=== PATIENT | male | born 1975 | race Two or more races ===

== ENCOUNTER 2016-12-26 15:43 | Emergency (ER) | payer MEDICARE ==
[~2016-12-26] VITALS: Ht 172.7 cm; Wt 82.6 kg
[2016-12-26 19:01] VITALS: BP 142/91
[2016-12-26] MEDS ORDERED: SODIUM CHLORIDE 0.9% 1,000 ML IV ONE (19:45)
[2016-12-26] MEDS ORDERED: InsuLIN REG 1unit/0.01ml Soln (100units/ml) ONE (19:49)
[2016-12-26] MEDS ORDERED: InsuLIN REG 1unit/0.01ml Soln (100units/ml) IV ONE (20:15)
[2016-12-26 20:31] LABS: Basophils # (auto) 0 uL; Basophils % (auto) 0.5 % (0.0-2.0); Eosinophils # (auto) 0.1 uL; Eosinophils % (auto) 1.3 % (0.0-7.0); Hematocrit 34.5 % (41.0-53.0); Hemoglobin 11.7 g/dL (13.5-17.5); Lymphocytes # (auto) 2.9 uL; Lymphocytes % (auto) 41.4 % (10.0-50.0); Mean Corpuscular Hemoglobin 31.1 pg (28.0-32.0); Mean Corpuscular Volume 91.4 fL (80.0-100.0); Mean Platelet Volume 9.9 fL (7.4-10.4); Monocytes # (auto) 0.2 uL; Monocytes % (auto) 2.2 % (0.0-12.0); Neutrophils # (auto) 3.8 uL; Neutrophils % (auto) 54.6 % (37.0-80.0); Platelet Count (auto) 214 10^3/uL (140-450); Red Cell Distribution Width 13.8 % (11.6-16.0)
[2016-12-26 20:43] LABS: Albumin 2.9 g/dL (3.4-5.0); BUN/Creatinine Ratio 19.4; Bilirubin, Total 0.2 mg/dL (0.2-1.0); Calcium 7.8 mg/dL (8.5-10.1); Potassium 3.8 mmol/L (3.5-5.1); Total Protein 6.1 g/dL (6.4-8.2)
[2016-12-26] MEDS ORDERED: BACITRACIN-POLYMYXIN B TOPICAL OINT UD TOP ONE ×3 (21:03→22:00)
[2016-12-26 23:29] LABS: Hepatitis B Surface Antibody Negative
== END 2016-12-26 22:12 | disposition home or self-care (01) ==
LOC: ER 15:43
DX: S70.351A Superficial foreign body, right thigh, initial encounter (principal); E11.9 Type 2 diabetes mellitus without complications; F17.210 Nicotine dependence, cigarettes, uncomplicated; F12.10 Cannabis abuse, uncomplicated; W34.010A Accidental discharge of airgun, initial encounter; Y93.89 Activity, other specified; Y99.8 Other external cause status; Y92.89 Other specified places as the place of occurrence of the external cause
CPT/HCPCS: 36415; 73552; 80053; 82962; 85025; 86703; 86706; 86803; 87340; 96361; 96374; 99285; J1815

== ENCOUNTER 2019-11-26 09:20 | Emergency (ER) | payer SELFPAY ==
[~2019-11-26] VITALS: Ht 172.7 cm; Wt 77.1 kg
[~2019-11-26 09:20] MED LIST: BACL10TA PO; GABA-339 PO; INSUINJ49 SC; METH10T PO; PERCOT PO
[2019-11-26 10:50] VITALS: BP 158/82
== END 2019-11-26 10:52 | disposition home or self-care (01) ==
LOC: ER 09:20
DX: S43.101A Unspecified dislocation of right acromioclavicular joint, initial encounter (principal); E11.9 Type 2 diabetes mellitus without complications; I10 Essential (primary) hypertension; K21.9 Gastro-esophageal reflux disease without esophagitis; M19.90 Unspecified osteoarthritis, unspecified site; F17.210 Nicotine dependence, cigarettes, uncomplicated; F12.10 Cannabis abuse, uncomplicated; W19.XXXA Unspecified fall, initial encounter; Y93.89 Activity, other specified; Y99.8 Other external cause status; Y92.89 Other specified places as the place of occurrence of the external cause
CPT/HCPCS: 73030

== ENCOUNTER 2020-01-07 22:48 | Inpatient (IN) | payer MEDICAID, MEDICARE ==
[~2020-01-07] VITALS: Ht 172.7 cm; Wt 84.0 kg
[2020-01-07] MEDS ORDERED: cloNIDine HCL 0.1 MG TAB PO ONE (23:30)
[2020-01-07 23:52] LABS: Basophils # (auto) 0.1 10 ^3/uL (0-0.2); Basophils % (auto) 0.9 % (0.0-2.0); Eosinophils # (auto) 0.3 10 ^3/uL (0-0.8); Hematocrit 26.6 % (41.0-53.0); Hemoglobin 8.8 g/dL (13.5-17.5); Lymphocytes # (auto) 2.1 10 ^3/uL (0.4-5.4); Lymphocytes % (auto) 21.2 % (10.0-50.0); Mean Corpuscular Hemoglobin 30.3 pg (28.0-32.0); Mean Corpuscular Hgb Conc. 33.2 g/dL (32.0-36.0); Mean Corpuscular Volume 91.5 fL (80.0-100.0); Monocytes # (auto) 0.7 10 ^3/uL (0-1.3); Monocytes % (auto) 7.1 % (0.0-12.0); Neutrophils # (auto) 6.6 10 ^3/uL (1.6-8.6); Neutrophils % (auto) 67.8 % (37.0-80.0); Platelet Count (auto) 274 10^3/uL (140-450); Red Blood Cells 2.91 10^6/uL (4.5-5.90); Red Cell Distribution Width 15.3 % (11.8-14.3); White Blood Cell 9.7 10^3/uL (4.4-10.8)
[2020-01-08] VITALS (7 sets, daily range): BP systolic 142–165; BP diastolic 78–108
[2020-01-08 00:08] LABS: INR 0.93 (0.9-1.15); Partial Thromboplastin Time 29.3 sec (23.64-32.05)
[2020-01-08 00:11] LABS: BUN/Creatinine Ratio 16.8; Calcium 6.8 mg/dL (8.5-10.1); Magnesium 1.9 mg/dL (1.6-2.6); Potassium 4.3 mmol/L (3.5-5.1)
[2020-01-08 00:16] LABS: Bilirubin, Total 0.2 mg/dL (0.2-1.0); Total Protein 6.2 g/dL (6.4-8.2)
[2020-01-08] MEDS ORDERED: FUROSEMIDE 20 MG/2 ML VIAL IV ONE (01:00)
[2020-01-08] MEDS ORDERED: ACETAMINOPHEN 325 MG TAB PO PRN (01:30)
[2020-01-08] MEDS ORDERED: DEXTROSE (50%) 50ML SYRG IV PRN ×2 (01:30→20:00)
[2020-01-08] MEDS ORDERED: ONDANSETRON HCL 4 MG/2 ML VIAL IV PRN (01:30)
[2020-01-08] MEDS ORDERED: DOCUSATE SOD 100 MG CAP PO PRN (01:30)
[2020-01-08] MEDS ORDERED: hydrALAZINE HCL 25 MG TAB PO PRN (01:30)
[2020-01-08] MEDS ORDERED: MORPHINE SULFATE 4 MG/ML SYR/VIAL IV PRN (01:30)
[2020-01-08] MEDS ORDERED: HYDR-531 PO (04:03)
[2020-01-08] MEDS ORDERED: INSLANTI SC (04:03)
[2020-01-08] MEDS: InsuLIN REG 1unit/0.01ml Soln (100units/ml) SC SCH ×5 (04:20→21:36)
[2020-01-08] MEDS: ACCU-CHEK COMFORT CURVE STRIP VI SCH ×5 (04:20→21:36)
[2020-01-08 05:26] LABS: Urine Bacteria NONE SEEN /hpf (None Seen); Urine Blood Negative /uL (Negative); Urine Hyaline Cast FEW /lpf (0 - 2); Urine Mucus FEW (None Seen); Urine Specific Gravity 1.005 (1.001-1.035); Urine WBC <1 /hpf (0 - 3)
[2020-01-08 05:43] LABS: Alcohol, Urine < 3.0 mg/dL (0-5); Amphetamine Screen, Urine NEGATIVE (NEGATIVE); Barbiturate Scree,Urine NEGATIVE (NEGATIVE); Benzodiazephine Screen, Urine NEGATIVE (NEGATIVE); Cannabinoid Screen, Urine POSITIVE (NEGATIVE); Cocaine Screen, Urine NEGATIVE (NEGATIVE); Opiate Scree,Urine NEGATIVE (NEGATIVE); Phencyclidine Screen, Urine NEGATIVE (NEGATIVE)
[2020-01-08] MEDS: GABAPENTIN 300 MG CAP PO SCH ×2 (05:50→15:14)
[2020-01-08] MEDS: OXYCODONE W/ ACETAMINOPHEN 5/325MG TABLET PO SCH ×3 (05:51→21:36)
[2020-01-08 06:01] LABS: Basophils # (auto) 0.1 10 ^3/uL (0-0.2); Basophils % (auto) 1.4 % (0.0-2.0); Eosinophils # (auto) 0.3 10 ^3/uL (0-0.8); Eosinophils % (auto) 3.1 % (0.0-7.0); Hematocrit 27.4 % (41.0-53.0); Hemoglobin 9.3 g/dL (13.5-17.5); Lymphocytes # (auto) 2.2 10 ^3/uL (0.4-5.4); Lymphocytes % (auto) 24.5 % (10.0-50.0); Mean Corpuscular Volume 91.2 fL (80.0-100.0); Monocytes # (auto) 0.5 10 ^3/uL (0-1.3); Monocytes % (auto) 5.9 % (0.0-12.0); Neutrophils # (auto) 5.8 10 ^3/uL (1.6-8.6); Neutrophils % (auto) 65.1 % (37.0-80.0); Platelet Count (auto) 287 10^3/uL (140-450); Red Cell Distribution Width 15.5 % (11.8-14.3); White Blood Cell 8.9 10^3/uL (4.4-10.8)
[2020-01-08 06:20] LABS: Potassium 3.8 mmol/L (3.5-5.1)
[2020-01-08 06:32] LABS: BUN/Creatinine Ratio 17.7; Calcium 6.8 mg/dL (8.5-10.1)
--- NOTE | 2020-01-08 08:00 | NUR ---
ASSUMED CARE OF PATIENT FULLY INDEPENDENT OF ADL'S. FSBS 99 70/30 GIVEN S SCHEDULED. TAKES IN 100% BREAKFAST. ECHO COMPLETED. SCHEDULED B/P MEDS GIVEN EARLY FOR B/P OUT OF RANGE.
[2020-01-08] MEDS: INSULIN 70/30 1unit/0.01ml Susp (100units/ml) SC SCH ×2 (08:14→12:00)
[2020-01-08] MEDS ORDERED: cloNIDine HCL 0.1 MG TAB PO SCH (10:00)
[2020-01-08] MEDS ORDERED: FUROSEMIDE 40 MG/4 ML VIAL IV SCH (10:00)
[2020-01-08] MEDS ORDERED: LOSARTAN POTASSIUM 50 MG TAB PO SCH (10:00)
[2020-01-08 11:06] LABS: Protein, Urine 134.4 mg/dL (0.0-11.9)
[2020-01-08 11:13] LABS: Creatinine, Urine 10.1 mg/dL (30.0-125.0)
[2020-01-08] MEDS ORDERED: FUROSEMIDE INJECTION 10 ML ONE (12:21)
[2020-01-08] MEDS ORDERED: FUROSEMIDE 100 MG/10ML VIAL IV ONE (12:30)
--- NOTE | 2020-01-08 13:57 | NUR ---
Received Social Work referral to see pt as he has a chronic illness. The illness makes it difficult for pt to move around, stand and walk. Pt states his , son and daughter assist when possible. Pt states that he was on SSI and then he was denied and at that point he has no income. Pt was told he could go back to work. Pt states there is no way he can work in the condition he is in. Pt states he will apply again. Pt does have Medei-C Addendum: 01/08/20 at 1406 by MIRYAM RO [facility]. Pt was provided with information on Advance Directives and Durable power of senior attorney Form. Pt verbalized understanding and accepted the information. Will contact Ppap Coordinator for any further concerns or issues. Addendum: 01/08/20 at 1411 by MIRYAM RO SS Amended: Links added.
[2020-01-08] MEDS ORDERED: BACL10TA PO (15:04)
[2020-01-08] MEDS ORDERED: INSU100I49 SC (15:04)
[2020-01-08] MEDS ORDERED: MORPHINE SULF INJ 2 MG/ML SYRINGE 1ML IV PRN ×2 (15:15→20:00)
[2020-01-08] MEDS: ATORVASTATIN 20 MG TAB PO SCH (18:00)
--- NOTE | 2020-01-08 19:20 | NUR ---
Opening Shift Note Assumed care of patient, awake and alert. No S/S of distress/SOB. Instructed on POC and to call for assist PRN. Bed in lowest locked position, call light within reach, side rails up x2. Will continue to monitor for changes Q1hr and PRN.
[2020-01-08] MEDS: hydrALAZINE HCL 25 MG TAB PO SCH (21:35)
[2020-01-08] MEDS: METOPROLOL TARTRATE 25 MG TAB PO SCH (21:35)
[2020-01-08] MEDS: INSULIN LANTUS (GLARGINE) 1 /0.01ml (100units/ml) SC SCH (21:42)
[2020-01-08] MEDS: hydrALAZINE HCL 20 MG/ML VL IV PRN (23:00)
--- NOTE | 2020-01-09 | NUR ---
Hospitalist paged director call center sales hospitalist called regarding patient requesting a sleeping pill. Waiting for call back. Continue care.
[2020-01-09] MEDS ORDERED: TEMAZEPAM 15 MG CAP PO PRN (00:30)
[2020-01-09] MEDS: hydrALAZINE HCL 20 MG/ML VL IV PRN ×2 (04:59→16:30)
[2020-01-09 05:00] VITALS: BP 168/79
[2020-01-09] MEDS ORDERED: FUROSEMIDE 100 MG/10ML VIAL IV SCH ×2 (06:00→10:00)
[2020-01-09 06:16] LABS: Hematocrit 28.4 % (41.0-53.0); Hemoglobin 9.3 g/dL (13.5-17.5)
[2020-01-09 06:40] LABS: BUN/Creatinine Ratio 17.4; Calcium 7.2 mg/dL (8.5-10.1); Magnesium 2.2 mg/dL (1.6-2.6); Potassium 3.8 mmol/L (3.5-5.1)
[2020-01-09] MEDS: ACCU-CHEK COMFORT CURVE STRIP VI SCH ×4 (06:49→21:40)
[2020-01-09] MEDS: OXYCODONE W/ ACETAMINOPHEN 5/325MG TABLET PO SCH ×2 (06:49→14:00)
[2020-01-09] MEDS: InsuLIN REG 1unit/0.01ml Soln (100units/ml) SC SCH ×4 (06:50→21:41)
--- NOTE | 2020-01-09 08:04 | NUR ---
MADE NPO PER US REQUEST FOR STUDY.
[2020-01-09 08:39] LABS: % Iron Saturation 12.7 % (20-55)
[2020-01-09 09:10] VITALS: BP 149/78
[2020-01-09] MEDS ORDERED: PANTOPRAZOLE 40 MG TAB PO SCH (10:00)
[2020-01-09] MEDS ORDERED: ENOXAPARIN SOD 30 MG/0.3 ML SYRINGE SC SCH (10:00)
[2020-01-09] MEDS: METOPROLOL TARTRATE 25 MG TAB PO SCH (11:00)
[2020-01-09] MEDS: hydrALAZINE HCL 25 MG TAB PO SCH ×2 (11:00→21:39)
--- NOTE | 2020-01-09 11:00 | NUR ---
PT PRESENTS TO [facility] STATION TIMES 2 REQUESTING TO EAT. EMOTIONALLY IMMATURE RESPONSES TO NPO STATUS. DISPLAYS POOR IMPULSE CONTROL. RESPONDED BY SITTING IN A CHAIR AT BEDSIDE AND ASKED FOR HIM TO EXPRESS HIS CONCERNS. TEACHING RE EF%, HEART FUNCTION, PURPOSE OF NEW MEDICATIONS, IMPORTANCE OF CONTROLLING BLOOD SUGARS AND B/P. HOSPITALIST ROUNDS ALSO TEACHES IMPORTANCE OF F/U CARE AND EXPLAINS POOR KIDNEY FUNCTION. PT REPORTS HE IS FEELING MUCH BETTER AND WISHES TO DC HOME TOMORROW.
--- NOTE | 2020-01-09 13:20 | NUR ---
US STUDY COMPLETED. EATS LUNCH. INSULIN COVERAGE DELAYED HE WAS OFF THE FLOOR WITH RADIOLOGY.
[2020-01-09] MEDS: CALCIUM ACETATE 667 MG CAP PO SCH ×2 (13:28→18:10)
[2020-01-09 16:28] VITALS: BP 177/88
[2020-01-09] MEDS ORDERED: HYDR-4833 PO (16:38)
[2020-01-09] MEDS ORDERED: METH10T PO ×2 (16:52→17:20)
--- NOTE | 2020-01-09 17:03 | NUR ---
B/P 177/88 COVERED WITH PRN APRESSOLINE IV. PRESENTS TO [facility] [place] STATION OFTEN FOR VARIETY OF REASONS. QUESTIONS IF HE HAS BEEN GETTING METHONE. WHEN HE REALIZES HE HAS NOT BEEN RECIEVING IT HE IS UPSET AND REQUESTS TO BE DC HOME NOW WITH PRESCRIPTIONS. DR. WHITE CONTACTED. SHE WILL NOT WRITE PRESCRIPTIONS TONIGHT. STATES IF HOME MEDS CONFIRMED WITH DISPENSING PHARMACY SHE WILL ALLOW THEM TO BE CONTINUED DURING IN PATIENT. PT GIVES PHARMACY INFO. JOSUE AT [phone] CONTACTED. SPOKE WITH MIRYAM. SHE CONFIRMS PRESCRIPTION FILLED FOR BOTH METHADONE AND NORCO LISTED ON HOME MED LIST. PT AGREES TO STAY.
[2020-01-09] MEDS ORDERED: HYDR-531 PO (17:20)
[2020-01-09] MEDS: HYDROcodone-ACET 10/325MG TAB PO SCH (18:00)
[2020-01-09] MEDS: METHADONE HCL 10 MG TAB PO SCH (18:00)
[2020-01-09] MEDS: ATORVASTATIN 20 MG TAB PO SCH (18:09)
[2020-01-09] MEDS: INSULIN LANTUS (GLARGINE) 1 /0.01ml (100units/ml) SC SCH (21:40)
[2020-01-09] MEDS ORDERED: METOPROLOL TARTRATE 25 MG TAB PO SCH (22:00)
[2020-01-09 22:24] VITALS: BP 164/89
[2020-01-10] MEDS: HYDROcodone-ACET 10/325MG TAB PO SCH ×3 (00:08→11:19)
[2020-01-10 04:50] VITALS: BP 151/88
[2020-01-10 06:29] LABS: Potassium 3.8 mmol/L (3.5-5.1)
[2020-01-10 06:34] LABS: BUN/Creatinine Ratio 15.3; Calcium 7.4 mg/dL (8.5-10.1)
[2020-01-10] MEDS: ACCU-CHEK COMFORT CURVE STRIP VI SCH ×2 (06:44→11:18)
[2020-01-10] MEDS: METHADONE HCL 10 MG TAB PO SCH ×2 (06:44→14:00)
[2020-01-10] MEDS: InsuLIN REG 1unit/0.01ml Soln (100units/ml) SC SCH ×2 (06:44→11:42)
[2020-01-10] MEDS: CALCIUM ACETATE 667 MG CAP PO SCH ×2 (08:00→11:18)
[2020-01-10 09:00] VITALS: BP 134/73
[2020-01-10] MEDS: hydrALAZINE HCL 25 MG TAB PO SCH (09:29)
[2020-01-10] MEDS ORDERED: METOPROLOL TARTRATE 50 MG TAB PO SCH (10:00)
--- NOTE | 2020-01-10 10:15 | NUR ---
MD GRANDA AT BED SIDE DISCUSSING POC WITH PATIENT.PATIENT VERBALIZES UNDERSTANDING.
[2020-01-10] MEDS ORDERED: FURO1TAB31 PO (11:02)
[2020-01-10] MEDS ORDERED: CALC667C5 PO (11:02)
[2020-01-10] MEDS ORDERED: METO-5 PO (11:02)
[2020-01-10] MEDS ORDERED: ATO40T PO (11:02)
[2020-01-10] MEDS ORDERED: HYDR50TA15 PO (11:02)
[2020-01-10] MEDS ORDERED: CHOL500021 PO (11:03)
[2020-01-10 11:45] VITALS: BP 125/60
[2020-01-10] MEDS: hydrALAZINE HCL 20 MG/ML VL IV PRN (12:29)
--- NOTE | 2020-01-10 14:35 | NUR ---
Discharge instructions given as ordered. Encourage to follow up with PMD as instructed. All questions and concerns addressed. Patient verbalized understanding. Medication reconciliation form completed and copy given to patient. IV removed with catheter intact, pressure dressing applied. Telemetry unit returned to ICU. Patient taken to vehicle via wheelchair with all personal belongings, accompanied by staff. No distress noted at time of departure.
== END 2020-01-10 14:35 | disposition home or self-care (01) | DRG 194 ==
LOC: ER 22:48 → TELE 22:49 → TELE-CENTR 01-08 02:45
PROVIDERS: ADMIT Hospitalist; ATTEND Internal Medicine
DX: I13.0 Hypertensive heart and chronic kidney disease with heart failure and stage 1 through stage 4 chronic kidney disease, or unspecified chronic kidney disease (principal); N17.0 Acute kidney failure with tubular necrosis; E11.22 Type 2 diabetes mellitus with diabetic chronic kidney disease; I08.1 Rheumatic disorders of both mitral and tricuspid valves; E83.39 Other disorders of phosphorus metabolism; E11.65 Type 2 diabetes mellitus with hyperglycemia; C92.11 Chronic myeloid leukemia, BCR/ABL-positive, in remission; K21.9 Gastro-esophageal reflux disease without esophagitis; I16.0 Hypertensive urgency; N18.9 Chronic kidney disease, unspecified; E78.5 Hyperlipidemia, unspecified; D63.1 Anemia in chronic kidney disease; G89.4 Chronic pain syndrome; Z96.643 Presence of artificial hip joint, bilateral; N26.1 Atrophy of kidney (terminal); I50.33 Acute on chronic diastolic (congestive) heart failure; F12.90 Cannabis use, unspecified, uncomplicated; I25.10 Atherosclerotic heart disease of native coronary artery without angina pectoris; Z79.4 Long term (current) use of insulin; Z91.14 Patient's other noncompliance with medication regimen; Z91.19 Patient's noncompliance with other medical treatment and regimen; Z82.3 Family history of stroke; Z82.49 Family history of ischemic heart disease and other diseases of the circulatory system; Z83.3 Family history of diabetes mellitus; Z79.899 Other long term (current) drug therapy
CPT/HCPCS: 36415; 71045; 76775; 78582; 80048; 80053; 80061; 80307; 81001; 82306; 82533; 82570; 82962; 83036; 83540; 83550; 83735; 83880; 83970; 84100; 84156; 84300; 84443; 84484; 85014; 85018; 85025; 85379; 85610; 85730; 87081; 93005; 93306; 93970; 93975; 96374; G0378; J1815

== ENCOUNTER 2020-01-12 05:21 | Inpatient (IN) | payer MEDICAID ==
[~2020-01-12] VITALS: Ht 172.7 cm; Wt 76.9 kg
[~2020-01-12 05:21] MED LIST changes: +ATO40T PO; +CALC667C5 PO; +CHOL500021 PO; +FURO1TAB31 PO; +HYDR-531 PO; +HYDR50TA15 PO; +INSLANTI SC; +INSU100I49 SC; -INSUINJ49 SC; +METO-5 PO; -PERCOT PO
[2020-01-12] MEDS ORDERED: FUROSEMIDE 40 MG/4 ML VIAL IV ONE (06:45)
[2020-01-12 07:04] LABS: Basophils # (auto) 0.1 10 ^3/uL (0-0.2); Basophils % (auto) 0.8 % (0.0-2.0); Eosinophils # (auto) 0.1 10 ^3/uL (0-0.8); Eosinophils % (auto) 0.9 % (0.0-7.0); Hemoglobin 8.5 g/dL (13.5-17.5); Lymphocytes # (auto) 1.5 10 ^3/uL (0.4-5.4); Lymphocytes % (auto) 13.2 % (10.0-50.0); Mean Corpuscular Hemoglobin 29.9 pg (28.0-32.0); Mean Corpuscular Hgb Conc. 32.9 g/dL (32.0-36.0); Mean Corpuscular Volume 90.8 fL (80.0-100.0); Monocytes # (auto) 0.7 10 ^3/uL (0-1.3); Monocytes % (auto) 5.8 % (0.0-12.0); Neutrophils # (auto) 9.2 10 ^3/uL (1.6-8.6); Neutrophils % (auto) 79.3 % (37.0-80.0); Platelet Count (auto) 324 10^3/uL (140-450); Red Blood Cells 2.86 10^6/uL (4.5-5.90); Red Cell Distribution Width 15.2 % (11.8-14.3); White Blood Cell 11.6 10^3/uL (4.4-10.8)
[2020-01-12 07:26] LABS: BUN/Creatinine Ratio 15.1; Calcium 6.9 mg/dL (8.5-10.1); Magnesium 2.2 mg/dL (1.6-2.6); Potassium 5.1 mmol/L (3.5-5.1)
[2020-01-12 07:33] LABS: Bilirubin, Total 0.2 mg/dL (0.2-1.0); Total Protein 6.3 g/dL (6.4-8.2)
[2020-01-12 07:49] LABS: INR 0.99 (0.9-1.15); Partial Thromboplastin Time 31.8 sec (23.64-32.05)
[2020-01-12 08:32] LABS: Urine Bacteria NONE SEEN /hpf (None Seen); Urine Blood 1+ /uL (Negative); Urine Specific Gravity 1.006 (1.001-1.035); Urine WBC 1 /hpf (0 - 3)
[2020-01-12 08:51] LABS: Alcohol, Urine < 3.0 mg/dL (0-5); Amphetamine Screen, Urine NEGATIVE (NEGATIVE); Barbiturate Scree,Urine NEGATIVE (NEGATIVE); Benzodiazephine Screen, Urine NEGATIVE (NEGATIVE); Cannabinoid Screen, Urine POSITIVE (NEGATIVE); Cocaine Screen, Urine NEGATIVE (NEGATIVE); Phencyclidine Screen, Urine NEGATIVE (NEGATIVE)
[2020-01-12 08:58] LABS: Opiate Scree,Urine NEGATIVE (NEGATIVE)
[2020-01-12] MEDS ORDERED: FERROUS SULFATE 325 MG TAB PO ONE (09:00)
[2020-01-12] MEDS ORDERED: AZITHROMYCIN 500MG/ 250ML 250 ML IV ONE (09:00)
[2020-01-12] MEDS ORDERED: cefTRIAXone 1GM/50ML D5W 50 ML IV ONE (09:00)
[2020-01-12] MEDS ORDERED: ACETAMINOPHEN 500 MG TAB PO PRN (09:45)
[2020-01-12] MEDS ORDERED: LACTULOSE 20Gm/30ML SOLN PO PRN (09:45)
[2020-01-12] MEDS ORDERED: ALBUTEROL SULF 2.5 MG/0.5ML(0.5%) NEB SOLN NEB PRN (09:45)
[2020-01-12] MEDS ORDERED: MORPHINE SULF INJ 2 MG/ML SYRINGE 1ML IV PRN ×2 (09:45)
[2020-01-12] MEDS ORDERED: NITROGLYCERIN 0.4 MG SL TAB SL PRN (09:45)
[2020-01-12] MEDS ORDERED: DEXTROSE (50%) 50ML SYRG IV PRN (09:45)
[2020-01-12] MEDS ORDERED: levoFLOXacin 500MG 100 ML IV ONE (09:45)
[2020-01-12 10:00] VITALS: BP 176/90
[2020-01-12] MEDS: ENOXAPARIN SOD 30 MG/0.3 ML SYRINGE SC SCH (10:00)
[2020-01-12] MEDS ORDERED: FUROSEMIDE 100 MG/10ML VIAL IV SCH (10:00)
[2020-01-12] MEDS: NITROGLYCERIN 0.2MG/HR TOPICAL PATCH TD SCH (10:00)
[2020-01-12] MEDS ORDERED: LEVOTHYROXINE SODIUM 25 MCG TAB PO ONE (10:00)
--- NOTE | 2020-01-12 10:00 | NUR ---
Respiratory note: PT IS ALERT, AND ORIENTED. NO RESPIRATORY DISTRESS NOTED. SPO2 99% ON 2 L NC, HR 71, RR 20, BS CLEAR/DIMINISHED BILATERALLY. PRN MEDNEB TX NOT INDICATED AT THIS TIME. PT WAS INFORMED TO PUSH CALL BUTTON IF INCREASED WOB, SOB, OR WHEEZING OCCURS. LAB TECHS AT BEDSIDE.
--- NOTE | 2020-01-12 10:20 | NUR ---
Telemetry admit from OSEI MCKEON JR admitted to Telemetry unit after SBAR received. Patient oriented to ADITYA JOHNSON,primary RN, unit, room, bed, and unit policies regarding patient care and visiting hours. Patient now on continuous telemetry monitoring, tele box #36 and telemetry reading on arrival to unit is sinus rhythm 86bpm. Patient placed on bedside oxygen at 2L and saturating at 99%, weighed by bedscale and encouraged to call if they need something. All questions and concerns addressed, patient verbalized understanding.
[2020-01-12] MEDS: GABAPENTIN 400 MG CAP PO SCH (11:28)
[2020-01-12] MEDS: FAMOTIDINE 20 MG TAB PO SCH (11:28)
[2020-01-12] MEDS: hydrALAZINE HCL 25 MG TAB PO SCH ×2 (11:29→22:20)
[2020-01-12] MEDS: METOPROLOL TARTRATE 50 MG TAB PO SCH ×2 (11:30→22:20)
[2020-01-12] MEDS: InsuLIN REG 1unit/0.01ml Soln (100units/ml) SC SCH ×3 (11:30→22:22)
[2020-01-12] MEDS: ASPirin 81 mg TAB PO SCH (11:31)
[2020-01-12] MEDS: ACCU-CHEK COMFORT CURVE STRIP VI SCH ×3 (11:32→22:21)
[2020-01-12] MEDS: BACLOFEN 10 MG TAB PO SCH ×2 (11:39→17:44)
[2020-01-12] MEDS: CALCIUM ACETATE 667 MG CAP PO SCH ×2 (11:39→17:43)
[2020-01-12] MEDS: HYDROcodone-ACET 10/325MG TAB PO SCH ×2 (11:40→17:44)
[2020-01-12] MEDS: ENALAPRIL MALEATE 2.5 MG TAB PO SCH (11:43)
[2020-01-12 12:15] VITALS: BP 154/78
[2020-01-12 13:00] VITALS: BP 160/89
[2020-01-12] MEDS: CLINDAMYCIN 600MG IV 50 ML IV SCH ×2 (14:26→22:19)
[2020-01-12] MEDS: SODIUM CHLOR 0.9% PF (SALINE LOCK) 10ML VIAL/SYR IV SCH ×2 (14:26→22:21)
[2020-01-12] MEDS: METHADONE HCL 10 MG TAB PO SCH ×2 (14:26→22:20)
--- NOTE | 2020-01-12 15:02 | NUR ---
PHARMACY HOLD ON ASPART INSULIN NEED TO CLARIFY WITH MD IF PATIENT NEEDS TO BE ON BOTH ASPART INSULIN TIDWM AND MILD SCALE ACHS. DR CRUZ PAGED FOR CLARIFICATION.
--- NOTE | 2020-01-12 16:15 | NUR ---
c/o sob, Patient assessed, oxygen saturation at 100% on 2L NC. RT paged for PRN breathing treatment Will continue to closely monitor
[2020-01-12 17:00] VITALS: BP 150/83
--- NOTE | 2020-01-12 17:00 | NUR ---
PER DR NANCY SULTANA TO BE ON BOTH ASPART TIDWM AND ACHS MILD SCALE. WILL NOTIFY PHARMACIST
[2020-01-12] MEDS: FUROSEMIDE 100 MG/10ML VIAL IV SCH (17:43)
--- NOTE | 2020-01-12 18:31 | NUR ---
PER PHARMACIST THEY DONT CARRY ASPART INSULIN. PATIENT NEEDS TO BRING OWN MEDICATION FOR DISPENSION. PATIENT AWARE. PATIENT VERBALIZES HE IS NOT SURE WHAT INSULIN HE TAKES AT HOME. WILL TRY FOR TO BRING IN AM.
--- NOTE | 2020-01-12 20:20 | NUR ---
Respiratory note: PT ASSESSED FOR PRN MED NEB TX. HR 77, RR 18, SPO2 96% ON 2L NC. NO SIGNS OF ANY RESPIRATORY DISTRESS NOTED. ADVISED PT TO CALL IF NEEDED.
[2020-01-12 22:10] VITALS: BP 162/83
[2020-01-12] MEDS: ATORVASTATIN 20 MG TAB PO SCH (22:19)
[2020-01-12] MEDS: INSULIN LANTUS (GLARGINE) 1 /0.01ml (100units/ml) SC SCH (22:21)
[2020-01-13] VITALS (7 sets, daily range): BP systolic 141–182; BP diastolic 79–96
--- NOTE | 2020-01-13 01:34 | NUR ---
RECEIVED POSITIVE BLOOD CULTURE RESULT FOR GRAM NEGATIVE RODS.
[2020-01-13] MEDS ORDERED: hydrALAZINE HCL 25 MG TAB PO PRN (04:45)
[2020-01-13] MEDS: hydrALAZINE HCL 25 MG TAB PO SCH ×3 (05:19→21:45)
[2020-01-13 06:00] LABS: Basophils # (auto) 0.1 10 ^3/uL (0-0.2); Basophils % (auto) 1.4 % (0.0-2.0); Eosinophils # (auto) 0.2 10 ^3/uL (0-0.8); Eosinophils % (auto) 2.3 % (0.0-7.0); Hematocrit 27.3 % (41.0-53.0); Hemoglobin 9.3 g/dL (13.5-17.5); Lymphocytes # (auto) 2.1 10 ^3/uL (0.4-5.4); Lymphocytes % (auto) 21.9 % (10.0-50.0); Mean Corpuscular Hemoglobin 30.4 pg (28.0-32.0); Mean Corpuscular Volume 89.3 fL (80.0-100.0); Monocytes # (auto) 0.7 10 ^3/uL (0-1.3); Monocytes % (auto) 7.6 % (0.0-12.0); Neutrophils # (auto) 6.5 10 ^3/uL (1.6-8.6); Neutrophils % (auto) 66.8 % (37.0-80.0); Platelet Count (auto) 347 10^3/uL (140-450); Red Blood Cells 3.05 10^6/uL (4.5-5.90); Red Cell Distribution Width 15.1 % (11.8-14.3); White Blood Cell 9.8 10^3/uL (4.4-10.8)
[2020-01-13] MEDS: BACLOFEN 10 MG TAB PO SCH ×4 (06:15→18:17)
[2020-01-13] MEDS: CLINDAMYCIN 600MG IV 50 ML IV SCH ×3 (06:15→21:45)
[2020-01-13] MEDS: FUROSEMIDE 100 MG/10ML VIAL IV SCH ×2 (06:15→18:15)
[2020-01-13] MEDS: SODIUM CHLOR 0.9% PF (SALINE LOCK) 10ML VIAL/SYR IV SCH ×3 (06:15→21:45)
[2020-01-13] MEDS: METHADONE HCL 10 MG TAB PO SCH ×3 (06:16→21:44)
[2020-01-13] MEDS: HYDROcodone-ACET 10/325MG TAB PO SCH ×4 (06:16→18:16)
[2020-01-13 06:19] LABS: Calcium 6.9 mg/dL (8.5-10.1)
[2020-01-13 06:24] LABS: Albumin 1.9 g/dL (3.4-5.0); BUN/Creatinine Ratio 15.8; Bilirubin, Total 0.2 mg/dL (0.2-1.0); Total Protein 6.5 g/dL (6.4-8.2)
[2020-01-13] MEDS: ACCU-CHEK COMFORT CURVE STRIP VI SCH ×4 (07:06→22:12)
[2020-01-13] MEDS: LEVOTHYROXINE SODIUM 25 MCG TAB PO SCH (07:06)
[2020-01-13] MEDS: InsuLIN REG 1unit/0.01ml Soln (100units/ml) SC SCH ×4 (07:08→22:11)
[2020-01-13] MEDS: CALCIUM ACETATE 667 MG CAP PO SCH ×3 (08:42→18:15)
[2020-01-13] MEDS: ASPirin 81 mg TAB PO SCH (08:43)
[2020-01-13] MEDS: ENALAPRIL MALEATE 2.5 MG TAB PO SCH (08:44)
[2020-01-13] MEDS: METOPROLOL TARTRATE 50 MG TAB PO SCH ×2 (08:44→21:44)
[2020-01-13] MEDS: GABAPENTIN 400 MG CAP PO SCH (08:45)
[2020-01-13] MEDS: FAMOTIDINE 20 MG TAB PO SCH (08:45)
[2020-01-13] MEDS: ENOXAPARIN SOD 30 MG/0.3 ML SYRINGE SC SCH (08:46)
[2020-01-13] MEDS: levoFLOXacin 250MG 50 ML IV SCH (09:08)
[2020-01-13] MEDS: NITROGLYCERIN 0.2MG/HR TOPICAL PATCH TD SCH (09:08)
[2020-01-13] MEDS ORDERED: cloNIDine HCL 0.1 MG TAB PO PRN (10:00)
[2020-01-13] MEDS ORDERED: SPIRONOLACTONE 25 MG TAB PO ONE (10:15)
[2020-01-13 10:29] LABS: Free T3 2.43 pg/mL (2.3-4.2); Free T4 (Free Thyroxine) 1.03 ng/dL (0.89-1.76)
[2020-01-13] MEDS ORDERED: GASTROGRAFIN 120 ML SOL ONE ×2 (10:39→10:47)
--- NOTE | 2020-01-13 10:45 | NUR ---
Patient taken down for procedure by clinical lab technologist
--- NOTE | 2020-01-13 11:52 | NUR ---
Patient back from procedure/xray series.
[2020-01-13] MEDS: Glucerna Carbsteady SHAKE Vanilla 8oz PO SCH ×2 (12:00→18:18)
[2020-01-13] MEDS: amLODIPine BESYLATE 5 MG TAB PO SCH (12:42)
--- NOTE | 2020-01-13 15:20 | NUR ---
PATIENT BLOOD PRESSURE REASSESSED AFTER MEDICATION 148/79.
[2020-01-13] MEDS: SPIRONOLACTONE 25 MG TAB PO SCH (18:16)
--- NOTE | 2020-01-13 19:55 | NUR ---
Respiratory note: ASSESSED PT FOR PRN TX PT WAS AWAKE AND ALERT, NO RESP DISTRESS NOTED. HR 88, RR 16, SPO2 96% ON 2L N/C. BS ARE CLEAR, NO INDICATION FOR TX AT THIS TIME. PATIENT KNOWS TO HAVE RT PAGED IF TX IS NEEDED.
[2020-01-13] MEDS: ATORVASTATIN 20 MG TAB PO SCH (21:44)
[2020-01-13] MEDS: INSULIN LANTUS (GLARGINE) 1 /0.01ml (100units/ml) SC SCH (22:11)
[2020-01-14] MEDS: BACLOFEN 10 MG TAB PO SCH ×5 (00:18→23:30)
[2020-01-14] MEDS: HYDROcodone-ACET 10/325MG TAB PO SCH ×5 (00:18→23:31)
--- NOTE | 2020-01-14 00:30 | NUR ---
PATIENT VOMITED 220ML OF PARTIALLY DIGESTED FOOD. WILL MEDICATE APPROPRIATELY.
[2020-01-14] MEDS: PROMETHAZINE HCL 25 MG/ML 1ML IV PRN (00:32)
[2020-01-14 05:00] VITALS: BP 127/69
[2020-01-14 05:05] LABS: Basophils # (auto) 0.2 10 ^3/uL (0-0.2); Basophils % (auto) 1.1 % (0.0-2.0); Eosinophils # (auto) 0.2 10 ^3/uL (0-0.8); Eosinophils % (auto) 1.3 % (0.0-7.0); Hematocrit 27.6 % (41.0-53.0); Hemoglobin 8.9 g/dL (13.5-17.5); Lymphocytes # (auto) 2.9 10 ^3/uL (0.4-5.4); Lymphocytes % (auto) 20.5 % (10.0-50.0); Mean Corpuscular Hemoglobin 28.9 pg (28.0-32.0); Mean Corpuscular Hgb Conc. 32.4 g/dL (32.0-36.0); Mean Corpuscular Volume 89.4 fL (80.0-100.0); Monocytes % (auto) 7.2 % (0.0-12.0); Neutrophils % (auto) 69.9 % (37.0-80.0); Nucleated Red Blood Cells % 0.1 %; Platelet Count (auto) 403 10^3/uL (140-450); Red Blood Cells 3.08 10^6/uL (4.5-5.90); Red Cell Distribution Width 14.9 % (11.8-14.3); White Blood Cell 14.3 10^3/uL (4.4-10.8)
[2020-01-14 05:22] LABS: Potassium 4.1 mmol/L (3.5-5.1)
[2020-01-14] MEDS: CLINDAMYCIN 600MG IV 50 ML IV SCH (05:49)
[2020-01-14] MEDS: FUROSEMIDE 100 MG/10ML VIAL IV SCH ×2 (05:49→17:29)
[2020-01-14] MEDS: SODIUM CHLOR 0.9% PF (SALINE LOCK) 10ML VIAL/SYR IV SCH ×3 (05:49→21:42)
[2020-01-14] MEDS: hydrALAZINE HCL 25 MG TAB PO SCH ×3 (05:50→21:46)
[2020-01-14] MEDS: SPIRONOLACTONE 25 MG TAB PO SCH (05:51)
[2020-01-14] MEDS: METHADONE HCL 10 MG TAB PO SCH ×3 (05:51→21:30)
--- NOTE | 2020-01-14 06:51 | NUR ---
Patient given apple juice due to slightly decreased sugar of 64. Will endorse to day shift for recheck.
[2020-01-14] MEDS: LEVOTHYROXINE SODIUM 25 MCG TAB PO SCH (06:52)
[2020-01-14] MEDS: InsuLIN REG 1unit/0.01ml Soln (100units/ml) SC SCH ×4 (07:00→21:43)
[2020-01-14] MEDS: ACCU-CHEK COMFORT CURVE STRIP VI SCH ×4 (07:00→21:31)
--- NOTE | 2020-01-14 08:05 | NUR ---
Respiratory note: PT IS AWAKE, AND ALERT. NO RESPIRATORY DISTRESS NOTED. SPO2 95% ON RA, HR 64, RR 16, BS CLEAR BILATERALLY. PRN MEDNEB TX NOT INDICATED AT THIS TIME. PT INFORMED TO PUSH CALL BUTTON IF INCREASED WOB, SOB, OR WHEEZING OCCURS.
[2020-01-14] MEDS: CALCIUM ACETATE 667 MG CAP PO SCH ×3 (08:12→17:27)
[2020-01-14] MEDS: levoFLOXacin 250MG 50 ML IV SCH (08:12)
[2020-01-14] MEDS: ASPirin 81 mg TAB PO SCH (08:12)
[2020-01-14] MEDS: FAMOTIDINE 20 MG TAB PO SCH (08:13)
[2020-01-14] MEDS: amLODIPine BESYLATE 5 MG TAB PO SCH (08:13)
[2020-01-14] MEDS: METOPROLOL TARTRATE 50 MG TAB PO SCH ×2 (08:14→21:42)
[2020-01-14] MEDS: Glucerna Carbsteady SHAKE Vanilla 8oz PO SCH ×3 (08:14→17:36)
[2020-01-14] MEDS: ENOXAPARIN SOD 30 MG/0.3 ML SYRINGE SC SCH (08:14)
[2020-01-14 09:00] VITALS: BP 145/79
[2020-01-14] MEDS ORDERED: GABAPENTIN 300 MG CAP PO SCH (10:00)
[2020-01-14] MEDS: NITROGLYCERIN 0.2MG/HR TOPICAL PATCH TD SCH (10:00)
[2020-01-14] MEDS ORDERED: FUROSEMIDE 100 MG/10ML VIAL IV SCH (11:00)
[2020-01-14 12:43] VITALS: BP 146/69
--- NOTE | 2020-01-14 12:49 | NUR ---
Received phone call from kristel with ultrasound per Kristel patient had ultrasound of kidneys on 01/08/20 and renal arteries on 01/09/20. Spoke with doctor aSul per saul cancel ultrasound.
[2020-01-14] MEDS ORDERED: cefTRIAXone 1GM/50ML D5W 50 ML IV ONE (16:15)
[2020-01-14] MEDS ORDERED: AZITHROMYCIN 250 MG TAB PO ONE (16:15)
[2020-01-14 17:00] VITALS: BP 145/92
[2020-01-14 18:19] LABS: Urine Bacteria NONE SEEN /hpf (None Seen); Urine Blood TRACE /uL (Negative); Urine Specific Gravity 1.007 (1.001-1.035); Urine WBC <1 /hpf (0 - 3)
[2020-01-14 18:32] LABS: Protein, Urine 219.7 mg/dL (0.0-11.9)
--- NOTE | 2020-01-14 20:00 | NUR ---
Opening Shift Note Assumed care of patient, awake and alert. No S/S of distress/SOB or pain. Instructed on POC and to call for assist PRN, will continue to monitor for changes Q1hr and PRN.
[2020-01-14] MEDS: ATORVASTATIN 20 MG TAB PO SCH (21:42)
[2020-01-14] MEDS: INSULIN LANTUS (GLARGINE) 1 /0.01ml (100units/ml) SC SCH (21:43)
[2020-01-14 22:02] VITALS: BP 160/79
[2020-01-14] MEDS: MORPHINE SULF INJ 2 MG/ML SYRINGE 1ML IV PRN (22:10)
--- NOTE | 2020-01-14 22:23 | NUR ---
Respiratory note: PT SEEN AND ASSESSED FOR PRN MED NEB TX AT 2223. TX NOT INDICATED AT THIS TIME. PT DISPLAYING NO SIGNS OF DISTRESS. HR 82 RR 18 SP02 98% ON ROOM AIR. PT AWARE TO CALL FOR RT IF ANY DISTRESS OCCURS.
[2020-01-15] VITALS (8 sets, daily range): BP systolic 121–162; BP diastolic 58–95
[2020-01-15] MEDS: FUROSEMIDE 100 MG/10ML VIAL IV SCH (05:11)
[2020-01-15] MEDS: BACLOFEN 10 MG TAB PO SCH ×2 (05:11→12:04)
[2020-01-15] MEDS: LEVOTHYROXINE SODIUM 25 MCG TAB PO SCH (05:11)
[2020-01-15] MEDS: hydrALAZINE HCL 25 MG TAB PO SCH ×3 (05:12→22:06)
[2020-01-15] MEDS: METHADONE HCL 10 MG TAB PO SCH ×3 (05:12→22:07)
[2020-01-15] MEDS: HYDROcodone-ACET 10/325MG TAB PO SCH ×3 (05:13→17:55)
[2020-01-15 05:57] LABS: Basophils # (auto) 0.2 10 ^3/uL (0-0.2); Basophils % (auto) 1.2 % (0.0-2.0); Eosinophils # (auto) 0.2 10 ^3/uL (0-0.8); Eosinophils % (auto) 1.6 % (0.0-7.0); Hemoglobin 9.4 g/dL (13.5-17.5); Lymphocytes # (auto) 2.9 10 ^3/uL (0.4-5.4); Monocytes # (auto) 1.2 10 ^3/uL (0-1.3)
[2020-01-15 06:00] LABS: Lymphocytes % (auto) 22.1 % (10.0-50.0); Mean Corpuscular Hemoglobin 30.1 pg (28.0-32.0); Mean Corpuscular Hgb Conc. 33.4 g/dL (32.0-36.0); Mean Corpuscular Volume 90.1 fL (80.0-100.0); Monocytes % (auto) 8.9 % (0.0-12.0); Neutrophils # (auto) 8.7 10 ^3/uL (1.6-8.6); Neutrophils % (auto) 66.2 % (37.0-80.0); Platelet Count (auto) 461 10^3/uL (140-450); Red Blood Cells 3.11 10^6/uL (4.5-5.90); Red Cell Distribution Width 15.4 % (11.8-14.3); White Blood Cell 13.2 10^3/uL (4.4-10.8)
[2020-01-15] MEDS: SODIUM CHLOR 0.9% PF (SALINE LOCK) 10ML VIAL/SYR IV SCH ×3 (06:06→22:09)
--- NOTE | 2020-01-15 06:10 | NUR ---
Respiratory note: ASSESSED PT FOR PRN TX , PT WAS AWAKE AND ALERT, NO RESP DISTRESS NOTED. HR 76, RR 16, SPO2 98% ON ROOM AIR. BS ARE CLEAR, NO INDICATION FOR TX AT THIS TIME. PT KNOWS TO HAVE RT PAGED OF TX IS NEEDED.
[2020-01-15] MEDS: InsuLIN REG 1unit/0.01ml Soln (100units/ml) SC SCH ×4 (06:15→22:08)
[2020-01-15] MEDS: ACCU-CHEK COMFORT CURVE STRIP VI SCH ×4 (06:16→22:09)
[2020-01-15 06:19] LABS: Potassium 4.4 mmol/L (3.5-5.1)
[2020-01-15 06:26] LABS: Calcium 6.9 mg/dL (8.5-10.1); Magnesium 2.3 mg/dL (1.6-2.6); Phosphorus 5.6 mg/dL (2.5-4.90); Uric Acid 9.2 mg/dL (3.5-7.2)
--- NOTE | 2020-01-15 07:14 | NUR ---
Report given to Hal Wang, patient is resting no respiratory distress.
--- NOTE | 2020-01-15 08:00 | NUR ---
OPENING SHIFT NOTE: PATIENT IN BATHROOM. AMBULATED TO BED WITH STEADY GAIT. A/OX4 UPDATED ON PLAN OF CARE. PATIENT VERBALIZED UNDERSTANDING. RESPIRATIONS EVEN AND UNLABORED. FALL PRECAUTIONS IN PLACE. CALL LIGHT WITHIN REACH, WILL CONTINUE TO MONITOR.
[2020-01-15] MEDS: CALCIUM ACETATE 667 MG CAP PO SCH ×3 (08:47→17:55)
[2020-01-15] MEDS: cefTRIAXone 1GM/50ML D5W 50 ML IV SCH (08:48)
[2020-01-15] MEDS: ASPirin 81 mg TAB PO SCH (08:49)
[2020-01-15] MEDS: ISOSORBIDE MONONITRATE ER 60 MG TAB PO SCH (08:50)
[2020-01-15] MEDS: FAMOTIDINE 20 MG TAB PO SCH (08:51)
[2020-01-15] MEDS: METOPROLOL TARTRATE 50 MG TAB PO SCH ×2 (08:51→22:05)
[2020-01-15] MEDS: ENOXAPARIN SOD 30 MG/0.3 ML SYRINGE SC SCH (08:52)
[2020-01-15] MEDS: AZITHROMYCIN 250 MG TAB PO SCH (08:52)
[2020-01-15] MEDS: Glucerna Carbsteady SHAKE Vanilla 8oz PO SCH ×3 (08:53→17:54)
--- NOTE | 2020-01-15 18:40 | NUR ---
Respiratory note: PT RECIEVED ON NC2L. PT IS AWAKE AND ALERT. PT SITTING UP ON BEDSIDE TALKING ON PHONE WITH FAMILY. NO RESP DISTRESS NOTED. SPO2 93%, HR 76, RR 20, BS CLR/DIM. PRN TX NOT INDICATED AT THIS TIME. PT AWARE TO CALL FOR PRN TX IF SOB/WHEEZING. WILL CONTINUE TO MONITOR PT T/O SHIFT.
--- NOTE | 2020-01-15 19:00 | NUR ---
CARE ENDORSED TO JOSE BULL
--- NOTE | 2020-01-15 19:15 | NUR ---
OPENING SHIFT NOTE: ASSUMED CARE OF PATIENT. PATIENT IS AWAKE, ALERT AND ORIENTED X4, NO S/S OF SOB OR DISTRESS, PATIENT COMPLAINS OF GENERALIZED BODY PAIN 06/04 STATING THAT HE HAS CHRONIC PAIN AND THE CURRENT PAIN MEDICATIONS OF NORCO, METHADONE, AND MORPHINE DO NOT WORK FOR HIM AND HE IS REQUESTING DILAUDID INSTEAD. EDUCATION PROVIDED ON CURRENT MEDICATIONS AND POC, PATIENT VERBALIZED UNDERSTANDING. BED IS LOW, LOCKED, TWO SIDE RAILS RAISED AND CALL DUONG IS WITHIN REACH. PATIENT CONNECTED TO CONTINUOUS TELEMETRY BOX #36 AND CURRENT READING IS 86 BPM. ENCOURAGED PATIENT TO CALL FOR ASSISTANCE, PATIENT VERBALIZED UNDERSTANDING, WILL CONTINUE TO MONITOR FOR CHANGES Q 1HR AND PRN.
--- NOTE | 2020-01-15 21:10 | NUR ---
NEW IV: RIGHT WRIST 20 GAUGE IV CLOGGED/INFILTRATED, UNABLE TO FLUSH, IV REMOVED WITH CATHETER TIP INTACT AND PRESSURE DRESSING APPLIED, PATIENT TOLERATED WELL. NEW RIGHT FOREARM 20 GAUGE IV INSERTED, PATIENT TOLERATED WELL.
[2020-01-15] MEDS: INSULIN LANTUS (GLARGINE) 1 /0.01ml (100units/ml) SC SCH (22:09)
[2020-01-15] MEDS: MORPHINE SULF INJ 2 MG/ML SYRINGE 1ML IV PRN (22:10)
[2020-01-15] MEDS: ATORVASTATIN 20 MG TAB PO SCH (22:11)
[2020-01-16] MEDS: HYDROcodone-ACET 10/325MG TAB PO SCH ×4 (00:57→18:14)
[2020-01-16 05:00] VITALS: BP 165/88
[2020-01-16] MEDS: hydrALAZINE HCL 25 MG TAB PO SCH ×3 (06:03→21:29)
[2020-01-16] MEDS: LEVOTHYROXINE SODIUM 25 MCG TAB PO SCH (06:04)
[2020-01-16] MEDS: METHADONE HCL 10 MG TAB PO SCH ×3 (06:04→21:30)
[2020-01-16] MEDS: SODIUM CHLOR 0.9% PF (SALINE LOCK) 10ML VIAL/SYR IV SCH ×3 (06:10→21:29)
--- NOTE | 2020-01-16 06:15 | NUR ---
Respiratory note: PT ASSESSED FOR PRN TX. HR 85, RR 18, POX 96% ON RA, BS ARE CLR. NO SOB OR DISTRESS NOTED. PT NOTIFY TO HAVE RN PAGE RT.
[2020-01-16] MEDS: InsuLIN REG 1unit/0.01ml Soln (100units/ml) SC SCH ×3 (06:17→21:44)
[2020-01-16] MEDS: ACCU-CHEK COMFORT CURVE STRIP VI SCH ×4 (06:17→21:30)
[2020-01-16 06:21] LABS: Hemoglobin 8.4 g/dL (13.5-17.5); Monocytes # (auto) 0.9 10 ^3/uL (0-1.3); Neutrophils # (auto) 6.8 10 ^3/uL (1.6-8.6)
[2020-01-16 06:24] LABS: Basophils # (auto) 0.2 10 ^3/uL (0-0.2); Basophils % (auto) 1.6 % (0.0-2.0); Eosinophils # (auto) 0.1 10 ^3/uL (0-0.8); Eosinophils % (auto) 1.4 % (0.0-7.0); Lymphocytes # (auto) 2.2 10 ^3/uL (0.4-5.4); Lymphocytes % (auto) 21.8 % (10.0-50.0); Mean Corpuscular Hemoglobin 30.1 pg (28.0-32.0); Mean Corpuscular Hgb Conc. 33.7 g/dL (32.0-36.0); Mean Corpuscular Volume 89.4 fL (80.0-100.0); Neutrophils % (auto) 66.2 % (37.0-80.0); Platelet Count (auto) 370 10^3/uL (140-450); Red Blood Cells 2.79 10^6/uL (4.5-5.90); Red Cell Distribution Width 15.3 % (11.8-14.3); White Blood Cell 10.3 10^3/uL (4.4-10.8)
[2020-01-16 06:34] LABS: Calcium 6.8 mg/dL (8.5-10.1); Potassium 4.1 mmol/L (3.5-5.1)
[2020-01-16 06:37] LABS: BUN/Creatinine Ratio 14.5
[2020-01-16] MEDS: PROMETHAZINE HCL 25 MG/ML 1ML IV PRN (06:48)
--- NOTE | 2020-01-16 08:00 | NUR ---
OPENING SHIFT NOTE: PATIENT AWAKE AMBULATING IN ROOM. UPDATED ON PLAN OF CARE, PATIENT VERBALIZED UNDERSTANDING. NO NEW COMPLAINTS AT THIS TIME. CALL LIGHT WITHIN REACH. WILL CONTINUE TO MONITOR.
[2020-01-16] MEDS: ENOXAPARIN SOD 30 MG/0.3 ML SYRINGE SC SCH (08:59)
[2020-01-16 09:00] VITALS: BP 103/56
[2020-01-16] MEDS: ASPirin 81 mg TAB PO SCH (09:00)
[2020-01-16] MEDS: AZITHROMYCIN 250 MG TAB PO SCH (09:00)
[2020-01-16] MEDS: CALCIUM ACETATE 667 MG CAP PO SCH ×3 (09:01→18:14)
[2020-01-16] MEDS: cefTRIAXone 1GM/50ML D5W 50 ML IV SCH (09:01)
[2020-01-16] MEDS: FAMOTIDINE 20 MG TAB PO SCH (09:01)
[2020-01-16] MEDS: ISOSORBIDE MONONITRATE ER 60 MG TAB PO SCH (09:06)
[2020-01-16] MEDS: METOPROLOL TARTRATE 50 MG TAB PO SCH ×2 (09:06→21:30)
[2020-01-16] MEDS: Glucerna Carbsteady SHAKE Vanilla 8oz PO SCH ×3 (09:07→18:14)
[2020-01-16] MEDS: hydrALAZINE HCL 20 MG/ML VL IV PRN ×2 (10:41→23:03)
[2020-01-16 12:52] VITALS: BP 168/88
[2020-01-16] MEDS ORDERED: ISOSORBIDE MONONITRATE ER 60 MG TAB PO ONE (13:15)
[2020-01-16 17:01] VITALS: BP 137/79
--- NOTE | 2020-01-16 19:10 | NUR ---
CARE ENDORSED TO SALLY BULL.
--- NOTE | 2020-01-16 19:30 | NUR ---
Opening Shift Note Assumed care of patient, awake and alert. No S/S of distress/SOB. Patient states he has chronic pain throughout body. POC discussed and questions answered. Bed is locked in lowest position with side rails up x2 fro safety. Call light is within reach and patient encouraged to call for assistance as needed. Will continue to monitor for changes Q1hr and PRN.
[2020-01-16] MEDS: ATORVASTATIN 20 MG TAB PO SCH (21:30)
[2020-01-16] MEDS: INSULIN LANTUS (GLARGINE) 1 /0.01ml (100units/ml) SC SCH (21:44)
[2020-01-16 22:00] VITALS: BP 158/92
--- NOTE | 2020-01-16 22:53 | NUR ---
PATIENT COMPLAINS OF 8/10 PAIN IN LEFT SHOULDER. OFFERED HEATING PACK AND PAIN MEDICATION. WILL GIVE AND CONTINUE TO MONITOR.
--- NOTE | 2020-01-16 22:54 | NUR ---
BLOOD PRESSURE REASSESSMENT UPON REASSESSMENT PATIENTS BLOOD PRESSURE IS 160/83. WILL GIVE PRN HYDRALIZINE 20MG IV. WILL CONTINUE TO MONITOR.
[2020-01-16] MEDS: MORPHINE SULF INJ 2 MG/ML SYRINGE 1ML IV PRN (23:02)
--- NOTE | 2020-01-16 23:56 | NUR ---
REASSESSMENT OF BLOOD PRESSURE PATIENTS BP IS NOW 145/79 HEART RATE 91. WILL CONTINUE TO MONITOR.
[2020-01-17] MEDS: HYDROcodone-ACET 10/325MG TAB PO SCH ×4 (00:44→18:02)
[2020-01-17 05:28] LABS: Hematocrit 23.9 % (41.0-53.0)
[2020-01-17 05:30] VITALS: BP 155/82
[2020-01-17] MEDS: SODIUM CHLOR 0.9% PF (SALINE LOCK) 10ML VIAL/SYR IV SCH ×3 (05:37→22:21)
[2020-01-17] MEDS: hydrALAZINE HCL 25 MG TAB PO SCH ×3 (05:37→22:21)
[2020-01-17] MEDS: METHADONE HCL 10 MG TAB PO SCH ×3 (05:38→22:23)
[2020-01-17 05:47] LABS: Calcium 7.3 mg/dL (8.5-10.1); Potassium 4.1 mmol/L (3.5-5.1)
--- NOTE | 2020-01-17 06:41 | NUR ---
pt. assessed for prn. mn. tx., no resp. distrss or sob noted. Pt. is resting, prn. tx. not indicated at this time. Bs. are clear and diminished at the bases. hr=87,rr=18,sp02=97% on ra. Pt. instructed to call if needed.
[2020-01-17] MEDS: LEVOTHYROXINE SODIUM 25 MCG TAB PO SCH (06:46)
[2020-01-17] MEDS: InsuLIN REG 1unit/0.01ml Soln (100units/ml) SC SCH ×4 (06:47→22:37)
[2020-01-17] MEDS: ACCU-CHEK COMFORT CURVE STRIP VI SCH ×4 (06:47→22:23)
--- NOTE | 2020-01-17 08:00 | NUR ---
Opening Shift Note Assumed care of patient, awake, alert and oriented. No S/S of distress/SOB or pain. Instructed on POC and to call for assist PRN. Bed locked, in lowest position, call light within reach. Will continue to monitor for changes Q1hr and PRN.
--- NOTE | 2020-01-17 08:15 | NUR ---
Upon assessment, blood pressure found to be 176/87 HR 95. Gave patient Imdur and Lopressor. Will reassess.
[2020-01-17] MEDS: METOPROLOL TARTRATE 50 MG TAB PO SCH ×2 (08:26→22:22)
[2020-01-17] MEDS: ENOXAPARIN SOD 30 MG/0.3 ML SYRINGE SC SCH (08:26)
[2020-01-17] MEDS: FAMOTIDINE 20 MG TAB PO SCH (08:27)
[2020-01-17] MEDS: cefTRIAXone 1GM/50ML D5W 50 ML IV SCH (08:28)
[2020-01-17] MEDS: ASPirin 81 mg TAB PO SCH (08:28)
[2020-01-17] MEDS: CALCIUM ACETATE 667 MG CAP PO SCH (08:28)
[2020-01-17] MEDS: ISOSORBIDE MONONITRATE ER 60 MG TAB PO SCH (08:28)
[2020-01-17] MEDS: Glucerna Carbsteady SHAKE Vanilla 8oz PO SCH ×3 (08:37→18:03)
[2020-01-17 09:00] VITALS: BP 176/87
[2020-01-17] MEDS: PROMETHAZINE HCL 25 MG/ML 1ML IV PRN (09:17)
[2020-01-17] MEDS: AZITHROMYCIN 250 MG TAB PO SCH (09:58)
[2020-01-17] MEDS ORDERED: AZITHROMYCIN 500 MG TAB PO SCH (10:00)
[2020-01-17 10:31] VITALS: BP 176/87
[2020-01-17] MEDS ORDERED: ERGOCALCIFEROL 50,000 UNIT(1.25MG) CAP PO SCH (11:00)
[2020-01-17 13:16] VITALS: BP 103/66
[2020-01-17] MEDS: SEVELAMER 800 MG TAB PO SCH ×2 (13:18→18:02)
[2020-01-17 17:00] VITALS: BP 185/92
--- NOTE | 2020-01-17 18:58 | NUR ---
Respiratory note: ASSESSED PT FOR PRN TX PT WAS AWAKE AND ALERT, NO RESP DISTRESS NOTED. HR 95, RR 16, SPO2 95% ON ROOM AIR. BS ARE CLEAR, NO INDICATION FOR TX AT THIS TIME. PT KNOWS TO HAVE RT PAGED IF TX IS NEEDED.
--- NOTE | 2020-01-17 19:36 | NUR ---
closing shift note: Patient is comfortably resting in bed on 2 L NC, no c/o pain. No s/s of distress/sob noted. Bed at lowest locked position and call light within reach. Care endorsed to [facility] JORGITO Allen.
[2020-01-17 22:00] VITALS: BP 147/78
[2020-01-17] MEDS: ATORVASTATIN 20 MG TAB PO SCH (22:22)
[2020-01-17] MEDS: INSULIN LANTUS (GLARGINE) 1 /0.01ml (100units/ml) SC SCH (22:38)
--- NOTE | 2020-01-17 23:46 | NUR ---
BLOOD PRESSURE REASSESSMENT UPON BP REASSESSMENT PATIENT HAS BP OF 171/90 HEART RATE IS 82. WILL GIVE PRN HYDRALAZINE 20MG IV AND CONTINUE TO MONITOR.
[2020-01-18] VITALS (7 sets, daily range): BP systolic 130–169; BP diastolic 57–90
[2020-01-18] MEDS: HYDROcodone-ACET 10/325MG TAB PO SCH ×5 (00:01→23:48)
[2020-01-18] MEDS: hydrALAZINE HCL 20 MG/ML VL IV PRN (00:02)
[2020-01-18] MEDS: TEMAZEPAM 15 MG CAP PO PRN (01:32)
[2020-01-18] MEDS: SODIUM CHLOR 0.9% PF (SALINE LOCK) 10ML VIAL/SYR IV SCH ×3 (06:01→21:34)
[2020-01-18] MEDS: hydrALAZINE HCL 25 MG TAB PO SCH ×4 (06:02→21:35)
[2020-01-18] MEDS: METHADONE HCL 10 MG TAB PO SCH ×3 (06:02→21:36)
[2020-01-18] MEDS: InsuLIN REG 1unit/0.01ml Soln (100units/ml) SC SCH ×4 (06:34→21:45)
[2020-01-18] MEDS: ACCU-CHEK COMFORT CURVE STRIP VI SCH ×4 (06:34→21:36)
[2020-01-18] MEDS: LEVOTHYROXINE SODIUM 25 MCG TAB PO SCH (06:52)
[2020-01-18 06:54] LABS: BUN/Creatinine Ratio 13.5; Calcium 7.6 mg/dL (8.5-10.1)
[2020-01-18] MEDS: Glucerna Carbsteady SHAKE Vanilla 8oz PO SCH ×3 (08:43→17:41)
[2020-01-18] MEDS: SEVELAMER 800 MG TAB PO SCH ×3 (08:51→17:56)
[2020-01-18] MEDS: cefTRIAXone 1GM/50ML D5W 50 ML IV SCH (08:52)
[2020-01-18] MEDS: FAMOTIDINE 20 MG TAB PO SCH (09:55)
[2020-01-18] MEDS: BUMETANIDE 1 MG TAB PO SCH (09:56)
[2020-01-18] MEDS: AZITHROMYCIN 250 MG TAB PO SCH (09:56)
[2020-01-18] MEDS: ASPirin 81 mg TAB PO SCH (09:56)
[2020-01-18] MEDS: ENOXAPARIN SOD 30 MG/0.3 ML SYRINGE SC SCH (09:56)
[2020-01-18] MEDS: METOPROLOL TARTRATE 50 MG TAB PO SCH ×2 (09:57→21:35)
[2020-01-18] MEDS: ISOSORBIDE MONONITRATE ER 60 MG TAB PO SCH (09:57)
--- NOTE | 2020-01-18 14:54 | NUR ---
Respiratory note: PATIENT ASSESSED FOR PRN MED-NEB TX; TX NOT INDICATED AT THIS TIME PATIENT IS IN NO ACUTE RESPIRATORY DISTRESS AND DENIES NEED. PATIENT INSTRUCTED TO CALL FOR RT IF HE FEELS THE NEED FOR TX AT A LATER TIME. SPO2 98% R/A
--- NOTE | 2020-01-18 19:23 | NUR ---
Respiratory note: ASSESSED PT FOR PRN TX PT WAS AWAKE AND ALERT, NO RESP DISTRESS NOTED. HR 89, RR 18, SPO2 99% ON 2L N/C. BS ARE DIMINISHED, NO INDICATION FOR TX AT THIS TIME. PT KNOWS TO HAVE RT PAGED IF TX IS NEEDED.
[2020-01-18] MEDS: ATORVASTATIN 20 MG TAB PO SCH (21:35)
[2020-01-18] MEDS: INSULIN LANTUS (GLARGINE) 1 /0.01ml (100units/ml) SC SCH (21:46)
[2020-01-19] MEDS: hydrALAZINE HCL 20 MG/ML VL IV PRN ×3 (05:08→23:51)
[2020-01-19 05:29] VITALS: BP 186/94
[2020-01-19 06:03] LABS: Basophils # (auto) 0.3 10 ^3/uL (0-0.2); Basophils % (auto) 2.9 % (0.0-2.0); Eosinophils # (auto) 0.3 10 ^3/uL (0-0.8); Eosinophils % (auto) 2.9 % (0.0-7.0); Hematocrit 25.8 % (41.0-53.0); Hemoglobin 8.6 g/dL (13.5-17.5); Lymphocytes # (auto) 2.2 10 ^3/uL (0.4-5.4); Lymphocytes % (auto) 22.3 % (10.0-50.0); Mean Corpuscular Hemoglobin 29.8 pg (28.0-32.0); Mean Corpuscular Hgb Conc. 33.2 g/dL (32.0-36.0); Mean Corpuscular Volume 89.8 fL (80.0-100.0); Monocytes # (auto) 0.7 10 ^3/uL (0-1.3); Monocytes % (auto) 7.6 % (0.0-12.0); Neutrophils # (auto) 6.3 10 ^3/uL (1.6-8.6); Neutrophils % (auto) 64.3 % (37.0-80.0); Platelet Count (auto) 455 10^3/uL (140-450); Red Blood Cells 2.87 10^6/uL (4.5-5.90); Red Cell Distribution Width 14.9 % (11.8-14.3); White Blood Cell 9.8 10^3/uL (4.4-10.8)
[2020-01-19 06:25] LABS: Calcium 7.6 mg/dL (8.5-10.1); Potassium 3.6 mmol/L (3.5-5.1)
[2020-01-19 06:28] LABS: BUN/Creatinine Ratio 12.5
[2020-01-19] MEDS: SODIUM CHLOR 0.9% PF (SALINE LOCK) 10ML VIAL/SYR IV SCH ×3 (06:43→21:20)
[2020-01-19] MEDS: METHADONE HCL 10 MG TAB PO SCH ×3 (06:44→21:21)
[2020-01-19] MEDS: hydrALAZINE HCL 25 MG TAB PO SCH ×4 (06:44→21:20)
[2020-01-19] MEDS: HYDROcodone-ACET 10/325MG TAB PO SCH ×4 (06:45→23:40)
[2020-01-19] MEDS: LEVOTHYROXINE SODIUM 25 MCG TAB PO SCH (06:45)
[2020-01-19] MEDS: InsuLIN REG 1unit/0.01ml Soln (100units/ml) SC SCH ×4 (06:49→21:31)
[2020-01-19] MEDS: ACCU-CHEK COMFORT CURVE STRIP VI SCH ×4 (06:49→21:21)
--- NOTE | 2020-01-19 07:10 | NUR ---
Respiratory note: HR 96, RR 14, SPO2 96% ON RA, BS CLEAR. PRN MED NEB TX NOT INDICATED AT THIS TIME. NO SIGNS OR SYMPTOMS OF RESPIRATORY DISTRESS NOTED AT THIS TIME.PT INFORMED TO HIT CALL BUTTON IF FEELING SOB OR WHEEZING
[2020-01-19 07:30] VITALS: BP 169/76
--- NOTE | 2020-01-19 07:30 | NUR ---
Opening Note Assumed patient care from CHAIM RN.
[2020-01-19 08:00] VITALS: BP 169/76
--- NOTE | 2020-01-19 08:00 | NUR ---
Patient Rounds Patient currently laying on left side, eyes closed. Respirations are even and unlabored. Will continue to monitor.
[2020-01-19] MEDS: Glucerna Carbsteady SHAKE Vanilla 8oz PO SCH ×3 (09:13→18:03)
[2020-01-19] MEDS: SEVELAMER 800 MG TAB PO SCH ×3 (09:13→17:10)
[2020-01-19] MEDS: cefTRIAXone 1GM/50ML D5W 50 ML IV SCH (09:13)
[2020-01-19] MEDS: ASPirin 81 mg TAB PO SCH (09:35)
[2020-01-19] MEDS: BUMETANIDE 1 MG TAB PO SCH (09:35)
[2020-01-19] MEDS: METOPROLOL TARTRATE 50 MG TAB PO SCH ×2 (09:36→21:21)
[2020-01-19] MEDS: ISOSORBIDE MONONITRATE ER 60 MG TAB PO SCH (09:36)
[2020-01-19] MEDS: FAMOTIDINE 20 MG TAB PO SCH (09:37)
[2020-01-19] MEDS: AZITHROMYCIN 250 MG TAB PO SCH (09:37)
[2020-01-19] MEDS: ENOXAPARIN SOD 30 MG/0.3 ML SYRINGE SC SCH (09:37)
[2020-01-19 12:00] VITALS: BP 145/83
--- NOTE | 2020-01-19 12:29 | NUR ---
MD called Called Dr. March regarding patient stating he feel short of breath. Patient respirations currently 18, even and unlabored. No signs of distress at this time. Will continue to monitor. Per Dr. March, call respiratory therapy for breathing treatment.
--- NOTE | 2020-01-19 12:32 | NUR ---
Called RT Called RT, will call back.
--- NOTE | 2020-01-19 12:35 | NUR ---
Patient Reassessed Patient shows no signs of distress at this time. Respirations even and unlabored. RR 18, SpO2 100%, HR 74. Patient denies chest pain at this time. States he feels some shortness of breath and stated, "I feel flustered, whatever that means." MD aware. Will continue to monitor.
--- NOTE | 2020-01-19 12:48 | NUR ---
Spoke with RT Per respiratory therapist, breathing treatment was cancelled due to patient refusing breathing treatments. Will page Dr. March.
--- NOTE | 2020-01-19 12:54 | NUR ---
MD Called Spoke with Dr. March regarding patient breathing treatments. New orders for Ventolin 2.5 mg q3hrs PRN for shortness of breath. Will carry out new orders.
[2020-01-19] MEDS ORDERED: ALBUTEROL SULF 2.5 MG/0.5ML(0.5%) NEB SOLN ONE (12:55)
--- NOTE | 2020-01-19 12:55 | NUR ---
Called Pharmacy Pharmacy called, requesting medication verification.
--- NOTE | 2020-01-19 12:58 | NUR ---
RT at bedside RT at bedside.
--- NOTE | 2020-01-19 13:09 | NUR ---
Patient Reassessed Patient sitting up in bed, no distress at this time. Respirations even and unlabored. States shortness of breath has improved. Safety precautions in place, will continue to monitor.
[2020-01-19] MEDS: ALBUTEROL SULF 2.5 MG/0.5ML(0.5%) NEB SOLN NEB PRN ×2 (13:11→18:43)
--- NOTE | 2020-01-19 15:55 | NUR ---
at bedside Dr. March at bedside discussing plan of care with patient.
--- NOTE | 2020-01-19 16:20 | NUR ---
Blood Pressure Patient BP 162/81. Hydralazine administered, see EMAR. Will continue to monitor.
[2020-01-19 17:00] VITALS: BP 162/87
--- NOTE | 2020-01-19 18:10 | NUR ---
PT ASSESSED FOR PRN MED NEB TX. SPO2 99% ON 2L NC, HR 96. PT DENIES ANY RESPIRATORY DISTRESS. NO TX INDICATED. PT IS AWARE TO HAVE RT PAGED IF TX NEEDED.
--- NOTE | 2020-01-19 18:42 | NUR ---
SOB Patient complains of shortness of breath. Respiratory Therapy paged. Patient currently sitting in chair for dinner. Will continue to monitor.
--- NOTE | 2020-01-19 18:48 | NUR ---
Respiratory Therapy Patient currently receiving breathing treatment. States he is feeling anxious.
--- NOTE | 2020-01-19 18:49 | NUR ---
Paged Hospitalist Paged hospitalist regarding patient's anxiety.
--- NOTE | 2020-01-19 18:53 | NUR ---
Hospitalist Dr. Arita notified of patient anxiety. New orders received for Ativan 0.5mg IV q8hrs, PRN.
[2020-01-19] MEDS ORDERED: LORazepam 2MG/ML-1ML VIAL IV PRN (19:00)
--- NOTE | 2020-01-19 19:00 | NUR ---
Closing Note Report given to NOC RN. Endorsed anxiety medication administration to shift lab technician, as it is still unverified by pharmacy.
--- NOTE | 2020-01-19 19:05 | NUR ---
Opening Shift Note Assumed care of patient, awake and alert. No S/S of distress noted. Instructed on POC and to call for assist PRN. Call light in reach, bed in lowest position, wheels locked. will continue to monitor for changes Q1hr and PRN.
[2020-01-19] MEDS: ATORVASTATIN 20 MG TAB PO SCH (21:20)
[2020-01-19] MEDS: INSULIN LANTUS (GLARGINE) 1 /0.01ml (100units/ml) SC SCH (21:32)
[2020-01-19 22:00] VITALS: BP 172/84
--- NOTE | 2020-01-19 23:51 | NUR ---
BP Patients BP 163/85. IV Hydralazine given as ordered PRN. Pt no s/s of distress noted. Will continue to monitor.
[2020-01-20] MEDS: TEMAZEPAM 15 MG CAP PO PRN (01:53)
[2020-01-20 05:06] VITALS: BP 160/79
[2020-01-20] MEDS: SODIUM CHLOR 0.9% PF (SALINE LOCK) 10ML VIAL/SYR IV SCH ×2 (06:07→14:18)
[2020-01-20] MEDS: METHADONE HCL 10 MG TAB PO SCH ×2 (06:07→14:00)
[2020-01-20] MEDS: hydrALAZINE HCL 25 MG TAB PO SCH ×2 (06:07→11:44)
[2020-01-20] MEDS: HYDROcodone-ACET 10/325MG TAB PO SCH ×2 (06:08→11:44)
[2020-01-20] MEDS: LEVOTHYROXINE SODIUM 25 MCG TAB PO SCH (06:08)
[2020-01-20] MEDS: InsuLIN REG 1unit/0.01ml Soln (100units/ml) SC SCH ×2 (06:08→11:30)
[2020-01-20] MEDS: ACCU-CHEK COMFORT CURVE STRIP VI SCH ×2 (06:09→11:30)
[2020-01-20 06:44] LABS: Basophils # (auto) 0.2 10 ^3/uL (0-0.2); Eosinophils # (auto) 0.2 10 ^3/uL (0-0.8); Lymphocytes # (auto) 1.9 10 ^3/uL (0.4-5.4); Monocytes # (auto) 0.6 10 ^3/uL (0-1.3); Monocytes % (auto) 8.1 % (0.0-12.0); White Blood Cell 7.9 10^3/uL (4.4-10.8)
[2020-01-20 06:47] LABS: Basophils % (auto) 1.9 % (0.0-2.0); Eosinophils % (auto) 2.4 % (0.0-7.0); Hematocrit 23.2 % (41.0-53.0); Hemoglobin 7.9 g/dL (13.5-17.5); Lymphocytes % (auto) 24.5 % (10.0-50.0); Mean Corpuscular Hemoglobin 30.5 pg (28.0-32.0); Mean Corpuscular Hgb Conc. 34.2 g/dL (32.0-36.0); Mean Corpuscular Volume 89.2 fL (80.0-100.0); Neutrophils % (auto) 63.1 % (37.0-80.0); Platelet Count (auto) 452 10^3/uL (140-450); Red Blood Cells 2.61 10^6/uL (4.5-5.90); Red Cell Distribution Width 14.9 % (11.8-14.3)
--- NOTE | 2020-01-20 06:59 | NUR ---
Closing Note Care endorsed to day shift Ariella BULL. Patient awake, no s/s of distress noted. Call light in reach, bed in lowest position, wheels locked.
[2020-01-20 07:06] LABS: Potassium 3.7 mmol/L (3.5-5.1)
[2020-01-20 07:12] LABS: BUN/Creatinine Ratio 10.5; Calcium 7.6 mg/dL (8.5-10.1)
[2020-01-20 08:00] VITALS: BP 147/74
--- NOTE | 2020-01-20 08:00 | NUR ---
Opening Shift Note Assumed care of patient, awake and alert. No S/S of distress/SOB or pain. Bed is low, locked with 2x side rails up. Call light is within reach. Instructed on POC and to call for assist PRN, will continue to monitor for changes Q1hr and PRN.
--- NOTE | 2020-01-20 08:02 | NUR ---
Respiratory note: PT IS AWAKE, AND ALERT. PT IS IN NO RESPIRATORY DISTRESS. SPO2 98% ON RA, HR 83, RR 18, BS CLEAR BILATERALLY. PRN MEDNEB TX NOT INDICATED. PT INFORMED TO PUSH CALL BUTTON IF INCREASED WOB, SOB, OR WHEEZING OCCURS.
[2020-01-20] MEDS: cefTRIAXone 1GM/50ML D5W 50 ML IV SCH (09:14)
[2020-01-20] MEDS: SEVELAMER 800 MG TAB PO SCH ×2 (09:14→11:44)
[2020-01-20] MEDS: BUMETANIDE 1 MG TAB PO SCH (09:15)
[2020-01-20] MEDS: ASPirin 81 mg TAB PO SCH (09:15)
[2020-01-20] MEDS: ISOSORBIDE MONONITRATE ER 60 MG TAB PO SCH (09:16)
[2020-01-20] MEDS: METOPROLOL TARTRATE 50 MG TAB PO SCH (09:16)
--- NOTE | 2020-01-20 09:16 | NUR ---
Charge nurse at bedside Patient requesting to speak with charge nurse regarding nursing care that has been provided to patient from the past several days. Informed charge nurse Sarah of patient's concerns. Charge nurse at bedside now speaking with patient. Addendum: 01/20/20 at 0943 by Ariella Jose RN RN WRONG PATIENT
[2020-01-20] MEDS: AZITHROMYCIN 250 MG TAB PO SCH (09:17)
[2020-01-20] MEDS: ENOXAPARIN SOD 30 MG/0.3 ML SYRINGE SC SCH (09:17)
[2020-01-20] MEDS: FAMOTIDINE 20 MG TAB PO SCH (09:17)
[2020-01-20] MEDS: Glucerna Carbsteady SHAKE Vanilla 8oz PO SCH ×2 (09:18→11:45)
--- NOTE | 2020-01-20 11:52 | NUR ---
MD March at bedside Updating patient on POC. Patient to be discharged today. Patient verbalized understanding.
[2020-01-20 12:00] VITALS: BP 143/87
[2020-01-20 12:58] VITALS: BP 143/87
--- NOTE | 2020-01-20 14:20 | NUR ---
Discharge instructions given as ordered. Encourage to follow up with PMD as instructed. All questions and concerns addressed. Patient verbalized understanding. Provided patient with discount voucher for [facility] urgent care. Emphasized the importance of following up with MD. Medication reconciliation form completed and copy given to patient. Home medications held in Pharmacy returned to patient. IV removed with catheter intact, pressure dressing applied. Telemetry unit returned to ICU. Patient taken to down to pharmacy for new RX. Patient ambulated with all personal belongings, accompanied by staff. No distress noted at time of departure.
== END 2020-01-20 14:17 | disposition home or self-care (01) | DRG 139 ==
LOC: ER 05:21 → TELE-CENTR 05:22
PROVIDERS: ADMIT Internal Medicine; ATTEND Internal Medicine
DX: J12.9 Viral pneumonia, unspecified (principal); N17.0 Acute kidney failure with tubular necrosis; I50.43 Acute on chronic combined systolic (congestive) and diastolic (congestive) heart failure; E44.0 Moderate protein-calorie malnutrition; I07.1 Rheumatic tricuspid insufficiency; E11.21 Type 2 diabetes mellitus with diabetic nephropathy; E83.39 Other disorders of phosphorus metabolism; E87.1 Hypo-osmolality and hyponatremia; N18.4 Chronic kidney disease, stage 4 (severe); D63.1 Anemia in chronic kidney disease; D63.8 Anemia in other chronic diseases classified elsewhere; L03.115 Cellulitis of right lower limb; L03.116 Cellulitis of left lower limb; K21.9 Gastro-esophageal reflux disease without esophagitis; G89.4 Chronic pain syndrome; E66.3 Overweight; R06.03 Acute respiratory distress; E78.5 Hyperlipidemia, unspecified; E03.9 Hypothyroidism, unspecified; I16.0 Hypertensive urgency; J45.909 Unspecified asthma, uncomplicated; Z96.643 Presence of artificial hip joint, bilateral; E11.22 Type 2 diabetes mellitus with diabetic chronic kidney disease; F12.90 Cannabis use, unspecified, uncomplicated; I13.0 Hypertensive heart and chronic kidney disease with heart failure and stage 1 through stage 4 chronic kidney disease, or unspecified chronic kidney disease; Z82.3 Family history of stroke; Z82.49 Family history of ischemic heart disease and other diseases of the circulatory system; Z68.25 Body mass index [BMI] 25.0-25.9, adult; Z83.3 Family history of diabetes mellitus; Z91.19 Patient's noncompliance with other medical treatment and regimen
CPT/HCPCS: 36415; 71045; 71250; 74250; 80048; 80053; 80307; 81001; 82306; 82550; 82570; 82962; 83036; 83605; 83735; 83880; 84100; 84156; 84300; 84439; 84443; 84481; 84484; 84550; 85014; 85018; 85025; 85379; 85610; 85730; 87040; 87077; 87081; 87186; 93005; 93970; 94640; 96365; 96368; 99291; G0378; J0696; J1815; J1956; J3490

== ENCOUNTER 2020-01-26 17:58 | Inpatient (IN) | payer MEDICAID, OTHER ==
[~2020-01-26] VITALS: Ht 165.1 cm; Wt 78.4 kg
[2020-01-26 18:29] LABS: Eosinophils # (auto) 0.2 10 ^3/uL (0-0.8); Hemoglobin 7.9 g/dL (13.5-17.5); Monocytes # (auto) 1.5 10 ^3/uL (0-1.3)
[2020-01-26 18:30] LABS: Basophils # (auto) 0.2 10 ^3/uL (0-0.2); Basophils % (auto) 1.3 % (0.0-2.0); Eosinophils % (auto) 1.1 % (0.0-7.0); Hematocrit 24.9 % (41.0-53.0); Lymphocytes # (auto) 2.6 10 ^3/uL (0.4-5.4); Lymphocytes % (auto) 17.5 % (10.0-50.0); Mean Corpuscular Hemoglobin 28.4 pg (28.0-32.0); Mean Corpuscular Hgb Conc. 31.6 g/dL (32.0-36.0); Mean Corpuscular Volume 89.9 fL (80.0-100.0); Monocytes % (auto) 10.2 % (0.0-12.0); Neutrophils # (auto) 10.3 10 ^3/uL (1.6-8.6); Neutrophils % (auto) 69.9 % (37.0-80.0); Platelet Count (auto) 559 10^3/uL (140-450); Red Blood Cells 2.77 10^6/uL (4.5-5.90); Red Cell Distribution Width 14.9 % (11.8-14.3); White Blood Cell 14.8 10^3/uL (4.4-10.8)
[2020-01-26 18:50] LABS: Albumin 1.9 g/dL (3.4-5.0); Calcium 6.8 mg/dL (8.5-10.1); Potassium 4.3 mmol/L (3.5-5.1)
[2020-01-26 18:56] LABS: BUN/Creatinine Ratio 15.2; Bilirubin, Total 0.2 mg/dL (0.2-1.0)
[2020-01-26] MEDS ORDERED: AZITHROMYCIN 500MG/ 250ML 250 ML IV ONE (20:15)
[2020-01-26] MEDS ORDERED: HYDROcodone-ACET 10/325MG TAB PO ONE (20:30)
[2020-01-26] MEDS ORDERED: SODIUM CHLORIDE 0.9% 1,000 ML IV SCH (20:41)
[2020-01-26] MEDS ORDERED: NITROGLYCERIN 0.4 MG SL TAB SL PRN (20:45)
[2020-01-26] MEDS ORDERED: ACETAMINOPHEN 500 MG TAB PO PRN (20:45)
[2020-01-26] MEDS ORDERED: ACETAMINOPHEN 325 MG TAB PO PRN (20:45)
[2020-01-26] MEDS ORDERED: DEXTROSE (50%) 50ML SYRG IV PRN (20:45)
[2020-01-26] MEDS ORDERED: IPRATROPIUM BROM 0.5 MG/2.5ML INH SOL NEB PRN (20:45)
[2020-01-26] MEDS ORDERED: MORPHINE SULF INJ 2 MG/ML SYRINGE 1ML IV PRN (20:45)
[2020-01-26] MEDS ORDERED: DOCUSATE SOD 100 MG CAP PO PRN (20:45)
[2020-01-26] MEDS ORDERED: LORazepam 0.5 MG TAB PO PRN (20:45)
[2020-01-26] MEDS ORDERED: ALBUTEROL SULF 2.5 MG/0.5ML(0.5%) NEB SOLN NEB PRN (20:45)
[2020-01-26] MEDS ORDERED: FUROSEMIDE 20 MG/2 ML VIAL ONE (21:11)
[2020-01-26] MEDS ORDERED: IPRATROPIUM BROM 0.5 MG/2.5ML INH SOL ONE (21:36)
[2020-01-26] MEDS ORDERED: ALBUTEROL SULF 2.5 MG/0.5ML(0.5%) NEB SOLN ONE (21:36)
[2020-01-26] MEDS ORDERED: LORazepam 2MG/ML-1ML VIAL ONE (21:44)
[2020-01-26] MEDS ORDERED: LORazepam 2MG/ML-1ML VIAL IV ONE (21:45)
[2020-01-26] MEDS ORDERED: ETOMIDATE (2MG/ML) 20ML VIAL IV ONE ×2 (21:59→22:00)
[2020-01-26] MEDS ORDERED: SUCCINYLCHOLINE CHLORIDE 20 MG/ML 10ML VIAL IV ONE ×2 (21:59→22:00)
[2020-01-26] MEDS ORDERED: DOXYCYCLINE 100 MG TAB/CAP PO SCH (22:00)
[2020-01-26] MEDS ORDERED: ALBUTEROL SULF HFA 90MCG INH 200DOSE IN SCH ×2 (22:00)
[2020-01-26] MEDS ORDERED: FUROSEMIDE 40 MG/4 ML VIAL IV SCH (22:00)
[2020-01-26] MEDS ORDERED: PROPOFOL 100 ML IV ONE (22:16)
[2020-01-26] MEDS ORDERED: MIDAZOLAM DRIP 50 mg/50mL 50 ML IV ONE (22:16)
[2020-01-26 22:28] LABS: Magnesium 1.9 mg/dL (1.6-2.6)
[2020-01-26] MEDS: PROPOFOL 100 ML IV SCH (22:30)
[2020-01-26] MEDS: MIDAZOLAM DRIP 50 mg/50mL 50 ML IV SCH (22:30)
[2020-01-26 22:40] VITALS: BP 176/96
[2020-01-26] MEDS ORDERED: ACETAMINOPHEN 650 mg PER 20 mL UD GT PRN (23:00)
[2020-01-26 23:37] VITALS: BP 176/96
[2020-01-27] VITALS (94 sets, daily range): BP systolic 91–172; BP diastolic 60–101
[2020-01-27] MEDS: InsuLIN REG 1unit/0.01ml Soln (100units/ml) SC SCH ×6 (00:22→23:02)
[2020-01-27 00:59] LABS: Urine Amorphous Crystal FEW /hpf (None Seen); Urine Bacteria FEW /hpf (None Seen); Urine Blood TRACE /uL (Negative); Urine Specific Gravity 1.009 (1.001-1.035); Urine WBC 1 /hpf (0 - 3)
[2020-01-27] MEDS: DOXYCYCLINE 100MG/250ML 250 ML IV SCH ×3 (01:00→20:50)
[2020-01-27] MEDS: ACCU-CHEK COMFORT CURVE STRIP VI SCH ×6 (04:00→22:00)
[2020-01-27 04:56] LABS: Albumin 1.4 g/dL (3.4-5.0); Calcium 6.4 mg/dL (8.5-10.1); Potassium 4.9 mmol/L (3.5-5.1)
[2020-01-27 05:00] LABS: BUN/Creatinine Ratio 15.7; Bilirubin, Total 0.2 mg/dL (0.2-1.0); Total Protein 5.4 g/dL (6.4-8.2)
[2020-01-27 08:24] LABS: Basophils # (auto) 0.1 10 ^3/uL (0-0.2); Eosinophils # (auto) 0.2 10 ^3/uL (0-0.8); Eosinophils % (auto) 1.3 % (0.0-7.0); Lymphocytes # (auto) 2.4 10 ^3/uL (0.4-5.4)
[2020-01-27 08:25] LABS: Basophils % (auto) 0.9 % (0.0-2.0); Hematocrit 17.4 % (41.0-53.0); Lymphocytes % (auto) 19.8 % (10.0-50.0); Mean Corpuscular Hemoglobin 28.7 pg (28.0-32.0); Mean Corpuscular Hgb Conc. 31.7 g/dL (32.0-36.0); Mean Corpuscular Volume 90.6 fL (80.0-100.0); Monocytes # (auto) 1.1 10 ^3/uL (0-1.3); Monocytes % (auto) 8.6 % (0.0-12.0); Neutrophils # (auto) 8.5 10 ^3/uL (1.6-8.6); Neutrophils % (auto) 69.4 % (37.0-80.0); Platelet Count (auto) 408 10^3/uL (140-450); Red Blood Cells 1.92 10^6/uL (4.5-5.90); White Blood Cell 12.3 10^3/uL (4.4-10.8)
[2020-01-27 08:31] LABS: Hemoglobin 5.5 g/dL (13.5-17.5)
[2020-01-27] MEDS ORDERED: FUROSEMIDE 40 MG/4 ML VIAL IV ONE (08:45)
[2020-01-27] MEDS ORDERED: FUROSEMIDE 100 MG/10ML VIAL IV ONE (09:15)
[2020-01-27] MEDS: ENOXAPARIN SOD 30 MG/0.3 ML SYRINGE SC SCH (09:50)
[2020-01-27] MEDS ORDERED: FUROSEMIDE 100 MG/10ML VIAL IV SCH (10:00)
[2020-01-27] MEDS ORDERED: ZINC SULFATE 220mg CAP or TAB PO SCH (10:00)
[2020-01-27] MEDS ORDERED: CHOLECALCIFEROL (VITD3) 1,000IU=25mCg TAB PO SCH (10:00)
[2020-01-27] MEDS ORDERED: ASCORBIC ACID 1,000 MG TAB PO SCH (10:00)
[2020-01-27] MEDS ORDERED: METOPROLOL TARTRATE 50 MG TAB PO ONE (13:15)
[2020-01-27] MEDS ORDERED: hydrALAZINE HCL 25 MG TAB PO ONE (13:15)
[2020-01-27] MEDS ORDERED: DEXTROSE (50%) 50ML SYRG IV PRN (17:00)
[2020-01-27] MEDS ORDERED: BACL10TA PO (17:03)
[2020-01-27] MEDS ORDERED: INSLISPI SC (17:09)
[2020-01-27] MEDS ORDERED: ALBUAER3 IN (17:11)
[2020-01-27] MEDS ORDERED: FUROSEMIDE 40 MG/4 ML VIAL IV SCH (18:00)
[2020-01-27] MEDS: SODIUM BICARB 50ML SYR 75 ML in SOD CHL 0.45% 1,000 ML IV SCH (20:51)
[2020-01-27] MEDS: PROPOFOL 100 ML IV SCH (21:06)
[2020-01-27] MEDS ORDERED: ASCORBIC ACID 500 MG TAB PO SCH (22:00)
[2020-01-27] MEDS: METOPROLOL TARTRATE 50 MG TAB PO SCH (22:05)
[2020-01-27] MEDS: ATORVASTATIN 20 MG TAB PO SCH (22:06)
[2020-01-27] MEDS: hydrALAZINE HCL 25 MG TAB PO SCH (22:06)
[2020-01-27] MEDS: CEFEPIME 1 GM in SODIUM CHL 0.9% 50 ML IV SCH (22:11)
[2020-01-27] MEDS: MIDAZOLAM DRIP 50 mg/50mL 50 ML IV SCH (22:11)
[2020-01-28] VITALS (101 sets, daily range): BP systolic 113–198; BP diastolic 68–111
[2020-01-28] MEDS: PROPOFOL 100 ML IV SCH ×6 (02:26→22:49)
[2020-01-28] MEDS: SODIUM BICARB 50ML SYR 75 ML in SOD CHL 0.45% 1,000 ML IV SCH (03:20)
[2020-01-28 05:16] LABS: Basophils # (auto) 0.1 10 ^3/uL (0-0.2); Eosinophils # (auto) 0.3 10 ^3/uL (0-0.8); Eosinophils % (auto) 2.3 % (0.0-7.0); Hematocrit 26.5 % (41.0-53.0); Hemoglobin 8.6 g/dL (13.5-17.5); Lymphocytes # (auto) 1.9 10 ^3/uL (0.4-5.4); Lymphocytes % (auto) 16.9 % (10.0-50.0); Mean Corpuscular Hemoglobin 28.6 pg (28.0-32.0); Mean Corpuscular Hgb Conc. 32.4 g/dL (32.0-36.0); Mean Corpuscular Volume 88.5 fL (80.0-100.0); Monocytes # (auto) 0.9 10 ^3/uL (0-1.3); Monocytes % (auto) 7.6 % (0.0-12.0); Neutrophils # (auto) 8.3 10 ^3/uL (1.6-8.6); Neutrophils % (auto) 72.2 % (37.0-80.0); Platelet Count (auto) 387 10^3/uL (140-450); Red Cell Distribution Width 15.4 % (11.8-14.3); White Blood Cell 11.4 10^3/uL (4.4-10.8)
[2020-01-28 05:35] LABS: Chloride 105 mmol/L (98-107); Potassium 3.7 mmol/L (3.5-5.1); Sodium 137 mmol/L (136-145)
[2020-01-28 05:41] LABS: % Iron Saturation 9.9 % (20-55)
[2020-01-28 05:44] LABS: Anion Gap 11 (5-15); BUN/Creatinine Ratio 15.8; Blood Urea Nitrogen 73 mg/dL (7-18); Calcium 7.4 mg/dL (8.5-10.1); Carbon Dioxide 21 mmol/L (21-32); GFR African American 18 mL/min; GFR Non-African American 15 mL/min; Glucose 150 mg/dL (74-106); Phosphorus 5.6 mg/dL (2.5-4.90)
[2020-01-28] MEDS: ACCU-CHEK COMFORT CURVE STRIP VI SCH ×4 (06:51→21:54)
[2020-01-28] MEDS: FUROSEMIDE 100 MG/10ML VIAL IV SCH ×2 (06:51→18:03)
[2020-01-28] MEDS: InsuLIN REG 1unit/0.01ml Soln (100units/ml) SC SCH ×4 (06:52→21:55)
[2020-01-28] MEDS: DOXYCYCLINE 100MG/250ML 250 ML IV SCH ×2 (08:30→21:02)
[2020-01-28] MEDS: MIDAZOLAM DRIP 50 mg/50mL 50 ML IV SCH ×2 (09:39→22:47)
[2020-01-28] MEDS: hydrALAZINE HCL 25 MG TAB PO SCH ×2 (09:43→21:43)
[2020-01-28] MEDS: CHOLECALCIFEROL (VITD3) 1,000IU=25mCg TAB PO SCH (09:44)
[2020-01-28] MEDS: METOPROLOL TARTRATE 50 MG TAB PO SCH ×2 (09:44→21:44)
[2020-01-28] MEDS: ENOXAPARIN SOD 30 MG/0.3 ML SYRINGE SC SCH (09:45)
[2020-01-28] MEDS: CEFEPIME 1 GM in SODIUM CHL 0.9% 50 ML IV SCH (21:42)
[2020-01-28] MEDS: ATORVASTATIN 20 MG TAB PO SCH (21:43)
[2020-01-29] VITALS (99 sets, daily range): BP systolic 121–205; BP diastolic 70–115
[2020-01-29] MEDS: PROPOFOL 100 ML IV SCH ×3 (02:46→21:34)
[2020-01-29 04:08] LABS: Basophils # (auto) 0.1 10 ^3/uL (0-0.2); Basophils % (auto) 1.1 % (0.0-2.0); Eosinophils # (auto) 0.3 10 ^3/uL (0-0.8); Eosinophils % (auto) 2.9 % (0.0-7.0); Hematocrit 27.5 % (41.0-53.0); Hemoglobin 8.9 g/dL (13.5-17.5); Lymphocytes # (auto) 1.8 10 ^3/uL (0.4-5.4); Lymphocytes % (auto) 20.1 % (10.0-50.0); Mean Corpuscular Hemoglobin 28.6 pg (28.0-32.0); Mean Corpuscular Hgb Conc. 32.5 g/dL (32.0-36.0); Monocytes # (auto) 0.7 10 ^3/uL (0-1.3); Monocytes % (auto) 8.2 % (0.0-12.0); Neutrophils # (auto) 6.1 10 ^3/uL (1.6-8.6); Neutrophils % (auto) 67.7 % (37.0-80.0); Platelet Count (auto) 421 10^3/uL (140-450); Red Blood Cells 3.13 10^6/uL (4.5-5.90); Red Cell Distribution Width 15.4 % (11.8-14.3); White Blood Cell 8.9 10^3/uL (4.4-10.8)
[2020-01-29 04:24] LABS: BUN/Creatinine Ratio 14.4; Calcium 7.5 mg/dL (8.5-10.1); INR 1.07 (0.9-1.15); Partial Thromboplastin Time 32.8 sec (23.64-32.05); Potassium 3.6 mmol/L (3.5-5.1)
[2020-01-29] MEDS: FUROSEMIDE 100 MG/10ML VIAL IV SCH ×2 (06:04→18:16)
[2020-01-29] MEDS: ACCU-CHEK COMFORT CURVE STRIP VI SCH ×4 (06:55→22:00)
[2020-01-29] MEDS: InsuLIN REG 1unit/0.01ml Soln (100units/ml) SC SCH ×4 (06:56→22:00)
[2020-01-29] MEDS ORDERED: SODIUM CHL 0.9% 1000 ML BAG XX ONE (07:00)
[2020-01-29 08:30] LABS: % Iron Saturation 8.2 % (20-55)
[2020-01-29] MEDS: ENOXAPARIN SOD 30 MG/0.3 ML SYRINGE SC SCH (09:23)
[2020-01-29] MEDS: DOXYCYCLINE 100MG/250ML 250 ML IV SCH ×2 (09:45→21:40)
[2020-01-29] MEDS: hydrALAZINE HCL 25 MG TAB PO SCH ×2 (09:45→21:41)
[2020-01-29] MEDS: METOPROLOL TARTRATE 50 MG TAB PO SCH ×3 (09:46→22:00)
[2020-01-29] MEDS: CHOLECALCIFEROL (VITD3) 1,000IU=25mCg TAB PO SCH (10:00)
[2020-01-29] MEDS ORDERED: LIDOCAINE 2%HCL (LOCAL ANESTH.) INJ 20ML MDV ONE ×2 (10:22→11:42)
[2020-01-29] MEDS ORDERED: SODIUM FERR GLUC 62.5MG/5ML 125 MG in SODIUM CHL 0.9% 100 ML IV SCH (10:30)
[2020-01-29] MEDS ORDERED: IRON SUCROSE COMPLEX 200 MG in SODIUM CHL 0.9% 100 ML IV ONE (10:30)
[2020-01-29] MEDS ORDERED: HEPARIN SODIUM (PORCINE) 5000 UNITS/ML 1ML VIAL ONE (11:20)
[2020-01-29] MEDS ORDERED: fentaNYL CITRATE 100 MCG/2 ML VL ONE (11:25)
[2020-01-29] MEDS ORDERED: IODIXANOL 320MG/ML 100ML BTL IV ONE (11:32)
[2020-01-29] MEDS ORDERED: EPOETIN ALFA 10,000 UNIT/1 ML VIAL SC ONE (21:00)
[2020-01-29] MEDS: MIDAZOLAM DRIP 50 mg/50mL 50 ML IV SCH (21:35)
[2020-01-29] MEDS: ATORVASTATIN 20 MG TAB PO SCH (21:40)
[2020-01-29] MEDS: CEFEPIME 1 GM in SODIUM CHL 0.9% 50 ML IV SCH (23:02)
[2020-01-30] VITALS (84 sets, daily range): BP systolic 95–201; BP diastolic 44–109
[2020-01-30] MEDS: hydrALAZINE HCL 20 MG/ML VL IV PRN ×3 (01:04→17:26)
[2020-01-30 04:12] LABS: Basophils # (auto) 0.1 10 ^3/uL (0-0.2); Eosinophils # (auto) 0 10 ^3/uL (0-0.8); Hematocrit 32.1 % (41.0-53.0); Hemoglobin 10.5 g/dL (13.5-17.5); Lymphocytes # (auto) 0.6 10 ^3/uL (0.4-5.4); Lymphocytes % (auto) 4.7 % (10.0-50.0); Mean Corpuscular Hgb Conc. 32.8 g/dL (32.0-36.0); Mean Corpuscular Volume 88.5 fL (80.0-100.0); Monocytes # (auto) 0.6 10 ^3/uL (0-1.3); Monocytes % (auto) 4.4 % (0.0-12.0); Neutrophils # (auto) 12.5 10 ^3/uL (1.6-8.6); Neutrophils % (auto) 89.9 % (37.0-80.0); Platelet Count (auto) 561 10^3/uL (140-450); Red Blood Cells 3.63 10^6/uL (4.5-5.90); Red Cell Distribution Width 14.8 % (11.8-14.3); White Blood Cell 13.9 10^3/uL (4.4-10.8)
[2020-01-30 04:32] LABS: Calcium 7.4 mg/dL (8.5-10.1); Potassium 3.9 mmol/L (3.5-5.1)
[2020-01-30 04:36] LABS: BUN/Creatinine Ratio 12.6; Bilirubin, Total 0.4 mg/dL (0.2-1.0)
[2020-01-30 04:50] LABS: Albumin 1.4 g/dL (3.4-5.0)
[2020-01-30] MEDS: METOPROLOL TARTRATE 50 MG TAB PO SCH ×3 (05:35→22:00)
[2020-01-30] MEDS: InsuLIN REG 1unit/0.01ml Soln (100units/ml) SC SCH ×4 (06:25→22:00)
[2020-01-30] MEDS: ACCU-CHEK COMFORT CURVE STRIP VI SCH ×4 (06:25→22:00)
[2020-01-30] MEDS: PROPOFOL 100 ML IV SCH ×2 (06:30→22:00)
[2020-01-30] MEDS ORDERED: FUROSEMIDE 100 MG/10ML VIAL IV ONE (08:15)
[2020-01-30] MEDS: hydrALAZINE HCL 25 MG TAB PO SCH ×3 (08:53→22:29)
[2020-01-30] MEDS: DOXYCYCLINE 100MG/250ML 250 ML IV SCH ×2 (09:00→20:21)
[2020-01-30 09:47] LABS: Hepatitis A Ab IgM Negative; Hepatitis B Core IgM Negative; Hepatitis B Surface Antigen Negative (Negative)
[2020-01-30 09:48] LABS: Hepatitis C Antibody Negative (Negative)
[2020-01-30] MEDS: CHOLECALCIFEROL (VITD3) 1,000IU=25mCg TAB PO SCH (10:18)
[2020-01-30] MEDS: ENOXAPARIN SOD 30 MG/0.3 ML SYRINGE SC SCH (10:18)
[2020-01-30] MEDS ORDERED: cloNIDine HCL 0.1 MG TAB PO ONE (12:15)
[2020-01-30] MEDS ORDERED: hydrALAZINE HCL 20 MG/ML VL ONE (13:37)
[2020-01-30] MEDS ORDERED: hydrALAZINE HCL 20 MG/ML VL IV ONE (13:45)
[2020-01-30] MEDS ORDERED: cloNIDine HCL 0.1 MG TAB PO PRN (15:45)
[2020-01-30] MEDS: SACUBITRIL-VALSARTAN 24mg/26mg TAB PO SCH ×2 (15:55→22:28)
[2020-01-30] MEDS: DexMEDEtomidine 400 MCG in D5W 5% 96 ML IV SCH (19:44)
[2020-01-30] MEDS ORDERED: SACUBITRIL-VALSARTAN 24mg/26mg TAB PO SCH (22:00)
[2020-01-30] MEDS: CEFEPIME 1 GM in SODIUM CHL 0.9% 50 ML IV SCH (22:00)
[2020-01-30] MEDS: MIDAZOLAM DRIP 50 mg/50mL 50 ML IV SCH (22:11)
[2020-01-30] MEDS: ATORVASTATIN 20 MG TAB PO SCH (22:28)
[2020-01-31] VITALS (100 sets, daily range): BP systolic 88–179; BP diastolic 50–104
[2020-01-31 04:06] LABS: Eosinophils # (auto) 0 10 ^3/uL (0-0.8); Hemoglobin 9.5 g/dL (13.5-17.5); Mean Corpuscular Hemoglobin 28.7 pg (28.0-32.0)
[2020-01-31 04:09] LABS: Basophils # (auto) 0.2 10 ^3/uL (0-0.2); Eosinophils % (auto) 0.2 % (0.0-7.0); Hematocrit 29.4 % (41.0-53.0); Lymphocytes # (auto) 1.7 10 ^3/uL (0.4-5.4); Lymphocytes % (auto) 11.3 % (10.0-50.0); Mean Corpuscular Hgb Conc. 32.1 g/dL (32.0-36.0); Mean Corpuscular Volume 89.3 fL (80.0-100.0); Monocytes % (auto) 6.4 % (0.0-12.0); Neutrophils # (auto) 12.1 10 ^3/uL (1.6-8.6); Neutrophils % (auto) 81.1 % (37.0-80.0); Nucleated Red Blood Cells % 0.1 %; Platelet Count (auto) 477 10^3/uL (140-450); Red Cell Distribution Width 15.7 % (11.8-14.3)
[2020-01-31 04:24] LABS: % Iron Saturation 19.9 % (20-55)
[2020-01-31 04:25] LABS: BUN/Creatinine Ratio 13.3; Calcium 7.3 mg/dL (8.5-10.1); Potassium 3.7 mmol/L (3.5-5.1)
[2020-01-31] MEDS: ACCU-CHEK COMFORT CURVE STRIP VI SCH ×4 (05:56→21:56)
[2020-01-31] MEDS: InsuLIN REG 1unit/0.01ml Soln (100units/ml) SC SCH ×4 (05:57→22:00)
[2020-01-31] MEDS: hydrALAZINE HCL 25 MG TAB PO SCH ×3 (06:21→21:56)
[2020-01-31] MEDS: DexMEDEtomidine 400 MCG in D5W 5% 96 ML IV SCH (06:22)
[2020-01-31] MEDS ORDERED: SODIUM CHL 0.9% 1000 ML BAG XX ONE (07:00)
[2020-01-31] MEDS: CHOLECALCIFEROL (VITD3) 1,000IU=25mCg TAB PO SCH (07:54)
[2020-01-31] MEDS: ENOXAPARIN SOD 30 MG/0.3 ML SYRINGE SC SCH (10:00)
[2020-01-31] MEDS: SACUBITRIL-VALSARTAN 24mg/26mg TAB PO SCH ×2 (10:00→21:54)
[2020-01-31] MEDS ORDERED: MEROPENEM 500MG IVPB 50 ML IV SCH (13:45)
[2020-01-31] MEDS ORDERED: SODIUM FERR GLUC 62.5MG/5ML 125 MG in SODIUM CHL 0.9% 100 ML IV ONE (13:45)
[2020-01-31] MEDS: LINEZOLID 600MG/300ML 300 ML IV SCH ×2 (14:09→21:54)
[2020-01-31] MEDS ORDERED: METHADONE HCL 10 MG TAB PO ONE (15:45)
[2020-01-31] MEDS ORDERED: HYDROcodone-ACET 5/325MG TAB PO PRN (15:45)
[2020-01-31] MEDS: IRON SUCROSE COMPLEX 200 MG in SODIUM CHL 0.9% 100 ML IV SCH (16:24)
[2020-01-31] MEDS: PROPOFOL 100 ML IV SCH ×2 (16:32→21:40)
[2020-01-31] MEDS: MEROPENEM 500MG IVPB 50 ML IV SCH (17:03)
[2020-01-31] MEDS: fentaNYL Drip 2500mCg/250mlNS 250 ML IV SCH (17:17)
[2020-01-31] MEDS: hydrALAZINE HCL 20 MG/ML VL IV PRN (18:29)
[2020-01-31] MEDS ORDERED: CATHFLO ACTIVASE (ALTEPLASE) 2 MG VIAL IV ONE (20:00)
[2020-01-31] MEDS ORDERED: EPOETIN ALFA 10,000 UNIT/1 ML VIAL SC ONE (21:00)
[2020-01-31] MEDS: ATORVASTATIN 20 MG TAB PO SCH (21:55)
[2020-01-31] MEDS: METHADONE HCL 10 MG TAB PO SCH (21:55)
[2020-02-01] VITALS (84 sets, daily range): BP systolic 82–179; BP diastolic 46–100
[2020-02-01] MEDS: hydrALAZINE HCL 20 MG/ML VL IV PRN ×2 (00:32→20:32)
[2020-02-01] MEDS: PROPOFOL 100 ML IV SCH ×2 (03:00→07:50)
[2020-02-01 04:17] LABS: Basophils # (auto) 0.1 10 ^3/uL (0-0.2); Basophils % (auto) 0.7 % (0.0-2.0); Eosinophils # (auto) 0.1 10 ^3/uL (0-0.8); Eosinophils % (auto) 0.3 % (0.0-7.0)
[2020-02-01 04:19] LABS: Hematocrit 33.4 % (41.0-53.0); Hemoglobin 10.6 g/dL (13.5-17.5); Lymphocytes % (auto) 11.6 % (10.0-50.0); Mean Corpuscular Hemoglobin 27.8 pg (28.0-32.0); Mean Corpuscular Hgb Conc. 31.9 g/dL (32.0-36.0); Mean Corpuscular Volume 87.2 fL (80.0-100.0); Monocytes # (auto) 1.3 10 ^3/uL (0-1.3); Monocytes % (auto) 7.4 % (0.0-12.0); Nucleated Red Blood Cells % 0.1 %; Platelet Count (auto) 599 10^3/uL (140-450); Red Blood Cells 3.83 10^6/uL (4.5-5.90); White Blood Cell 17.5 10^3/uL (4.4-10.8)
[2020-02-01 04:32] LABS: BUN/Creatinine Ratio 11.4; Calcium 7.4 mg/dL (8.5-10.1); Potassium 3.3 mmol/L (3.5-5.1)
[2020-02-01] MEDS: DexMEDEtomidine 400 MCG in D5W 5% 96 ML IV SCH (05:00)
[2020-02-01] MEDS: METHADONE HCL 10 MG TAB PO SCH ×3 (06:00→22:34)
[2020-02-01] MEDS: hydrALAZINE HCL 25 MG TAB PO SCH ×3 (06:00→22:33)
[2020-02-01] MEDS: MEROPENEM 500MG IVPB 50 ML IV SCH ×2 (06:00→17:47)
[2020-02-01] MEDS: InsuLIN REG 1unit/0.01ml Soln (100units/ml) SC SCH ×3 (06:44→18:35)
[2020-02-01] MEDS: ACCU-CHEK COMFORT CURVE STRIP VI SCH ×3 (06:45→18:34)
[2020-02-01] MEDS: MIDAZOLAM DRIP 50 mg/50mL 50 ML IV SCH ×2 (09:26→22:11)
[2020-02-01] MEDS: SACUBITRIL-VALSARTAN 24mg/26mg TAB PO SCH ×2 (09:28→22:35)
[2020-02-01] MEDS: METOPROLOL TARTRATE 50 MG TAB PO SCH ×2 (09:28→22:35)
[2020-02-01] MEDS ORDERED: POTASSIUM CHLORIDE 40 MEQ, LIDOCAINE 1% (LOCAL ANESTH.) 4 ML in SODIUM CHL 0.9% 100 ML IV ONE (09:45)
[2020-02-01] MEDS: LINEZOLID 600MG/300ML 300 ML IV SCH ×2 (10:00→22:33)
[2020-02-01] MEDS: CHOLECALCIFEROL (VITD3) 1,000IU=25mCg TAB PO SCH (10:00)
[2020-02-01] MEDS: NOREPINEPHRINE 8 MG/250ML KIT 250 ML IV SCH (10:15)
[2020-02-01] MEDS ORDERED: TPN PER PHARMACY 0 ML IV SCH (10:15)
[2020-02-01 12:01] LABS: Albumin 1.3 g/dL (3.4-5.0); Magnesium 2.4 mg/dL (1.6-2.6); Potassium 3.6 mmol/L (3.5-5.1)
[2020-02-01 12:05] LABS: BUN/Creatinine Ratio 10.7; Bilirubin, Total 0.3 mg/dL (0.2-1.0); Phosphorus 8.4 mg/dL (2.5-4.90); Total Protein 6.1 g/dL (6.4-8.2)
[2020-02-01] MEDS: ENOXAPARIN SOD 30 MG/0.3 ML SYRINGE SC SCH (13:30)
[2020-02-01] MEDS: IRON SUCROSE COMPLEX 200 MG in SODIUM CHL 0.9% 100 ML IV SCH (13:34)
[2020-02-01] MEDS ORDERED: LORazepam 2MG/ML-1ML VIAL ONE (16:35)
[2020-02-01] MEDS ORDERED: hydrALAZINE HCL 20 MG/ML VL IV PRN (17:00)
[2020-02-01] MEDS ORDERED: hydrALAZINE HCL 20 MG/ML VL IV ONE (17:00)
[2020-02-01] MEDS ORDERED: DEXTROSE (50%) 50ML SYRG IV SCH (18:00)
[2020-02-01] MEDS: fentaNYL Drip 2500mCg/250mlNS 250 ML IV SCH (18:26)
[2020-02-01] MEDS ORDERED: TPN PER PHARMACY IV NR ×7 (20:00)
[2020-02-01] MEDS: ONDANSETRON HCL 4 MG/2 ML VIAL IV PRN (20:31)
[2020-02-01] MEDS ORDERED: SODIUM CHLORIDE 0.9% 1,000 ML IV SCH (22:30)
[2020-02-01] MEDS: ATORVASTATIN 20 MG TAB PO SCH (22:35)
[2020-02-01] MEDS: MORPHINE SULFATE 4 MG/ML SYR/VIAL IV PRN (22:57)
[2020-02-01] MEDS: LORazepam 2MG/ML-1ML VIAL IV PRN (23:30)
[2020-02-02] VITALS (17 sets, daily range): BP systolic 125–185; BP diastolic 77–103
[2020-02-02] MEDS: MORPHINE SULFATE 4 MG/ML SYR/VIAL IV PRN ×2 (02:20→08:29)
[2020-02-02] MEDS: LORazepam 2MG/ML-1ML VIAL IV PRN (03:30)
[2020-02-02 04:27] LABS: Basophils # (auto) 0.1 10 ^3/uL (0-0.2); Eosinophils # (auto) 0 10 ^3/uL (0-0.8)
[2020-02-02 04:32] LABS: Basophils % (auto) 0.8 % (0.0-2.0); Eosinophils % (auto) 0.2 % (0.0-7.0); Hematocrit 31.1 % (41.0-53.0); Hemoglobin 10.2 g/dL (13.5-17.5); Lymphocytes # (auto) 2.2 10 ^3/uL (0.4-5.4); Lymphocytes % (auto) 12.9 % (10.0-50.0); Mean Corpuscular Hemoglobin 28.7 pg (28.0-32.0); Mean Corpuscular Hgb Conc. 32.6 g/dL (32.0-36.0); Mean Corpuscular Volume 87.9 fL (80.0-100.0); Monocytes # (auto) 1.1 10 ^3/uL (0-1.3); Monocytes % (auto) 6.5 % (0.0-12.0); Neutrophils # (auto) 13.7 10 ^3/uL (1.6-8.6); Neutrophils % (auto) 79.6 % (37.0-80.0); Nucleated Red Blood Cells % 0.2 %; Platelet Count (auto) 552 10^3/uL (140-450); Red Blood Cells 3.54 10^6/uL (4.5-5.90); Red Cell Distribution Width 15.2 % (11.8-14.3); White Blood Cell 17.1 10^3/uL (4.4-10.8)
[2020-02-02 04:45] LABS: Potassium 3.7 mmol/L (3.5-5.1)
[2020-02-02 04:54] LABS: Albumin 1.5 g/dL (3.4-5.0); Bilirubin, Total 0.3 mg/dL (0.2-1.0); Calcium 7.1 mg/dL (8.5-10.1); Magnesium 2.4 mg/dL (1.6-2.6); Phosphorus 8.3 mg/dL (2.5-4.90); Pre Albumin 17.6 mg/dL (20.0-40.0); Total Protein 6.7 g/dL (6.4-8.2)
[2020-02-02] MEDS: MEROPENEM 500MG IVPB 50 ML IV SCH ×2 (06:03→18:04)
[2020-02-02] MEDS: ACCU-CHEK COMFORT CURVE STRIP VI SCH ×4 (06:04→17:46)
[2020-02-02] MEDS: hydrALAZINE HCL 25 MG TAB PO SCH ×3 (06:04→21:34)
[2020-02-02] MEDS: METHADONE HCL 10 MG TAB PO SCH ×3 (06:04→21:35)
[2020-02-02] MEDS: InsuLIN REG 1unit/0.01ml Soln (100units/ml) SC SCH ×4 (06:22→18:05)
[2020-02-02] MEDS ORDERED: SODIUM CHL 0.9% 1000 ML BAG XX ONE (08:15)
[2020-02-02] MEDS ORDERED: HYDROmorphone HCL 2 MG/ML VL IV PRN (09:45)
[2020-02-02] MEDS: ENOXAPARIN SOD 30 MG/0.3 ML SYRINGE SC SCH (10:00)
[2020-02-02] MEDS: NOREPINEPHRINE 8 MG/250ML KIT 250 ML IV SCH (11:22)
[2020-02-02] MEDS: LINEZOLID 600MG/300ML 300 ML IV SCH ×2 (13:04→21:32)
[2020-02-02] MEDS: HYDROcodone-ACET 5/325MG TAB PO PRN (13:05)
[2020-02-02] MEDS: METOPROLOL TARTRATE 50 MG TAB PO SCH ×2 (13:05→21:33)
[2020-02-02] MEDS: CHOLECALCIFEROL (VITD3) 1,000IU=25mCg TAB PO SCH (13:05)
[2020-02-02] MEDS: IRON SUCROSE COMPLEX 200 MG in SODIUM CHL 0.9% 100 ML IV SCH (13:15)
[2020-02-02] MEDS: SACUBITRIL-VALSARTAN 24mg/26mg TAB PO SCH ×2 (13:15→21:32)
[2020-02-02] MEDS ORDERED: TPN PER PHARMACY IV NR ×9 (20:00)
[2020-02-02] MEDS: ATORVASTATIN 20 MG TAB PO SCH (21:32)
[2020-02-03] MEDS: ACCU-CHEK COMFORT CURVE STRIP VI SCH ×4 (00:20→19:22)
[2020-02-03] MEDS: InsuLIN REG 1unit/0.01ml Soln (100units/ml) SC SCH ×4 (00:25→19:21)
[2020-02-03] MEDS: METHADONE HCL 10 MG TAB PO SCH ×3 (05:43→21:49)
[2020-02-03 05:44] VITALS: BP 146/85
[2020-02-03] MEDS: hydrALAZINE HCL 25 MG TAB PO SCH ×3 (05:44→21:48)
[2020-02-03] MEDS: MEROPENEM 500MG IVPB 50 ML IV SCH ×2 (06:03→19:20)
[2020-02-03 06:19] LABS: Basophils # (auto) 0.2 10 ^3/uL (0-0.2); Eosinophils # (auto) 0.3 10 ^3/uL (0-0.8); Eosinophils % (auto) 2.3 % (0.0-7.0)
[2020-02-03 06:28] LABS: Basophils % (auto) 1.6 % (0.0-2.0); Hematocrit 35.7 % (41.0-53.0); Hemoglobin 11.5 g/dL (13.5-17.5); Lymphocytes # (auto) 2.1 10 ^3/uL (0.4-5.4); Lymphocytes % (auto) 13.6 % (10.0-50.0); Mean Corpuscular Hemoglobin 28.8 pg (28.0-32.0); Mean Corpuscular Hgb Conc. 32.2 g/dL (32.0-36.0); Mean Corpuscular Volume 89.3 fL (80.0-100.0); Monocytes % (auto) 6.7 % (0.0-12.0); Neutrophils # (auto) 11.5 10 ^3/uL (1.6-8.6); Neutrophils % (auto) 75.8 % (37.0-80.0); Nucleated Red Blood Cells % 0.2 %; Platelet Count (auto) 488 10^3/uL (140-450); Red Cell Distribution Width 14.8 % (11.8-14.3); White Blood Cell 15.1 10^3/uL (4.4-10.8)
[2020-02-03 06:53] LABS: Albumin 1.4 g/dL (3.4-5.0); Calcium 7.5 mg/dL (8.5-10.1); Magnesium 2.2 mg/dL (1.6-2.6); Potassium 3.7 mmol/L (3.5-5.1)
[2020-02-03 06:58] LABS: BUN/Creatinine Ratio 9.6; Bilirubin, Total 0.2 mg/dL (0.2-1.0); Phosphorus 5.1 mg/dL (2.5-4.90); Total Protein 6.6 g/dL (6.4-8.2)
[2020-02-03 09:00] VITALS: BP 132/91
[2020-02-03] MEDS: LINEZOLID 600MG/300ML 300 ML IV SCH ×2 (10:02→21:47)
[2020-02-03] MEDS: METOPROLOL TARTRATE 50 MG TAB PO SCH ×2 (10:03→21:49)
[2020-02-03] MEDS: CHOLECALCIFEROL (VITD3) 1,000IU=25mCg TAB PO SCH (10:03)
[2020-02-03] MEDS: SACUBITRIL-VALSARTAN 24mg/26mg TAB PO SCH ×2 (10:04→21:48)
[2020-02-03] MEDS: IRON SUCROSE COMPLEX 200 MG in SODIUM CHL 0.9% 100 ML IV SCH (12:16)
[2020-02-03] MEDS: SEVELAMER 800 MG TAB PO SCH ×2 (12:17→19:21)
[2020-02-03 13:00] VITALS: BP 159/87
[2020-02-03] MEDS: ONDANSETRON HCL 4 MG/2 ML VIAL IV PRN (16:32)
[2020-02-03 17:20] VITALS: BP 161/98
[2020-02-03] MEDS ORDERED: TPN PER PHARMACY IV NR ×9 (20:00)
[2020-02-03] MEDS: ATORVASTATIN 20 MG TAB PO SCH (21:48)
[2020-02-03] MEDS: LORazepam 2MG/ML-1ML VIAL IV PRN (21:59)
[2020-02-03 22:00] VITALS: BP 162/92
[2020-02-04] MEDS: InsuLIN REG 1unit/0.01ml Soln (100units/ml) SC SCH ×4 (00:39→18:02)
[2020-02-04] MEDS: ACCU-CHEK COMFORT CURVE STRIP VI SCH ×4 (00:39→18:02)
[2020-02-04] MEDS: hydrALAZINE HCL 20 MG/ML VL IV PRN ×2 (00:43→18:03)
[2020-02-04 05:00] VITALS: BP 150/91
[2020-02-04] MEDS: MEROPENEM 500MG IVPB 50 ML IV SCH ×2 (05:37→18:00)
[2020-02-04] MEDS: hydrALAZINE HCL 25 MG TAB PO SCH ×3 (05:37→21:45)
[2020-02-04] MEDS: METHADONE HCL 10 MG TAB PO SCH ×3 (05:38→21:46)
[2020-02-04] MEDS ORDERED: SODIUM CHL 0.9% 1000 ML BAG XX ONE (07:00)
[2020-02-04 08:32] LABS: Albumin 1.4 g/dL (3.4-5.0); Calcium 7.3 mg/dL (8.5-10.1); Potassium 3.9 mmol/L (3.5-5.1)
[2020-02-04 08:36] LABS: BUN/Creatinine Ratio 10.1; Bilirubin, Total 0.3 mg/dL (0.2-1.0); Phosphorus 5.6 mg/dL (2.5-4.90); Total Protein 6.3 g/dL (6.4-8.2)
[2020-02-04] MEDS: LINEZOLID 600MG/300ML 300 ML IV SCH ×2 (09:40→21:44)
[2020-02-04 09:42] VITALS: BP 128/71
[2020-02-04] MEDS: SEVELAMER 800 MG TAB PO SCH ×3 (09:42→18:01)
[2020-02-04] MEDS: METOPROLOL TARTRATE 50 MG TAB PO SCH ×2 (09:42→21:46)
[2020-02-04] MEDS: SACUBITRIL-VALSARTAN 24mg/26mg TAB PO SCH ×2 (09:42→21:45)
[2020-02-04] MEDS: CHOLECALCIFEROL (VITD3) 1,000IU=25mCg TAB PO SCH (09:43)
[2020-02-04 10:59] LABS: Basophils # (auto) 0.2 10 ^3/uL (0-0.2); Basophils % (auto) 1.2 % (0.0-2.0); Eosinophils # (auto) 0.3 10 ^3/uL (0-0.8); Eosinophils % (auto) 1.8 % (0.0-7.0); Hemoglobin 10.8 g/dL (13.5-17.5); Lymphocytes # (auto) 2.4 10 ^3/uL (0.4-5.4); Mean Corpuscular Hemoglobin 28.2 pg (28.0-32.0); Mean Corpuscular Hgb Conc. 31.7 g/dL (32.0-36.0); Mean Corpuscular Volume 89.1 fL (80.0-100.0); Monocytes # (auto) 1.3 10 ^3/uL (0-1.3); Monocytes % (auto) 7.9 % (0.0-12.0); Neutrophils # (auto) 12.7 10 ^3/uL (1.6-8.6); Neutrophils % (auto) 75.1 % (37.0-80.0); Nucleated Red Blood Cells % 0.1 %; Platelet Count (auto) 445 10^3/uL (140-450); Red Blood Cells 3.81 10^6/uL (4.5-5.90); Red Cell Distribution Width 15.3 % (11.8-14.3)
[2020-02-04] MEDS: IRON SUCROSE COMPLEX 200 MG in SODIUM CHL 0.9% 100 ML IV SCH (12:04)
[2020-02-04 13:35] VITALS: BP 144/84
[2020-02-04] MEDS ORDERED: FLUCONAZOLE 200MG/100ML 100 ML IV ONE (16:30)
[2020-02-04 16:34] VITALS: BP 159/90
[2020-02-04] MEDS: ONDANSETRON HCL 4 MG/2 ML VIAL IV PRN (18:04)
[2020-02-04 21:27] VITALS: BP 163/78
[2020-02-04] MEDS: ATORVASTATIN 20 MG TAB PO SCH (21:45)
[2020-02-04] MEDS: LORazepam 2MG/ML-1ML VIAL IV PRN (21:46)
[2020-02-04 22:12] VITALS: BP 145/80
[2020-02-05] MEDS: InsuLIN REG 1unit/0.01ml Soln (100units/ml) SC SCH ×4 (00:33→17:21)
[2020-02-05] MEDS: ACCU-CHEK COMFORT CURVE STRIP VI SCH ×4 (00:33→17:21)
[2020-02-05 05:00] VITALS: BP 130/78
[2020-02-05] MEDS: MEROPENEM 500MG IVPB 50 ML IV SCH (05:35)
[2020-02-05] MEDS: METHADONE HCL 10 MG TAB PO SCH ×3 (05:44→21:23)
[2020-02-05] MEDS: hydrALAZINE HCL 25 MG TAB PO SCH ×3 (05:44→21:22)
[2020-02-05 08:00] VITALS: BP 159/95
[2020-02-05] MEDS: LINEZOLID 600MG/300ML 300 ML IV SCH (09:45)
[2020-02-05] MEDS: SEVELAMER 800 MG TAB PO SCH ×3 (09:45→17:21)
[2020-02-05] MEDS: FLUCONAZOLE 200MG/100ML 100 ML IV SCH (09:48)
[2020-02-05] MEDS: HYDROcodone-ACET 5/325MG TAB PO PRN (09:48)
[2020-02-05] MEDS: SACUBITRIL-VALSARTAN 24mg/26mg TAB PO SCH ×2 (09:49→21:22)
[2020-02-05] MEDS: METOPROLOL TARTRATE 50 MG TAB PO SCH ×2 (09:49→21:22)
[2020-02-05] MEDS: CHOLECALCIFEROL (VITD3) 1,000IU=25mCg TAB PO SCH (09:49)
[2020-02-05 10:42] LABS: Basophils # (auto) 0.2 10 ^3/uL (0-0.2); Basophils % (auto) 1.4 % (0.0-2.0); Eosinophils # (auto) 0.3 10 ^3/uL (0-0.8); Hematocrit 29.7 % (41.0-53.0); Hemoglobin 9.7 g/dL (13.5-17.5); Lymphocytes # (auto) 1.9 10 ^3/uL (0.4-5.4); Lymphocytes % (auto) 14.5 % (10.0-50.0); Mean Corpuscular Hemoglobin 29.2 pg (28.0-32.0); Mean Corpuscular Hgb Conc. 32.6 g/dL (32.0-36.0); Mean Corpuscular Volume 89.6 fL (80.0-100.0); Monocytes # (auto) 1.1 10 ^3/uL (0-1.3); Monocytes % (auto) 8.8 % (0.0-12.0); Neutrophils # (auto) 9.4 10 ^3/uL (1.6-8.6); Neutrophils % (auto) 73.3 % (37.0-80.0); Platelet Count (auto) 377 10^3/uL (140-450); Red Blood Cells 3.31 10^6/uL (4.5-5.90); Red Cell Distribution Width 15.1 % (11.8-14.3); White Blood Cell 12.8 10^3/uL (4.4-10.8)
[2020-02-05 11:27] LABS: Calcium 7.1 mg/dL (8.5-10.1); Potassium 4.4 mmol/L (3.5-5.1)
[2020-02-05 11:30] LABS: BUN/Creatinine Ratio 8.7
[2020-02-05] MEDS: IRON SUCROSE COMPLEX 200 MG in SODIUM CHL 0.9% 100 ML IV SCH (11:52)
[2020-02-05 12:00] VITALS: BP 145/89
[2020-02-05 17:00] VITALS: BP 132/64
[2020-02-05] MEDS ORDERED: amLODIPine BESYLATE 5 MG TAB PO ONE (17:15)
[2020-02-05] MEDS ORDERED: FUROSEMIDE 100 MG/10ML VIAL IV ONE (17:15)
[2020-02-05] MEDS: GABAPENTIN 100 MG CAP PO SCH ×2 (17:20→21:23)
[2020-02-05] MEDS: cefTRIAXone 1GM/50ML D5W 50 ML IV SCH (21:21)
[2020-02-05] MEDS: ATORVASTATIN 20 MG TAB PO SCH (21:22)
[2020-02-05] MEDS: DOXYCYCLINE 100 MG TAB/CAP PO SCH (21:23)
[2020-02-05] MEDS: LORazepam 2MG/ML-1ML VIAL IV PRN (21:23)
[2020-02-05] MEDS: HEPARIN SODIUM (PORCINE) 5000 UNITS/ML 1ML VIAL SC SCH (21:25)
[2020-02-05 22:00] VITALS: BP 159/91
[2020-02-06] MEDS: InsuLIN REG 1unit/0.01ml Soln (100units/ml) SC SCH ×5 (00:30→23:44)
[2020-02-06] MEDS: ACCU-CHEK COMFORT CURVE STRIP VI SCH ×5 (00:31→23:44)
[2020-02-06 05:53] VITALS: BP 148/86
[2020-02-06] MEDS: hydrALAZINE HCL 25 MG TAB PO SCH ×3 (05:57→22:01)
[2020-02-06] MEDS: METHADONE HCL 10 MG TAB PO SCH ×3 (05:57→22:02)
[2020-02-06] MEDS ORDERED: SODIUM CHL 0.9% 1000 ML BAG XX ONE (07:00)
[2020-02-06 07:09] LABS: Basophils # (auto) 0.3 10 ^3/uL (0-0.2); Basophils % (auto) 2.5 % (0.0-2.0); Eosinophils # (auto) 0.4 10 ^3/uL (0-0.8); Eosinophils % (auto) 2.8 % (0.0-7.0); Hematocrit 31.3 % (41.0-53.0); Hemoglobin 10.2 g/dL (13.5-17.5); Lymphocytes # (auto) 2.2 10 ^3/uL (0.4-5.4); Lymphocytes % (auto) 16.9 % (10.0-50.0); Mean Corpuscular Hemoglobin 29.2 pg (28.0-32.0); Mean Corpuscular Hgb Conc. 32.8 g/dL (32.0-36.0); Monocytes # (auto) 1.1 10 ^3/uL (0-1.3); Monocytes % (auto) 8.4 % (0.0-12.0); Neutrophils # (auto) 9.1 10 ^3/uL (1.6-8.6); Neutrophils % (auto) 69.4 % (37.0-80.0); Nucleated Red Blood Cells % 0.1 %; Platelet Count (auto) 375 10^3/uL (140-450); Red Blood Cells 3.51 10^6/uL (4.5-5.90); White Blood Cell 13.1 10^3/uL (4.4-10.8)
[2020-02-06 07:31] LABS: Albumin 1.7 g/dL (3.4-5.0); Calcium 7.5 mg/dL (8.5-10.1)
[2020-02-06 07:34] LABS: BUN/Creatinine Ratio 8.4; Bilirubin, Total 0.3 mg/dL (0.2-1.0); Phosphorus 5.4 mg/dL (2.5-4.90); Total Protein 6.6 g/dL (6.4-8.2)
[2020-02-06 08:00] VITALS: BP 153/81
[2020-02-06] MEDS: DOXYCYCLINE 100 MG TAB/CAP PO SCH ×2 (09:46→22:02)
[2020-02-06] MEDS: SACUBITRIL-VALSARTAN 24mg/26mg TAB PO SCH ×2 (09:46→22:02)
[2020-02-06] MEDS: cefTRIAXone 1GM/50ML D5W 50 ML IV SCH ×2 (09:46→20:38)
[2020-02-06] MEDS: GABAPENTIN 100 MG CAP PO SCH ×2 (09:46→22:01)
[2020-02-06] MEDS: FLUCONAZOLE 200MG/100ML 100 ML IV SCH (09:46)
[2020-02-06] MEDS: amLODIPine BESYLATE 5 MG TAB PO SCH (09:47)
[2020-02-06] MEDS: SEVELAMER 800 MG TAB PO SCH ×3 (09:47→18:16)
[2020-02-06] MEDS: METOPROLOL TARTRATE 50 MG TAB PO SCH ×2 (09:47→22:01)
[2020-02-06] MEDS: CHOLECALCIFEROL (VITD3) 1,000IU=25mCg TAB PO SCH (09:47)
[2020-02-06] MEDS: HEPARIN SODIUM (PORCINE) 5000 UNITS/ML 1ML VIAL SC SCH ×2 (10:00→22:03)
[2020-02-06 12:00] VITALS: BP 160/87
[2020-02-06] MEDS: LORazepam 2MG/ML-1ML VIAL IV PRN ×2 (15:13→23:45)
[2020-02-06 17:00] VITALS: BP 143/70
[2020-02-06] MEDS ORDERED: EPOETIN ALFA 4,000 UNIT/ML VL SC ONE (21:00)
[2020-02-06] MEDS: ATORVASTATIN 20 MG TAB PO SCH (22:02)
[2020-02-07 05:13] VITALS: BP 149/87
[2020-02-07] MEDS: METHADONE HCL 10 MG TAB PO SCH (05:48)
[2020-02-07] MEDS: hydrALAZINE HCL 25 MG TAB PO SCH (05:49)
[2020-02-07] MEDS: ACCU-CHEK COMFORT CURVE STRIP VI SCH (05:59)
[2020-02-07] MEDS: InsuLIN REG 1unit/0.01ml Soln (100units/ml) SC SCH (06:47)
[2020-02-07 09:00] VITALS: BP 141/82
[2020-02-07] MEDS: HEPARIN SODIUM (PORCINE) 5000 UNITS/ML 1ML VIAL SC SCH (09:30)
[2020-02-07] MEDS: SACUBITRIL-VALSARTAN 24mg/26mg TAB PO SCH (09:30)
[2020-02-07] MEDS: SEVELAMER 800 MG TAB PO SCH (09:30)
[2020-02-07] MEDS: DOXYCYCLINE 100 MG TAB/CAP PO SCH (09:30)
[2020-02-07] MEDS: CHOLECALCIFEROL (VITD3) 1,000IU=25mCg TAB PO SCH (09:30)
[2020-02-07] MEDS: cefTRIAXone 1GM/50ML D5W 50 ML IV SCH (09:30)
[2020-02-07] MEDS: GABAPENTIN 100 MG CAP PO SCH (09:31)
[2020-02-07] MEDS: amLODIPine BESYLATE 5 MG TAB PO SCH (09:31)
[2020-02-07] MEDS: METOPROLOL TARTRATE 50 MG TAB PO SCH (09:31)
[2020-02-07] MEDS ORDERED: SACU1TAB PO (10:39)
[2020-02-07] MEDS ORDERED: ATOR20TA50 PO (10:39)
[2020-02-07] MEDS ORDERED: DOX100T PO (10:39)
[2020-02-07] MEDS ORDERED: AML5T PO (10:39)
[2020-02-07] MEDS ORDERED: FERR-7 PO (10:44)
[2020-02-08] MEDS ORDERED: SODIUM CHL 0.9% 1000 ML BAG XX ONE (07:00)
[2020-02-08] MEDS ORDERED: EPOETIN ALFA 4,000 UNIT/ML VL SC ONE (21:00)
== END 2020-02-07 12:15 | disposition home or self-care (01) | DRG 720 ==
LOC: ER 17:58 → EDUNIT# 17:58 → TELE 17:59 → ICU WEST 23:11 → TELE-CENTR 02-02 16:52
PROVIDERS: ADMIT Hospitalist; ATTEND Internal Medicine Nephrology
PROC: 0BH17EZ Insertion of Endotracheal Airway into Trachea, Via Natural or Artificial Opening (ICD-10-PCS; 2020-01-27)
PROC: 30233N1 Transfusion of Nonautologous Red Blood Cells into Peripheral Vein, Percutaneous Approach (ICD-10-PCS; 2020-01-27)
PROC: 5A1955Z Respiratory Ventilation, Greater than 96 Consecutive Hours (ICD-10-PCS; principal; 2020-01-29)
PROC: 0JH63XZ Insertion of Tunneled Vascular Access Device into Chest Subcutaneous Tissue and Fascia, Percutaneous Approach (ICD-10-PCS; 2020-01-29)
PROC: 02HV33Z Insertion of Infusion Device into Superior Vena Cava, Percutaneous Approach (ICD-10-PCS; 2020-01-29)
PROC: B2111ZZ Fluoroscopy of Multiple Coronary Arteries using Low Osmolar Contrast (ICD-10-PCS; 2020-01-29)
PROC: 4A023N8 Measurement of Cardiac Sampling and Pressure, Bilateral, Percutaneous Approach (ICD-10-PCS; 2020-01-29)
PROC: B2151ZZ Fluoroscopy of Left Heart using Low Osmolar Contrast (ICD-10-PCS; 2020-01-29)
PROC: B548ZZA Ultrasonography of Superior Vena Cava, Guidance (ICD-10-PCS; 2020-01-29)
PROC: B5181ZA Fluoroscopy of Superior Vena Cava using Low Osmolar Contrast, Guidance (ICD-10-PCS; 2020-01-29)
PROC: 5A1D70Z Performance of Urinary Filtration, Intermittent, Less than 6 Hours Per Day (ICD-10-PCS; 2020-01-29)
PROC: B2161ZZ Fluoroscopy of Right and Left Heart using Low Osmolar Contrast (ICD-10-PCS; 2020-01-29)
PROC: 5A1D70Z Performance of Urinary Filtration, Intermittent, Less than 6 Hours Per Day (ICD-10-PCS; 2020-01-31)
PROC: 5A1D70Z Performance of Urinary Filtration, Intermittent, Less than 6 Hours Per Day (ICD-10-PCS; 2020-02-02)
PROC: 5A1D70Z Performance of Urinary Filtration, Intermittent, Less than 6 Hours Per Day (ICD-10-PCS; 2020-02-04)
PROC: 5A1D70Z Performance of Urinary Filtration, Intermittent, Less than 6 Hours Per Day (ICD-10-PCS; 2020-02-06)
DX: A41.9 Sepsis, unspecified organism (principal); I21.A1 Myocardial infarction type 2; J96.01 Acute respiratory failure with hypoxia; N17.0 Acute kidney failure with tubular necrosis; J15.6 Pneumonia due to other Gram-negative bacteria; N18.4 Chronic kidney disease, stage 4 (severe); I08.1 Rheumatic disorders of both mitral and tricuspid valves; Z99.11 Dependence on respirator [ventilator] status; I13.2 Hypertensive heart and chronic kidney disease with heart failure and with stage 5 chronic kidney disease, or end stage renal disease; I50.33 Acute on chronic diastolic (congestive) heart failure; N18.6 End stage renal disease; D63.8 Anemia in other chronic diseases classified elsewhere; E78.5 Hyperlipidemia, unspecified; F12.90 Cannabis use, unspecified, uncomplicated; I16.0 Hypertensive urgency; F32.9 Major depressive disorder, single episode, unspecified; F41.9 Anxiety disorder, unspecified; I25.10 Atherosclerotic heart disease of native coronary artery without angina pectoris; E11.65 Type 2 diabetes mellitus with hyperglycemia; F15.90 Other stimulant use, unspecified, uncomplicated; E87.6 Hypokalemia; R65.20 Severe sepsis without septic shock; E11.22 Type 2 diabetes mellitus with diabetic chronic kidney disease; Z82.49 Family history of ischemic heart disease and other diseases of the circulatory system; Z79.899 Other long term (current) drug therapy; Z79.4 Long term (current) use of insulin; Z82.3 Family history of stroke; Z83.3 Family history of diabetes mellitus; Z83.438 Family history of other disorder of lipoprotein metabolism and other lipidemia; Z91.19 Patient's noncompliance with other medical treatment and regimen; Z03.818 Encounter for observation for suspected exposure to other biological agents ruled out
CPT/HCPCS: 36415; 36561; 36600; 71045; 76775; 76942; 77001; 80048; 80053; 80074; 81001; 82040; 82270; 82306; 82728; 82805; 82962; 83036; 83540; 83550; 83605; 83615; 83735; 83880; 83970; 84100; 84478; 84484; 85025; 85610; 85730; 86141; 86850; 86900; 86901; 86920; 87040; 87070; 87081; 87086; 87205; 87340; 87804; 87880; 90935; 92610; 93005; 93458; 94002; 94003; 94640; 97163; 99152; 99153; C1751; G0378; J0330; J0696; J0885; J1450; J1642; J1756; J1815; J2001; J2185; J2250; J2405; J2704; J3490; J7060; J7131; Q9967

== ENCOUNTER 2020-03-23 21:52 | Emergency (ER) | payer MEDICAID ==
[~2020-03-23] VITALS: Ht 172.7 cm; Wt 68.0 kg
[~2020-03-23 21:52] MED LIST changes: +ALBUAER3 IN; +AML5T PO; +ATOR20TA50 PO; +DOX100T PO; +FERR-7 PO; -HYDR-531 PO; +INSLISPI SC; -INSU100I49 SC; +SACU1TAB PO
[2020-03-23 23:15] LABS: Basophils # (auto) 0.1 10 ^3/uL (0-0.2); Eosinophils # (auto) 0 10 ^3/uL (0-0.8); Eosinophils % (auto) 0.3 % (0.0-7.0); Hematocrit 39.5 % (41.0-53.0); Hemoglobin 12.9 g/dL (13.5-17.5); Lymphocytes # (auto) 2.4 10 ^3/uL (0.4-5.4); Lymphocytes % (auto) 21.3 % (10.0-50.0); Mean Corpuscular Hemoglobin 30.7 pg (28.0-32.0); Mean Corpuscular Hgb Conc. 32.6 g/dL (32.0-36.0); Mean Corpuscular Volume 94.1 fL (80.0-100.0); Monocytes # (auto) 0.7 10 ^3/uL (0-1.3); Monocytes % (auto) 6.4 % (0.0-12.0); Neutrophils # (auto) 8.1 10 ^3/uL (1.6-8.6); Nucleated Red Blood Cells % 0.1 %; Platelet Count (auto) 328 10^3/uL (140-450); Red Blood Cells 4.19 10^6/uL (4.5-5.90); Red Cell Distribution Width 17.7 % (11.8-14.3); White Blood Cell 11.4 10^3/uL (4.4-10.8)
[2020-03-23 23:23] LABS: Alanine Aminotransferase 25 U/L (16-61); Anion Gap 7 (5-15); BUN/Creatinine Ratio 7.1; Blood Urea Nitrogen 25 mg/dL (7-18); Calcium 7.9 mg/dL (8.5-10.1); Carbon Dioxide 29 mmol/L (21-32); Chloride 102 mmol/L (98-107); GFR African American 24 mL/min; GFR Non-African American 20 mL/min; Glucose 142 mg/dL (74-106); Magnesium 1.9 mg/dL (1.6-2.6); Potassium 3.9 mmol/L (3.5-5.1); Sodium 138 mmol/L (136-145)
[2020-03-23 23:27] LABS: Alkaline Phosphatase 257 U/L (45-117); Aspartate Aminotransferase 23 U/L (15-37); Bilirubin, Total 0.4 mg/dL (0.2-1.0); Total Protein 8.2 g/dL (6.4-8.2)
[2020-03-24] MEDS ORDERED: cloNIDine HCL 0.1 MG TAB PO ONE ×2 (06:30→06:45)
[2020-03-24] MEDS ORDERED: LORazepam 0.5 MG TAB PO ONE (06:30)
[2020-03-24] MEDS ORDERED: HYDROcodone-ACET 10/325MG TAB PO ONE (06:30)
[2020-03-24 08:01] VITALS: BP 165/86
== END 2020-03-24 08:29 | disposition home or self-care (01) ==
LOC: ER 21:52
DX: F41.9 Anxiety disorder, unspecified (principal); E11.65 Type 2 diabetes mellitus with hyperglycemia; D72.829 Elevated white blood cell count, unspecified; E83.51 Hypocalcemia; E44.1 Mild protein-calorie malnutrition; I11.0 Hypertensive heart disease with heart failure; I50.9 Heart failure, unspecified; E78.5 Hyperlipidemia, unspecified; Z68.22 Body mass index [BMI] 22.0-22.9, adult; Z99.2 Dependence on renal dialysis; Z79.899 Other long term (current) drug therapy; Z79.4 Long term (current) use of insulin
CPT/HCPCS: 36415; 71045; 80053; 82140; 83735; 84484; 85025; 93005

== ENCOUNTER 2020-09-05 19:33 | Inpatient (IN) | payer MEDICARE, MEDICAID ==
[~2020-09-05] VITALS: Ht 172.7 cm; Wt 70.4 kg
[~2020-09-05 19:33] MED LIST changes: +AMLO5TAB15 PO; +CLOP75TA41 PO; +FERR325T20 PO; +FURO40TA4 PO; +GABA400C11 PO; +HYDR-531 PO; +INSU100I49 SC; +LOSA-39 PO; +MET50T PO; +METH10TA97 PO; +MIRT30TA PO; +PANT40TA2 PO
[2020-09-05 20:33] LABS: Basophils # (auto) 0.1 10 ^3/uL (0-0.2); Basophils % (auto) 0.8 % (0.0-2.0); Eosinophils # (auto) 0 10 ^3/uL (0-0.8); Eosinophils % (auto) 0.3 % (0.0-7.0); Hematocrit 28.3 % (41.0-53.0); Hemoglobin 9.2 g/dL (13.5-17.5); Lymphocytes # (auto) 1.4 10 ^3/uL (0.4-5.4); Lymphocytes % (auto) 11.3 % (10.0-50.0); Mean Corpuscular Hemoglobin 28.6 pg (28.0-32.0); Mean Corpuscular Hgb Conc. 32.5 g/dL (32.0-36.0); Monocytes # (auto) 0.9 10 ^3/uL (0-1.3); Monocytes % (auto) 7.3 % (0.0-12.0); Neutrophils # (auto) 9.6 10 ^3/uL (1.6-8.6); Neutrophils % (auto) 80.3 % (37.0-80.0); Platelet Count (auto) 371 10^3/uL (140-450); Red Blood Cells 3.22 10^6/uL (4.5-5.90); Red Cell Distribution Width 17.9 % (11.8-14.3)
[2020-09-05 20:46] LABS: INR 1.03 (0.9-1.15); Partial Thromboplastin Time 32.9 sec (23.0-31.2)
[2020-09-05 20:47] LABS: Potassium 4.4 mmol/L (3.5-5.1)
[2020-09-05 20:48] LABS: Albumin 2.7 g/dL (3.4-5.0); Calcium 7.6 mg/dL (8.5-10.1); Magnesium 1.9 mg/dL (1.6-2.6)
[2020-09-05 20:53] LABS: BUN/Creatinine Ratio 9.7; Bilirubin, Total 0.6 mg/dL (0.2-1.0)
[2020-09-05] MEDS ORDERED: NITROGLYCERIN 0.4 MG SL TAB SL PRN (23:30)
[2020-09-05] MEDS ORDERED: DOCUSATE SOD 100 MG CAP PO PRN (23:30)
[2020-09-05] MEDS ORDERED: MORPHINE SULF INJ 2 MG/ML SYRINGE 1ML IV PRN (23:30)
[2020-09-05] MEDS ORDERED: ONDANSETRON HCL 4 MG/2 ML VIAL IV PRN (23:30)
[2020-09-05] MEDS ORDERED: DEXTROSE (50%) 50ML SYRG IV PRN (23:45)
[2020-09-05] MEDS ORDERED: ALBUTEROL SULF HFA 90MCG INH 200DOSE IN PRN (23:45)
[2020-09-06] MEDS ORDERED: ALBUTEROL SULF HFA 90MCG INH 200DOSE IN PRN (00:15)
[2020-09-06 06:01] LABS: Basophils # (auto) 0.1 10 ^3/uL (0-0.2); Basophils % (auto) 1.3 % (0.0-2.0); Eosinophils # (auto) 0.1 10 ^3/uL (0-0.8); Eosinophils % (auto) 1.4 % (0.0-7.0); Hematocrit 27.7 % (41.0-53.0); Hemoglobin 9.1 g/dL (13.5-17.5); Lymphocytes # (auto) 1.9 10 ^3/uL (0.4-5.4); Lymphocytes % (auto) 20.7 % (10.0-50.0); Mean Corpuscular Hgb Conc. 32.8 g/dL (32.0-36.0); Mean Corpuscular Volume 88.6 fL (80.0-100.0); Monocytes # (auto) 0.8 10 ^3/uL (0-1.3); Monocytes % (auto) 9.2 % (0.0-12.0); Neutrophils # (auto) 6.1 10 ^3/uL (1.6-8.6); Neutrophils % (auto) 67.4 % (37.0-80.0); Platelet Count (auto) 340 10^3/uL (140-450); Red Blood Cells 3.12 10^6/uL (4.5-5.90); Red Cell Distribution Width 17.4 % (11.8-14.3); White Blood Cell 9.1 10^3/uL (4.4-10.8)
[2020-09-06 06:20] LABS: Potassium 4.5 mmol/L (3.5-5.1)
[2020-09-06 06:28] LABS: Albumin 2.6 g/dL (3.4-5.0); BUN/Creatinine Ratio 9.4; Bilirubin, Total 0.5 mg/dL (0.2-1.0); Calcium 7.9 mg/dL (8.5-10.1)
[2020-09-06] MEDS: SODIUM CHLOR 0.9% PF (SALINE LOCK) 10ML VIAL/SYR IV SCH ×3 (07:53→21:32)
[2020-09-06] MEDS: ACCU-CHEK COMFORT CURVE STRIP VI SCH ×4 (07:54→21:43)
[2020-09-06] MEDS: InsuLIN REG 1unit/0.01ml Soln (100units/ml) SC SCH ×4 (07:54→21:50)
[2020-09-06] MEDS: CALCIUM ACETATE 667 MG CAP PO SCH ×3 (08:40→17:46)
[2020-09-06] MEDS: cefTRIAXone 1GM/50ML D5W 50 ML IV SCH (08:43)
[2020-09-06] MEDS: FERROUS SULFATE 325 MG TAB PO SCH ×2 (09:47→21:32)
[2020-09-06] MEDS: FUROSEMIDE 40 MG/4 ML VIAL IV SCH (09:47)
[2020-09-06] MEDS: ZINC SULFATE 220mg CAP or TAB PO SCH (09:47)
[2020-09-06] MEDS: MULTIPLE VITAMIN TAB PO SCH (09:47)
[2020-09-06] MEDS: amLODIPine BESYLATE 5 MG TAB PO SCH (09:47)
[2020-09-06] MEDS: METOPROLOL TARTRATE 50 MG TAB PO SCH ×2 (09:47→10:00)
[2020-09-06] MEDS: CHOLECALCIFEROL (VITD3) 1,000UNIT=25mCg TAB PO SCH (09:48)
[2020-09-06] MEDS: ASCORBIC ACID 500 MG TAB PO SCH ×2 (09:48→21:33)
[2020-09-06] MEDS: CLOPIDOGREL BISULFATE 75 MG TAB PO SCH (09:48)
[2020-09-06] MEDS: FAMOTIDINE 20 MG TAB PO SCH ×2 (09:48→21:32)
[2020-09-06] MEDS ORDERED: SACUBITRIL-VALSARTAN 24mg/26mg TAB PO SCH (10:00)
--- NOTE | 2020-09-06 17:15 | NUR ---
RECEIVED REPORT FROM YUNIEL BULL IN ER . WILL AWAIT PATIENT.
--- NOTE | 2020-09-06 17:38 | NUR ---
RECEIVED PATIENT TO THE FLOOR AWAKE ALERT AND ORIENTED. BED LOCKED IN LOWEST POSITION WITH TWO SIDE RAILS UP AND CALL LIGHT IN REACH. PATIENT ON 2 L NC.
--- NOTE | 2020-09-06 18:25 | NUR ---
MRSA SWAB SENT
[2020-09-06] MEDS: HYDROcodone-ACET 10/325MG TAB PO PRN (21:02)
[2020-09-06] MEDS: MIRTAZAPINE 30 MG TAB PO SCH (21:33)
[2020-09-06 22:00] VITALS: BP 157/98
[2020-09-07 05:00] VITALS: BP 155/84
[2020-09-07] MEDS: ACCU-CHEK COMFORT CURVE STRIP VI SCH ×4 (05:58→22:00)
[2020-09-07] MEDS: InsuLIN REG 1unit/0.01ml Soln (100units/ml) SC SCH ×4 (06:04→23:33)
[2020-09-07] MEDS: SODIUM CHLOR 0.9% PF (SALINE LOCK) 10ML VIAL/SYR IV SCH ×3 (06:16→23:13)
[2020-09-07 06:50] LABS: Basophils # (auto) 0.1 10 ^3/uL (0-0.2); Basophils % (auto) 1.6 % (0.0-2.0); Eosinophils # (auto) 0.2 10 ^3/uL (0-0.8); Eosinophils % (auto) 2.7 % (0.0-7.0); Hematocrit 28.1 % (41.0-53.0); Hemoglobin 9.4 g/dL (13.5-17.5); Lymphocytes # (auto) 1.9 10 ^3/uL (0.4-5.4); Lymphocytes % (auto) 22.5 % (10.0-50.0); Mean Corpuscular Hgb Conc. 33.4 g/dL (32.0-36.0); Mean Corpuscular Volume 86.8 fL (80.0-100.0); Monocytes # (auto) 0.7 10 ^3/uL (0-1.3); Monocytes % (auto) 8.3 % (0.0-12.0); Neutrophils # (auto) 5.4 10 ^3/uL (1.6-8.6); Neutrophils % (auto) 64.9 % (37.0-80.0); Platelet Count (auto) 354 10^3/uL (140-450); Red Blood Cells 3.24 10^6/uL (4.5-5.90); Red Cell Distribution Width 17.4 % (11.8-14.3); White Blood Cell 8.3 10^3/uL (4.4-10.8)
--- NOTE | 2020-09-07 07:30 | NUR ---
OPENING SHIFT NOTE Assumed care of patient from nightclub manager RN. Patient is alert and oriented x4,no signs of distress noted, denies pain. He was updated on the plan of care and verbalized understanding. Per patient his will bring the battery charger tester for his Zoll life vest. He is on 2L/min via nasal cannula. Bed is locked, in the lowest position, side rails up x2 and call light is in reach. He was encouraged to call for assistance as needed.
[2020-09-07] MEDS: CALCIUM ACETATE 667 MG CAP PO SCH ×3 (08:04→17:27)
[2020-09-07] MEDS: cefTRIAXone 1GM/50ML D5W 50 ML IV SCH (08:43)
[2020-09-07] MEDS: HYDROcodone-ACET 10/325MG TAB PO PRN (08:44)
[2020-09-07 08:50] VITALS: BP 161/84
[2020-09-07] MEDS: FERROUS SULFATE 325 MG TAB PO SCH ×2 (09:37→23:22)
[2020-09-07] MEDS: MULTIPLE VITAMIN TAB PO SCH (09:38)
[2020-09-07] MEDS: ZINC SULFATE 220mg CAP or TAB PO SCH (09:38)
[2020-09-07] MEDS: CLOPIDOGREL BISULFATE 75 MG TAB PO SCH (09:39)
[2020-09-07] MEDS: FAMOTIDINE 20 MG TAB PO SCH ×2 (09:39→23:32)
[2020-09-07] MEDS: ASCORBIC ACID 500 MG TAB PO SCH ×2 (09:40→23:24)
[2020-09-07] MEDS: CHOLECALCIFEROL (VITD3) 1,000UNIT=25mCg TAB PO SCH (09:40)
--- NOTE | 2020-09-07 09:43 | NUR ---
DIALYSIS NURSE AT BEDSIDE
[2020-09-07] MEDS ORDERED: SODIUM CHL 0.9% 1000 ML BAG XX ONE (09:45)
[2020-09-07] MEDS: FUROSEMIDE 40 MG/4 ML VIAL IV SCH (10:00)
[2020-09-07] MEDS: METOPROLOL TARTRATE 50 MG TAB PO SCH ×2 (10:00→23:23)
[2020-09-07] MEDS: amLODIPine BESYLATE 5 MG TAB PO SCH (10:00)
[2020-09-07 13:00] VITALS: BP 153/94
--- NOTE | 2020-09-07 13:07 | NUR ---
DIALYSIS COMPLETE 3L removed, HR 117, BP 146/94.
--- NOTE | 2020-09-07 14:04 | NUR ---
DIANNA AT BEDSIDE Updated on the patient status. Plan of care was discussed with the patient and he verbalized understanding.
--- NOTE | 2020-09-07 14:09 | NUR ---
MESSAGE LEFT FOR [facility] CASE MANAGEMENT regarding home O2 for the patient, awaiting call back.
--- NOTE | 2020-09-07 16:37 | NUR ---
CALLED DIANNA to update him on homeO2, Per Swathi CHRISTINA has to order ABG. New order for ABG 09/08/20 at 0600 on room air, order read back and verified.
[2020-09-07 16:54] VITALS: BP 141/91
[2020-09-07] MEDS ORDERED: EPOETIN ALFA 10,000 UNIT/1 ML VIAL SC ONE (21:00)
[2020-09-07] MEDS: MIRTAZAPINE 30 MG TAB PO SCH (23:31)
[2020-09-07 23:59] VITALS: BP 158/88
--- NOTE | 2020-09-08 04:16 | NUR ---
1920: Bedside report given, and Pt updated on POC - all questions/conserns addressed to pt satisfaction. Whiteboard updated and pt c/o /10 generalized pain unable to describe as anything other than "just pain" that is exacerbated. by movement and constant - states chronic pain goal 12/02. R chest James catheter - Tegaderm dsg c/d/i dated 09/01 currently clamped. Pt has HD today during AM shift. Zoll vest in place with no shocks administered. Midline ABD scar noted - c/d/i open to air and healing. 2022: Pt transported via bed with RN and [employer]ENCH TRIMMER F[employer] escort on 2L NC via O2 tank to non-isolation room 217-A from 291-A d/t unit converting to COVID floor. 2123: IV site 22G RFA placed by this RN on 09/07 has good flush and return - SL at this time. Pt self transferred OOB steady gait to BR to empty colostomy. Pt states that the bag has not been replaced or stoma/skin care has not been performed during the three days since the pt had it placed. RN will attempt to collect supplies with the help of unit staff. 2136: VS: T 98.3 oral, HR 102, RR 18, SpO2 99% on 2L NC, BP 167/92 LUE, MAP 120, c/o 6/10 chronic constant generalized pain. 2239: TEL35 box arrived from ICU and placed on pt. 2310: Epogen 10,000 units SQ administered as ordered; EMR review of Hgb 9.4 posted on 09/07 at 0606 - parameters met to administer safely at this time (Lot [id number], Exp. 07/15). 10 mL NS flush performed as ordered and returned to SL. Administered PO meds as scheduled - see eMAR. POCT glucose 190; therefore, 3 units of regular insulin administered to LUE per pt preference. 0023: BP reassessed d/t earlier administration of metoprolol: BP 151/101, HR 88, MAP 122. Essie Luna, BSN, RN, SCRN, PCCN, VA-BC, WOO, TCRN, MICN - a shared [employer] employee from [facility] - Telemetry Unit Addendum: 09/08/20 at 0601 by Reg 10 RN 1999: TEL73, HR 105, POLLO 0.12, QRS 0.08, ST with PVC x 1 and no pauses. 2100: VS: T 98.1 oral, HR 98, RR 18, SpO2 97% 2L NC, BP 158/88 LUE, pain 6/10. Wt 70.4 kg 0600: VS: T 98.5 oral, HR 71, RR 18, SpO2 94% 2L NC, BP 139/79 LUE, Pain 8/10. Void x 3. TRENCH TRIMMER [employer] reported to RN that pt is talking to self and hallucinating. RN at bedside to assess. Pt A&Ox4, answering appropriately, stated he was on the phone with who was going to work.
[2020-09-08 05:43] VITALS: BP 139/79
[2020-09-08] MEDS: ACCU-CHEK COMFORT CURVE STRIP VI SCH ×2 (06:25→11:44)
[2020-09-08] MEDS: SODIUM CHLOR 0.9% PF (SALINE LOCK) 10ML VIAL/SYR IV SCH (06:26)
[2020-09-08] MEDS: InsuLIN REG 1unit/0.01ml Soln (100units/ml) SC SCH ×2 (06:34→11:52)
[2020-09-08] MEDS: cefTRIAXone 1GM/50ML D5W 50 ML IV SCH (08:14)
[2020-09-08] MEDS: CALCIUM ACETATE 667 MG CAP PO SCH ×2 (08:14→11:44)
--- NOTE | 2020-09-08 08:15 | NUR ---
Scheduled po and IV abx given per order. Patient sitting on side of bed with no complaint of pain at this time. Patient stable.
[2020-09-08 08:30] VITALS: BP 134/81
[2020-09-08 09:00] VITALS: BP 134/81
[2020-09-08] MEDS: MULTIPLE VITAMIN TAB PO SCH (09:29)
[2020-09-08] MEDS: ASCORBIC ACID 500 MG TAB PO SCH (09:29)
[2020-09-08] MEDS: FERROUS SULFATE 325 MG TAB PO SCH (09:30)
[2020-09-08] MEDS: METOPROLOL TARTRATE 50 MG TAB PO SCH (09:30)
[2020-09-08] MEDS: CLOPIDOGREL BISULFATE 75 MG TAB PO SCH (09:30)
[2020-09-08] MEDS: FAMOTIDINE 20 MG TAB PO SCH (09:30)
[2020-09-08] MEDS: amLODIPine BESYLATE 5 MG TAB PO SCH (09:30)
[2020-09-08] MEDS: ZINC SULFATE 220mg CAP or TAB PO SCH (09:31)
[2020-09-08] MEDS: FUROSEMIDE 40 MG/4 ML VIAL IV SCH (09:31)
[2020-09-08] MEDS: CHOLECALCIFEROL (VITD3) 1,000UNIT=25mCg TAB PO SCH (09:32)
--- NOTE | 2020-09-08 09:32 | NUR ---
Scheduled medications given per order. Patient stable at this time.
--- NOTE | 2020-09-08 10:55 | NUR ---
Patient resting comfortably in bed with Dr. Eason at bedside. Patient stable.
--- NOTE | 2020-09-08 11:34 | NUR ---
Assessment Patient is a 45-year-old male who is alert and oriented. Patient primary language is Lithuanian. Prior to admission patient lived home with family and functioned with assistance. Per patient his Lucretia is his caregiver and helps him with his ADL's. Patient has a walker, wheelchair and cane for home use. Patient is on service with [facility] dialysis on M,Th, S and does not remember the time of chair time. Per patient he will return home to his prior living arrangements post discharge and his will transport him home at anytime on discharge day. Advised patient there is a social service consult for home oxygen at 3l/min and to resume home health services with [facility]. Informed patient MD orders will be faxed to [facility]. Informed patient ABG order is pending to see if he meets criteria for home oxygen. Informed patient he has the right to participate in all discharge planning. Patient does not have an advance directive. Patient has been provided with information for an advanced directive. Patient verbalized understanding and agrees to discharge plan. Faxed clinical information to [facility]. Per Natanael with [facility] they will resume care for patient within 24-48hrs upon d.c day. Pending on ABG to complete MD order for home oxygen. Addendum: 09/08/20 at 1144 by GLORIA CARRION Amended: Links added.
--- NOTE | 2020-09-08 11:45 | NUR ---
Scheduled medication given per order. Checked blood sugar: 219 mg/dl - will cover per sliding scale. Patient ambulated to bathroom and back to bed. Patient stable. Addendum: 09/08/20 at 1153 by REYNA DONIS RN RN Covered per sliding scale (6 units).
[2020-09-08 13:00] VITALS: BP 146/82
[2020-09-08 14:56] VITALS: BP 146/82
--- NOTE | 2020-09-08 15:35 | NUR ---
Discharge instructions Both written and verbal discharge instructions given to patient as ordered. Encourage to follow up with PMD, Dr. Pittman (nephrology) and Dr. Kent (cardiology) as instructed; and to resume all home medications. All questions and concerns addressed. Patient verbalized understanding. Medication reconciliation form completed and copy given to patient. Peripheral IV removed intact with no active bleeding; pressure dressing applied to site. Telemetry unit returned to ICU. Patient stable.
--- NOTE | 2020-09-08 15:55 | NUR ---
Discharge Patient taken to vehicle via wheelchair with all personal belongings, accompanied by staff member. No distress noted at time of departure.
[2020-09-09] MEDS ORDERED: SODIUM CHL 0.9% 1000 ML BAG XX ONE (07:00)
[2020-09-09] MEDS ORDERED: EPOETIN ALFA 10,000 UNIT/1 ML VIAL SC ONE (21:00)
== END 2020-09-08 15:55 | disposition home health service (06) | DRG 291 ==
LOC: ER 19:36 → OVERFLOW 19:37 → TELE-WESTW 09-06 18:11 → TELE-CENTR 09-07 21:42
PROVIDERS: ADMIT Nurse Practitioner Family; ATTEND Family Medicine
PROC: 5A1D70Z Performance of Urinary Filtration, Intermittent, Less than 6 Hours Per Day (ICD-10-PCS; principal; 2020-09-07)
DX: I13.2 Hypertensive heart and chronic kidney disease with heart failure and with stage 5 chronic kidney disease, or end stage renal disease (principal); I50.43 Acute on chronic combined systolic (congestive) and diastolic (congestive) heart failure; N18.6 End stage renal disease; E87.1 Hypo-osmolality and hyponatremia; D63.1 Anemia in chronic kidney disease; D72.829 Elevated white blood cell count, unspecified; I25.10 Atherosclerotic heart disease of native coronary artery without angina pectoris; E11.51 Type 2 diabetes mellitus with diabetic peripheral angiopathy without gangrene; E78.5 Hyperlipidemia, unspecified; J44.9 Chronic obstructive pulmonary disease, unspecified; E11.22 Type 2 diabetes mellitus with diabetic chronic kidney disease; Z20.828 Contact with and (suspected) exposure to other viral communicable diseases; F32.9 Major depressive disorder, single episode, unspecified; F41.9 Anxiety disorder, unspecified; Z79.02 Long term (current) use of antithrombotics/antiplatelets; Z79.82 Long term (current) use of aspirin; Z82.3 Family history of stroke; Z82.49 Family history of ischemic heart disease and other diseases of the circulatory system; I25.2 Old myocardial infarction; Z83.3 Family history of diabetes mellitus; Z85.048 Personal history of other malignant neoplasm of rectum, rectosigmoid junction, and anus; Z93.3 Colostomy status; Z90.49 Acquired absence of other specified parts of digestive tract; Z95.5 Presence of coronary angioplasty implant and graft; Z98.62 Peripheral vascular angioplasty status; Z99.2 Dependence on renal dialysis; E11.65 Type 2 diabetes mellitus with hyperglycemia; R50.9 Fever, unspecified
CPT/HCPCS: 36415; 71045; 80053; 82962; 83605; 83735; 83880; 84484; 85025; 85610; 85730; 87040; 87081; 87426; 90935; 93005; 96365; 96372; 96375; G0378; J0696; J0885; J1642; J1815

== ENCOUNTER → 2020-10-14 | Outpatient (CLI) | payer MEDICARE, MEDICAID ==
[~2020-10-14] MED LIST changes: +AMLO-489 PO; -AMLO5TAB15 PO; -CLOP75TA41 PO; +CLOP75TA70 PO; -METO-5 PO; +METO1TAB77 PO; +MIRT-66 PO; -MIRT30TA PO
== END | disposition home or self-care (01) ==
LOC: Rad HDHVI 09:05
PROVIDERS: ATTEND Internal Medicine Cardiovascular Disease
DX: I08.0 Rheumatic disorders of both mitral and aortic valves (principal); R06.02 Shortness of breath; R07.89 Other chest pain
CPT/HCPCS: 93306

== ENCOUNTER 2021-02-03 22:10 | Inpatient (IN) | payer MEDICARE, MEDICAID ==
[~2021-02-03] VITALS: Ht 175.3 cm; Wt 83.5 kg
[~2021-02-03 22:10] MED LIST changes: +METH10TA2 PO; -METH10TA97 PO
[2021-02-03 23:00] LABS: Basophils # (auto) 0.1 10 ^3/uL (0-0.2); Eosinophils # (auto) 0.1 10 ^3/uL (0-0.8); Eosinophils % (auto) 1.1 % (0.0-7.0); Hematocrit 25.6 % (41.0-53.0); Hemoglobin 8.8 g/dL (13.5-17.5); Lymphocytes # (auto) 0.7 10 ^3/uL (0.4-5.4); Mean Corpuscular Hemoglobin 33.3 pg (28.0-32.0); Mean Corpuscular Hgb Conc. 34.2 g/dL (32.0-36.0); Mean Corpuscular Volume 97.5 fL (80.0-100.0); Monocytes # (auto) 0.8 10 ^3/uL (0-1.3); Monocytes % (auto) 8.1 % (0.0-12.0); Neutrophils # (auto) 8.2 10 ^3/uL (1.6-8.6); Neutrophils % (auto) 82.8 % (37.0-80.0); Platelet Count (auto) 247 10^3/uL (140-450); Red Blood Cells 2.63 10^6/uL (4.5-5.90); Red Cell Distribution Width 18.9 % (11.8-14.3); White Blood Cell 9.9 10^3/uL (4.4-10.8)
[2021-02-03 23:16] LABS: INR 1.05 (0.9-1.15); Partial Thromboplastin Time 32.5 sec (23.0-31.2)
[2021-02-03 23:22] LABS: BUN/Creatinine Ratio 8.6; Calcium 6.8 mg/dL (8.5-10.1); Magnesium 1.7 mg/dL (1.6-2.6); Potassium 3.8 mmol/L (3.5-5.1)
[2021-02-03 23:27] LABS: Bilirubin, Total 0.4 mg/dL (0.2-1.0); Total Protein 7.5 g/dL (6.4-8.2)
[2021-02-04] MEDS ORDERED: FUROSEMIDE 40 MG/4 ML VIAL IV ONE (01:45)
[2021-02-04] MEDS ORDERED: NITROGLYCERIN 0.4 MG SL TAB SL PRN (02:30)
[2021-02-04] MEDS ORDERED: ONDANSETRON HCL 4 MG/2 ML VIAL IV PRN (02:30)
[2021-02-04] MEDS ORDERED: DEXTROSE (50%) 50ML SYRG IV PRN (02:30)
[2021-02-04] MEDS ORDERED: MORPHINE SULF INJ 2 MG/ML SYRINGE 1ML IV PRN (02:30)
[2021-02-04] MEDS ORDERED: ACETAMINOPHEN 325 MG TAB PO PRN (02:30)
[2021-02-04] MEDS ORDERED: TEMAZEPAM 15 MG CAP PO PRN (02:30)
[2021-02-04 03:43] LABS: Urine Amorphous Crystal FEW /hpf (None Seen); Urine Bacteria FEW /hpf (None Seen); Urine Blood TRACE /uL (Negative); Urine Specific Gravity 1.011 (1.001-1.035); Urine WBC 2 /hpf (0 - 3)
[2021-02-04 03:56] LABS: Calcium 6.8 mg/dL (8.5-10.1); Potassium 3.8 mmol/L (3.5-5.1)
[2021-02-04 03:58] LABS: BUN/Creatinine Ratio 9.4
[2021-02-04 06:00] VITALS: BP 158/90
[2021-02-04] MEDS: GABAPENTIN 400 MG CAP PO SCH ×3 (06:36→21:09)
[2021-02-04] MEDS: FUROSEMIDE 40 MG/4 ML VIAL IV SCH ×2 (06:36→17:56)
[2021-02-04] MEDS: InsuLIN REG 1unit/0.01ml Soln (100units/ml) SC SCH ×4 (07:00→21:10)
[2021-02-04] MEDS: ACCU-CHEK COMFORT CURVE STRIP VI SCH ×4 (07:05→21:09)
[2021-02-04] MEDS: CALCIUM ACETATE 667 MG CAP PO SCH ×3 (08:00→17:55)
[2021-02-04 09:15] VITALS: BP 152/80
[2021-02-04] MEDS ORDERED: ASPirin 81 mg TAB PO SCH (10:00)
[2021-02-04] MEDS: hydrALAZINE HCL 25 MG TAB PO SCH ×2 (10:10→21:08)
[2021-02-04] MEDS: LOSARTAN POTASSIUM 50 MG TAB PO SCH (10:10)
[2021-02-04] MEDS: SACUBITRIL-VALSARTAN 24mg/26mg TAB PO SCH ×2 (10:11→21:08)
[2021-02-04] MEDS: METOPROLOL TARTRATE 50 MG TAB PO SCH ×2 (10:13→21:09)
[2021-02-04] MEDS: CLOPIDOGREL BISULFATE 75 MG TAB PO SCH (10:14)
[2021-02-04] MEDS: PANTOPRAZOLE 40 MG TAB PO SCH (10:14)
[2021-02-04] MEDS: amLODIPine BESYLATE 5 MG TAB PO SCH (10:14)
[2021-02-04 13:00] VITALS: BP 160/75
[2021-02-04 17:19] VITALS: BP 139/86
[2021-02-04] MEDS: IPRATROPIUM BROM 0.5 MG/2.5ML INH SOL NEB SCH (19:24)
[2021-02-04] MEDS: ALBUTEROL SULF 2.5 MG/0.5ML(0.5%) NEB SOLN NEB SCH (19:25)
[2021-02-04] MEDS: ATORVASTATIN 20 MG TAB PO SCH (21:08)
[2021-02-04] MEDS: HYDROcodone-ACET 5/325MG TAB PO PRN (21:10)
[2021-02-04 22:00] VITALS: BP 158/89
[2021-02-05] MEDS: IPRATROPIUM BROM 0.5 MG/2.5ML INH SOL NEB SCH ×4 (00:15→19:51)
[2021-02-05] MEDS: ALBUTEROL SULF 2.5 MG/0.5ML(0.5%) NEB SOLN NEB SCH ×4 (00:15→19:51)
[2021-02-05 03:37] VITALS: BP 158/84
[2021-02-05 05:00] VITALS: BP 127/76
[2021-02-05] MEDS: FUROSEMIDE 40 MG/4 ML VIAL IV SCH ×2 (05:00→17:24)
[2021-02-05 05:18] LABS: Basophils # (auto) 0 10 ^3/uL (0-0.2); Basophils % (auto) 0.5 % (0.0-2.0); Eosinophils # (auto) 0.1 10 ^3/uL (0-0.8); Eosinophils % (auto) 0.6 % (0.0-7.0); Hematocrit 24.7 % (41.0-53.0); Hemoglobin 8.5 g/dL (13.5-17.5); Lymphocytes # (auto) 0.7 10 ^3/uL (0.4-5.4); Lymphocytes % (auto) 7.4 % (10.0-50.0); Mean Corpuscular Hemoglobin 33.5 pg (28.0-32.0); Mean Corpuscular Hgb Conc. 34.4 g/dL (32.0-36.0); Mean Corpuscular Volume 97.3 fL (80.0-100.0); Monocytes # (auto) 0.8 10 ^3/uL (0-1.3); Monocytes % (auto) 8.1 % (0.0-12.0); Neutrophils # (auto) 8.4 10 ^3/uL (1.6-8.6); Neutrophils % (auto) 83.4 % (37.0-80.0); Platelet Count (auto) 229 10^3/uL (140-450); Red Blood Cells 2.54 10^6/uL (4.5-5.90); Red Cell Distribution Width 19.2 % (11.8-14.3); White Blood Cell 10.1 10^3/uL (4.4-10.8)
[2021-02-05] MEDS: ACCU-CHEK COMFORT CURVE STRIP VI SCH ×4 (06:09→22:20)
[2021-02-05] MEDS: InsuLIN REG 1unit/0.01ml Soln (100units/ml) SC SCH ×4 (06:33→22:11)
[2021-02-05] MEDS: CALCIUM ACETATE 667 MG CAP PO SCH ×3 (08:00→17:27)
[2021-02-05 08:34] VITALS: BP 171/84
[2021-02-05] MEDS: LOSARTAN POTASSIUM 50 MG TAB PO SCH (11:21)
[2021-02-05] MEDS: METOPROLOL TARTRATE 50 MG TAB PO SCH ×2 (11:21→22:19)
[2021-02-05] MEDS: ASPirin 81 mg TAB PO SCH (11:21)
[2021-02-05] MEDS: PANTOPRAZOLE 40 MG TAB PO SCH (11:22)
[2021-02-05] MEDS: CLOPIDOGREL BISULFATE 75 MG TAB PO SCH (11:22)
[2021-02-05] MEDS: amLODIPine BESYLATE 5 MG TAB PO SCH (11:22)
[2021-02-05] MEDS: hydrALAZINE HCL 25 MG TAB PO SCH ×2 (11:22→22:18)
[2021-02-05] MEDS: SACUBITRIL-VALSARTAN 24mg/26mg TAB PO SCH ×2 (11:23→22:19)
[2021-02-05] MEDS: HYDROcodone-ACET 5/325MG TAB PO PRN (12:10)
[2021-02-05 13:15] VITALS: BP 141/77
[2021-02-05 16:43] VITALS: BP 130/69
[2021-02-05 22:00] VITALS: BP 133/66
[2021-02-05] MEDS: ATORVASTATIN 20 MG TAB PO SCH (22:18)
[2021-02-06] MEDS: ALBUTEROL SULF 2.5 MG/0.5ML(0.5%) NEB SOLN NEB SCH ×3 (00:22→11:49)
[2021-02-06] MEDS: IPRATROPIUM BROM 0.5 MG/2.5ML INH SOL NEB SCH ×3 (00:23→11:49)
[2021-02-06 05:00] VITALS: BP 143/80
[2021-02-06] MEDS: ACCU-CHEK COMFORT CURVE STRIP VI SCH ×2 (06:07→12:40)
[2021-02-06] MEDS: FUROSEMIDE 40 MG/4 ML VIAL IV SCH (06:07)
[2021-02-06] MEDS: InsuLIN REG 1unit/0.01ml Soln (100units/ml) SC SCH ×2 (06:10→12:36)
[2021-02-06 08:11] LABS: Eosinophils # (auto) 0.3 10 ^3/uL (0-0.8); Hemoglobin 8.3 g/dL (13.5-17.5); Lymphocytes # (auto) 0.7 10 ^3/uL (0.4-5.4); Red Blood Cells 2.46 10^6/uL (4.5-5.90)
[2021-02-06 08:14] LABS: Basophils # (auto) 0 10 ^3/uL (0-0.2); Basophils % (auto) 0.4 % (0.0-2.0); Eosinophils % (auto) 3.4 % (0.0-7.0); Hematocrit 23.8 % (41.0-53.0); Lymphocytes % (auto) 8.9 % (10.0-50.0); Mean Corpuscular Hemoglobin 33.6 pg (28.0-32.0); Mean Corpuscular Hgb Conc. 34.8 g/dL (32.0-36.0); Mean Corpuscular Volume 96.7 fL (80.0-100.0); Monocytes # (auto) 0.7 10 ^3/uL (0-1.3); Neutrophils # (auto) 5.8 10 ^3/uL (1.6-8.6); Neutrophils % (auto) 78.3 % (37.0-80.0); Platelet Count (auto) 237 10^3/uL (140-450); Red Cell Distribution Width 19.7 % (11.8-14.3); White Blood Cell 7.5 10^3/uL (4.4-10.8)
[2021-02-06 08:30] LABS: BUN/Creatinine Ratio 8.8; Potassium 3.8 mmol/L (3.5-5.1)
[2021-02-06 09:02] VITALS: BP 140/72
[2021-02-06] MEDS: ASPirin 81 mg TAB PO SCH (09:24)
[2021-02-06] MEDS: amLODIPine BESYLATE 5 MG TAB PO SCH (09:25)
[2021-02-06] MEDS: LOSARTAN POTASSIUM 50 MG TAB PO SCH (09:25)
[2021-02-06] MEDS: CLOPIDOGREL BISULFATE 75 MG TAB PO SCH (09:26)
[2021-02-06] MEDS: CALCIUM ACETATE 667 MG CAP PO SCH ×2 (09:26→12:40)
[2021-02-06] MEDS: PANTOPRAZOLE 40 MG TAB PO SCH (09:26)
[2021-02-06] MEDS: METOPROLOL TARTRATE 50 MG TAB PO SCH (09:26)
[2021-02-06] MEDS: hydrALAZINE HCL 25 MG TAB PO SCH (09:26)
[2021-02-06] MEDS: SACUBITRIL-VALSARTAN 24mg/26mg TAB PO SCH (09:27)
[2021-02-06] MEDS: HYDROcodone-ACET 5/325MG TAB PO PRN (09:35)
[2021-02-06 12:33] VITALS: BP 134/66
[2021-02-06 13:48] VITALS: BP 132/82
== END 2021-02-06 15:00 | disposition home or self-care (01) | DRG 291 ==
LOC: ER 22:13 → TELE 02-04 02:21 → TELE-WESTW 02-04 05:55
PROVIDERS: ADMIT Nurse Practitioner; ATTEND Internal Medicine
DX: I13.2 Hypertensive heart and chronic kidney disease with heart failure and with stage 5 chronic kidney disease, or end stage renal disease (principal); I50.33 Acute on chronic diastolic (congestive) heart failure; N18.6 End stage renal disease; J96.01 Acute respiratory failure with hypoxia; J81.0 Acute pulmonary edema; C18.9 Malignant neoplasm of colon, unspecified; D63.8 Anemia in other chronic diseases classified elsewhere; I25.10 Atherosclerotic heart disease of native coronary artery without angina pectoris; Z20.822 Contact with and (suspected) exposure to COVID-19; D64.9 Anemia, unspecified; E11.22 Type 2 diabetes mellitus with diabetic chronic kidney disease; E11.51 Type 2 diabetes mellitus with diabetic peripheral angiopathy without gangrene; E78.5 Hyperlipidemia, unspecified; E11.21 Type 2 diabetes mellitus with diabetic nephropathy; I34.2 Nonrheumatic mitral (valve) stenosis; Z82.3 Family history of stroke; Z99.2 Dependence on renal dialysis; Z93.3 Colostomy status; Z82.49 Family history of ischemic heart disease and other diseases of the circulatory system; Z83.3 Family history of diabetes mellitus; Z85.6 Personal history of leukemia; Z90.49 Acquired absence of other specified parts of digestive tract; Z98.61 Coronary angioplasty status; Z98.62 Peripheral vascular angioplasty status
CPT/HCPCS: 36415; 36600; 71045; 80048; 80053; 81001; 82805; 82962; 83605; 83735; 83880; 84484; 85025; 85610; 85730; 87081; 87426; 90935; 93005; 93306; 94640; 96374; G0378; J1815

== ENCOUNTER 2021-03-23 00:09 | Inpatient (IN) | payer MEDICARE, MEDICAID ==
[~2021-03-23] VITALS: Ht 172.7 cm; Wt 85.0 kg
[~2021-03-23 00:09] MED LIST changes: -AMLO-489 PO; -FERR325T20 PO; -FURO40TA4 PO; -GABA400C11 PO; -MET50T PO; -METH10TA2 PO
[2021-03-23 06:33] LABS: Basophils # (auto) 0.1 10 ^3/uL (0-0.2); Basophils % (auto) 0.8 % (0.0-2.0); Eosinophils # (auto) 0.1 10 ^3/uL (0-0.8); Eosinophils % (auto) 0.8 % (0.0-7.0); Hematocrit 30.7 % (41.0-53.0); Hemoglobin 10.1 g/dL (13.5-17.5); Lymphocytes # (auto) 0.8 10 ^3/uL (0.4-5.4); Lymphocytes % (auto) 6.2 % (10.0-50.0); Mean Corpuscular Hgb Conc. 32.9 g/dL (32.0-36.0); Mean Corpuscular Volume 97.4 fL (80.0-100.0); Monocytes # (auto) 0.8 10 ^3/uL (0-1.3); Monocytes % (auto) 6.2 % (0.0-12.0); Neutrophils # (auto) 10.5 10 ^3/uL (1.6-8.6); Nucleated Red Blood Cells % 0.1 %; Red Blood Cells 3.16 10^6/uL (4.5-5.90); Red Cell Distribution Width 16.7 % (11.8-14.3); White Blood Cell 12.2 10^3/uL (4.4-10.8)
[2021-03-23 06:38] LABS: INR 1.05 (0.9-1.15); Partial Thromboplastin Time 31.8 sec (23.0-31.2)
[2021-03-23 06:39] LABS: Alanine Aminotransferase 27 U/L (16-61); Albumin 3.2 g/dL (3.4-5.0); Alkaline Phosphatase 242 U/L (45-117); Anion Gap 14 (5-15); Aspartate Aminotransferase 21 U/L (15-37); BUN/Creatinine Ratio 8.3; Bilirubin, Total 0.3 mg/dL (0.2-1.0); Calcium 6.6 mg/dL (8.5-10.1); Carbon Dioxide 19 mmol/L (21-32); Chloride 105 mmol/L (98-107); GFR African American 7 mL/min; GFR Non-African American 6 mL/min; Glucose 134 mg/dL (74-106); Potassium 5.2 mmol/L (3.5-5.1); Sodium 138 mmol/L (136-145); Total Protein 7.7 g/dL (6.4-8.2)
[2021-03-23 06:41] LABS: Blood Urea Nitrogen 86 mg/dL (7-18)
[2021-03-23] MEDS ORDERED: PIPERACILLIN-TAZOB 3.375GM 100 ML IV ONE (06:45)
[2021-03-23 07:33] LABS: Urine Amorphous Crystal MANY /hpf (None Seen); Urine Bacteria FEW /hpf (None Seen); Urine Blood 1+ /uL (Negative); Urine Hyaline Cast FEW /lpf (0 - 2); Urine Specific Gravity 1.015 (1.001-1.035); Urine WBC 24 /hpf (0 - 3)
[2021-03-23 07:52] LABS: Alcohol, Urine < 3.0 mg/dL (0-10); Amphetamine Screen, Urine NEGATIVE (NEGATIVE); Barbiturate Scree,Urine NEGATIVE (NEGATIVE); Benzodiazephine Screen, Urine NEGATIVE (NEGATIVE); Cannabinoid Screen, Urine NEGATIVE (NEGATIVE); Cocaine Screen, Urine NEGATIVE (NEGATIVE); Opiate Scree,Urine POSITIVE (NEGATIVE); Phencyclidine Screen, Urine NEGATIVE (NEGATIVE)
[2021-03-23] MEDS ORDERED: MORPHINE SULF INJ 2 MG/ML SYRINGE 1ML IV PRN (10:00)
[2021-03-23] MEDS ORDERED: ONDANSETRON HCL 4 MG/2 ML VIAL IV PRN (10:00)
[2021-03-23] MEDS ORDERED: DEXTROSE (50%) 50ML SYRG IV PRN (10:00)
[2021-03-23] MEDS ORDERED: SACUBITRIL-VALSARTAN 24mg/26mg TAB PO SCH (10:00)
[2021-03-23] MEDS ORDERED: VANCOMYCIN PER PHARMACY 0 MG IV SCH (10:00)
[2021-03-23] MEDS ORDERED: METOPROLOL TARTRATE 50 MG TAB PO SCH (10:00)
[2021-03-23] MEDS ORDERED: NITROGLYCERIN 0.4 MG SL TAB SL PRN (10:00)
[2021-03-23] MEDS ORDERED: amLODIPine BESYLATE 5 MG TAB PO SCH (10:00)
[2021-03-23] MEDS: PANTOPRAZOLE 40 MG TAB PO SCH (10:51)
[2021-03-23] MEDS: CLOPIDOGREL BISULFATE 75 MG TAB PO SCH (10:51)
[2021-03-23] MEDS: cefTRIAXone 1GM/50ML D5W 50 ML IV SCH (11:25)
[2021-03-23] MEDS: ACCU-CHEK COMFORT CURVE STRIP VI SCH ×3 (11:59→22:02)
[2021-03-23] MEDS ORDERED: VANCOMYCIN 1GM/250ML 250 ML IV ONE (12:00)
[2021-03-23] MEDS: InsuLIN REG 1unit/0.01ml Soln (100units/ml) SC SCH ×3 (12:00→22:03)
[2021-03-23] MEDS: CALCIUM ACETATE 667 MG CAP PO SCH ×2 (12:55→17:48)
[2021-03-23] MEDS ORDERED: FERR-7 PO (13:41)
[2021-03-23] MEDS ORDERED: ATOR20TA50 PO (13:41)
[2021-03-23] MEDS ORDERED: AML5T PO (13:41)
[2021-03-23] MEDS ORDERED: METO1TAB77 PO (13:44)
[2021-03-23] MEDS ORDERED: FURO1TAB31 PO ×2 (13:45→13:46)
[2021-03-23] MEDS ORDERED: INSUINJ37 SC (13:48)
[2021-03-23] MEDS ORDERED: INSU100I44 SC (13:48)
[2021-03-23] MEDS ORDERED: PAR20T PO (13:49)
[2021-03-23] MEDS ORDERED: HYDR50TA32 PO (13:50)
[2021-03-23] MEDS ORDERED: HYOS0.1289 PO (13:51)
[2021-03-23] MEDS: HYDROcodone-ACET 5/325MG TAB PO PRN (14:00)
[2021-03-23 15:30] VITALS: BP 146/76
[2021-03-23 16:40] VITALS: BP 146/76
[2021-03-23] MEDS ORDERED: PNEUMOCOCCAL VACC POLYS 25 MCG/0.5 ML VIAL IM ONE (17:30)
[2021-03-23] MEDS: amLODIPine BESYLATE 5 MG TAB PO SCH (17:50)
[2021-03-23 18:11] LABS: Uric Acid 8.9 mg/dL (3.5-7.2)
[2021-03-23] MEDS ORDERED: CALCIUM ACETATE 667 MG CAP PO ONE (18:45)
[2021-03-23] MEDS: METHADONE HCL 10 MG TAB PO SCH (19:39)
[2021-03-23 22:00] VITALS: BP 141/64
[2021-03-23] MEDS ORDERED: INSULIN LANTUS (GLARGINE) 1 /0.01ml (100units/ml) SC SCH (22:00)
[2021-03-23] MEDS: SACUBITRIL-VALSARTAN 24mg/26mg TAB PO SCH (22:02)
[2021-03-23] MEDS: ATORVASTATIN 20 MG TAB PO SCH (22:02)
[2021-03-23] MEDS: METOPROLOL TARTRATE 50 MG TAB PO SCH (22:12)
[2021-03-24] MEDS: HYDROcodone-ACET 5/325MG TAB PO PRN ×2 (04:03→19:31)
[2021-03-24 05:00] VITALS: BP 147/78
[2021-03-24 06:18] LABS: Hematocrit 31.2 % (41.0-53.0); Hemoglobin 10.6 g/dL (13.5-17.5)
[2021-03-24] MEDS: ACCU-CHEK COMFORT CURVE STRIP VI SCH ×4 (06:22→21:34)
[2021-03-24] MEDS: InsuLIN REG 1unit/0.01ml Soln (100units/ml) SC SCH ×4 (06:22→21:40)
[2021-03-24] MEDS ORDERED: SODIUM CHL 0.9% 1000 ML BAG XX ONE (07:00)
[2021-03-24] MEDS ORDERED: CALCIUM ACETATE 667 MG CAP PO SCH (08:00)
[2021-03-24] MEDS: cefTRIAXone 1GM/50ML D5W 50 ML IV SCH (08:55)
[2021-03-24 09:00] VITALS: BP 138/74
[2021-03-24] MEDS: CLOPIDOGREL BISULFATE 75 MG TAB PO SCH (09:40)
[2021-03-24] MEDS: METHADONE HCL 10 MG TAB PO SCH ×2 (09:40→21:34)
[2021-03-24] MEDS: PANTOPRAZOLE 40 MG TAB PO SCH (09:41)
[2021-03-24] MEDS: METOPROLOL TARTRATE 50 MG TAB PO SCH ×2 (10:00→21:33)
[2021-03-24] MEDS: amLODIPine BESYLATE 5 MG TAB PO SCH (10:00)
[2021-03-24] MEDS: SACUBITRIL-VALSARTAN 24mg/26mg TAB PO SCH (10:00)
[2021-03-24] MEDS: SEVELAMER 800 MG TAB PO SCH ×2 (12:09→17:23)
[2021-03-24 13:00] VITALS: BP 155/86
[2021-03-24 17:00] VITALS: BP 83/40
[2021-03-24 18:39] VITALS: BP 148/93
[2021-03-24] MEDS ORDERED: EPOETIN ALFA-EPBX 10,000 UNIT/1ML VIAL SC ONE (21:00)
[2021-03-24] MEDS: ATORVASTATIN 20 MG TAB PO SCH (21:33)
[2021-03-24 21:57] VITALS: BP 155/91
[2021-03-25 05:00] VITALS: BP 150/86
[2021-03-25 06:05] LABS: Basophils # (auto) 0.1 10 ^3/uL (0-0.2); Eosinophils # (auto) 0.2 10 ^3/uL (0-0.8); Eosinophils % (auto) 3.2 % (0.0-7.0); Hematocrit 35.2 % (41.0-53.0); Hemoglobin 12.1 g/dL (13.5-17.5); Lymphocytes % (auto) 13.5 % (10.0-50.0); Mean Corpuscular Hemoglobin 33.2 pg (28.0-32.0); Mean Corpuscular Hgb Conc. 34.4 g/dL (32.0-36.0); Mean Corpuscular Volume 96.4 fL (80.0-100.0); Monocytes # (auto) 0.7 10 ^3/uL (0-1.3); Monocytes % (auto) 8.9 % (0.0-12.0); Neutrophils # (auto) 5.6 10 ^3/uL (1.6-8.6); Neutrophils % (auto) 73.4 % (37.0-80.0); Red Blood Cells 3.65 10^6/uL (4.5-5.90); Red Cell Distribution Width 16.7 % (11.8-14.3); White Blood Cell 7.7 10^3/uL (4.4-10.8)
[2021-03-25] MEDS: ACCU-CHEK COMFORT CURVE STRIP VI SCH ×4 (06:16→21:13)
[2021-03-25] MEDS: InsuLIN REG 1unit/0.01ml Soln (100units/ml) SC SCH ×4 (06:16→21:17)
[2021-03-25 06:29] LABS: Albumin 3.2 g/dL (3.4-5.0); Calcium 6.9 mg/dL (8.5-10.1); Potassium 4.3 mmol/L (3.5-5.1)
[2021-03-25 06:35] LABS: BUN/Creatinine Ratio 7.4; Bilirubin, Total 0.4 mg/dL (0.2-1.0); Total Protein 7.8 g/dL (6.4-8.2)
[2021-03-25 08:30] VITALS: BP 152/86
[2021-03-25] MEDS: cefTRIAXone 1GM/50ML D5W 50 ML IV SCH (09:52)
[2021-03-25] MEDS: METOPROLOL TARTRATE 50 MG TAB PO SCH ×2 (09:54→21:48)
[2021-03-25] MEDS: METHADONE HCL 10 MG TAB PO SCH ×2 (09:55→21:19)
[2021-03-25] MEDS: amLODIPine BESYLATE 5 MG TAB PO SCH (09:55)
[2021-03-25] MEDS: PARoxetine 20 MG TAB PO SCH (09:56)
[2021-03-25] MEDS: CLOPIDOGREL BISULFATE 75 MG TAB PO SCH (09:56)
[2021-03-25] MEDS: PANTOPRAZOLE 40 MG TAB PO SCH (09:57)
[2021-03-25] MEDS: SEVELAMER 800 MG TAB PO SCH ×3 (09:58→18:00)
[2021-03-25 12:30] VITALS: BP 156/87
[2021-03-25] MEDS: hydrALAZINE HCL 20 MG/ML VL IV PRN (16:01)
[2021-03-25 16:40] VITALS: BP 131/82
[2021-03-25] MEDS: ATORVASTATIN 20 MG TAB PO SCH (21:19)
[2021-03-25 22:00] VITALS: BP 163/94
[2021-03-26] MEDS: InsuLIN REG 1unit/0.01ml Soln (100units/ml) SC SCH ×4 (05:47→23:00)
[2021-03-26] MEDS: ACCU-CHEK COMFORT CURVE STRIP VI SCH ×4 (05:47→22:23)
[2021-03-26 05:56] LABS: INR 1.03 (0.9-1.15); Partial Thromboplastin Time 31.7 sec (23.0-31.2)
[2021-03-26] MEDS: SEVELAMER 800 MG TAB PO SCH ×3 (08:00→17:50)
[2021-03-26 09:00] VITALS: BP 159/80
[2021-03-26] MEDS: cefTRIAXone 1GM/50ML D5W 50 ML IV SCH (09:00)
[2021-03-26] MEDS: METOPROLOL TARTRATE 50 MG TAB PO SCH ×2 (10:00→22:22)
[2021-03-26] MEDS: amLODIPine BESYLATE 5 MG TAB PO SCH (10:00)
[2021-03-26] MEDS: CLOPIDOGREL BISULFATE 75 MG TAB PO SCH (10:00)
[2021-03-26] MEDS: METHADONE HCL 10 MG TAB PO SCH ×2 (10:00→22:23)
[2021-03-26] MEDS: PANTOPRAZOLE 40 MG TAB PO SCH (10:00)
[2021-03-26] MEDS: PARoxetine 20 MG TAB PO SCH (10:00)
[2021-03-26] MEDS ORDERED: ceFAZolin 1GM VL ONE (10:43)
[2021-03-26] MEDS ORDERED: ROPIVACAINE 0.5% (5MG/ML) 20ML AMPULE IJ ONE ×2 (10:43→10:56)
[2021-03-26] MEDS ORDERED: ceFAZolin 1GM/50ML 100 ML IV ONE (10:53)
[2021-03-26] MEDS ORDERED: KETAMINE 50mg/ML 10ml Vial (500mg/10ml) IV ONE (11:08)
[2021-03-26] MEDS ORDERED: MIDAZOLAM HCL 2MG/2ML 2ml VIAL (1mg/ml) ONE (11:14)
[2021-03-26] MEDS ORDERED: fentaNYL CITRATE 100 MCG/2 ML VL ONE (11:14)
[2021-03-26] MEDS ORDERED: PROPOFOL 10 MG/ML 20 ML IV ONE ×2 (12:04)
[2021-03-26] MEDS ORDERED: LIDOCAINE 2% (LOCAL ANESTH.) PF 5ml SDV ONE (12:04)
[2021-03-26] MEDS ORDERED: ONDANSETRON HCL 4 MG/2 ML VIAL ONE (12:04)
[2021-03-26] MEDS ORDERED: MIDAZOLAM HCL 2MG/2ML 2ml VIAL (1mg/ml) IV PRN (12:30)
[2021-03-26] MEDS ORDERED: ONDANSETRON HCL 4 MG/2 ML VIAL IV PRN (12:30)
[2021-03-26] MEDS ORDERED: CHOLECALCIFEROL (VITD3) 2,000 UNIT CAP/TAB PO ONE (13:00)
[2021-03-26] MEDS: hydrALAZINE HCL 20 MG/ML VL IV PRN ×2 (13:08→13:09)
[2021-03-26] MEDS: MORPHINE SULF INJ 2 MG/ML SYRINGE 1ML IV PRN ×3 (14:00→23:12)
[2021-03-26 17:00] VITALS: BP 184/94
[2021-03-26] MEDS: HYDROcodone-ACET 5/325MG TAB PO PRN (20:45)
[2021-03-26 22:00] VITALS: BP 159/85
[2021-03-26] MEDS: ATORVASTATIN 20 MG TAB PO SCH (22:22)
[2021-03-27] MEDS: ACETAMINOPHEN 500 MG TAB PO PRN ×2 (00:47→09:07)
[2021-03-27] MEDS: MORPHINE SULF INJ 2 MG/ML SYRINGE 1ML IV PRN ×4 (04:45→17:29)
[2021-03-27 05:00] VITALS: BP 155/85
[2021-03-27] MEDS: ACCU-CHEK COMFORT CURVE STRIP VI SCH ×4 (05:54→21:04)
[2021-03-27] MEDS: HYDROcodone-ACET 5/325MG TAB PO PRN ×3 (05:55→20:24)
[2021-03-27] MEDS: InsuLIN REG 1unit/0.01ml Soln (100units/ml) SC SCH ×4 (06:39→21:16)
[2021-03-27 06:59] LABS: Basophils # (auto) 0.1 10 ^3/uL (0-0.2); Basophils % (auto) 1.1 % (0.0-2.0); Eosinophils # (auto) 0.2 10 ^3/uL (0-0.8); Eosinophils % (auto) 2.3 % (0.0-7.0); Hematocrit 35.6 % (41.0-53.0); Hemoglobin 12.1 g/dL (13.5-17.5); Lymphocytes # (auto) 0.9 10 ^3/uL (0.4-5.4); Lymphocytes % (auto) 10.3 % (10.0-50.0); Mean Corpuscular Hemoglobin 32.4 pg (28.0-32.0); Mean Corpuscular Hgb Conc. 33.9 g/dL (32.0-36.0); Mean Corpuscular Volume 95.5 fL (80.0-100.0); Monocytes # (auto) 0.8 10 ^3/uL (0-1.3); Monocytes % (auto) 9.8 % (0.0-12.0); Neutrophils # (auto) 6.6 10 ^3/uL (1.6-8.6); Neutrophils % (auto) 76.5 % (37.0-80.0); Red Blood Cells 3.72 10^6/uL (4.5-5.90); Red Cell Distribution Width 16.7 % (11.8-14.3); White Blood Cell 8.6 10^3/uL (4.4-10.8)
[2021-03-27 07:14] LABS: Calcium 7.3 mg/dL (8.5-10.1); Magnesium 2.1 mg/dL (1.6-2.6); Potassium 4.9 mmol/L (3.5-5.1)
[2021-03-27 07:17] LABS: BUN/Creatinine Ratio 6.8
[2021-03-27 08:00] VITALS: BP 174/98
[2021-03-27] MEDS: PANTOPRAZOLE 40 MG TAB PO SCH (08:16)
[2021-03-27] MEDS: CLOPIDOGREL BISULFATE 75 MG TAB PO SCH (08:16)
[2021-03-27] MEDS: SEVELAMER 800 MG TAB PO SCH ×3 (08:16→17:29)
[2021-03-27] MEDS: METHADONE HCL 10 MG TAB PO SCH ×2 (08:17→21:04)
[2021-03-27] MEDS: PARoxetine 20 MG TAB PO SCH (08:17)
[2021-03-27] MEDS: METOPROLOL TARTRATE 50 MG TAB PO SCH ×2 (08:18→23:01)
[2021-03-27] MEDS: cefTRIAXone 1GM/50ML D5W 50 ML IV SCH (08:18)
[2021-03-27] MEDS: amLODIPine BESYLATE 5 MG TAB PO SCH (08:21)
[2021-03-27] MEDS: CHOLECALCIFEROL (VITD3) 2,000 UNIT CAP/TAB PO SCH (09:18)
[2021-03-27] MEDS ORDERED: hydrALAZINE HCL 25 MG TAB PO ONE (11:45)
[2021-03-27 12:00] VITALS: BP 172/76
[2021-03-27 16:00] VITALS: BP 141/82
[2021-03-27] MEDS ORDERED: METHADONE HCL 10 MG TAB PO ONE (16:00)
[2021-03-27] MEDS: hydrALAZINE HCL 25 MG TAB PO SCH (21:03)
[2021-03-27] MEDS: ATORVASTATIN 20 MG TAB PO SCH (21:03)
[2021-03-27 22:00] VITALS: BP 123/81
[2021-03-28] MEDS: MORPHINE SULF INJ 2 MG/ML SYRINGE 1ML IV PRN ×3 (02:46→16:39)
[2021-03-28] MEDS: HYDROcodone-ACET 5/325MG TAB PO PRN ×3 (03:43→23:03)
[2021-03-28 05:00] VITALS: BP 150/83
[2021-03-28] MEDS: ACCU-CHEK COMFORT CURVE STRIP VI SCH ×4 (06:19→21:32)
[2021-03-28] MEDS: InsuLIN REG 1unit/0.01ml Soln (100units/ml) SC SCH ×4 (06:24→21:34)
[2021-03-28 08:00] VITALS: BP 168/88
[2021-03-28] MEDS: SEVELAMER 800 MG TAB PO SCH ×3 (09:14→18:03)
[2021-03-28] MEDS: cefTRIAXone 1GM/50ML D5W 50 ML IV SCH (09:14)
[2021-03-28] MEDS: METOPROLOL TARTRATE 50 MG TAB PO SCH ×2 (09:15→21:32)
[2021-03-28] MEDS: METHADONE HCL 10 MG TAB PO SCH ×2 (09:15→21:32)
[2021-03-28] MEDS: CHOLECALCIFEROL (VITD3) 2,000 UNIT CAP/TAB PO SCH (09:16)
[2021-03-28] MEDS: PARoxetine 20 MG TAB PO SCH (09:16)
[2021-03-28] MEDS: PANTOPRAZOLE 40 MG TAB PO SCH (09:16)
[2021-03-28] MEDS: CLOPIDOGREL BISULFATE 75 MG TAB PO SCH (09:16)
[2021-03-28] MEDS: hydrALAZINE HCL 25 MG TAB PO SCH ×2 (09:17→21:30)
[2021-03-28] MEDS: amLODIPine BESYLATE 5 MG TAB PO SCH (09:17)
[2021-03-28 12:00] VITALS: BP 132/64
[2021-03-28 16:00] VITALS: BP 142/84
[2021-03-28] MEDS: ATORVASTATIN 20 MG TAB PO SCH (21:30)
[2021-03-28 22:00] VITALS: BP 154/82
[2021-03-29] MEDS: MORPHINE SULF INJ 2 MG/ML SYRINGE 1ML IV PRN ×4 (01:19→19:46)
[2021-03-29 05:00] VITALS: BP 157/81
[2021-03-29] MEDS: InsuLIN REG 1unit/0.01ml Soln (100units/ml) SC SCH ×4 (06:15→22:00)
[2021-03-29] MEDS: ACCU-CHEK COMFORT CURVE STRIP VI SCH ×4 (06:15→22:26)
[2021-03-29 08:00] VITALS: BP 156/90
[2021-03-29] MEDS: SEVELAMER 800 MG TAB PO SCH ×3 (08:47→17:38)
[2021-03-29] MEDS: CLOPIDOGREL BISULFATE 75 MG TAB PO SCH (08:59)
[2021-03-29] MEDS: CHOLECALCIFEROL (VITD3) 2,000 UNIT CAP/TAB PO SCH (08:59)
[2021-03-29] MEDS: PANTOPRAZOLE 40 MG TAB PO SCH (08:59)
[2021-03-29] MEDS: METHADONE HCL 10 MG TAB PO SCH ×2 (09:00→21:58)
[2021-03-29] MEDS: hydrALAZINE HCL 25 MG TAB PO SCH ×2 (09:01→21:57)
[2021-03-29] MEDS: cefTRIAXone 1GM/50ML D5W 50 ML IV SCH (09:01)
[2021-03-29] MEDS: amLODIPine BESYLATE 5 MG TAB PO SCH (09:02)
[2021-03-29] MEDS: PARoxetine 20 MG TAB PO SCH (09:02)
[2021-03-29] MEDS: METOPROLOL TARTRATE 50 MG TAB PO SCH ×2 (09:02→21:57)
[2021-03-29 12:00] VITALS: BP 155/84
[2021-03-29 16:00] VITALS: BP 151/92
[2021-03-29] MEDS: ATORVASTATIN 20 MG TAB PO SCH (21:57)
[2021-03-29 22:00] VITALS: BP 165/83
[2021-03-29] MEDS: hydrALAZINE HCL 20 MG/ML VL IV PRN (23:53)
[2021-03-30] MEDS: MORPHINE SULF INJ 2 MG/ML SYRINGE 1ML IV PRN ×3 (01:09→11:57)
[2021-03-30 01:10] VITALS: BP 154/80
[2021-03-30 05:00] VITALS: BP 141/83
[2021-03-30] MEDS: ACCU-CHEK COMFORT CURVE STRIP VI SCH ×3 (06:05→17:00)
[2021-03-30] MEDS: InsuLIN REG 1unit/0.01ml Soln (100units/ml) SC SCH ×3 (06:07→17:00)
[2021-03-30 08:19] VITALS: BP 158/89
[2021-03-30] MEDS: CLOPIDOGREL BISULFATE 75 MG TAB PO SCH (08:45)
[2021-03-30] MEDS: amLODIPine BESYLATE 5 MG TAB PO SCH (08:46)
[2021-03-30] MEDS: PANTOPRAZOLE 40 MG TAB PO SCH (08:46)
[2021-03-30] MEDS: METOPROLOL TARTRATE 50 MG TAB PO SCH (08:47)
[2021-03-30] MEDS: hydrALAZINE HCL 25 MG TAB PO SCH (08:47)
[2021-03-30] MEDS: SEVELAMER 800 MG TAB PO SCH ×2 (08:48→12:39)
[2021-03-30] MEDS: PARoxetine 20 MG TAB PO SCH (08:48)
[2021-03-30] MEDS: CHOLECALCIFEROL (VITD3) 2,000 UNIT CAP/TAB PO SCH (08:48)
[2021-03-30] MEDS: METHADONE HCL 10 MG TAB PO SCH (08:48)
[2021-03-30] MEDS: cefTRIAXone 1GM/50ML D5W 50 ML IV SCH (08:49)
[2021-03-30 10:05] LABS: INR 1.06 (0.9-1.15); Partial Thromboplastin Time 30.5 sec (23.0-31.2)
[2021-03-30] MEDS ORDERED: cefTRIAXone 1GM/50ML D5W 50 ML IV ONE (10:30)
[2021-03-30 11:58] LABS: BUN/Creatinine Ratio 6.3; Calcium 7.5 mg/dL (8.5-10.1); Potassium 4.6 mmol/L (3.5-5.1)
[2021-03-30 12:27] VITALS: BP 157/79
[2021-03-30 15:40] VITALS: BP 158/89
[2021-03-31] MEDS ORDERED: CEFTRIAXONE SODIUM 2 GM in D5W 5% 50 ML IV SCH (10:00)
== END 2021-03-30 18:18 | disposition home health service (06) | DRG 40 ==
LOC: ER 00:09 → OVERFLOW 09:55 → WEST WING 14:24
PROVIDERS: ADMIT Nurse Practitioner Acute Care; ATTEND Internal Medicine
PROC: 3E0234Z Introduction of Serum, Toxoid and Vaccine into Muscle, Percutaneous Approach (ICD-10-PCS; 2021-03-23)
PROC: 5A1D70Z Performance of Urinary Filtration, Intermittent, Less than 6 Hours Per Day (ICD-10-PCS; 2021-03-24)
PROC: 0Y6R0Z3 Detachment at Right 2nd Toe, Low, Open Approach (ICD-10-PCS; 2021-03-26)
PROC: 0Y6S0Z3 Detachment at Left 2nd Toe, Low, Open Approach (ICD-10-PCS; 2021-03-26)
PROC: 5A1D70Z Performance of Urinary Filtration, Intermittent, Less than 6 Hours Per Day (ICD-10-PCS; 2021-03-26)
PROC: 0Y6P0Z3 Detachment at Right 1st Toe, Low, Open Approach (ICD-10-PCS; principal; 2021-03-26 11:18)
PROC: 5A1D70Z Performance of Urinary Filtration, Intermittent, Less than 6 Hours Per Day (ICD-10-PCS; 2021-03-27)
PROC: 05HA33Z Insertion of Infusion Device into Left Brachial Vein, Percutaneous Approach (ICD-10-PCS; 2021-03-30)
PROC: B54NZZA Ultrasonography of Left Upper Extremity Veins, Guidance (ICD-10-PCS; 2021-03-30)
DX: G93.41 Metabolic encephalopathy (principal); N18.6 End stage renal disease; F11.20 Opioid dependence, uncomplicated; I13.2 Hypertensive heart and chronic kidney disease with heart failure and with stage 5 chronic kidney disease, or end stage renal disease; M86.8X7 Other osteomyelitis, ankle and foot; I50.32 Chronic diastolic (congestive) heart failure; E11.69 Type 2 diabetes mellitus with other specified complication; E11.51 Type 2 diabetes mellitus with diabetic peripheral angiopathy without gangrene; D63.1 Anemia in chronic kidney disease; E87.5 Hyperkalemia; Z23 Encounter for immunization; I25.10 Atherosclerotic heart disease of native coronary artery without angina pectoris; Z99.2 Dependence on renal dialysis; I05.0 Rheumatic mitral stenosis; E78.5 Hyperlipidemia, unspecified; F41.9 Anxiety disorder, unspecified; E11.621 Type 2 diabetes mellitus with foot ulcer; E11.22 Type 2 diabetes mellitus with diabetic chronic kidney disease; E55.9 Vitamin D deficiency, unspecified; F32.9 Major depressive disorder, single episode, unspecified; G89.4 Chronic pain syndrome; L60.0 Ingrowing nail; L97.529 Non-pressure chronic ulcer of other part of left foot with unspecified severity; L97.519 Non-pressure chronic ulcer of other part of right foot with unspecified severity; B95.61 Methicillin susceptible Staphylococcus aureus infection as the cause of diseases classified elsewhere; Z20.822 Contact with and (suspected) exposure to COVID-19; Z79.02 Long term (current) use of antithrombotics/antiplatelets; Z79.4 Long term (current) use of insulin; Z79.899 Other long term (current) drug therapy; Z82.3 Family history of stroke; Z82.49 Family history of ischemic heart disease and other diseases of the circulatory system; Z83.3 Family history of diabetes mellitus; Z85.048 Personal history of other malignant neoplasm of rectum, rectosigmoid junction, and anus; Z86.73 Personal history of transient ischemic attack (TIA), and cerebral infarction without residual deficits; Z93.3 Colostomy status; Z95.5 Presence of coronary angioplasty implant and graft
CPT/HCPCS: 36415; 70450; 71045; 73700; 73718; 80048; 80053; 80061; 80202; 80307; 81001; 82306; 82962; 83036; 83605; 83615; 83735; 83970; 84100; 84443; 84484; 84550; 85014; 85018; 85025; 85049; 85610; 85730; 86850; 86900; 86901; 87040; 87070; 87075; 87077; 87081; 87186; 87205; 87340; 87426; 90935; 93005; 93925; 96365; 96367; 97110; 97116; 97163; 97530; G0378; J0690; J0696; J1642; J1815; J2001; J2250; J2405; J2543; J2704

== ENCOUNTER 2021-04-09 13:50 | Inpatient (IN) | payer MEDICARE, MEDICAID ==
[~2021-04-09] VITALS: Ht 177.8 cm; Wt 65.7 kg
[~2021-04-09 13:50] MED LIST changes: -ALBUAER3 IN; -ATO40T PO; -DOX100T PO; +HYDR50TA32 PO; +HYOS0.1289 PO; -INSLANTI SC; -INSLISPI SC; +INSU100I44 SC; -INSU100I49 SC; +INSUINJ37 SC; -MIRT-66 PO; +PAR20T PO; -SACU1TAB PO
[2021-04-09 14:56] LABS: Albumin 2.9 g/dL (3.4-5.0); Anion Gap 14 (5-15); Blood Alcohol < 3.0 mg/dL (0-5); Blood Urea Nitrogen 43 mg/dL (7-18); Calcium 7.4 mg/dL (8.5-10.1); Carbon Dioxide 21 mmol/L (21-32); Chloride 97 mmol/L (98-107); Glucose 155 mg/dL (74-106); Potassium 4.7 mmol/L (3.5-5.1); Sodium 132 mmol/L (136-145)
[2021-04-09] MEDS ORDERED: cefTRIAXone 1GM/50ML D5W 50 ML IV ONE (15:00)
[2021-04-09 15:01] LABS: Basophils # (auto) 0.1 10 ^3/uL (0-0.2); Basophils % (auto) 0.6 % (0.0-2.0); Eosinophils # (auto) 0 10 ^3/uL (0-0.8); Hematocrit 32.9 % (41.0-53.0); Hemoglobin 10.5 g/dL (13.5-17.5); Lymphocytes # (auto) 0.6 10 ^3/uL (0.4-5.4); Lymphocytes % (auto) 4.8 % (10.0-50.0); Mean Corpuscular Hemoglobin 30.8 pg (28.0-32.0); Mean Corpuscular Hgb Conc. 32.1 g/dL (32.0-36.0); Mean Corpuscular Volume 95.9 fL (80.0-100.0); Monocytes # (auto) 1.2 10 ^3/uL (0-1.3); Monocytes % (auto) 9.9 % (0.0-12.0); Neutrophils # (auto) 10.1 10 ^3/uL (1.6-8.6); Neutrophils % (auto) 84.7 % (37.0-80.0); Red Blood Cells 3.43 10^6/uL (4.5-5.90); Red Cell Distribution Width 16.3 % (11.8-14.3)
[2021-04-09 15:02] LABS: Alanine Aminotransferase 16 U/L (16-61); Alkaline Phosphatase 416 U/L (45-117); Aspartate Aminotransferase 20 U/L (15-37); BUN/Creatinine Ratio 5.6; Bilirubin, Total 0.4 mg/dL (0.2-1.0); GFR African American 10 mL/min; GFR Non-African American 8 mL/min; Total Protein 7.3 g/dL (6.4-8.2)
[2021-04-09 15:08] LABS: INR 1.14 (0.9-1.15); Partial Thromboplastin Time 35.3 sec (23.0-31.2)
[2021-04-09] MEDS ORDERED: NITROGLYCERIN 0.4 MG SL TAB SL PRN ×2 (15:30→16:45)
[2021-04-09] MEDS ORDERED: MORPHINE SULF INJ 2 MG/ML SYRINGE 1ML IV PRN ×3 (15:30→16:45)
[2021-04-09] MEDS ORDERED: HYOSCYAMINE SULF 0.125 MG ODT TAB PO PRN (16:45)
[2021-04-09] MEDS ORDERED: DEXTROSE (50%) 50ML SYRG IV PRN (16:45)
[2021-04-09] MEDS ORDERED: HYDROcodone-ACET 5/325MG TAB PO PRN (16:45)
[2021-04-09] MEDS ORDERED: ALUM & MAG HYDROX-SIMETH LIQ(MAALOX) 30 ML PO PRN (16:45)
[2021-04-09] MEDS ORDERED: NALOXONE HCL 1MG/ML 2ML SYRINGE IV ONE (16:45)
[2021-04-09] MEDS ORDERED: LORazepam 2MG/ML-1ML VIAL ONE (17:03)
[2021-04-09] MEDS ORDERED: LORazepam 2MG/ML-1ML VIAL IV ONE ×2 (17:15)
[2021-04-09 17:17] LABS: Phosphorus 7.4 mg/dL (2.5-4.90)
[2021-04-09] MEDS ORDERED: HEP1I INJ (17:25)
[2021-04-09] MEDS ORDERED: CEFT2INJ IVP (17:25)
[2021-04-09] MEDS ORDERED: AMLO-489 PO (17:49)
[2021-04-09] MEDS ORDERED: [UNRECOGNIZED DRUG - CODE] INJ (17:54)
[2021-04-09] MEDS: DOXYCYCLINE 100MG/250ML 250 ML IV SCH (19:03)
[2021-04-09] MEDS: ACCU-CHEK COMFORT CURVE STRIP VI SCH ×2 (19:04→22:00)
[2021-04-09] MEDS: InsuLIN REG 1unit/0.01ml Soln (100units/ml) SC SCH ×2 (19:04→22:22)
[2021-04-09] MEDS: FUROSEMIDE 20 MG/2 ML VIAL IV SCH (19:04)
[2021-04-09] MEDS: METHADONE HCL 10 MG TAB PO SCH ×2 (19:04→23:45)
[2021-04-09] MEDS: CALCIUM ACETATE 667 MG CAP PO SCH (19:05)
[2021-04-09] MEDS: HYDROcodone-ACET 10/325MG TAB PO SCH (19:05)
[2021-04-09] MEDS: FERROUS SULFATE 325mg EC TAB PO SCH (19:05)
[2021-04-09 22:00] VITALS: BP 125/77
[2021-04-09] MEDS ORDERED: FAMOTIDINE (10MG/ML) 2ML VL IV SCH (22:00)
[2021-04-09] MEDS: METOPROLOL TARTRATE 50 MG TAB PO SCH (22:32)
[2021-04-09] MEDS: ATORVASTATIN 20 MG TAB PO SCH (22:32)
[2021-04-09] MEDS: BACLOFEN 10 MG TAB PO SCH (22:33)
[2021-04-10] MEDS: InsuLIN REG 1unit/0.01ml Soln (100units/ml) SC SCH ×4 (04:27→22:00)
[2021-04-10 05:00] VITALS: BP 156/86
[2021-04-10] MEDS: ACCU-CHEK COMFORT CURVE STRIP VI SCH ×4 (05:02→23:02)
[2021-04-10] MEDS: FUROSEMIDE 20 MG/2 ML VIAL IV SCH ×2 (05:46→17:32)
[2021-04-10] MEDS: DOXYCYCLINE 100MG/250ML 250 ML IV SCH (05:47)
[2021-04-10] MEDS: BACLOFEN 10 MG TAB PO SCH ×4 (05:47→22:55)
[2021-04-10] MEDS: HYDROcodone-ACET 10/325MG TAB PO SCH ×2 (05:49)
[2021-04-10] MEDS: CALCIUM ACETATE 667 MG CAP PO SCH ×3 (08:00→18:35)
[2021-04-10 09:00] VITALS: BP 139/97
[2021-04-10] MEDS ORDERED: HYDROcodone-ACET 10/325MG TAB PO PRN (09:00)
[2021-04-10] MEDS: FERROUS SULFATE 325mg EC TAB PO SCH ×3 (09:12→17:29)
[2021-04-10] MEDS: METHADONE HCL 10 MG TAB PO SCH ×2 (09:12→17:23)
[2021-04-10] MEDS ORDERED: ENOXAPARIN SOD 30 MG/0.3 ML SYRINGE SC SCH (10:00)
[2021-04-10] MEDS: PANTOPRAZOLE 40 MG TAB PO SCH (10:27)
[2021-04-10] MEDS: METOPROLOL TARTRATE 50 MG TAB PO SCH ×2 (10:28→23:01)
[2021-04-10] MEDS: CLOPIDOGREL BISULFATE 75 MG TAB PO SCH (10:28)
[2021-04-10] MEDS: CHOLECALCIFEROL (VITD3) 2,000 UNIT CAP/TAB PO SCH (10:29)
[2021-04-10] MEDS: PARoxetine 20 MG TAB PO SCH (10:29)
[2021-04-10] MEDS: amLODIPine BESYLATE 5 MG TAB PO SCH (10:30)
[2021-04-10] MEDS: LOSARTAN POTASSIUM 25 MG TAB PO SCH (10:32)
[2021-04-10] MEDS ORDERED: cefTRIAXone 1GM/50ML D5W 50 ML IV ONE (11:30)
[2021-04-10] MEDS: METOCLOPRAMIDE HCL 5MG/ml INJ 2ml VIAL IV PRN (12:18)
[2021-04-10 13:00] VITALS: BP 136/78
[2021-04-10 17:00] VITALS: BP 138/89
[2021-04-10 20:00] VITALS: BP 138/93
[2021-04-10] MEDS ORDERED: dilTIAZem 25 MG/5 ML VIAL IV ONE (21:00)
[2021-04-10 22:00] VITALS: BP 138/93
[2021-04-10] MEDS ORDERED: METOPROLOL SUCCINATE XL 50 MG TAB PO ONE (22:45)
[2021-04-10] MEDS ORDERED: HEPARIN SODIUM (PORCINE) 5000 UNITS/ML 1ML VIAL IV ONE (22:45)
[2021-04-10] MEDS ORDERED: HEPARIN DRIP/D5W 100UNITS/ML 250 ML IV SCH ×2 (22:45→23:30)
[2021-04-10] MEDS: ATORVASTATIN 20 MG TAB PO SCH (23:01)
[2021-04-10 23:11] LABS: Basophils # (auto) 0.1 10 ^3/uL (0-0.2); Basophils % (auto) 0.7 % (0.0-2.0); Eosinophils # (auto) 0 10 ^3/uL (0-0.8); Eosinophils % (auto) 0.2 % (0.0-7.0); Hematocrit 29.9 % (41.0-53.0); Lymphocytes # (auto) 0.6 10 ^3/uL (0.4-5.4); Lymphocytes % (auto) 5.9 % (10.0-50.0); Mean Corpuscular Hgb Conc. 33.4 g/dL (32.0-36.0); Mean Corpuscular Volume 95.8 fL (80.0-100.0); Monocytes # (auto) 0.9 10 ^3/uL (0-1.3); Monocytes % (auto) 9.5 % (0.0-12.0); Neutrophils # (auto) 8.1 10 ^3/uL (1.6-8.6); Neutrophils % (auto) 83.7 % (37.0-80.0); Nucleated Red Blood Cells % 0.1 %; Red Blood Cells 3.12 10^6/uL (4.5-5.90); Red Cell Distribution Width 16.5 % (11.8-14.3); White Blood Cell 9.7 10^3/uL (4.4-10.8)
[2021-04-11] MEDS: METHADONE HCL 10 MG TAB PO SCH ×4 (00:45→18:52)
[2021-04-11] MEDS: LORazepam 0.5 MG TAB PO PRN (04:48)
[2021-04-11 05:00] VITALS: BP 151/82
[2021-04-11] MEDS: BACLOFEN 10 MG TAB PO SCH ×5 (06:00→22:00)
[2021-04-11] MEDS: FUROSEMIDE 20 MG/2 ML VIAL IV SCH ×2 (06:17→17:51)
[2021-04-11] MEDS: ACCU-CHEK COMFORT CURVE STRIP VI SCH ×4 (06:18→22:06)
[2021-04-11] MEDS: InsuLIN REG 1unit/0.01ml Soln (100units/ml) SC SCH ×4 (06:30→22:00)
[2021-04-11] MEDS ORDERED: SODIUM CHL 0.9% 1000 ML BAG XX ONE (07:00)
[2021-04-11 08:17] LABS: INR 1.14 (0.9-1.15); Partial Thromboplastin Time 44.7 sec (23.0-31.2)
[2021-04-11] MEDS: FERROUS SULFATE 325mg EC TAB PO SCH ×3 (08:31→17:52)
[2021-04-11] MEDS: CALCIUM ACETATE 667 MG CAP PO SCH ×3 (08:31→17:52)
[2021-04-11 09:00] VITALS: BP 164/91
[2021-04-11] MEDS ORDERED: cefTRIAXone 1GM/50ML D5W 50 ML IV SCH (09:00)
[2021-04-11] MEDS ORDERED: HEPARIN DRIP/D5W 100UNITS/ML 250 ML IV SCH (09:00)
[2021-04-11] MEDS: METOPROLOL TARTRATE 50 MG TAB PO SCH ×3 (10:00→22:05)
[2021-04-11] MEDS: PANTOPRAZOLE 40 MG TAB PO SCH (10:00)
[2021-04-11] MEDS: LOSARTAN POTASSIUM 25 MG TAB PO SCH (10:00)
[2021-04-11] MEDS: amLODIPine BESYLATE 5 MG TAB PO SCH (10:00)
[2021-04-11] MEDS: PARoxetine 20 MG TAB PO SCH (10:00)
[2021-04-11] MEDS: CLOPIDOGREL BISULFATE 75 MG TAB PO SCH (10:00)
[2021-04-11] MEDS: CHOLECALCIFEROL (VITD3) 2,000 UNIT CAP/TAB PO SCH (10:00)
[2021-04-11 13:00] VITALS: BP 153/84
[2021-04-11 13:38] LABS: Anion Gap 17 (5-15); BUN/Creatinine Ratio 6.3; Blood Urea Nitrogen 67 mg/dL (7-18); Calcium 7.1 mg/dL (8.5-10.1); Carbon Dioxide 20 mmol/L (21-32); Chloride 96 mmol/L (98-107); GFR African American 7 mL/min; GFR Non-African American 6 mL/min; Glucose 138 mg/dL (74-106); Sodium 133 mmol/L (136-145)
[2021-04-11 13:41] LABS: INR 1.12 (0.9-1.15); Partial Thromboplastin Time 42.2 sec (23.0-31.2)
[2021-04-11 14:43] LABS: Basophils # (auto) 0.1 10 ^3/uL (0-0.2); Basophils % (auto) 1.7 % (0.0-2.0); Eosinophils # (auto) 0 10 ^3/uL (0-0.8); Eosinophils % (auto) 0.1 % (0.0-7.0); Hematocrit 29.3 % (41.0-53.0); Hemoglobin 9.5 g/dL (13.5-17.5); Lymphocytes # (auto) 0.4 10 ^3/uL (0.4-5.4); Lymphocytes % (auto) 5.2 % (10.0-50.0); Mean Corpuscular Hemoglobin 31.8 pg (28.0-32.0); Mean Corpuscular Hgb Conc. 32.5 g/dL (32.0-36.0); Monocytes # (auto) 0.7 10 ^3/uL (0-1.3); Monocytes % (auto) 7.9 % (0.0-12.0); Neutrophils # (auto) 7.1 10 ^3/uL (1.6-8.6); Neutrophils % (auto) 85.1 % (37.0-80.0); Red Blood Cells 2.99 10^6/uL (4.5-5.90); Red Cell Distribution Width 17.1 % (11.8-14.3); White Blood Cell 8.3 10^3/uL (4.4-10.8)
[2021-04-11] MEDS: HEPARIN DRIP/D5W 100UNITS/ML 250 ML IV SCH ×2 (16:15→23:30)
[2021-04-11 17:00] VITALS: BP 139/89
[2021-04-11 20:00] VITALS: BP 94/64
[2021-04-11] MEDS ORDERED: EPOETIN ALFA-EPBX 10,000 UNIT/1ML VIAL SC ONE (21:00)
[2021-04-11 21:05] VITALS: BP 94/64
[2021-04-11] MEDS: ATORVASTATIN 20 MG TAB PO SCH ×2 (21:55→22:00)
[2021-04-11] MEDS ORDERED: FAMOTIDINE (10MG/ML) 2ML VL IV SCH (22:00)
[2021-04-11 22:41] LABS: INR 1.12 (0.9-1.15); Partial Thromboplastin Time 61.9 sec (23.0-31.2)
[2021-04-12] VITALS (27 sets, daily range): BP systolic 89–187; BP diastolic 31–133
[2021-04-12] MEDS: METHADONE HCL 10 MG TAB PO SCH ×4 (02:37→13:54)
[2021-04-12] MEDS ORDERED: LABETALOL HCL 5 MG/ML 4ML SYRINGE IV ONE (03:15)
[2021-04-12 05:18] LABS: INR 1.15 (0.9-1.15)
[2021-04-12 05:26] LABS: Partial Thromboplastin Time 77.7 sec (23.0-31.2)
[2021-04-12] MEDS: FUROSEMIDE 20 MG/2 ML VIAL IV SCH ×2 (05:52→17:51)
[2021-04-12] MEDS: BACLOFEN 10 MG TAB PO SCH ×4 (05:52→21:56)
[2021-04-12] MEDS: ACCU-CHEK COMFORT CURVE STRIP VI SCH ×4 (06:54→22:18)
[2021-04-12] MEDS: InsuLIN REG 1unit/0.01ml Soln (100units/ml) SC SCH ×4 (06:54→22:19)
[2021-04-12] MEDS: PARoxetine 20 MG TAB PO SCH (07:38)
[2021-04-12] MEDS: FERROUS SULFATE 325mg EC TAB PO SCH ×3 (08:00→13:54)
[2021-04-12] MEDS: CALCIUM ACETATE 667 MG CAP PO SCH ×3 (08:00→13:54)
[2021-04-12 09:05] LABS: BUN/Creatinine Ratio 6.4; Calcium 6.7 mg/dL (8.5-10.1); Potassium 5.1 mmol/L (3.5-5.1)
[2021-04-12] MEDS: CEFTRIAXONE SODIUM 2 GM in D5W 5% 50 ML IV SCH (09:29)
[2021-04-12] MEDS: LOSARTAN POTASSIUM 25 MG TAB PO SCH (10:00)
[2021-04-12] MEDS: PANTOPRAZOLE 40 MG TAB PO SCH (10:00)
[2021-04-12] MEDS: amLODIPine BESYLATE 5 MG TAB PO SCH (10:00)
[2021-04-12] MEDS: METOPROLOL TARTRATE 50 MG TAB PO SCH ×2 (10:00→21:56)
[2021-04-12] MEDS: CLOPIDOGREL BISULFATE 75 MG TAB PO SCH (10:00)
[2021-04-12] MEDS: CHOLECALCIFEROL (VITD3) 2,000 UNIT CAP/TAB PO SCH (10:00)
[2021-04-12 11:54] LABS: Basophils # (auto) 0 10 ^3/uL (0-0.2); Basophils % (auto) 0.2 % (0.0-2.0); Eosinophils # (auto) 0 10 ^3/uL (0-0.8); Eosinophils % (auto) 0.2 % (0.0-7.0); Hematocrit 26.6 % (41.0-53.0); Hemoglobin 8.6 g/dL (13.5-17.5); Lymphocytes # (auto) 0.7 10 ^3/uL (0.4-5.4); Lymphocytes % (auto) 10.5 % (10.0-50.0); Mean Corpuscular Hemoglobin 31.4 pg (28.0-32.0); Mean Corpuscular Hgb Conc. 32.5 g/dL (32.0-36.0); Mean Corpuscular Volume 96.7 fL (80.0-100.0); Monocytes # (auto) 0.5 10 ^3/uL (0-1.3); Monocytes % (auto) 8.5 % (0.0-12.0); Neutrophils # (auto) 5.1 10 ^3/uL (1.6-8.6); Neutrophils % (auto) 80.6 % (37.0-80.0); Red Blood Cells 2.75 10^6/uL (4.5-5.90); Red Cell Distribution Width 17.1 % (11.8-14.3); White Blood Cell 6.4 10^3/uL (4.4-10.8)
[2021-04-12] MEDS ORDERED: SODIUM CHL 0.9% 1000 ML BAG XX ONE (12:00)
[2021-04-12] MEDS ORDERED: ALBUMIN 25% 100 ML IV ONE (12:00)
[2021-04-12 12:29] LABS: INR 1.19 (0.9-1.15)
[2021-04-12 12:33] LABS: Partial Thromboplastin Time > 139.0 sec (23.0-31.2)
[2021-04-12] MEDS: HEPARIN DRIP/D5W 100UNITS/ML 250 ML IV SCH ×2 (13:50→22:26)
[2021-04-12] MEDS ORDERED: METOPROLOL TARTRATE 1MG/1ML-5ML VIAL IV ONE (14:26)
[2021-04-12] MEDS ORDERED: AMIODARONE HCL 150 MG in D5W 5% 100 ML IV ONE (15:15)
[2021-04-12] MEDS: AMIODARONE 450mg/250ml AE 250 ML IV SCH (15:30)
[2021-04-12] MEDS ORDERED: HALOPERIDOL LACTATE 5 MG/ML INJ VIAL IM PRN (19:45)
[2021-04-12 20:50] LABS: INR 1.15 (0.9-1.15); Partial Thromboplastin Time 45.6 sec (23.0-31.2)
[2021-04-12] MEDS ORDERED: EPOETIN ALFA-EPBX 10,000 UNIT/1ML VIAL SC ONE (21:00)
[2021-04-12] MEDS: ATORVASTATIN 20 MG TAB PO SCH (21:56)
[2021-04-13] VITALS (23 sets, daily range): BP systolic 105–177; BP diastolic 59–103
[2021-04-13] MEDS: METHADONE HCL 10 MG TAB PO SCH ×3 (01:39→19:05)
[2021-04-13 04:29] LABS: Basophils # (auto) 0.1 10 ^3/uL (0-0.2); Basophils % (auto) 0.7 % (0.0-2.0); Eosinophils # (auto) 0 10 ^3/uL (0-0.8); Lymphocytes # (auto) 0.6 10 ^3/uL (0.4-5.4)
[2021-04-13 04:30] LABS: Eosinophils % (auto) 0.5 % (0.0-7.0); Hematocrit 29.3 % (41.0-53.0); Hemoglobin 9.9 g/dL (13.5-17.5); Lymphocytes % (auto) 6.7 % (10.0-50.0); Mean Corpuscular Hemoglobin 32.2 pg (28.0-32.0); Mean Corpuscular Hgb Conc. 33.7 g/dL (32.0-36.0); Mean Corpuscular Volume 95.6 fL (80.0-100.0); Monocytes % (auto) 10.7 % (0.0-12.0); Neutrophils # (auto) 7.6 10 ^3/uL (1.6-8.6); Neutrophils % (auto) 81.4 % (37.0-80.0); Red Blood Cells 3.07 10^6/uL (4.5-5.90); White Blood Cell 9.4 10^3/uL (4.4-10.8)
[2021-04-13 04:36] LABS: Albumin 3.3 g/dL (3.4-5.0); Calcium 7.1 mg/dL (8.5-10.1); INR 1.16 (0.9-1.15); Partial Thromboplastin Time 56.1 sec (23.0-31.2); Potassium 4.5 mmol/L (3.5-5.1)
[2021-04-13 04:38] LABS: Bilirubin, Total 0.3 mg/dL (0.2-1.0); Total Protein 7.6 g/dL (6.4-8.2)
[2021-04-13] MEDS: AMIODARONE 450mg/250ml AE 250 ML IV SCH ×2 (06:12→21:12)
[2021-04-13] MEDS: BACLOFEN 10 MG TAB PO SCH ×4 (06:34→23:28)
[2021-04-13] MEDS: FUROSEMIDE 20 MG/2 ML VIAL IV SCH (06:34)
[2021-04-13] MEDS: ACCU-CHEK COMFORT CURVE STRIP VI SCH ×4 (06:34→22:21)
[2021-04-13] MEDS: InsuLIN REG 1unit/0.01ml Soln (100units/ml) SC SCH ×4 (06:38→22:00)
[2021-04-13] MEDS: FERROUS SULFATE 325mg EC TAB PO SCH ×3 (07:57→17:51)
[2021-04-13] MEDS: CALCIUM ACETATE 667 MG CAP PO SCH ×3 (07:57→17:51)
[2021-04-13] MEDS: CEFTRIAXONE SODIUM 2 GM in D5W 5% 50 ML IV SCH (08:46)
[2021-04-13] MEDS: LOSARTAN POTASSIUM 25 MG TAB PO SCH (10:00)
[2021-04-13] MEDS: CLOPIDOGREL BISULFATE 75 MG TAB PO SCH (10:00)
[2021-04-13] MEDS: CHOLECALCIFEROL (VITD3) 2,000 UNIT CAP/TAB PO SCH (10:29)
[2021-04-13] MEDS: amLODIPine BESYLATE 5 MG TAB PO SCH (10:30)
[2021-04-13] MEDS: PANTOPRAZOLE 40 MG TAB PO SCH (10:31)
[2021-04-13] MEDS: METOPROLOL TARTRATE 50 MG TAB PO SCH ×2 (10:31→22:50)
[2021-04-13] MEDS: PARoxetine 20 MG TAB PO SCH (10:32)
[2021-04-13 17:59] LABS: INR 1.15 (0.9-1.15); Partial Thromboplastin Time 56.9 sec (23.0-31.2)
[2021-04-13] MEDS: HEPARIN DRIP/D5W 100UNITS/ML 250 ML IV SCH (23:02)
[2021-04-13] MEDS: ATORVASTATIN 20 MG TAB PO SCH (23:28)
[2021-04-14] VITALS (26 sets, daily range): BP systolic 103–182; BP diastolic 49–99
[2021-04-14 00:14] LABS: INR 1.13 (0.9-1.15); Partial Thromboplastin Time 61.5 sec (23.0-31.2)
[2021-04-14] MEDS: METHADONE HCL 10 MG TAB PO SCH ×3 (03:00→18:01)
[2021-04-14] MEDS: hydrALAZINE HCL 20 MG/ML VL IV PRN (03:24)
[2021-04-14 04:05] LABS: Basophils # (auto) 0.1 10 ^3/uL (0-0.2); Basophils % (auto) 1.2 % (0.0-2.0); Hemoglobin 10.6 g/dL (13.5-17.5); Lymphocytes # (auto) 0.9 10 ^3/uL (0.4-5.4); Red Cell Distribution Width 17.2 % (11.8-14.3)
[2021-04-14 04:07] LABS: Eosinophils # (auto) 0 10 ^3/uL (0-0.8); Eosinophils % (auto) 0.4 % (0.0-7.0); Hematocrit 31.9 % (41.0-53.0); Lymphocytes % (auto) 8.7 % (10.0-50.0); Mean Corpuscular Hemoglobin 31.7 pg (28.0-32.0); Mean Corpuscular Hgb Conc. 33.2 g/dL (32.0-36.0); Mean Corpuscular Volume 95.6 fL (80.0-100.0); Monocytes % (auto) 9.7 % (0.0-12.0); Neutrophils # (auto) 8.6 10 ^3/uL (1.6-8.6); Nucleated Red Blood Cells % 0.1 %; Red Blood Cells 3.34 10^6/uL (4.5-5.90); White Blood Cell 10.7 10^3/uL (4.4-10.8)
[2021-04-14 04:28] LABS: Albumin 3.2 g/dL (3.4-5.0); Calcium 7.4 mg/dL (8.5-10.1); Potassium 4.5 mmol/L (3.5-5.1)
[2021-04-14 04:30] LABS: Bilirubin, Total 0.4 mg/dL (0.2-1.0); Total Protein 8.6 g/dL (6.4-8.2)
[2021-04-14] MEDS: BACLOFEN 10 MG TAB PO SCH ×4 (05:46→22:00)
[2021-04-14] MEDS: ACCU-CHEK COMFORT CURVE STRIP VI SCH ×4 (05:56→22:00)
[2021-04-14] MEDS: InsuLIN REG 1unit/0.01ml Soln (100units/ml) SC SCH ×4 (06:06→22:00)
[2021-04-14] MEDS ORDERED: SODIUM CHL 0.9% 1000 ML BAG XX ONE (07:00)
[2021-04-14] MEDS: CEFTRIAXONE SODIUM 2 GM in D5W 5% 50 ML IV SCH (08:49)
[2021-04-14] MEDS: CALCIUM ACETATE 667 MG CAP PO SCH ×3 (08:49→18:00)
[2021-04-14] MEDS: FERROUS SULFATE 325mg EC TAB PO SCH ×3 (08:49→18:00)
[2021-04-14] MEDS: CLOPIDOGREL BISULFATE 75 MG TAB PO SCH (09:17)
[2021-04-14] MEDS: PARoxetine 20 MG TAB PO SCH (09:21)
[2021-04-14] MEDS: PANTOPRAZOLE 40 MG TAB PO SCH (09:22)
[2021-04-14] MEDS: CHOLECALCIFEROL (VITD3) 2,000 UNIT CAP/TAB PO SCH (09:22)
[2021-04-14] MEDS: LOSARTAN POTASSIUM 25 MG TAB PO SCH (10:00)
[2021-04-14] MEDS: METOPROLOL TARTRATE 50 MG TAB PO SCH ×2 (10:00→22:00)
[2021-04-14 11:36] LABS: INR 1.15 (0.9-1.15); Partial Thromboplastin Time 62.2 sec (23.0-31.2)
[2021-04-14] MEDS ORDERED: METOPROLOL TARTRATE 1MG/1ML-5ML VIAL IV ONE ×2 (12:08→12:15)
[2021-04-14] MEDS: amLODIPine BESYLATE 5 MG TAB PO SCH (12:10)
[2021-04-14] MEDS: AMIODARONE 450mg/250ml AE 250 ML IV SCH (12:12)
[2021-04-14] MEDS ORDERED: EPOETIN ALFA-EPBX 10,000 UNIT/1ML VIAL SC ONE (21:00)
[2021-04-14] MEDS: ATORVASTATIN 20 MG TAB PO SCH (22:00)
[2021-04-15] MEDS: METHADONE HCL 10 MG TAB PO SCH ×3 (03:00→19:00)
[2021-04-15] MEDS: HEPARIN DRIP/D5W 100UNITS/ML 250 ML IV SCH (03:20)
[2021-04-15 04:49] VITALS: BP 130/70
[2021-04-15] MEDS: BACLOFEN 10 MG TAB PO SCH ×4 (06:00→22:00)
[2021-04-15 06:49] LABS: Basophils # (auto) 0.1 10 ^3/uL (0-0.2); Eosinophils # (auto) 0.1 10 ^3/uL (0-0.8); Hematocrit 31.3 % (41.0-53.0); Lymphocytes # (auto) 0.6 10 ^3/uL (0.4-5.4); Monocytes # (auto) 0.9 10 ^3/uL (0-1.3); Red Blood Cells 3.27 10^6/uL (4.5-5.90); White Blood Cell 12.4 10^3/uL (4.4-10.8)
[2021-04-15] MEDS: InsuLIN REG 1unit/0.01ml Soln (100units/ml) SC SCH ×4 (06:53→22:00)
[2021-04-15 06:54] LABS: Basophils % (auto) 0.8 % (0.0-2.0); Eosinophils % (auto) 0.6 % (0.0-7.0); Hemoglobin 10.4 g/dL (13.5-17.5); Mean Corpuscular Hemoglobin 31.9 pg (28.0-32.0); Mean Corpuscular Hgb Conc. 33.4 g/dL (32.0-36.0); Mean Corpuscular Volume 95.6 fL (80.0-100.0); Monocytes % (auto) 7.4 % (0.0-12.0); Neutrophils # (auto) 10.7 10 ^3/uL (1.6-8.6); Neutrophils % (auto) 86.2 % (37.0-80.0); Red Cell Distribution Width 16.5 % (11.8-14.3)
[2021-04-15] MEDS: ACCU-CHEK COMFORT CURVE STRIP VI SCH ×4 (06:54→22:27)
[2021-04-15 07:05] LABS: Potassium 4.2 mmol/L (3.5-5.1)
[2021-04-15 07:12] LABS: Albumin 2.9 g/dL (3.4-5.0); BUN/Creatinine Ratio 4.4; Bilirubin, Total 0.4 mg/dL (0.2-1.0); Calcium 7.7 mg/dL (8.5-10.1); Total Protein 8.2 g/dL (6.4-8.2)
[2021-04-15 07:50] LABS: INR 1.7 (0.9-1.15); Partial Thromboplastin Time 73.7 sec (23.0-31.2)
[2021-04-15 08:30] VITALS: BP 123/73
[2021-04-15] MEDS: LOSARTAN POTASSIUM 25 MG TAB PO SCH (10:00)
[2021-04-15] MEDS: METOPROLOL TARTRATE 25 MG TAB PO SCH ×3 (10:30→22:00)
[2021-04-15] MEDS: AMIODARONE HCL 200 MG TAB PO SCH ×2 (10:30→22:00)
[2021-04-15] MEDS: CEFTRIAXONE SODIUM 2 GM in D5W 5% 50 ML IV SCH (12:15)
[2021-04-15 12:30] VITALS: BP 161/77
[2021-04-15] MEDS: CALCIUM ACETATE 667 MG CAP PO SCH ×3 (12:57→18:00)
[2021-04-15] MEDS: FERROUS SULFATE 325mg EC TAB PO SCH ×3 (12:57→18:00)
[2021-04-15] MEDS: amLODIPine BESYLATE 5 MG TAB PO SCH (14:02)
[2021-04-15] MEDS: PARoxetine 20 MG TAB PO SCH (14:08)
[2021-04-15] MEDS: CLOPIDOGREL BISULFATE 75 MG TAB PO SCH (14:10)
[2021-04-15] MEDS: PANTOPRAZOLE 40 MG TAB PO SCH (14:10)
[2021-04-15] MEDS: CHOLECALCIFEROL (VITD3) 2,000 UNIT CAP/TAB PO SCH (14:11)
[2021-04-15] MEDS: APIXABAN 2.5 MG TAB PO SCH ×2 (14:15→22:00)
[2021-04-15 17:00] VITALS: BP 142/91
[2021-04-15] MEDS: METOPROLOL TARTRATE 1MG/1ML-5ML VIAL IV PRN (21:11)
[2021-04-15 22:00] VITALS: BP 162/96
[2021-04-15] MEDS: ATORVASTATIN 20 MG TAB PO SCH (22:00)
[2021-04-16] VITALS (87 sets, daily range): BP systolic 111–178; BP diastolic 56–92
[2021-04-16] MEDS ORDERED: METOPROLOL TARTRATE 1MG/1ML-5ML VIAL IV SCH
[2021-04-16] MEDS: hydrALAZINE HCL 20 MG/ML VL IV PRN ×3 (00:26→20:27)
[2021-04-16] MEDS ORDERED: dilTIAZem 25 MG/5 ML VIAL IV ONE ×2 (00:49→00:51)
[2021-04-16] MEDS: dilTIAZem 125mg/125ml BAG KIT 125 ML IV SCH ×3 (00:50→22:28)
[2021-04-16] MEDS: METOPROLOL TARTRATE 1MG/1ML-5ML VIAL IV PRN (02:25)
[2021-04-16] MEDS: METHADONE HCL 10 MG TAB PO SCH ×3 (03:00→19:00)
[2021-04-16 04:41] LABS: Basophils # (auto) 0.1 10 ^3/uL (0-0.2); Eosinophils # (auto) 0 10 ^3/uL (0-0.8); Eosinophils % (auto) 0.3 % (0.0-7.0); Mean Corpuscular Hemoglobin 31.7 pg (28.0-32.0); Mean Corpuscular Volume 95.9 fL (80.0-100.0); White Blood Cell 10.9 10^3/uL (4.4-10.8)
[2021-04-16 04:43] LABS: Basophils % (auto) 0.9 % (0.0-2.0); Hematocrit 31.6 % (41.0-53.0); Hemoglobin 10.4 g/dL (13.5-17.5); Lymphocytes # (auto) 0.6 10 ^3/uL (0.4-5.4); Lymphocytes % (auto) 5.8 % (10.0-50.0); Monocytes # (auto) 0.8 10 ^3/uL (0-1.3); Monocytes % (auto) 7.4 % (0.0-12.0); Neutrophils # (auto) 9.3 10 ^3/uL (1.6-8.6); Neutrophils % (auto) 85.6 % (37.0-80.0); Red Blood Cells 3.29 10^6/uL (4.5-5.90); Red Cell Distribution Width 16.6 % (11.8-14.3)
[2021-04-16 04:58] LABS: Potassium 4.7 mmol/L (3.5-5.1)
[2021-04-16 05:04] LABS: BUN/Creatinine Ratio 4.3; Bilirubin, Total 0.3 mg/dL (0.2-1.0); Calcium 7.8 mg/dL (8.5-10.1); Total Protein 8.1 g/dL (6.4-8.2)
[2021-04-16] MEDS: BACLOFEN 10 MG TAB PO SCH ×4 (06:00→22:00)
[2021-04-16] MEDS: ACCU-CHEK COMFORT CURVE STRIP VI SCH ×4 (06:32→22:00)
[2021-04-16] MEDS: InsuLIN REG 1unit/0.01ml Soln (100units/ml) SC SCH ×5 (06:50→22:22)
[2021-04-16] MEDS ORDERED: SODIUM CHL 0.9% 1000 ML BAG XX ONE ×2 (07:00→14:15)
[2021-04-16] MEDS: CALCIUM ACETATE 667 MG CAP PO SCH ×3 (08:00→17:37)
[2021-04-16] MEDS: FERROUS SULFATE 325mg EC TAB PO SCH ×3 (08:00→17:36)
[2021-04-16] MEDS: CEFTRIAXONE SODIUM 2 GM in D5W 5% 50 ML IV SCH (09:22)
[2021-04-16] MEDS: PARoxetine 20 MG TAB PO SCH (10:00)
[2021-04-16] MEDS: amLODIPine BESYLATE 5 MG TAB PO SCH (10:00)
[2021-04-16] MEDS: AMIODARONE HCL 200 MG TAB PO SCH ×2 (10:00→22:00)
[2021-04-16] MEDS: PANTOPRAZOLE 40 MG TAB PO SCH (10:00)
[2021-04-16] MEDS: APIXABAN 2.5 MG TAB PO SCH ×2 (10:00→22:00)
[2021-04-16] MEDS: CHOLECALCIFEROL (VITD3) 2,000 UNIT CAP/TAB PO SCH (10:00)
[2021-04-16] MEDS: CLOPIDOGREL BISULFATE 75 MG TAB PO SCH (10:00)
[2021-04-16] MEDS: METOPROLOL TARTRATE 25 MG TAB PO SCH ×2 (10:00→22:00)
[2021-04-16] MEDS: LOSARTAN POTASSIUM 25 MG TAB PO SCH (10:00)
[2021-04-16] MEDS ORDERED: EPOETIN ALFA-EPBX 10,000 UNIT/1ML VIAL SC ONE ×2 (21:00)
[2021-04-16] MEDS: ATORVASTATIN 20 MG TAB PO SCH (22:00)
[2021-04-17] VITALS (90 sets, daily range): BP systolic 110–163; BP diastolic 52–86
[2021-04-17] MEDS: METHADONE HCL 10 MG TAB PO SCH ×3 (03:00→19:00)
[2021-04-17] MEDS: hydrALAZINE HCL 20 MG/ML VL IV PRN (04:22)
[2021-04-17 04:46] LABS: Basophils # (auto) 0.1 10 ^3/uL (0-0.2); Basophils % (auto) 0.5 % (0.0-2.0); Eosinophils # (auto) 0.1 10 ^3/uL (0-0.8); Eosinophils % (auto) 0.5 % (0.0-7.0); Hematocrit 31.5 % (41.0-53.0); Hemoglobin 10.2 g/dL (13.5-17.5); Lymphocytes # (auto) 0.6 10 ^3/uL (0.4-5.4); Lymphocytes % (auto) 4.8 % (10.0-50.0); Mean Corpuscular Hemoglobin 31.4 pg (28.0-32.0); Mean Corpuscular Hgb Conc. 32.4 g/dL (32.0-36.0); Mean Corpuscular Volume 96.7 fL (80.0-100.0); Monocytes % (auto) 8.6 % (0.0-12.0); Neutrophils # (auto) 10.2 10 ^3/uL (1.6-8.6); Neutrophils % (auto) 85.6 % (37.0-80.0); Red Blood Cells 3.26 10^6/uL (4.5-5.90); Red Cell Distribution Width 17.5 % (11.8-14.3); White Blood Cell 11.9 10^3/uL (4.4-10.8)
[2021-04-17] MEDS: BACLOFEN 10 MG TAB PO SCH ×3 (04:58→21:21)
[2021-04-17 05:28] LABS: Albumin 2.8 g/dL (3.4-5.0); Calcium 8.1 mg/dL (8.5-10.1); Potassium 4.5 mmol/L (3.5-5.1)
[2021-04-17 05:33] LABS: BUN/Creatinine Ratio 4.2; Bilirubin, Total 0.4 mg/dL (0.2-1.0); Total Protein 8.3 g/dL (6.4-8.2)
[2021-04-17] MEDS: ACCU-CHEK COMFORT CURVE STRIP VI SCH ×4 (05:35→21:27)
[2021-04-17] MEDS: CALCIUM ACETATE 667 MG CAP PO SCH ×3 (08:00→17:17)
[2021-04-17] MEDS: FERROUS SULFATE 325mg EC TAB PO SCH ×3 (08:00→17:16)
[2021-04-17] MEDS: CEFTRIAXONE SODIUM 2 GM in D5W 5% 50 ML IV SCH (08:50)
[2021-04-17] MEDS: CLOPIDOGREL BISULFATE 75 MG TAB PO SCH (10:48)
[2021-04-17] MEDS: APIXABAN 2.5 MG TAB PO SCH ×2 (10:48→21:21)
[2021-04-17] MEDS: METOPROLOL TARTRATE 25 MG TAB PO SCH ×2 (10:51→21:22)
[2021-04-17] MEDS: amLODIPine BESYLATE 5 MG TAB PO SCH (10:51)
[2021-04-17] MEDS: PANTOPRAZOLE 40 MG TAB PO SCH (10:52)
[2021-04-17] MEDS: PARoxetine 20 MG TAB PO SCH (10:52)
[2021-04-17] MEDS: CHOLECALCIFEROL (VITD3) 2,000 UNIT CAP/TAB PO SCH (10:52)
[2021-04-17] MEDS: AMIODARONE HCL 200 MG TAB PO SCH ×2 (10:53→21:21)
[2021-04-17] MEDS: LOSARTAN POTASSIUM 25 MG TAB PO SCH (10:53)
[2021-04-17] MEDS: InsuLIN REG 1unit/0.01ml Soln (100units/ml) SC SCH ×3 (11:45→21:25)
[2021-04-17] MEDS ORDERED: Glucerna 1.2 Cal 1Liter BOTTLE GT SCH (15:15)
[2021-04-17] MEDS: ATORVASTATIN 20 MG TAB PO SCH (21:22)
[2021-04-17] MEDS: dilTIAZem 125mg/125ml BAG KIT 125 ML IV SCH (23:30)
[2021-04-18] VITALS (34 sets, daily range): BP systolic 124–163; BP diastolic 71–89
[2021-04-18] MEDS: METHADONE HCL 10 MG TAB PO SCH ×5 (02:23→19:00)
[2021-04-18] MEDS: BACLOFEN 10 MG TAB PO SCH (06:59)
[2021-04-18] MEDS: InsuLIN REG 1unit/0.01ml Soln (100units/ml) SC SCH ×4 (07:03→23:01)
[2021-04-18] MEDS: ACCU-CHEK COMFORT CURVE STRIP VI SCH ×4 (07:03→22:25)
[2021-04-18] MEDS: FERROUS SULFATE 325mg EC TAB PO SCH ×3 (07:29→18:42)
[2021-04-18] MEDS: CALCIUM ACETATE 667 MG CAP PO SCH ×3 (07:29→18:00)
[2021-04-18] MEDS: CEFTRIAXONE SODIUM 2 GM in D5W 5% 50 ML IV SCH (09:19)
[2021-04-18] MEDS: PARoxetine 20 MG TAB PO SCH (09:20)
[2021-04-18] MEDS: METOPROLOL TARTRATE 1MG/1ML-5ML VIAL IV PRN (09:20)
[2021-04-18] MEDS: PANTOPRAZOLE 40 MG TAB PO SCH (09:21)
[2021-04-18] MEDS: APIXABAN 2.5 MG TAB PO SCH ×2 (10:49→22:09)
[2021-04-18] MEDS: CLOPIDOGREL BISULFATE 75 MG TAB PO SCH (10:51)
[2021-04-18] MEDS: CHOLECALCIFEROL (VITD3) 2,000 UNIT CAP/TAB PO SCH (10:53)
[2021-04-18] MEDS: METOPROLOL TARTRATE 25 MG TAB PO SCH ×2 (10:53→22:06)
[2021-04-18] MEDS: AMIODARONE HCL 200 MG TAB PO SCH ×2 (10:56→22:05)
[2021-04-18] MEDS: amLODIPine BESYLATE 5 MG TAB PO SCH (10:56)
[2021-04-18] MEDS: LOSARTAN POTASSIUM 25 MG TAB PO SCH (10:57)
[2021-04-18] MEDS: LORazepam 0.5 MG TAB PO PRN (12:42)
[2021-04-18] MEDS: METOCLOPRAMIDE HCL 5MG/ml INJ 2ml VIAL IV PRN (12:42)
[2021-04-18] MEDS: ATORVASTATIN 20 MG TAB PO SCH (22:05)
[2021-04-19] VITALS (29 sets, daily range): BP systolic 109–157; BP diastolic 60–88
[2021-04-19] MEDS: METHADONE HCL 10 MG TAB PO SCH ×3 (03:00→19:00)
[2021-04-19] MEDS: ACCU-CHEK COMFORT CURVE STRIP VI SCH ×4 (06:05→22:00)
[2021-04-19] MEDS: InsuLIN REG 1unit/0.01ml Soln (100units/ml) SC SCH ×4 (06:16→22:00)
[2021-04-19] MEDS: CALCIUM ACETATE 667 MG CAP PO SCH ×3 (08:00→18:28)
[2021-04-19] MEDS: APIXABAN 2.5 MG TAB PO SCH ×2 (08:57→22:54)
[2021-04-19] MEDS: CLOPIDOGREL BISULFATE 75 MG TAB PO SCH (08:57)
[2021-04-19] MEDS: METOPROLOL TARTRATE 25 MG TAB PO SCH ×3 (08:58→23:00)
[2021-04-19] MEDS: PARoxetine 20 MG TAB PO SCH (08:58)
[2021-04-19] MEDS: AMIODARONE HCL 200 MG TAB PO SCH ×2 (08:58→22:53)
[2021-04-19] MEDS: FERROUS SULFATE 325mg EC TAB PO SCH ×2 (08:58→14:02)
[2021-04-19] MEDS: PANTOPRAZOLE 40 MG TAB PO SCH (08:59)
[2021-04-19] MEDS: CHOLECALCIFEROL (VITD3) 2,000 UNIT CAP/TAB PO SCH (08:59)
[2021-04-19] MEDS: CEFTRIAXONE SODIUM 2 GM in D5W 5% 50 ML IV SCH (09:21)
[2021-04-19] MEDS: amLODIPine BESYLATE 5 MG TAB PO SCH (10:00)
[2021-04-19] MEDS: LOSARTAN POTASSIUM 25 MG TAB PO SCH (10:00)
[2021-04-19 10:22] LABS: Basophils # (auto) 0 10 ^3/uL (0-0.2); Basophils % (auto) 0.2 % (0.0-2.0); Eosinophils # (auto) 0.1 10 ^3/uL (0-0.8); Eosinophils % (auto) 0.3 % (0.0-7.0); Hematocrit 33.6 % (41.0-53.0); Lymphocytes # (auto) 0.4 10 ^3/uL (0.4-5.4); Lymphocytes % (auto) 2.4 % (10.0-50.0); Mean Corpuscular Hemoglobin 31.7 pg (28.0-32.0); Mean Corpuscular Hgb Conc. 32.7 g/dL (32.0-36.0); Monocytes # (auto) 1.2 10 ^3/uL (0-1.3); Monocytes % (auto) 7.3 % (0.0-12.0); Neutrophils # (auto) 14.9 10 ^3/uL (1.6-8.6); Neutrophils % (auto) 89.8 % (37.0-80.0); Nucleated Red Blood Cells % 0.1 %; Red Blood Cells 3.46 10^6/uL (4.5-5.90); White Blood Cell 16.6 10^3/uL (4.4-10.8)
[2021-04-19 10:38] LABS: Potassium 5.1 mmol/L (3.5-5.1)
[2021-04-19] MEDS: PANTOPRAZOLE 40 MG/10 ML VIAL INJ IV SCH (10:38)
[2021-04-19 10:50] LABS: Albumin 2.3 g/dL (3.4-5.0); BUN/Creatinine Ratio 5.9; Bilirubin, Total 0.3 mg/dL (0.2-1.0); Calcium 7.5 mg/dL (8.5-10.1); Total Protein 7.9 g/dL (6.4-8.2)
[2021-04-19] MEDS: METOPROLOL TARTRATE 1MG/1ML-5ML VIAL IV PRN ×2 (11:47→17:48)
[2021-04-19] MEDS ORDERED: ACETYLCYSTEINE 10 %(100MG/ML) SOL 4ML NEB ONE (12:15)
[2021-04-19] MEDS ORDERED: ALBUTEROL SULF 2.5 MG/0.5ML(0.5%) NEB SOLN NEB ONE (12:15)
[2021-04-19] MEDS ORDERED: HEPARIN SODIUM (PORCINE) 5000 UNITS/ML 1ML VIAL IV ONE (12:30)
[2021-04-19] MEDS ORDERED: Nepro With Carb Steady 1 Liter Bottle GT SCH (12:45)
[2021-04-19] MEDS: ACETYLCYSTEINE 10 %(100MG/ML) SOL 4ML NEB SCH ×3 (13:50→22:57)
[2021-04-19] MEDS: ALBUTEROL SULF 2.5 MG/0.5ML(0.5%) NEB SOLN NEB SCH ×3 (13:51→22:56)
[2021-04-19] MEDS ORDERED: DIGOXIN (250MCG/ML) 2 ML AMPULE IV ONE ×3 (13:55→19:00)
[2021-04-19] MEDS ORDERED: AMIODARONE HCL 200 MG TAB PO ONE (14:00)
[2021-04-19] MEDS ORDERED: METOCLOPRAMIDE HCL 5MG/ml INJ 2ml VIAL IV PRN (14:00)
[2021-04-19] MEDS ORDERED: PIPERACILLIN-TAZOB 3.375GM 100 ML IV SCH (18:00)
[2021-04-19] MEDS ORDERED: PIPERACILLIN-TAZOB 3.375GM 100 ML IV ONE (18:00)
[2021-04-19] MEDS: dilTIAZem 125mg/125ml BAG KIT 125 ML IV SCH (18:01)
[2021-04-19] MEDS ORDERED: dilTIAZem 25 MG/5 ML VIAL IV ONE (19:00)
[2021-04-19] MEDS: ATORVASTATIN 20 MG TAB PO SCH (22:54)
[2021-04-19] MEDS: FERROUS SULFATE 300 MG/5 ML ORAL LIQ GT SCH (22:54)
[2021-04-20] VITALS (89 sets, daily range): BP systolic 88–150; BP diastolic 50–80
[2021-04-20] MEDS: ALBUTEROL SULF 2.5 MG/0.5ML(0.5%) NEB SOLN NEB SCH ×6 (02:39→22:17)
[2021-04-20] MEDS: ACETYLCYSTEINE 10 %(100MG/ML) SOL 4ML NEB SCH ×6 (02:39→22:17)
[2021-04-20] MEDS: METHADONE HCL 10 MG TAB PO SCH ×3 (03:00→19:00)
[2021-04-20] MEDS: PIPERACILLIN-TAZOB 2.25GM 50 ML IV SCH ×3 (06:04→21:11)
[2021-04-20] MEDS: FERROUS SULFATE 300 MG/5 ML ORAL LIQ GT SCH ×3 (06:04→21:11)
[2021-04-20] MEDS: ACCU-CHEK COMFORT CURVE STRIP VI SCH ×3 (07:07→16:26)
[2021-04-20] MEDS: InsuLIN REG 1unit/0.01ml Soln (100units/ml) SC SCH ×3 (07:07→17:56)
[2021-04-20] MEDS: PARoxetine 20 MG TAB PO SCH (10:00)
[2021-04-20] MEDS ORDERED: VANCOMYCIN PER PHARMACY 0 MG IV SCH (10:30)
[2021-04-20] MEDS: PANTOPRAZOLE 40 MG/10 ML VIAL INJ IV SCH (10:48)
[2021-04-20] MEDS: CLOPIDOGREL BISULFATE 75 MG TAB PO SCH (10:49)
[2021-04-20] MEDS: METOPROLOL TARTRATE 25 MG TAB PO SCH ×3 (10:49→22:12)
[2021-04-20] MEDS: AMIODARONE HCL 200 MG TAB PO SCH ×2 (10:49→21:11)
[2021-04-20] MEDS: amLODIPine BESYLATE 5 MG TAB PO SCH (10:49)
[2021-04-20] MEDS: CALCIUM ACETATE 667 MG CAP PO SCH ×3 (10:50→19:01)
[2021-04-20] MEDS: APIXABAN 2.5 MG TAB PO SCH ×2 (10:50→21:12)
[2021-04-20] MEDS ORDERED: VANCOMYCIN 1GM/250ML 250 ML IV ONE (11:15)
[2021-04-20] MEDS: dilTIAZem 125mg/125ml BAG KIT 125 ML IV SCH (11:29)
[2021-04-20] MEDS: SEVELAMER 800 MG TAB PO SCH ×3 (12:00→18:00)
[2021-04-20 12:08] LABS: Basophils # (auto) 0 10 ^3/uL (0-0.2); Basophils % (auto) 0.2 % (0.0-2.0); Eosinophils # (auto) 0 10 ^3/uL (0-0.8); Hematocrit 32.7 % (41.0-53.0); Hemoglobin 10.7 g/dL (13.5-17.5); Lymphocytes # (auto) 0.3 10 ^3/uL (0.4-5.4); Lymphocytes % (auto) 1.5 % (10.0-50.0); Mean Corpuscular Hgb Conc. 32.9 g/dL (32.0-36.0); Mean Corpuscular Volume 97.3 fL (80.0-100.0); Monocytes # (auto) 1.1 10 ^3/uL (0-1.3); Monocytes % (auto) 6.4 % (0.0-12.0); Neutrophils # (auto) 16.2 10 ^3/uL (1.6-8.6); Neutrophils % (auto) 91.9 % (37.0-80.0); Red Blood Cells 3.36 10^6/uL (4.5-5.90); Red Cell Distribution Width 16.8 % (11.8-14.3); White Blood Cell 17.7 10^3/uL (4.4-10.8)
[2021-04-20 12:37] LABS: Potassium 5.3 mmol/L (3.5-5.1)
[2021-04-20 12:45] LABS: Albumin 2.2 g/dL (3.4-5.0); BUN/Creatinine Ratio 6.5; Bilirubin, Total 0.4 mg/dL (0.2-1.0); Calcium 7.7 mg/dL (8.5-10.1)
[2021-04-20] MEDS: ATORVASTATIN 20 MG TAB PO SCH (21:12)
[2021-04-20] MEDS: ACETAMINOPHEN 325 MG TAB PO PRN (21:12)
[2021-04-20] MEDS: LORazepam 0.5 MG TAB PO PRN (21:13)
[2021-04-21] VITALS (57 sets, daily range): BP systolic 93–172; BP diastolic 55–79
[2021-04-21] MEDS: ACETYLCYSTEINE 10 %(100MG/ML) SOL 4ML NEB SCH ×6 (02:22→22:28)
[2021-04-21] MEDS: ALBUTEROL SULF 2.5 MG/0.5ML(0.5%) NEB SOLN NEB SCH ×6 (02:22→22:28)
[2021-04-21] MEDS: METHADONE HCL 10 MG TAB PO SCH ×3 (03:00→19:00)
[2021-04-21 04:46] LABS: Basophils # (auto) 0.1 10 ^3/uL (0-0.2); Basophils % (auto) 0.7 % (0.0-2.0); Eosinophils # (auto) 0 10 ^3/uL (0-0.8); Eosinophils % (auto) 0.2 % (0.0-7.0); Hematocrit 31.2 % (41.0-53.0); Hemoglobin 10.3 g/dL (13.5-17.5); Lymphocytes # (auto) 0.7 10 ^3/uL (0.4-5.4); Lymphocytes % (auto) 3.7 % (10.0-50.0); Mean Corpuscular Hemoglobin 31.7 pg (28.0-32.0); Mean Corpuscular Hgb Conc. 33.1 g/dL (32.0-36.0); Mean Corpuscular Volume 95.9 fL (80.0-100.0); Monocytes # (auto) 1.3 10 ^3/uL (0-1.3); Monocytes % (auto) 7.5 % (0.0-12.0); Neutrophils # (auto) 15.8 10 ^3/uL (1.6-8.6); Neutrophils % (auto) 87.9 % (37.0-80.0); Red Blood Cells 3.26 10^6/uL (4.5-5.90); White Blood Cell 17.9 10^3/uL (4.4-10.8)
[2021-04-21 05:11] LABS: Albumin 2.1 g/dL (3.4-5.0); Calcium 7.8 mg/dL (8.5-10.1); Potassium 5.3 mmol/L (3.5-5.1)
[2021-04-21 05:14] LABS: BUN/Creatinine Ratio 6.9; Bilirubin, Total 0.5 mg/dL (0.2-1.0); Total Protein 8.1 g/dL (6.4-8.2)
[2021-04-21] MEDS: ACCU-CHEK COMFORT CURVE STRIP VI SCH ×5 (05:55→23:53)
[2021-04-21] MEDS: FERROUS SULFATE 300 MG/5 ML ORAL LIQ GT SCH ×3 (06:00→20:59)
[2021-04-21] MEDS: InsuLIN REG 1unit/0.01ml Soln (100units/ml) SC SCH ×4 (06:12→23:57)
[2021-04-21] MEDS: PIPERACILLIN-TAZOB 2.25GM 50 ML IV SCH ×3 (06:12→20:59)
[2021-04-21] MEDS ORDERED: SODIUM CHL 0.9% 1000 ML BAG XX ONE (07:00)
[2021-04-21] MEDS: SEVELAMER 800 MG TAB PO SCH ×3 (08:00→18:00)
[2021-04-21] MEDS: PARoxetine 20 MG TAB PO SCH (10:00)
[2021-04-21] MEDS: CALCIUM ACETATE 667 MG CAP PO SCH ×3 (12:00→18:00)
[2021-04-21] MEDS: dilTIAZem 125mg/125ml BAG KIT 125 ML IV SCH (15:15)
[2021-04-21] MEDS ORDERED: dilTIAZem 25 MG/5 ML VIAL IV ONE (15:30)
[2021-04-21] MEDS ORDERED: DIGOXIN (250MCG/ML) 2 ML AMPULE IV ONE (15:30)
[2021-04-21] MEDS: amLODIPine BESYLATE 5 MG TAB PO SCH (17:24)
[2021-04-21] MEDS: AMIODARONE HCL 200 MG TAB PO SCH ×2 (17:24→21:00)
[2021-04-21] MEDS: METOPROLOL TARTRATE 25 MG TAB PO SCH ×2 (17:24→22:00)
[2021-04-21] MEDS: APIXABAN 2.5 MG TAB PO SCH ×2 (17:24→21:00)
[2021-04-21] MEDS: PANTOPRAZOLE 40 MG/10 ML VIAL INJ IV SCH (17:25)
[2021-04-21] MEDS: CLOPIDOGREL BISULFATE 75 MG TAB PO SCH (18:15)
[2021-04-21] MEDS: ATORVASTATIN 20 MG TAB PO SCH (21:00)
[2021-04-21] MEDS ORDERED: EPOETIN ALFA-EPBX 10,000 UNIT/1ML VIAL SC ONE (21:00)
[2021-04-21] MEDS: ACETAMINOPHEN 325 MG TAB PO PRN (21:01)
[2021-04-22] VITALS (92 sets, daily range): BP systolic 99–144; BP diastolic 55–80
[2021-04-22] MEDS: ALBUTEROL SULF 2.5 MG/0.5ML(0.5%) NEB SOLN NEB SCH ×6 (02:00→22:22)
[2021-04-22] MEDS: ACETYLCYSTEINE 10 %(100MG/ML) SOL 4ML NEB SCH ×6 (02:00→22:22)
[2021-04-22] MEDS: METHADONE HCL 10 MG TAB PO SCH ×2 (03:00→11:00)
[2021-04-22] MEDS: FERROUS SULFATE 300 MG/5 ML ORAL LIQ GT SCH ×3 (05:22→22:00)
[2021-04-22] MEDS: PIPERACILLIN-TAZOB 2.25GM 50 ML IV SCH ×3 (05:35→22:00)
[2021-04-22] MEDS: ACCU-CHEK COMFORT CURVE STRIP VI SCH ×3 (05:35→18:06)
[2021-04-22] MEDS: InsuLIN REG 1unit/0.01ml Soln (100units/ml) SC SCH ×3 (06:14→18:11)
[2021-04-22 07:06] LABS: RPR Non Reactive (Non Reactive)
[2021-04-22] MEDS: CALCIUM ACETATE 667 MG CAP PO SCH ×3 (08:00→18:00)
[2021-04-22] MEDS: SEVELAMER 800 MG TAB PO SCH ×3 (08:00→18:00)
[2021-04-22 09:57] LABS: INR 1.25 (0.9-1.15); Partial Thromboplastin Time 40.7 sec (23.0-31.2)
[2021-04-22] MEDS: AMIODARONE HCL 200 MG TAB PO SCH ×2 (10:00→22:00)
[2021-04-22] MEDS: amLODIPine BESYLATE 5 MG TAB PO SCH (10:00)
[2021-04-22] MEDS: PARoxetine 20 MG TAB PO SCH (10:00)
[2021-04-22] MEDS: METOPROLOL TARTRATE 25 MG TAB PO SCH ×2 (10:00→22:00)
[2021-04-22] MEDS: PANTOPRAZOLE 40 MG/10 ML VIAL INJ IV SCH (10:00)
[2021-04-22] MEDS: dilTIAZem 125mg/125ml BAG KIT 125 ML IV SCH (13:30)
[2021-04-22] MEDS: ATORVASTATIN 20 MG TAB PO SCH (22:00)
[2021-04-23] VITALS (85 sets, daily range): BP systolic 85–152; BP diastolic 53–82
[2021-04-23] MEDS: dilTIAZem 125mg/125ml BAG KIT 125 ML IV SCH (01:15)
[2021-04-23] MEDS: ALBUTEROL SULF 2.5 MG/0.5ML(0.5%) NEB SOLN NEB SCH ×4 (02:07→22:45)
[2021-04-23] MEDS: ACETYLCYSTEINE 10 %(100MG/ML) SOL 4ML NEB SCH ×4 (02:07→22:45)
[2021-04-23] MEDS: PIPERACILLIN-TAZOB 2.25GM 50 ML IV SCH ×3 (04:51→22:58)
[2021-04-23] MEDS: InsuLIN REG 1unit/0.01ml Soln (100units/ml) SC SCH ×4 (04:52→17:58)
[2021-04-23] MEDS: ACCU-CHEK COMFORT CURVE STRIP VI SCH ×4 (04:52→17:58)
[2021-04-23] MEDS: FERROUS SULFATE 300 MG/5 ML ORAL LIQ GT SCH ×3 (04:53→22:58)
[2021-04-23 05:11] LABS: Basophils # (auto) 0.1 10 ^3/uL (0-0.2); Basophils % (auto) 0.5 % (0.0-2.0); Eosinophils # (auto) 0.1 10 ^3/uL (0-0.8); Eosinophils % (auto) 0.6 % (0.0-7.0); Hematocrit 33.8 % (41.0-53.0); Hemoglobin 11.2 g/dL (13.5-17.5); Lymphocytes # (auto) 0.5 10 ^3/uL (0.4-5.4); Lymphocytes % (auto) 2.9 % (10.0-50.0); Mean Corpuscular Hgb Conc. 33.2 g/dL (32.0-36.0); Mean Corpuscular Volume 96.4 fL (80.0-100.0); Monocytes # (auto) 1.4 10 ^3/uL (0-1.3); Monocytes % (auto) 7.8 % (0.0-12.0); Neutrophils # (auto) 15.5 10 ^3/uL (1.6-8.6); Neutrophils % (auto) 88.2 % (37.0-80.0); Red Blood Cells 3.51 10^6/uL (4.5-5.90); Red Cell Distribution Width 16.8 % (11.8-14.3); White Blood Cell 17.6 10^3/uL (4.4-10.8)
[2021-04-23] MEDS ORDERED: SODIUM CHL 0.9% 1000 ML BAG XX ONE (07:00)
[2021-04-23 07:30] LABS: Albumin 2.3 g/dL (3.4-5.0); Calcium 8.7 mg/dL (8.5-10.1)
[2021-04-23 07:33] LABS: BUN/Creatinine Ratio 7.7; Bilirubin, Total 0.6 mg/dL (0.2-1.0); Total Protein 9.1 g/dL (6.4-8.2)
[2021-04-23 07:40] LABS: Potassium 5.6 mmol/L (3.5-5.1)
[2021-04-23] MEDS: SEVELAMER 800 MG TAB PO SCH ×3 (08:00→17:58)
[2021-04-23] MEDS: CALCIUM ACETATE 667 MG CAP PO SCH ×3 (08:00→17:58)
[2021-04-23] MEDS ORDERED: ALBUTEROL SULF 2.5 MG/0.5ML(0.5%) NEB SOLN NEB ONE (09:30)
[2021-04-23] MEDS ORDERED: InsuLIN REG 1unit/0.01ml Soln (100units/ml) IV ONE (09:30)
[2021-04-23] MEDS ORDERED: DEXTROSE (50%) 50ML SYRG IV ONE (09:30)
[2021-04-23] MEDS ORDERED: CALCIUM GLUC 1,000mg/50ml-NS 50 ML IV ONE (09:30)
[2021-04-23] MEDS ORDERED: SODIUM ZIRCONIUM CYCL 10 GM PAK PO ONE (09:30)
[2021-04-23] MEDS: PARoxetine 20 MG TAB PO SCH (09:52)
[2021-04-23] MEDS: PANTOPRAZOLE 40 MG/10 ML VIAL INJ IV SCH (09:52)
[2021-04-23] MEDS: AMIODARONE HCL 200 MG TAB PO SCH ×2 (09:52→22:59)
[2021-04-23] MEDS: amLODIPine BESYLATE 5 MG TAB PO SCH (10:00)
[2021-04-23] MEDS: ACETAMINOPHEN 325 MG TAB PO PRN (13:28)
[2021-04-23] MEDS ORDERED: EPOETIN ALFA-EPBX 10,000 UNIT/1ML VIAL SC ONE (21:00)
[2021-04-23] MEDS: METOPROLOL TARTRATE 25 MG TAB PO SCH (22:59)
[2021-04-23] MEDS: ATORVASTATIN 20 MG TAB PO SCH (22:59)
[2021-04-24] VITALS (44 sets, daily range): BP systolic 112–175; BP diastolic 66–88
[2021-04-24] MEDS: ACCU-CHEK COMFORT CURVE STRIP VI SCH ×4 (01:52→18:05)
[2021-04-24] MEDS: ALBUTEROL SULF 2.5 MG/0.5ML(0.5%) NEB SOLN NEB SCH ×6 (02:44→22:18)
[2021-04-24] MEDS: ACETYLCYSTEINE 10 %(100MG/ML) SOL 4ML NEB SCH ×6 (02:44→22:18)
[2021-04-24] MEDS: hydrALAZINE HCL 20 MG/ML VL IV PRN (05:18)
[2021-04-24] MEDS: InsuLIN REG 1unit/0.01ml Soln (100units/ml) SC SCH ×4 (06:00→18:00)
[2021-04-24 06:56] LABS: Basophils # (auto) 0.1 10 ^3/uL (0-0.2); Eosinophils # (auto) 0.2 10 ^3/uL (0-0.8); Eosinophils % (auto) 1.7 % (0.0-7.0); Hemoglobin 11.4 g/dL (13.5-17.5); Lymphocytes # (auto) 0.6 10 ^3/uL (0.4-5.4); Lymphocytes % (auto) 4.4 % (10.0-50.0); Mean Corpuscular Hgb Conc. 31.7 g/dL (32.0-36.0); Mean Corpuscular Volume 97.7 fL (80.0-100.0); Monocytes # (auto) 1.1 10 ^3/uL (0-1.3); Monocytes % (auto) 8.1 % (0.0-12.0); Neutrophils # (auto) 11.6 10 ^3/uL (1.6-8.6); Neutrophils % (auto) 84.8 % (37.0-80.0); Red Blood Cells 3.68 10^6/uL (4.5-5.90); Red Cell Distribution Width 17.4 % (11.8-14.3); White Blood Cell 13.7 10^3/uL (4.4-10.8)
[2021-04-24 07:15] LABS: BUN/Creatinine Ratio 7.5; Calcium 8.8 mg/dL (8.5-10.1); Potassium 4.8 mmol/L (3.5-5.1)
[2021-04-24] MEDS: FERROUS SULFATE 300 MG/5 ML ORAL LIQ GT SCH ×3 (07:27→22:00)
[2021-04-24] MEDS: PIPERACILLIN-TAZOB 2.25GM 50 ML IV SCH ×3 (07:27→23:43)
[2021-04-24] MEDS: CALCIUM ACETATE 667 MG CAP PO SCH ×3 (08:00→18:00)
[2021-04-24] MEDS: SEVELAMER 800 MG TAB PO SCH ×3 (08:00→18:00)
[2021-04-24] MEDS: AMIODARONE HCL 200 MG TAB PO SCH ×2 (10:00→22:00)
[2021-04-24] MEDS: amLODIPine BESYLATE 5 MG TAB PO SCH (10:00)
[2021-04-24] MEDS: PARoxetine 20 MG TAB PO SCH (10:00)
[2021-04-24] MEDS: METOPROLOL TARTRATE 25 MG TAB PO SCH ×2 (10:00→22:00)
[2021-04-24] MEDS ORDERED: SODIUM ZIRCONIUM CYCL 10 GM PAK PO SCH (10:00)
[2021-04-24] MEDS: PANTOPRAZOLE 40 MG/10 ML VIAL INJ IV SCH (10:35)
[2021-04-24] MEDS: dilTIAZem 125mg/125ml BAG KIT 125 ML IV SCH (13:30)
[2021-04-24] MEDS: SODIUM ZIRCONIUM CYCL 10 GM PAK PO SCH (22:00)
[2021-04-24] MEDS: ATORVASTATIN 20 MG TAB PO SCH (22:00)
[2021-04-25] VITALS (16 sets, daily range): BP systolic 129–153; BP diastolic 76–92
[2021-04-25] MEDS: ACETYLCYSTEINE 10 %(100MG/ML) SOL 4ML NEB SCH ×6 (02:05→21:58)
[2021-04-25] MEDS: ALBUTEROL SULF 2.5 MG/0.5ML(0.5%) NEB SOLN NEB SCH ×6 (02:06→21:58)
[2021-04-25 05:48] LABS: BUN/Creatinine Ratio 8.7; Calcium 8.8 mg/dL (8.5-10.1); Potassium 4.8 mmol/L (3.5-5.1)
[2021-04-25] MEDS: ACCU-CHEK COMFORT CURVE STRIP VI SCH ×5 (05:55→23:35)
[2021-04-25] MEDS: InsuLIN REG 1unit/0.01ml Soln (100units/ml) SC SCH ×5 (06:00→23:35)
[2021-04-25] MEDS: FERROUS SULFATE 300 MG/5 ML ORAL LIQ GT SCH ×3 (06:00→22:00)
[2021-04-25] MEDS: PIPERACILLIN-TAZOB 2.25GM 50 ML IV SCH ×3 (06:02→21:40)
[2021-04-25] MEDS: CALCIUM ACETATE 667 MG CAP PO SCH ×3 (08:00→18:00)
[2021-04-25] MEDS: SEVELAMER 800 MG TAB PO SCH ×3 (08:00→18:00)
[2021-04-25] MEDS: amLODIPine BESYLATE 5 MG TAB PO SCH (10:00)
[2021-04-25] MEDS: PARoxetine 20 MG TAB PO SCH (10:00)
[2021-04-25] MEDS: AMIODARONE HCL 200 MG TAB PO SCH ×2 (10:00→22:00)
[2021-04-25] MEDS: SODIUM ZIRCONIUM CYCL 10 GM PAK PO SCH ×2 (10:00→22:00)
[2021-04-25] MEDS: METOPROLOL TARTRATE 25 MG TAB PO SCH ×2 (10:00→22:00)
[2021-04-25] MEDS: PANTOPRAZOLE 40 MG/10 ML VIAL INJ IV SCH (10:54)
[2021-04-25] MEDS: dilTIAZem 125mg/125ml BAG KIT 125 ML IV SCH (13:30)
[2021-04-25] MEDS: ATORVASTATIN 20 MG TAB PO SCH (22:00)
[2021-04-26] MEDS: ALBUTEROL SULF 2.5 MG/0.5ML(0.5%) NEB SOLN NEB SCH ×6 (02:00→23:21)
[2021-04-26] MEDS: ACETYLCYSTEINE 10 %(100MG/ML) SOL 4ML NEB SCH ×6 (02:00→23:20)
[2021-04-26 05:00] VITALS: BP 135/91
[2021-04-26] MEDS: FERROUS SULFATE 300 MG/5 ML ORAL LIQ GT SCH ×3 (05:30→21:41)
[2021-04-26] MEDS: ACCU-CHEK COMFORT CURVE STRIP VI SCH ×4 (05:44→23:44)
[2021-04-26] MEDS: InsuLIN REG 1unit/0.01ml Soln (100units/ml) SC SCH ×4 (05:45→23:44)
[2021-04-26] MEDS: PIPERACILLIN-TAZOB 2.25GM 50 ML IV SCH ×3 (05:48→21:41)
[2021-04-26] MEDS: MORPHINE SULF INJ 2 MG/ML SYRINGE 1ML IV PRN ×3 (06:26→20:23)
[2021-04-26 06:53] LABS: Calcium 8.2 mg/dL (8.5-10.1); Potassium 3.8 mmol/L (3.5-5.1)
[2021-04-26 06:56] LABS: BUN/Creatinine Ratio 7.6
[2021-04-26] MEDS ORDERED: SODIUM CHL 0.9% 1000 ML BAG XX ONE (07:00)
[2021-04-26] MEDS: CALCIUM ACETATE 667 MG CAP PO SCH ×3 (08:00→17:44)
[2021-04-26] MEDS: SEVELAMER 800 MG TAB PO SCH ×3 (08:00→17:44)
[2021-04-26 08:40] VITALS: BP 116/76
[2021-04-26] MEDS: PANTOPRAZOLE 40 MG/10 ML VIAL INJ IV SCH (09:31)
[2021-04-26] MEDS: METOPROLOL TARTRATE 25 MG TAB PO SCH ×2 (09:32→21:41)
[2021-04-26] MEDS: SODIUM ZIRCONIUM CYCL 10 GM PAK PO SCH (09:32)
[2021-04-26] MEDS: PARoxetine 20 MG TAB PO SCH (09:33)
[2021-04-26] MEDS: amLODIPine BESYLATE 5 MG TAB PO SCH (09:33)
[2021-04-26] MEDS: AMIODARONE HCL 200 MG TAB PO SCH ×2 (10:00→21:40)
[2021-04-26 10:38] VITALS: BP 116/76
[2021-04-26 12:24] VITALS: BP 140/86
[2021-04-26] MEDS: dilTIAZem 125mg/125ml BAG KIT 125 ML IV SCH (13:26)
[2021-04-26 16:38] VITALS: BP 153/79
[2021-04-26] MEDS: ATORVASTATIN 20 MG TAB PO SCH (21:40)
[2021-04-26 21:45] VITALS: BP 162/84
[2021-04-26] MEDS ORDERED: TEMAZEPAM 15 MG CAP PO ONE (22:30)
[2021-04-27] MEDS: ALBUTEROL SULF 2.5 MG/0.5ML(0.5%) NEB SOLN NEB SCH ×6 (02:00→19:00)
[2021-04-27] MEDS: ACETYLCYSTEINE 10 %(100MG/ML) SOL 4ML NEB SCH ×6 (02:00→19:00)
[2021-04-27] MEDS: MORPHINE SULF INJ 2 MG/ML SYRINGE 1ML IV PRN ×2 (02:40→09:27)
[2021-04-27 05:00] VITALS: BP_SYST 138; BP_SYST 159; BP_DIAS 49; BP_DIAS 79
[2021-04-27] MEDS: ACCU-CHEK COMFORT CURVE STRIP VI SCH ×3 (05:32→18:00)
[2021-04-27] MEDS: FERROUS SULFATE 300 MG/5 ML ORAL LIQ GT SCH ×2 (05:33→15:41)
[2021-04-27] MEDS: PIPERACILLIN-TAZOB 2.25GM 50 ML IV SCH ×2 (05:33→15:41)
[2021-04-27] MEDS: InsuLIN REG 1unit/0.01ml Soln (100units/ml) SC SCH ×3 (05:35→18:00)
[2021-04-27 06:44] LABS: Calcium 7.6 mg/dL (8.5-10.1); Potassium 4.5 mmol/L (3.5-5.1)
[2021-04-27 06:47] LABS: BUN/Creatinine Ratio 7.5
[2021-04-27] MEDS ORDERED: SODIUM CHL 0.9% 1000 ML BAG XX ONE (07:00)
[2021-04-27 09:00] VITALS: BP 141/78
[2021-04-27] MEDS: CALCIUM ACETATE 667 MG CAP PO SCH ×3 (09:17→18:00)
[2021-04-27] MEDS: SEVELAMER 800 MG TAB PO SCH ×3 (09:18→18:00)
[2021-04-27] MEDS: AMIODARONE HCL 200 MG TAB PO SCH (09:18)
[2021-04-27] MEDS: PANTOPRAZOLE 40 MG/10 ML VIAL INJ IV SCH (09:18)
[2021-04-27] MEDS: amLODIPine BESYLATE 5 MG TAB PO SCH (09:19)
[2021-04-27] MEDS: PARoxetine 20 MG TAB PO SCH (09:19)
[2021-04-27] MEDS: METOPROLOL TARTRATE 25 MG TAB PO SCH (09:19)
[2021-04-27 13:00] VITALS: BP 136/78
[2021-04-27 17:00] VITALS: BP 158/82
[2021-04-27 17:47] VITALS: BP 158/82
== END 2021-04-27 20:25 | disposition home or self-care (01) | DRG 871 ==
LOC: ER 13:50 → EDUNIT# 13:50 → TELE 15:16 → TELE-WESTW 18:29 → ICU WEST 04-12 07:33 → TELE-WESTW 04-14 20:55 → ICU WEST 04-15 23:58 → TELE-CENTR 04-18 10:13 → DOU IN ICU 04-19 16:23 → TELE-DOU 04-25 18:01 → TELE-EAST 04-25 18:07 → TELE-CENTR 04-26 16:51
PROVIDERS: ADMIT Hospitalist; ATTEND Family Medicine
PROC: 0DH67UZ Insertion of Feeding Device into Stomach, Via Natural or Artificial Opening (ICD-10-PCS; 2021-04-17)
PROC: 5A1D70Z Performance of Urinary Filtration, Intermittent, Less than 6 Hours Per Day (ICD-10-PCS; principal; 2021-04-23)
PROC: 5A09357 Assistance with Respiratory Ventilation, Less than 24 Consecutive Hours, Continuous Positive Airway Pressure (ICD-10-PCS; 2021-04-23)
PROC: 5A1D70Z Performance of Urinary Filtration, Intermittent, Less than 6 Hours Per Day (ICD-10-PCS; 2021-04-25)
PROC: 5A1D70Z Performance of Urinary Filtration, Intermittent, Less than 6 Hours Per Day (ICD-10-PCS; 2021-04-26)
DX: A41.9 Sepsis, unspecified organism (principal); J96.01 Acute respiratory failure with hypoxia; G92 Toxic encephalopathy; N18.6 End stage renal disease; I50.23 Acute on chronic systolic (congestive) heart failure; I21.9 Acute myocardial infarction, unspecified; J18.9 Pneumonia, unspecified organism; C20 Malignant neoplasm of rectum; F11.20 Opioid dependence, uncomplicated; I31.3 Pericardial effusion (noninflammatory); J98.11 Atelectasis; G93.1 Anoxic brain damage, not elsewhere classified; Z94.81 Bone marrow transplant status; M86.8X7 Other osteomyelitis, ankle and foot; I13.2 Hypertensive heart and chronic kidney disease with heart failure and with stage 5 chronic kidney disease, or end stage renal disease; E11.40 Type 2 diabetes mellitus with diabetic neuropathy, unspecified; E11.51 Type 2 diabetes mellitus with diabetic peripheral angiopathy without gangrene; E11.621 Type 2 diabetes mellitus with foot ulcer; F32.9 Major depressive disorder, single episode, unspecified; I25.5 Ischemic cardiomyopathy; D63.1 Anemia in chronic kidney disease; F41.9 Anxiety disorder, unspecified; E11.22 Type 2 diabetes mellitus with diabetic chronic kidney disease; E78.5 Hyperlipidemia, unspecified; T45.1X5A Adverse effect of antineoplastic and immunosuppressive drugs, initial encounter; E11.69 Type 2 diabetes mellitus with other specified complication; L97.519 Non-pressure chronic ulcer of other part of right foot with unspecified severity; I48.91 Unspecified atrial fibrillation; E87.5 Hyperkalemia; Z20.822 Contact with and (suspected) exposure to COVID-19; E78.00 Pure hypercholesterolemia, unspecified; Z87.01 Personal history of pneumonia (recurrent); Z92.3 Personal history of irradiation; Z95.1 Presence of aortocoronary bypass graft; Z95.820 Peripheral vascular angioplasty status with implants and grafts; Y92.89 Other specified places as the place of occurrence of the external cause; Z99.2 Dependence on renal dialysis; Z79.899 Other long term (current) drug therapy
CPT/HCPCS: 36415; 36600; 70450; 71045; 71275; 74176; 80048; 80053; 80061; 80202; 80320; 82010; 82140; 82805; 82962; 83605; 83735; 83880; 83970; 84100; 84112; 84484; 85025; 85379; 85610; 85730; 86592; 86850; 86900; 86901; 87040; 87081; 87426; 90935; 92507; 92610; 93005; 93970; 94640; 94660; 95819; 96365; 96366; 96375; 97110; 97116; 97163; 97530; C9113; G0378; J0696; J1642; J1815; J2543; J3490; J7060; P9047

== ENCOUNTER 2021-05-25 09:24 | Inpatient (IN) | payer MEDICARE, MEDICAID ==
[~2021-05-25] VITALS: Ht 165.1 cm; Wt 65.8 kg
[~2021-05-25 09:24] MED LIST changes: +CEFT2INJ IVP; +HEP1I INJ; +[UNRECOGNIZED DRUG - CODE] INJ
[2021-05-25 10:14] LABS: Basophils # (auto) 0.1 10 ^3/uL (0-0.2); Eosinophils # (auto) 0.1 10 ^3/uL (0-0.8); Eosinophils % (auto) 0.9 % (0.0-7.0); Hematocrit 33.7 % (41.0-53.0); Hemoglobin 11.4 g/dL (13.5-17.5); Lymphocytes # (auto) 1.2 10 ^3/uL (0.4-5.4); Lymphocytes % (auto) 13.4 % (10.0-50.0); Mean Corpuscular Hemoglobin 31.3 pg (28.0-32.0); Mean Corpuscular Hgb Conc. 33.8 g/dL (32.0-36.0); Mean Corpuscular Volume 92.8 fL (80.0-100.0); Monocytes # (auto) 0.6 10 ^3/uL (0-1.3); Monocytes % (auto) 6.5 % (0.0-12.0); Neutrophils # (auto) 7.2 10 ^3/uL (1.6-8.6); Neutrophils % (auto) 78.2 % (37.0-80.0); Nucleated Red Blood Cells % 0.1 %; Red Blood Cells 3.63 10^6/uL (4.5-5.90); Red Cell Distribution Width 17.5 % (11.8-14.3); White Blood Cell 9.2 10^3/uL (4.4-10.8)
[2021-05-25 10:45] LABS: Calcium 7.4 mg/dL (8.5-10.1); Potassium 3.8 mmol/L (3.5-5.1)
[2021-05-25 10:48] LABS: Bilirubin, Total 0.3 mg/dL (0.2-1.0); Total Protein 8.7 g/dL (6.4-8.2)
[2021-05-25] MEDS ORDERED: ONDANSETRON HCL 4 MG/2 ML VIAL IV PRN (14:30)
[2021-05-25] MEDS ORDERED: NITROGLYCERIN 0.4 MG SL TAB SL PRN (14:30)
[2021-05-25] MEDS ORDERED: DEXTROSE (50%) 50ML SYRG IV PRN (14:30)
[2021-05-25] MEDS ORDERED: MORPHINE SULFATE INJECTION 2 MG/ML SYRG IV PRN ×2 (14:30)
[2021-05-25] MEDS ORDERED: ACETAMINOPHEN 500 MG TAB PO PRN (14:30)
[2021-05-25] MEDS ORDERED: HYDROcodone-ACET 5/325MG TAB PO PRN (14:30)
[2021-05-25 14:56] LABS: Basophils # (auto) 0.1 10 ^3/uL (0-0.2); Basophils % (auto) 1.1 % (0.0-2.0); Eosinophils # (auto) 0.1 10 ^3/uL (0-0.8); Eosinophils % (auto) 1.4 % (0.0-7.0); Hematocrit 32.7 % (41.0-53.0); Lymphocytes # (auto) 1.7 10 ^3/uL (0.4-5.4); Lymphocytes % (auto) 18.4 % (10.0-50.0); Mean Corpuscular Hemoglobin 31.3 pg (28.0-32.0); Mean Corpuscular Hgb Conc. 33.6 g/dL (32.0-36.0); Mean Corpuscular Volume 93.2 fL (80.0-100.0); Monocytes # (auto) 0.5 10 ^3/uL (0-1.3); Monocytes % (auto) 5.1 % (0.0-12.0); Neutrophils # (auto) 6.7 10 ^3/uL (1.6-8.6); Nucleated Red Blood Cells % 0.2 %; Red Blood Cells 3.51 10^6/uL (4.5-5.90); Red Cell Distribution Width 17.3 % (11.8-14.3)
[2021-05-25 15:18] LABS: Albumin 3.3 g/dL (3.4-5.0); Anion Gap 9 (5-15); Blood Urea Nitrogen 54 mg/dL (7-18); Calcium 7.6 mg/dL (8.5-10.1); Carbon Dioxide 24 mmol/L (21-32); Chloride 98 mmol/L (98-107); Glucose 153 mg/dL (74-106); Potassium 3.8 mmol/L (3.5-5.1); Sodium 131 mmol/L (136-145)
[2021-05-25 15:24] LABS: Alanine Aminotransferase 21 U/L (16-61); Alkaline Phosphatase 290 U/L (45-117); Aspartate Aminotransferase 17 U/L (15-37); BUN/Creatinine Ratio 8.3; Bilirubin, Total 0.3 mg/dL (0.2-1.0); GFR African American 12 mL/min; GFR Non-African American 10 mL/min; Total Protein 9.4 g/dL (6.4-8.2)
[2021-05-25 19:23] LABS: Urine Amorphous Crystal FEW /hpf (None Seen); Urine Bacteria FEW /hpf (None Seen); Urine Blood Negative /uL (Negative); Urine Budding Yeast FEW /hpf (None Seen); Urine Hyaline Cast FEW /lpf (0 - 2); Urine Specific Gravity 1.017 (1.001-1.035); Urine WBC 16 /hpf (0 - 3)
[2021-05-25 19:28] LABS: Amphetamine Screen, Urine NEGATIVE (NEGATIVE); Barbiturate Scree,Urine NEGATIVE (NEGATIVE); Benzodiazephine Screen, Urine NEGATIVE (NEGATIVE); Cannabinoid Screen, Urine NEGATIVE (NEGATIVE); Cocaine Screen, Urine NEGATIVE (NEGATIVE); Opiate Scree,Urine NEGATIVE (NEGATIVE); Phencyclidine Screen, Urine NEGATIVE (NEGATIVE)
[2021-05-25] MEDS: InsuLIN REG 1unit/0.01ml Soln (100units/ml) SC SCH ×2 (20:15→23:14)
[2021-05-25] MEDS: ACCU-CHEK COMFORT CURVE STRIP VI SCH ×2 (20:15→23:04)
[2021-05-25] MEDS: BACLOFEN 10 MG TAB PO SCH ×2 (20:20→20:30)
[2021-05-25] MEDS: CALCIUM ACETATE 667 MG CAP PO SCH (20:20)
[2021-05-25] MEDS ORDERED: ATORVASTATIN 20 MG TAB PO SCH (22:00)
[2021-05-25] MEDS: DOCUSATE SOD 100 MG CAP PO SCH (22:40)
[2021-05-25] MEDS: METOPROLOL TARTRATE 50 MG TAB PO SCH (23:04)
[2021-05-26] MEDS: BACLOFEN 10 MG TAB PO SCH ×2 (03:40→08:30)
[2021-05-26] MEDS ORDERED: FUROSEMIDE 40 MG TAB PO SCH (07:00)
[2021-05-26] MEDS: InsuLIN REG 1unit/0.01ml Soln (100units/ml) SC SCH (07:00)
[2021-05-26] MEDS: CALCIUM ACETATE 667 MG CAP PO SCH (08:00)
[2021-05-26] MEDS: ACCU-CHEK COMFORT CURVE STRIP VI SCH (08:30)
[2021-05-26] MEDS: DOCUSATE SOD 100 MG CAP PO SCH (10:00)
[2021-05-26] MEDS ORDERED: PARoxetine 20 MG TAB PO SCH (10:00)
[2021-05-26] MEDS ORDERED: CLOPIDOGREL BISULFATE 75 MG TAB PO SCH (10:00)
[2021-05-26] MEDS ORDERED: amLODIPine BESYLATE 5 MG TAB PO SCH (10:00)
[2021-05-26] MEDS ORDERED: PANTOPRAZOLE 40 MG TAB PO SCH (10:00)
[2021-05-26] MEDS: METOPROLOL TARTRATE 50 MG TAB PO SCH (10:00)
[2021-05-26 11:25] VITALS: BP 140/68
[2021-06-14] MEDS ORDERED: ATOR20TA50 PO (14:01)
[2021-06-14] MEDS ORDERED: AMLO-489 PO (14:01)
[2021-06-14] MEDS ORDERED: CALC667C PO (14:04)
[2021-06-14] MEDS ORDERED: CHOL50007 PO (14:07)
[2021-06-14] MEDS ORDERED: GABA400C11 PO (14:16)
[2021-06-14] MEDS ORDERED: FERR-20 PO (14:16)
[2021-06-14] MEDS ORDERED: METO25TA5 PO (14:19)
== END 2021-05-26 11:19 | disposition home or self-care (01) | DRG 312 ==
LOC: EDBD 09:24 → ER 09:24 → TELE 14:17
PROVIDERS: ADMIT Nurse Practitioner Acute Care; ATTEND Internal Medicine
PROC: 5A1D70Z Performance of Urinary Filtration, Intermittent, Less than 6 Hours Per Day (ICD-10-PCS; principal; 2021-05-25)
DX: R55 Syncope and collapse (principal); N18.6 End stage renal disease; I13.2 Hypertensive heart and chronic kidney disease with heart failure and with stage 5 chronic kidney disease, or end stage renal disease; E44.0 Moderate protein-calorie malnutrition; D63.8 Anemia in other chronic diseases classified elsewhere; I25.10 Atherosclerotic heart disease of native coronary artery without angina pectoris; E11.22 Type 2 diabetes mellitus with diabetic chronic kidney disease; E78.5 Hyperlipidemia, unspecified; E11.51 Type 2 diabetes mellitus with diabetic peripheral angiopathy without gangrene; F32.9 Major depressive disorder, single episode, unspecified; F41.9 Anxiety disorder, unspecified; I50.9 Heart failure, unspecified; Z20.822 Contact with and (suspected) exposure to COVID-19; Z79.4 Long term (current) use of insulin; Z79.899 Other long term (current) drug therapy; Z82.3 Family history of stroke; Z82.49 Family history of ischemic heart disease and other diseases of the circulatory system; Z83.3 Family history of diabetes mellitus; Z99.2 Dependence on renal dialysis; Z68.24 Body mass index [BMI] 24.0-24.9, adult; Z85.038 Personal history of other malignant neoplasm of large intestine; Z85.6 Personal history of leukemia; Z86.73 Personal history of transient ischemic attack (TIA), and cerebral infarction without residual deficits; Z89.429 Acquired absence of other toe(s), unspecified side; Z95.5 Presence of coronary angioplasty implant and graft
CPT/HCPCS: 36415; 70450; 71046; 80053; 80307; 81001; 82962; 83036; 83880; 84484; 85025; 86141; 87426; 93005; 93886; G0378; J1815

== ENCOUNTER 2021-06-17 07:07 | Day surgery (SDC) | payer MEDICARE, MEDICAID ==
[~2021-06-17] VITALS: Ht 174 cm; Wt 70.3 kg
[~2021-06-17 07:07] MED LIST changes: -AML5T PO; +AMLO-489 PO; +CALC667C PO; -CALC667C5 PO; -CEFT2INJ IVP; -CHOL500021 PO; +CHOL50007 PO; +FERR-20 PO; -FERR-7 PO; -FURO1TAB31 PO; -GABA-339 PO; +GABA400C11 PO; -HEP1I INJ; -HYOS0.1289 PO; -METO1TAB77 PO; +METO25TA5 PO; -[UNRECOGNIZED DRUG - CODE] INJ
[2021-06-17] MEDS ORDERED: LIDOCAINE 2%HCL (LOCAL ANESTH.) INJ 20ML MDV ONE (07:12)
[2021-06-17] MEDS ORDERED: ANGIOMAX 250 MG VIAL IV ONE (07:36)
[2021-06-17] MEDS ORDERED: fentaNYL CITRATE 100 MCG/2 ML VL ONE (07:37)
[2021-06-17] MEDS ORDERED: MIDAZOLAM HCL 2MG/2ML 2ml VIAL (1mg/ml) ONE (07:37)
[2021-06-17] MEDS ORDERED: SODIUM CHL 0.9% 0 ML ONE (07:37)
[2021-06-17] MEDS ORDERED: ACETAMINOPHEN 500 MG TAB PO PRN (09:00)
[2021-06-17] MEDS ORDERED: ONDANSETRON HCL 4 MG/2 ML VIAL IV PRN (09:00)
[2021-06-17] MEDS ORDERED: HYDROcodone-ACET 5/325MG TAB PO PRN (09:00)
== END 2021-06-17 10:46 | disposition home or self-care (01) ==
LOC: CATH 07:07
PROVIDERS: ATTEND Internal Medicine Cardiovascular Disease
DX: R94.39 Abnormal result of other cardiovascular function study (principal); I13.2 Hypertensive heart and chronic kidney disease with heart failure and with stage 5 chronic kidney disease, or end stage renal disease; E10.22 Type 1 diabetes mellitus with diabetic chronic kidney disease; N18.6 End stage renal disease; E78.5 Hyperlipidemia, unspecified; I25.2 Old myocardial infarction; I20.9 Angina pectoris, unspecified; F41.9 Anxiety disorder, unspecified; F32.9 Major depressive disorder, single episode, unspecified; F17.200 Nicotine dependence, unspecified, uncomplicated; Z82.49 Family history of ischemic heart disease and other diseases of the circulatory system; Z99.2 Dependence on renal dialysis; Z95.5 Presence of coronary angioplasty implant and graft; Z83.49 Family history of other endocrine, nutritional and metabolic diseases; Z83.3 Family history of diabetes mellitus; Z83.42 Family history of familial hypercholesterolemia; Z20.822 Contact with and (suspected) exposure to COVID-19; Z98.890 Other specified postprocedural states; Z79.899 Other long term (current) drug therapy
CPT/HCPCS: 75736; 93458; C1760; C1769; C1894; J1644; J2250; J3010; J7030; U0003; 99152

== ENCOUNTER 2021-08-02 21:56 | Inpatient (IN) | payer MEDICARE, MEDICAID ==
[~2021-08-02] VITALS: Ht 175.3 cm; Wt 64.8 kg
[2021-08-02 23:26] LABS: Mean Corpuscular Hemoglobin 30.6 pg (28.0-32.0); Red Cell Distribution Width 18.3 % (11.8-14.3)
[2021-08-02 23:27] LABS: Hematocrit 36.8 % (41.0-53.0); Mean Corpuscular Hgb Conc. 32.6 g/dL (32.0-36.0); Mean Corpuscular Volume 93.9 fL (80.0-100.0); Red Blood Cells 3.92 10^6/uL (4.5-5.90)
[2021-08-02 23:48] LABS: Basophils % (manual) 0 (0.0-2.0); Blast Cells 0; Eosinophils % (manual) 0 (0-7); Promyelocytes % 0
[2021-08-02 23:59] LABS: Albumin 1.9 g/dL (3.4-5.0); Calcium 6.9 mg/dL (8.5-10.1); Potassium 3.5 mmol/L (3.5-5.1)
[2021-08-03] VITALS (14 sets, daily range): BP systolic 55–151; BP diastolic 32–95
[2021-08-03 00:01] LABS: BUN/Creatinine Ratio 11.5; Lactic Acid w/Reflex 2.6 mmol/L (0.4-2.0)
[2021-08-03 00:06] LABS: Total Protein 5.7 g/dL (6.4-8.2)
[2021-08-03 00:54] LABS: Band Neutrophils % (manual) 23; Lymphocytes % (manual) 35 (10.0-50.0); Metamyelocytes % 1; Monocytes % (manual) 20 (0-12); Myelocytes % 2; Reactive Lymphocytes 2
[2021-08-03] MEDS ORDERED: ONDANSETRON HCL 4 MG/2 ML VIAL IV ONE (02:00)
[2021-08-03] MEDS ORDERED: PIPERACILLIN-TAZOB 3.375GM 100 ML IV ONE (02:00)
[2021-08-03 03:59] LABS: INR 1.8 (0.9-1.15)
[2021-08-03] MEDS ORDERED: MORPHINE SULFATE INJECTION 2 MG/ML SYRG IV PRN (06:00)
[2021-08-03] MEDS ORDERED: DEXTROSE (50%) 50ML SYRG IV PRN (06:00)
[2021-08-03] MEDS ORDERED: MORPHINE SULFATE 4 MG/ML SYR/VIAL IV PRN (06:00)
[2021-08-03] MEDS ORDERED: ONDANSETRON HCL 4 MG/2 ML VIAL IV PRN (06:00)
[2021-08-03] MEDS ORDERED: NITROGLYCERIN 0.4 MG SL TAB SL PRN (06:00)
[2021-08-03] MEDS ORDERED: FILGRASTIM (TBO) 300 MCG/0.5 ML SYRG SC ONE (06:00)
[2021-08-03] MEDS: ACCU-CHEK COMFORT CURVE STRIP VI SCH ×3 (06:35→19:24)
[2021-08-03] MEDS: InsuLIN REG 1unit/0.01ml Soln (100units/ml) SC SCH ×3 (06:40→19:24)
[2021-08-03] MEDS ORDERED: MORPHINE SULFATE INJECTION 2 MG/ML SYRG ONE (06:49)
[2021-08-03] MEDS ORDERED: InsuLIN REG 1unit/0.01ml Soln (100units/ml) ONE (06:51)
[2021-08-03] MEDS: cefTRIAXone 1GM/50ML D5W 50 ML IV SCH (07:10)
[2021-08-03] MEDS ORDERED: GASTROGRAFIN 120 ML SOL ONE (08:09)
[2021-08-03] MEDS: metroNIDAZOLE 500MG/100ML 100 ML IV SCH ×2 (08:56→16:48)
[2021-08-03] MEDS ORDERED: LIDOCAINE VISCOUS 2% 15ML UD MT ONE (09:15)
[2021-08-03] MEDS: PANTOPRAZOLE 40 MG/10 ML VIAL INJ IV SCH (09:45)
[2021-08-03] MEDS ORDERED: GABA400C11 PO (13:00)
[2021-08-03] MEDS ORDERED: CALC10TA PO (13:00)
[2021-08-03] MEDS ORDERED: FURO40TA4 PO (13:00)
[2021-08-03] MEDS ORDERED: CHOL20007 PO (13:00)
[2021-08-03] MEDS ORDERED: TPN PER PHARMACY 0 ML IV SCH (13:45)
[2021-08-03] MEDS: FILGRASTIM(TBO) 480 MCG/0.8 ML SYRG SC SCH (13:45)
[2021-08-03] MEDS ORDERED: SODIUM CHLORIDE 0.9% 1,000 ML IV SCH (13:45)
[2021-08-03] MEDS ORDERED: AMINO ACID INFUSION IN D10W 1,000 ML IV NR (20:00)
[2021-08-03] MEDS ORDERED: SUCCINYLCHOLINE CHLORIDE 20 MG/ML 10ML VIAL IV ONE (21:06)
[2021-08-03] MEDS ORDERED: ETOMIDATE (2MG/ML) 20ML VIAL IV ONE (21:06)
[2021-08-03] MEDS ORDERED: MIDAZOLAM DRIP 50 mg/50mL 50 ML IV ONE (21:16)
[2021-08-03] MEDS ORDERED: NOREPINEPHRINE 8 MG/250ML KIT 250 ML IV ONE (21:18)
[2021-08-03] MEDS: MIDAZOLAM DRIP 50 mg/50mL 50 ML IV SCH (21:25)
[2021-08-03] MEDS: NOREPINEPHRINE 8 MG/250ML KIT 250 ML IV SCH (21:34)
[2021-08-03] MEDS ORDERED: SODIUM BICARBONATE 8.4% INJ 50ML SYRINGE ONE (21:50)
[2021-08-03] MEDS ORDERED: SODIUM BICARBONATE 8.4 % INJ 50ML VIAL IV ONE (22:45)
[2021-08-03 23:10] LABS: Hematocrit 36.8 % (41.0-53.0); Hemoglobin 11.7 g/dL (13.5-17.5); Mean Corpuscular Hemoglobin 31.2 pg (28.0-32.0); Mean Corpuscular Hgb Conc. 31.7 g/dL (32.0-36.0); Mean Corpuscular Volume 98.3 fL (80.0-100.0); Red Blood Cells 3.75 10^6/uL (4.5-5.90); Red Cell Distribution Width 19.2 % (11.8-14.3); White Blood Cell 2.1 10^3/uL (4.4-10.8)
[2021-08-03 23:12] LABS: Basophils % (manual) 0 (0.0-2.0); Blast Cells 0; Eosinophils % (manual) 0 (0-7); Promyelocytes % 0; Reactive Lymphocytes 0
[2021-08-03 23:14] LABS: Albumin 1.7 g/dL (3.4-5.0); BUN/Creatinine Ratio 12.2; Calcium 6.3 mg/dL (8.5-10.1); Potassium 4.1 mmol/L (3.5-5.1)
[2021-08-03 23:19] LABS: Total Protein 5.4 g/dL (6.4-8.2)
[2021-08-03] MEDS ORDERED: VASOPRESSIN 20 UNIT/ML ONE (23:28)
[2021-08-03] MEDS: SODIUM BICARBONATE 50ML VIAL 100 ML in SOD CHL 0.45% 1,000 ML IV SCH (23:30)
[2021-08-03] MEDS ORDERED: AMIODARONE HCL (50 MG/ ML) 3 ML VIAL IV ONE (23:52)
[2021-08-03] MEDS ORDERED: AMIODARONE 450mg/250ml AE 250 ML IV ONE (23:53)
[2021-08-04] VITALS (108 sets, daily range): BP systolic 72–165; BP diastolic 33–84
[2021-08-04] MEDS ORDERED: AMIODARONE HCL 150 MG in D5W 5% 100 ML IV ONE ×2
[2021-08-04] MEDS ORDERED: AMIODARONE 450mg/250ml AE 250 ML IV SCH
[2021-08-04 00:13] LABS: Band Neutrophils % (manual) 34; Myelocytes % 5
[2021-08-04 00:18] LABS: Metamyelocytes % 1
[2021-08-04 00:22] LABS: Lymphocytes % (manual) 25 (10.0-50.0); Monocytes % (manual) 14 (0-12)
[2021-08-04] MEDS ORDERED: PHENYLEPHRINE IV 250 ML IV ONE (01:00)
[2021-08-04] MEDS: MIDAZOLAM DRIP 50 mg/50mL 50 ML IV SCH ×6 (01:25→22:00)
[2021-08-04 04:33] LABS: Lactic Acid w/Reflex 9.7 mmol/L (0.4-2.0)
[2021-08-04 04:33] LABS: INR 2.57 (0.9-1.15)
[2021-08-04 05:38] LABS: Albumin 1.5 g/dL (3.4-5.0); Magnesium 2.4 mg/dL (1.6-2.6); Potassium 4.2 mmol/L (3.5-5.1)
[2021-08-04 05:47] LABS: BUN/Creatinine Ratio 12.8; Bilirubin, Total 1.1 mg/dL (0.2-1.0); Pre Albumin 5.2 mg/dL (20.0-40.0)
[2021-08-04] MEDS: NOREPINEPHRINE 8 MG/250ML KIT 250 ML IV SCH ×4 (06:00→21:00)
[2021-08-04] MEDS: InsuLIN REG 1unit/0.01ml Soln (100units/ml) SC SCH ×4 (06:00→17:27)
[2021-08-04] MEDS: AMIODARONE 450mg/250ml AE 250 ML IV SCH ×2 (06:00→22:00)
[2021-08-04 06:14] LABS: Hematocrit 34.5 % (41.0-53.0); Hemoglobin 11.2 g/dL (13.5-17.5); Mean Corpuscular Hemoglobin 31.4 pg (28.0-32.0); Mean Corpuscular Hgb Conc. 32.5 g/dL (32.0-36.0); Mean Corpuscular Volume 96.6 fL (80.0-100.0); Red Blood Cells 3.57 10^6/uL (4.5-5.90); Red Cell Distribution Width 18.4 % (11.8-14.3)
[2021-08-04 06:20] LABS: White Blood Cell 1.6 10^3/uL (4.4-10.8)
[2021-08-04 06:21] LABS: Basophils % (manual) 0 (0.0-2.0); Blast Cells 0; Eosinophils % (manual) 0 (0-7); Metamyelocytes % 0; Myelocytes % 0; Promyelocytes % 0; Reactive Lymphocytes 0
[2021-08-04] MEDS ORDERED: SODIUM CHL 0.9% 1000 ML BAG XX ONE (07:00)
[2021-08-04] MEDS: metroNIDAZOLE 500MG/100ML 100 ML IV SCH ×3 (08:02→15:26)
[2021-08-04 08:04] LABS: Calcium 5.9 mg/dL (8.5-10.1); Phosphorus 10.7 mg/dL (2.5-4.90)
[2021-08-04] MEDS: PHENYLEPHRINE IV 250 ML IV SCH ×4 (08:41→15:57)
[2021-08-04] MEDS: cefTRIAXone 1GM/50ML D5W 50 ML IV SCH (08:50)
[2021-08-04] MEDS ORDERED: ALBUMIN 25% 100 ML IV PRN (09:00)
[2021-08-04] MEDS: ACCU-CHEK COMFORT CURVE STRIP VI SCH ×4 (09:10→17:27)
[2021-08-04] MEDS: PANTOPRAZOLE 40 MG/10 ML VIAL INJ IV SCH (09:32)
[2021-08-04] MEDS: FILGRASTIM(TBO) 480 MCG/0.8 ML SYRG SC SCH (10:00)
[2021-08-04 10:49] LABS: Band Neutrophils % (manual) 27; Lymphocytes % (manual) 33 (10.0-50.0); Monocytes % (manual) 15 (0-12)
[2021-08-04] MEDS: ALBUMIN 25% 100 ML IV SCH ×2 (12:02→13:28)
[2021-08-04] MEDS: SODIUM BICARBONATE 50ML VIAL 100 ML in SOD CHL 0.45% 1,000 ML IV SCH (13:35)
[2021-08-04] MEDS: CALCIUM ACETATE 667 MG CAP NG SCH ×2 (13:36→22:00)
[2021-08-04] MEDS ORDERED: EPINEPHrine HCL 250 ML IV ONE (14:29)
[2021-08-04] MEDS ORDERED: EPINEPHrine HCL 250 ML IV SCH ×2 (14:30→14:45)
[2021-08-04] MEDS: VASOPRESSIN 50 UNITS in D5W 5% 247.5 ML IV SCH ×3 (15:11)
[2021-08-04] MEDS ORDERED: MEROPENEM 500MG IVPB 50 ML IV ONE (15:45)
[2021-08-04] MEDS ORDERED: VANCOMYCIN PER PHARMACY 0 MG IV SCH (15:45)
[2021-08-04] MEDS ORDERED: SODIUM BICARBONATE 50ML VIAL 150 ML in SOD CHL 0.45% 1,000 ML IV SCH ×2 (16:00→16:45)
[2021-08-04] MEDS ORDERED: VANCOMYCIN 1GM/250ML 250 ML IV ONE (17:00)
[2021-08-04] MEDS: SODIUM BICARBONATE 50ML VIAL 150 ML in SOD CHL 0.45% 1,000 ML IV SCH (17:26)
[2021-08-04] MEDS ORDERED: DEXTROSE (50%) 50ML SYRG IV SCH (18:00)
[2021-08-04] MEDS ORDERED: TPN PER PHARMACY IV NR ×7 (20:00)
[2021-08-05] VITALS (62 sets, daily range): BP systolic 83–146; BP diastolic 6–88
[2021-08-05] MEDS: MIDAZOLAM DRIP 50 mg/50mL 50 ML IV SCH ×2 (03:00→07:00)
[2021-08-05 04:32] LABS: Albumin 2.3 g/dL (3.4-5.0); Calcium 6.8 mg/dL (8.5-10.1); Magnesium 2.4 mg/dL (1.6-2.6); Potassium 3.2 mmol/L (3.5-5.1)
[2021-08-05 04:42] LABS: BUN/Creatinine Ratio 11.7; Bilirubin, Total 1.6 mg/dL (0.2-1.0); Phosphorus 3.9 mg/dL (2.5-4.90); Total Protein 4.4 g/dL (6.4-8.2)
[2021-08-05 04:47] LABS: White Blood Cell 2.1 10^3/uL (4.4-10.8)
[2021-08-05 04:50] LABS: Hematocrit 23.5 % (41.0-53.0); Mean Corpuscular Hemoglobin 31.5 pg (28.0-32.0); Mean Corpuscular Hgb Conc. 33.9 g/dL (32.0-36.0); Mean Corpuscular Volume 93.1 fL (80.0-100.0); Red Blood Cells 2.52 10^6/uL (4.5-5.90); Red Cell Distribution Width 17.8 % (11.8-14.3)
[2021-08-05 04:55] LABS: Basophils % (manual) 0 (0.0-2.0); Blast Cells 0; Metamyelocytes % 0; Promyelocytes % 0; Reactive Lymphocytes 0
[2021-08-05 05:01] LABS: INR 4.6 (0.9-1.15)
[2021-08-05] MEDS: PHENYLEPHRINE IV 250 ML IV SCH ×2 (05:10→11:16)
[2021-08-05] MEDS: InsuLIN REG 1unit/0.01ml Soln (100units/ml) SC SCH ×2 (06:00)
[2021-08-05] MEDS: ACCU-CHEK COMFORT CURVE STRIP VI SCH ×2 (06:00)
[2021-08-05] MEDS: CALCIUM ACETATE 667 MG CAP NG SCH ×4 (06:00→16:16)
[2021-08-05 07:05] LABS: Band Neutrophils % (manual) 51; Eosinophils % (manual) 1 (0-7); Lymphocytes % (manual) 15 (10.0-50.0); Monocytes % (manual) 2 (0-12); Myelocytes % 5
[2021-08-05] MEDS: SODIUM BICARBONATE 50ML VIAL 150 ML in SOD CHL 0.45% 1,000 ML IV SCH ×2 (08:05→23:34)
[2021-08-05] MEDS ORDERED: POTASSIUM CHL 20MEQ/100ML 100 ML IV ONE (08:30)
[2021-08-05] MEDS: POTASSIUM CHL 20MEQ/100ML 100 ML IV SCH ×2 (09:15→12:47)
[2021-08-05] MEDS: MEROPENEM 500MG IVPB 50 ML IV SCH (10:00)
[2021-08-05] MEDS ORDERED: VANCOMYCIN 1GM/250ML 250 ML IV ONE (10:00)
[2021-08-05] MEDS: PANTOPRAZOLE 40 MG/10 ML VIAL INJ IV SCH (10:00)
[2021-08-05] MEDS: FILGRASTIM(TBO) 480 MCG/0.8 ML SYRG SC SCH ×2 (10:00)
[2021-08-05 11:12] LABS: Hepatitis A Ab IgM Negative; Hepatitis B Core IgM Negative; Hepatitis C Antibody Negative (Negative)
[2021-08-05] MEDS ORDERED: Nepro With Carb Steady 1 Liter Bottle GT SCH (12:00)
[2021-08-05] MEDS: AMIODARONE 450mg/250ml AE 250 ML IV SCH (12:47)
[2021-08-05 14:37] LABS: INR 5.15 (0.9-1.15); Partial Thromboplastin Time 74.4 sec (23.6-33.0)
[2021-08-05] MEDS ORDERED: phytonadione 10 MG in SODIUM CHL 0.9% 50 ML IV ONE (16:45)
[2021-08-05 16:54] LABS: Hematocrit 25.1 % (41.0-53.0); Hemoglobin 8.3 g/dL (13.5-17.5); Mean Corpuscular Hgb Conc. 33.1 g/dL (32.0-36.0); Red Blood Cells 2.67 10^6/uL (4.5-5.90)
[2021-08-05 16:56] LABS: Mean Corpuscular Hemoglobin 31.2 pg (28.0-32.0); Mean Corpuscular Volume 94.1 fL (80.0-100.0); Red Cell Distribution Width 17.8 % (11.8-14.3)
[2021-08-05 17:04] LABS: BUN/Creatinine Ratio 11.4; Calcium 7.4 mg/dL (8.5-10.1); Magnesium 2.1 mg/dL (1.6-2.6); Potassium 3.8 mmol/L (3.5-5.1)
[2021-08-05 17:07] LABS: Bilirubin, Total 1.4 mg/dL (0.2-1.0); Total Protein 4.3 g/dL (6.4-8.2)
[2021-08-05 17:20] LABS: Basophils % (manual) 0 (0.0-2.0); Blast Cells 0; Eosinophils % (manual) 0 (0-7); Metamyelocytes % 0; Myelocytes % 0; Promyelocytes % 0; Reactive Lymphocytes 0
[2021-08-05 18:55] LABS: Band Neutrophils % (manual) 22; Lymphocytes % (manual) 3 (10.0-50.0); Monocytes % (manual) 6 (0-12)
[2021-08-05] MEDS ORDERED: TPN PER PHARMACY IV NR ×7 (20:00)
[2021-08-05] MEDS: Nepro With Carb Steady 1 Liter Bottle GT SCH (23:35)
[2021-08-06] VITALS (97 sets, daily range): BP systolic 88–164; BP diastolic 52–96
[2021-08-06] MEDS: VASOPRESSIN 50 UNITS in D5W 5% 247.5 ML IV SCH (00:45)
[2021-08-06] MEDS: PHENYLEPHRINE IV 250 ML IV SCH ×4 (03:01→22:34)
[2021-08-06] MEDS: AMIODARONE 450mg/250ml AE 250 ML IV SCH ×2 (03:02→18:00)
[2021-08-06] MEDS: MIDAZOLAM DRIP 50 mg/50mL 50 ML IV SCH ×2 (03:28→12:55)
[2021-08-06 04:36] LABS: Lactic Acid w/Reflex 9.4 mmol/L (0.4-2.0)
[2021-08-06 04:40] LABS: INR 2.23 (0.9-1.15)
[2021-08-06 04:41] LABS: Red Blood Cells 2.59 10^6/uL (4.5-5.90)
[2021-08-06 04:42] LABS: Albumin 1.8 g/dL (3.4-5.0); Potassium 3.8 mmol/L (3.5-5.1)
[2021-08-06 04:43] LABS: Hemoglobin 8.3 g/dL (13.5-17.5); Mean Corpuscular Hemoglobin 31.9 pg (28.0-32.0); Mean Corpuscular Hgb Conc. 34.4 g/dL (32.0-36.0); Mean Corpuscular Volume 92.6 fL (80.0-100.0); White Blood Cell 6.6 10^3/uL (4.4-10.8)
[2021-08-06 04:48] LABS: Bilirubin, Total 1.9 mg/dL (0.2-1.0); Total Protein 4.2 g/dL (6.4-8.2)
[2021-08-06 05:06] LABS: Basophils % (manual) 0 (0.0-2.0); Blast Cells 0; Eosinophils % (manual) 0 (0-7); Metamyelocytes % 0; Promyelocytes % 0; Reactive Lymphocytes 0
[2021-08-06] MEDS: CALCIUM ACETATE 667 MG CAP NG SCH ×3 (06:00→23:12)
[2021-08-06 06:49] LABS: Band Neutrophils % (manual) 42; Lymphocytes % (manual) 3 (10.0-50.0); Monocytes % (manual) 2 (0-12); Myelocytes % 7
[2021-08-06] MEDS ORDERED: SODIUM CHL 0.9% 1000 ML BAG XX ONE (07:00)
[2021-08-06] MEDS ORDERED: DEXTROSE (50%) 50ML SYRG IV PRN (07:30)
[2021-08-06] MEDS: FILGRASTIM(TBO) 480 MCG/0.8 ML SYRG SC SCH (08:40)
[2021-08-06] MEDS: MEROPENEM 500MG IVPB 50 ML IV SCH (10:04)
[2021-08-06] MEDS: PANTOPRAZOLE 40 MG/10 ML VIAL INJ IV SCH (10:04)
[2021-08-06] MEDS ORDERED: phytonadione 10 MG in SODIUM CHL 0.9% 50 ML IV ONE (11:00)
[2021-08-06] MEDS: InsuLIN REG 1unit/0.01ml Soln (100units/ml) SC SCH ×2 (12:00→18:00)
[2021-08-06] MEDS: ACCU-CHEK COMFORT CURVE STRIP VI SCH ×2 (12:08→18:06)
[2021-08-06] MEDS ORDERED: VANCOMYCIN 1GM/250ML 250 ML IV ONE (18:00)
[2021-08-06] MEDS ORDERED: EPOETIN ALFA-EPBX 10,000 UNIT/1ML VIAL SC ONE (21:00)
[2021-08-06] MEDS: Nepro With Carb Steady 1 Liter Bottle GT SCH (22:00)
[2021-08-07] VITALS (95 sets, daily range): BP systolic 78–159; BP diastolic 38–84
[2021-08-07] MEDS: VASOPRESSIN 50 UNITS in D5W 5% 247.5 ML IV SCH ×2
[2021-08-07 04:38] LABS: Hemoglobin 8.8 g/dL (13.5-17.5)
[2021-08-07 04:41] LABS: Hematocrit 26.3 % (41.0-53.0); Mean Corpuscular Hemoglobin 31.6 pg (28.0-32.0); Mean Corpuscular Hgb Conc. 33.4 g/dL (32.0-36.0); Mean Corpuscular Volume 94.6 fL (80.0-100.0); Red Blood Cells 2.78 10^6/uL (4.5-5.90); Red Cell Distribution Width 17.7 % (11.8-14.3); White Blood Cell 7.5 10^3/uL (4.4-10.8)
[2021-08-07] MEDS: MIDAZOLAM DRIP 50 mg/50mL 50 ML IV SCH ×3 (05:00→10:05)
[2021-08-07 05:02] LABS: Basophils % (manual) 0 (0.0-2.0); Blast Cells 0; Eosinophils % (manual) 0 (0-7); Myelocytes % 0; Promyelocytes % 0; Reactive Lymphocytes 0
[2021-08-07 05:03] LABS: INR 1.29 (0.9-1.15)
[2021-08-07] MEDS: AMIODARONE 450mg/250ml AE 250 ML IV SCH (05:12)
[2021-08-07 05:22] LABS: Albumin 1.6 g/dL (3.4-5.0); BUN/Creatinine Ratio 13.8; Magnesium 2.2 mg/dL (1.6-2.6); Potassium 3.3 mmol/L (3.5-5.1)
[2021-08-07] MEDS: PHENYLEPHRINE IV 250 ML IV SCH ×2 (05:23→13:00)
[2021-08-07 05:27] LABS: Bilirubin, Total 1.8 mg/dL (0.2-1.0); Total Protein 4.3 g/dL (6.4-8.2)
[2021-08-07 05:31] LABS: Lactic Acid w/Reflex 7.5 mmol/L (0.4-2.0)
[2021-08-07] MEDS: CALCIUM ACETATE 667 MG CAP NG SCH ×3 (06:00→22:19)
[2021-08-07] MEDS: InsuLIN REG 1unit/0.01ml Soln (100units/ml) SC SCH ×4 (06:00→18:00)
[2021-08-07] MEDS: ACCU-CHEK COMFORT CURVE STRIP VI SCH ×4 (06:00→18:00)
[2021-08-07 07:09] LABS: Band Neutrophils % (manual) 12; Lymphocytes % (manual) 15 (10.0-50.0); Metamyelocytes % 1; Monocytes % (manual) 3 (0-12)
[2021-08-07] MEDS: PANTOPRAZOLE 40 MG/10 ML VIAL INJ IV SCH (10:12)
[2021-08-07] MEDS: POTASSIUM CHL 20MEQ/100ML 100 ML IV SCH ×2 (10:12→12:00)
[2021-08-07] MEDS: MEROPENEM 500MG IVPB 50 ML IV SCH (10:12)
[2021-08-07] MEDS ORDERED: phytonadione 10 MG in SODIUM CHL 0.9% 50 ML IV ONE (12:15)
[2021-08-07] MEDS: ALBUMIN 25% 100 ML IV SCH ×2 (14:30→15:30)
[2021-08-07] MEDS ORDERED: HEPARIN 1,000 UNITS/ml 1ML VIAL ONE (15:59)
[2021-08-08] VITALS (94 sets, daily range): BP systolic 100–150; BP diastolic 57–87
[2021-08-08] MEDS: AMIODARONE 450mg/250ml AE 250 ML IV SCH
[2021-08-08] MEDS: InsuLIN REG 1unit/0.01ml Soln (100units/ml) SC SCH ×4 (00:57→17:43)
[2021-08-08] MEDS: PHENYLEPHRINE IV 250 ML IV SCH (04:00)
[2021-08-08 04:13] LABS: Red Blood Cells 2.58 10^6/uL (4.5-5.90); White Blood Cell 5.4 10^3/uL (4.4-10.8)
[2021-08-08 04:15] LABS: Hematocrit 24.3 % (41.0-53.0); Hemoglobin 8.1 g/dL (13.5-17.5); Mean Corpuscular Hemoglobin 31.4 pg (28.0-32.0); Mean Corpuscular Hgb Conc. 33.2 g/dL (32.0-36.0); Mean Corpuscular Volume 94.3 fL (80.0-100.0); Red Cell Distribution Width 18.4 % (11.8-14.3)
[2021-08-08 04:25] LABS: Albumin 2.2 g/dL (3.4-5.0); BUN/Creatinine Ratio 12.5; Calcium 8.2 mg/dL (8.5-10.1); Magnesium 2.2 mg/dL (1.6-2.6)
[2021-08-08 04:28] LABS: Bilirubin, Total 2.4 mg/dL (0.2-1.0); Total Protein 4.6 g/dL (6.4-8.2)
[2021-08-08 04:29] LABS: INR 1.32 (0.9-1.15)
[2021-08-08 04:33] LABS: Lactic Acid w/Reflex 4.9 mmol/L (0.4-2.0)
[2021-08-08 05:04] LABS: Basophils % (manual) 0 (0.0-2.0); Blast Cells 0; Metamyelocytes % 0; Myelocytes % 0; Promyelocytes % 0; Reactive Lymphocytes 0
[2021-08-08] MEDS: ACCU-CHEK COMFORT CURVE STRIP VI SCH ×4 (06:00→17:36)
[2021-08-08] MEDS: CALCIUM ACETATE 667 MG CAP NG SCH ×3 (06:33→22:00)
[2021-08-08 08:01] LABS: Band Neutrophils % (manual) 13; Eosinophils % (manual) 1 (0-7); Lymphocytes % (manual) 19 (10.0-50.0); Monocytes % (manual) 3 (0-12)
[2021-08-08] MEDS: POTASSIUM CHL 20MEQ/100ML 100 ML IV SCH ×2 (09:02→11:00)
[2021-08-08] MEDS: PANTOPRAZOLE 40 MG/10 ML VIAL INJ IV SCH (09:33)
[2021-08-08] MEDS: MEROPENEM 500MG IVPB 50 ML IV SCH (09:33)
[2021-08-08] MEDS: MIDAZOLAM DRIP 50 mg/50mL 50 ML IV SCH ×2 (09:33→16:00)
[2021-08-08] MEDS ORDERED: POTASSIUM CHL 20MEQ/100ML 100 ML IV SCH (10:15)
[2021-08-08] MEDS ORDERED: POTASSIUM CHL 20MEQ/100ML 100 ML IV ONE (12:45)
[2021-08-08] MEDS: Nepro With Carb Steady 1 Liter Bottle GT SCH (16:16)
[2021-08-08] MEDS ORDERED: VANCOMYCIN 1GM/250ML 250 ML IV ONE (16:30)
[2021-08-09] VITALS (74 sets, daily range): BP systolic 96–130; BP diastolic 39–72
[2021-08-09] MEDS: ACCU-CHEK COMFORT CURVE STRIP VI SCH ×4 (00:15→17:08)
[2021-08-09] MEDS: InsuLIN REG 1unit/0.01ml Soln (100units/ml) SC SCH ×4 (00:58→17:08)
[2021-08-09 04:35] LABS: Mean Corpuscular Hemoglobin 31.6 pg (28.0-32.0); White Blood Cell 6.7 10^3/uL (4.4-10.8)
[2021-08-09 04:36] LABS: Hematocrit 23.9 % (41.0-53.0); Hemoglobin 7.8 g/dL (13.5-17.5); Mean Corpuscular Hgb Conc. 32.8 g/dL (32.0-36.0); Mean Corpuscular Volume 96.3 fL (80.0-100.0); Red Blood Cells 2.49 10^6/uL (4.5-5.90); Red Cell Distribution Width 18.9 % (11.8-14.3)
[2021-08-09 04:49] LABS: Potassium 3.3 mmol/L (3.5-5.1)
[2021-08-09 04:50] LABS: Lactic Acid w/Reflex 4.5 mmol/L (0.4-2.0)
[2021-08-09 04:55] LABS: Albumin 1.8 g/dL (3.4-5.0); Calcium 8.3 mg/dL (8.5-10.1)
[2021-08-09 04:58] LABS: Bilirubin, Total 1.2 mg/dL (0.2-1.0); Total Protein 4.5 g/dL (6.4-8.2)
[2021-08-09 05:33] LABS: Basophils % (manual) 0 (0.0-2.0); Eosinophils % (manual) 0 (0-7); Metamyelocytes % 0; Myelocytes % 0
[2021-08-09 05:34] LABS: Blast Cells 0; Promyelocytes % 0; Reactive Lymphocytes 0
[2021-08-09] MEDS: CALCIUM ACETATE 667 MG CAP NG SCH ×3 (06:00→22:00)
[2021-08-09 06:55] LABS: Band Neutrophils % (manual) 22; Lymphocytes % (manual) 6 (10.0-50.0); Monocytes % (manual) 4 (0-12)
[2021-08-09] MEDS: MEROPENEM 500MG IVPB 50 ML IV SCH (09:09)
[2021-08-09] MEDS: PANTOPRAZOLE 40 MG/10 ML VIAL INJ IV SCH (09:09)
[2021-08-09] MEDS: PROPOFOL 100 ML IV SCH (13:45)
[2021-08-09] MEDS: POTASSIUM CHL 20MEQ/100ML 100 ML IV SCH ×2 (14:06→15:34)
[2021-08-10] VITALS (35 sets, daily range): BP systolic 90–160; BP diastolic 38–83
[2021-08-10] MEDS: ACCU-CHEK COMFORT CURVE STRIP VI SCH ×4 (00:27→17:49)
[2021-08-10 05:17] LABS: Hematocrit 24.1 % (41.0-53.0); Mean Corpuscular Hemoglobin 32.3 pg (28.0-32.0); Mean Corpuscular Hgb Conc. 33.1 g/dL (32.0-36.0); Mean Corpuscular Volume 97.6 fL (80.0-100.0); Red Blood Cells 2.47 10^6/uL (4.5-5.90); Red Cell Distribution Width 18.8 % (11.8-14.3); White Blood Cell 8.7 10^3/uL (4.4-10.8)
[2021-08-10 05:26] LABS: INR 1.21 (0.9-1.15)
[2021-08-10 05:28] LABS: Basophils % (manual) 0 (0.0-2.0); Blast Cells 0; Eosinophils % (manual) 0 (0-7); Metamyelocytes % 0; Myelocytes % 0; Promyelocytes % 0; Reactive Lymphocytes 0
[2021-08-10 05:33] LABS: Potassium 3.9 mmol/L (3.5-5.1)
[2021-08-10] MEDS: CALCIUM ACETATE 667 MG CAP NG SCH ×3 (05:35→21:46)
[2021-08-10 05:38] LABS: BUN/Creatinine Ratio 14.1; Calcium 8.4 mg/dL (8.5-10.1)
[2021-08-10] MEDS: InsuLIN REG 1unit/0.01ml Soln (100units/ml) SC SCH ×4 (05:40→17:48)
[2021-08-10 06:20] LABS: Band Neutrophils % (manual) 26; Lymphocytes % (manual) 13 (10.0-50.0); Monocytes % (manual) 4 (0-12)
[2021-08-10] MEDS ORDERED: SODIUM CHL 0.9% 1000 ML BAG XX ONE (07:00)
[2021-08-10] MEDS: PANTOPRAZOLE 40 MG/10 ML VIAL INJ IV SCH (09:20)
[2021-08-10] MEDS: MEROPENEM 500MG IVPB 50 ML IV SCH (09:20)
[2021-08-10] MEDS ORDERED: HEPARIN 1,000 UNITS/ml 1ML VIAL ONE (12:25)
[2021-08-10] MEDS ORDERED: HEPARIN 1,000 UNITS/ml 1ML VIAL IV ONE (12:30)
[2021-08-10] MEDS ORDERED: ALBUMIN 25% 100 ML IV ONE (13:15)
[2021-08-10] MEDS: PROPOFOL 100 ML IV SCH (13:45)
[2021-08-10] MEDS ORDERED: EPOETIN ALFA-EPBX 10,000 UNIT/1ML VIAL SC ONE (21:00)
[2021-08-11] VITALS (32 sets, daily range): BP systolic 130–164; BP diastolic 64–87
[2021-08-11] MEDS: ACCU-CHEK COMFORT CURVE STRIP VI SCH ×5 (00:01→23:20)
[2021-08-11 04:43] LABS: Mean Corpuscular Hemoglobin 32.5 pg (28.0-32.0); White Blood Cell 8.3 10^3/uL (4.4-10.8)
[2021-08-11 04:46] LABS: Hematocrit 24.3 % (41.0-53.0); Hemoglobin 7.9 g/dL (13.5-17.5); Mean Corpuscular Hgb Conc. 32.4 g/dL (32.0-36.0); Mean Corpuscular Volume 100.3 fL (80.0-100.0); Red Blood Cells 2.43 10^6/uL (4.5-5.90); Red Cell Distribution Width 19.4 % (11.8-14.3)
[2021-08-11 05:39] LABS: Basophils % (manual) 0 (0.0-2.0); Blast Cells 0; Eosinophils % (manual) 0 (0-7); Metamyelocytes % 0; Myelocytes % 0; Promyelocytes % 0; Reactive Lymphocytes 0
[2021-08-11] MEDS: InsuLIN REG 1unit/0.01ml Soln (100units/ml) SC SCH ×5 (06:00→23:22)
[2021-08-11] MEDS: CALCIUM ACETATE 667 MG CAP NG SCH ×2 (06:00→21:59)
[2021-08-11 07:06] LABS: Potassium 3.9 mmol/L (3.5-5.1)
[2021-08-11 07:10] LABS: BUN/Creatinine Ratio 14.3; Calcium 8.3 mg/dL (8.5-10.1)
[2021-08-11 07:30] LABS: Band Neutrophils % (manual) 7; Lymphocytes % (manual) 10 (10.0-50.0); Monocytes % (manual) 5 (0-12)
[2021-08-11] MEDS: MEROPENEM 500MG IVPB 50 ML IV SCH (09:50)
[2021-08-11] MEDS: PANTOPRAZOLE 40 MG/10 ML VIAL INJ IV SCH (09:50)
[2021-08-12] VITALS (63 sets, daily range): BP systolic 95–181; BP diastolic 40–142
[2021-08-12] MEDS: ACCU-CHEK COMFORT CURVE STRIP VI SCH ×3 (05:05→19:37)
[2021-08-12] MEDS: InsuLIN REG 1unit/0.01ml Soln (100units/ml) SC SCH ×3 (05:06→19:02)
[2021-08-12 05:21] LABS: Hemoglobin 7.9 g/dL (13.5-17.5); White Blood Cell 7.8 10^3/uL (4.4-10.8)
[2021-08-12 05:23] LABS: Hematocrit 24.5 % (41.0-53.0); Mean Corpuscular Hgb Conc. 32.2 g/dL (32.0-36.0); Mean Corpuscular Volume 102.4 fL (80.0-100.0)
[2021-08-12 05:38] LABS: Calcium 8.5 mg/dL (8.5-10.1); Potassium 3.7 mmol/L (3.5-5.1)
[2021-08-12 05:39] LABS: BUN/Creatinine Ratio 13.9
[2021-08-12] MEDS ORDERED: SODIUM CHL 0.9% 1000 ML BAG XX ONE (06:00)
[2021-08-12] MEDS: CALCIUM ACETATE 667 MG CAP NG SCH ×3 (06:02→22:22)
[2021-08-12 06:22] LABS: Red Cell Distribution Width 22.4 % (11.8-14.3)
[2021-08-12 06:24] LABS: Basophils % (manual) 0 (0.0-2.0); Blast Cells 0; Eosinophils % (manual) 0 (0-7); Metamyelocytes % 0; Myelocytes % 0; Promyelocytes % 0; Reactive Lymphocytes 0
[2021-08-12] MEDS: Nepro With Carb Steady 1 Liter Bottle GT SCH (06:42)
[2021-08-12] MEDS ORDERED: ALBUMIN 25% 100 ML IV ONE ×2 (06:53→07:00)
[2021-08-12 07:50] LABS: Band Neutrophils % (manual) 5; Lymphocytes % (manual) 9 (10.0-50.0); Monocytes % (manual) 9 (0-12)
[2021-08-12] MEDS ORDERED: ASPirin-EC 81 mg tab PO ONE (12:00)
[2021-08-12] MEDS: MEROPENEM 500MG IVPB 50 ML IV SCH (12:48)
[2021-08-12] MEDS: PANTOPRAZOLE 40 MG/10 ML VIAL INJ IV SCH (12:49)
[2021-08-12 16:41] LABS: INR 1.11 (0.9-1.15); Partial Thromboplastin Time 29.3 sec (23.6-33.0)
[2021-08-12] MEDS ORDERED: ENOXAPARIN SOD 80 MG/0.8ML SYRINGE SC ONE (20:00)
[2021-08-12] MEDS ORDERED: EPOETIN ALFA-EPBX 10,000 UNIT/1ML VIAL SC ONE (21:00)
[2021-08-12] MEDS: ATORVASTATIN 20 MG TAB PO SCH (22:22)
[2021-08-13] VITALS (24 sets, daily range): BP systolic 96–189; BP diastolic 23–73
[2021-08-13] MEDS ORDERED: hydrALAZINE HCL 20 MG/ML VL ONE (00:15)
[2021-08-13] MEDS: hydrALAZINE HCL 20 MG/ML VL IV PRN (00:20)
[2021-08-13] MEDS: ACCU-CHEK COMFORT CURVE STRIP VI SCH ×4 (00:24→20:34)
[2021-08-13] MEDS: InsuLIN REG 1unit/0.01ml Soln (100units/ml) SC SCH ×4 (00:25→20:34)
[2021-08-13 04:16] LABS: Red Blood Cells 2.51 10^6/uL (4.5-5.90); White Blood Cell 9.6 10^3/uL (4.4-10.8)
[2021-08-13 04:18] LABS: Hemoglobin 8.3 g/dL (13.5-17.5); Mean Corpuscular Hemoglobin 32.9 pg (28.0-32.0); Mean Corpuscular Hgb Conc. 31.9 g/dL (32.0-36.0); Mean Corpuscular Volume 103.4 fL (80.0-100.0)
[2021-08-13 04:35] LABS: Red Cell Distribution Width 29.3 % (11.8-14.3)
[2021-08-13 04:37] LABS: Basophils % (manual) 0 (0.0-2.0); Blast Cells 0; Cholesterol 87 mg/dL (< 200); Eosinophils % (manual) 0 (0-7); Metamyelocytes % 0; Myelocytes % 0; Promyelocytes % 0; Reactive Lymphocytes 0
[2021-08-13 04:39] LABS: HDL Cholesterol 11 mg/dL (40-59); LDL Cholesterol 39 mg/dL (< 100); Triglycerides 196 mg/dL (< 150)
[2021-08-13 04:40] LABS: Potassium 3.3 mmol/L (3.5-5.1)
[2021-08-13 04:45] LABS: BUN/Creatinine Ratio 11.7; Calcium 8.5 mg/dL (8.5-10.1)
[2021-08-13 05:24] LABS: Band Neutrophils % (manual) 18; Lymphocytes % (manual) 10 (10.0-50.0); Monocytes % (manual) 2 (0-12)
[2021-08-13] MEDS: CALCIUM ACETATE 667 MG CAP NG SCH ×3 (05:33→22:06)
[2021-08-13] MEDS ORDERED: ASPirin-EC 81 mg tab PO SCH (10:00)
[2021-08-13 10:20] LABS: Hemoglobin 8.2 g/dL (13.5-17.5)
[2021-08-13 10:21] LABS: Hematocrit 25.2 % (41.0-53.0)
[2021-08-13] MEDS: MEROPENEM 500MG IVPB 50 ML IV SCH (12:06)
[2021-08-13] MEDS: PANTOPRAZOLE 40 MG/10 ML VIAL INJ IV SCH (12:07)
[2021-08-13] MEDS ORDERED: ASPirin 81 mg TAB PO ONE (16:00)
[2021-08-13 16:37] LABS: Hematocrit 26.5 % (41.0-53.0); Hemoglobin 8.6 g/dL (13.5-17.5)
[2021-08-13] MEDS: ATORVASTATIN 20 MG TAB PO SCH (22:06)
[2021-08-13 22:07] LABS: Hematocrit 27.6 % (41.0-53.0); Hemoglobin 8.6 g/dL (13.5-17.5)
[2021-08-13] MEDS: ENOXAPARIN SOD 80 MG/0.8ML SYRINGE SC SCH (22:07)
[2021-08-14] VITALS (36 sets, daily range): BP systolic 100–178; BP diastolic 34–81
[2021-08-14] MEDS: ACCU-CHEK COMFORT CURVE STRIP VI SCH ×5 (00:12→23:52)
[2021-08-14] MEDS: InsuLIN REG 1unit/0.01ml Soln (100units/ml) SC SCH ×5 (00:17→23:54)
[2021-08-14 04:57] LABS: Hematocrit 26.4 % (41.0-53.0); Hemoglobin 8.5 g/dL (13.5-17.5); Mean Corpuscular Hemoglobin 33.9 pg (28.0-32.0); Mean Corpuscular Hgb Conc. 32.2 g/dL (32.0-36.0); Mean Corpuscular Volume 105.5 fL (80.0-100.0); Red Blood Cells 2.51 10^6/uL (4.5-5.90); White Blood Cell 10.7 10^3/uL (4.4-10.8)
[2021-08-14 05:03] LABS: Red Cell Distribution Width 29.1 % (11.8-14.3)
[2021-08-14 05:04] LABS: Basophils % (manual) 0 (0.0-2.0); Blast Cells 0; Eosinophils % (manual) 0 (0-7); Metamyelocytes % 0; Myelocytes % 0; Promyelocytes % 0; Reactive Lymphocytes 0
[2021-08-14 05:08] LABS: Potassium 3.6 mmol/L (3.5-5.1)
[2021-08-14 05:14] LABS: BUN/Creatinine Ratio 12.2; Calcium 8.4 mg/dL (8.5-10.1); Magnesium 2.7 mg/dL (1.6-2.6)
[2021-08-14] MEDS: CALCIUM ACETATE 667 MG CAP NG SCH ×3 (05:29→21:17)
[2021-08-14] MEDS: Nepro With Carb Steady 1 Liter Bottle GT SCH (06:53)
[2021-08-14] MEDS: PANTOPRAZOLE 40 MG/10 ML VIAL INJ IV SCH (10:00)
[2021-08-14] MEDS: MEROPENEM 500MG IVPB 50 ML IV SCH (10:01)
[2021-08-14 10:43] LABS: Band Neutrophils % (manual) 9; Lymphocytes % (manual) 11 (10.0-50.0); Monocytes % (manual) 7 (0-12)
[2021-08-14] MEDS ORDERED: SODIUM CHL 0.9% 1000 ML BAG XX ONE (16:45)
[2021-08-14] MEDS ORDERED: EPOETIN ALFA-EPBX 10,000 UNIT/1ML VIAL SC ONE (21:00)
[2021-08-14] MEDS: ENOXAPARIN SOD 80 MG/0.8ML SYRINGE SC SCH (21:17)
[2021-08-14] MEDS: ATORVASTATIN 20 MG TAB PO SCH (21:17)
[2021-08-15] VITALS (35 sets, daily range): BP systolic 103–154; BP diastolic 63–85
[2021-08-15 04:32] LABS: Basophils # (auto) 0.1 10 ^3/uL (0-0.2); Basophils % (auto) 0.9 % (0.0-2.0); Eosinophils # (auto) 0 10 ^3/uL (0-0.8); Mean Corpuscular Hemoglobin 34.1 pg (28.0-32.0); Mean Corpuscular Hgb Conc. 31.6 g/dL (32.0-36.0); Monocytes # (auto) 0.8 10 ^3/uL (0-1.3); Nucleated Red Blood Cells % 0.1 %
[2021-08-15 04:34] LABS: Hemoglobin 8.5 g/dL (13.5-17.5); Lymphocytes % (auto) 9.2 % (10.0-50.0); Monocytes % (auto) 8.1 % (0.0-12.0); Neutrophils # (auto) 8.6 10 ^3/uL (1.6-8.6); Neutrophils % (auto) 81.8 % (37.0-80.0); White Blood Cell 10.5 10^3/uL (4.4-10.8)
[2021-08-15 04:40] LABS: Red Cell Distribution Width 30.7 % (11.8-14.3)
[2021-08-15 04:53] LABS: Potassium 3.4 mmol/L (3.5-5.1)
[2021-08-15 05:03] LABS: Albumin 1.6 g/dL (3.4-5.0); BUN/Creatinine Ratio 9.7; Bilirubin, Total 1.2 mg/dL (0.2-1.0); Calcium 8.1 mg/dL (8.5-10.1); Total Protein 5.3 g/dL (6.4-8.2)
[2021-08-15] MEDS: CALCIUM ACETATE 667 MG CAP NG SCH ×3 (05:27→21:41)
[2021-08-15] MEDS: ACCU-CHEK COMFORT CURVE STRIP VI SCH ×4 (05:27→23:23)
[2021-08-15] MEDS: InsuLIN REG 1unit/0.01ml Soln (100units/ml) SC SCH ×4 (05:52→23:23)
[2021-08-15] MEDS: PANTOPRAZOLE 40 MG/10 ML VIAL INJ IV SCH (09:24)
[2021-08-15] MEDS: MEROPENEM 500MG IVPB 50 ML IV SCH (09:24)
[2021-08-15] MEDS ORDERED: POTASSIUM EFFERVESENT TAB 25 MEQ GT ONE (10:00)
[2021-08-15] MEDS: Nepro With Carb Steady 1 Liter Bottle GT SCH (11:38)
[2021-08-15] MEDS: ENOXAPARIN SOD 80 MG/0.8ML SYRINGE SC SCH (21:40)
[2021-08-15] MEDS: ATORVASTATIN 20 MG TAB PO SCH (21:41)
[2021-08-16] VITALS (36 sets, daily range): BP systolic 115–187; BP diastolic 63–82
[2021-08-16 04:38] LABS: Hematocrit 25.3 % (41.0-53.0); Hemoglobin 7.9 g/dL (13.5-17.5); Mean Corpuscular Hemoglobin 33.8 pg (28.0-32.0); Mean Corpuscular Hgb Conc. 31.3 g/dL (32.0-36.0); Red Blood Cells 2.34 10^6/uL (4.5-5.90); White Blood Cell 10.8 10^3/uL (4.4-10.8)
[2021-08-16 04:42] LABS: Red Cell Distribution Width 29.9 % (11.8-14.3)
[2021-08-16 04:43] LABS: Eosinophils % (manual) 0 (0-7)
[2021-08-16 04:44] LABS: Basophils % (manual) 0 (0.0-2.0); Blast Cells 0; Metamyelocytes % 0; Promyelocytes % 0
[2021-08-16 04:54] LABS: BUN/Creatinine Ratio 9.2; Calcium 7.9 mg/dL (8.5-10.1); Potassium 3.5 mmol/L (3.5-5.1)
[2021-08-16 05:40] LABS: Band Neutrophils % (manual) 11; Lymphocytes % (manual) 12 (10.0-50.0); Myelocytes % 2; Reactive Lymphocytes 1
[2021-08-16 05:41] LABS: Monocytes % (manual) 7 (0-12)
[2021-08-16] MEDS: CALCIUM ACETATE 667 MG CAP NG SCH ×3 (05:42→21:40)
[2021-08-16] MEDS: ACCU-CHEK COMFORT CURVE STRIP VI SCH ×4 (06:10→23:27)
[2021-08-16] MEDS: InsuLIN REG 1unit/0.01ml Soln (100units/ml) SC SCH ×4 (06:11→23:29)
[2021-08-16] MEDS: MEROPENEM 500MG IVPB 50 ML IV SCH (10:40)
[2021-08-16] MEDS: PANTOPRAZOLE 40 MG/10 ML VIAL INJ IV SCH (10:40)
[2021-08-16] MEDS ORDERED: VANCOMYCIN 1GM/250ML 250 ML IV ONE (15:30)
[2021-08-16] MEDS: Nepro With Carb Steady 1 Liter Bottle GT SCH (18:05)
[2021-08-16] MEDS: ENOXAPARIN SOD 80 MG/0.8ML SYRINGE SC SCH (21:40)
[2021-08-16] MEDS: ATORVASTATIN 20 MG TAB PO SCH (21:40)
[2021-08-16] MEDS ORDERED: hydrALAZINE HCL 20 MG/ML VL ONE (23:31)
[2021-08-16] MEDS: hydrALAZINE HCL 20 MG/ML VL IV PRN (23:32)
[2021-08-17] VITALS (35 sets, daily range): BP systolic 124–187; BP diastolic 58–106
[2021-08-17 04:51] LABS: Basophils # (auto) 0.1 10 ^3/uL (0-0.2); Eosinophils # (auto) 0 10 ^3/uL (0-0.8); Eosinophils % (auto) 0.2 % (0.0-7.0); Hemoglobin 7.6 g/dL (13.5-17.5); Neutrophils # (auto) 7.9 10 ^3/uL (1.6-8.6); Nucleated Red Blood Cells % 0.1 %
[2021-08-17 04:53] LABS: Basophils % (auto) 1.3 % (0.0-2.0); Hematocrit 25.6 % (41.0-53.0); Lymphocytes # (auto) 1.3 10 ^3/uL (0.4-5.4); Lymphocytes % (auto) 11.8 % (10.0-50.0); Mean Corpuscular Hemoglobin 34.2 pg (28.0-32.0); Mean Corpuscular Hgb Conc. 29.5 g/dL (32.0-36.0); Mean Corpuscular Volume 115.9 fL (80.0-100.0); Monocytes # (auto) 1.6 10 ^3/uL (0-1.3); Monocytes % (auto) 14.2 % (0.0-12.0); Neutrophils % (auto) 72.5 % (37.0-80.0); Red Blood Cells 2.21 10^6/uL (4.5-5.90); White Blood Cell 10.9 10^3/uL (4.4-10.8)
[2021-08-17 05:05] LABS: Red Cell Distribution Width 28.9 % (11.8-14.3)
[2021-08-17 05:08] LABS: BUN/Creatinine Ratio 9.8; Calcium 7.8 mg/dL (8.5-10.1); Potassium 3.4 mmol/L (3.5-5.1)
[2021-08-17] MEDS: CALCIUM ACETATE 667 MG CAP NG SCH ×3 (05:59→22:16)
[2021-08-17] MEDS: InsuLIN REG 1unit/0.01ml Soln (100units/ml) SC SCH ×4 (06:04→23:49)
[2021-08-17] MEDS: ACCU-CHEK COMFORT CURVE STRIP VI SCH ×4 (06:04→23:48)
[2021-08-17] MEDS ORDERED: SODIUM CHL 0.9% 1000 ML BAG XX ONE (07:00)
[2021-08-17] MEDS: PANTOPRAZOLE 40 MG/10 ML VIAL INJ IV SCH (11:01)
[2021-08-17] MEDS: MEROPENEM 500MG IVPB 50 ML IV SCH (11:01)
[2021-08-17] MEDS: POTASSIUM CHL 20MEQ/100ML 100 ML IV SCH ×2 (13:28→16:08)
[2021-08-17] MEDS ORDERED: VANCOMYCIN PER PHARMACY 0 MG IV SCH (13:30)
[2021-08-17] MEDS ORDERED: VANCOMYCIN 1GM/250ML 250 ML IV ONE (16:00)
[2021-08-17] MEDS: hydrALAZINE HCL 20 MG/ML VL IV PRN (17:10)
[2021-08-17] MEDS ORDERED: EPOETIN ALFA-EPBX 10,000 UNIT/1ML VIAL SC ONE (21:00)
[2021-08-17] MEDS: ATORVASTATIN 20 MG TAB PO SCH (22:16)
[2021-08-17] MEDS: ENOXAPARIN SOD 80 MG/0.8ML SYRINGE SC SCH (22:17)
[2021-08-18] VITALS (45 sets, daily range): BP systolic 99–178; BP diastolic 34–96
[2021-08-18] MEDS: hydrALAZINE HCL 20 MG/ML VL IV PRN (01:42)
[2021-08-18 04:20] LABS: Red Blood Cells 2.51 10^6/uL (4.5-5.90)
[2021-08-18 04:22] LABS: Hematocrit 27.4 % (41.0-53.0); Hemoglobin 8.5 g/dL (13.5-17.5); Mean Corpuscular Hemoglobin 33.7 pg (28.0-32.0); Mean Corpuscular Hgb Conc. 30.9 g/dL (32.0-36.0); Mean Corpuscular Volume 109.1 fL (80.0-100.0); White Blood Cell 12.4 10^3/uL (4.4-10.8)
[2021-08-18 04:42] LABS: BUN/Creatinine Ratio 9.2; Calcium 8.1 mg/dL (8.5-10.1)
[2021-08-18 04:50] LABS: Red Cell Distribution Width 28.5 % (11.8-14.3)
[2021-08-18 04:52] LABS: Basophils % (manual) 0 (0.0-2.0); Blast Cells 0; Metamyelocytes % 0; Myelocytes % 0; Promyelocytes % 0; Reactive Lymphocytes 0
[2021-08-18 05:28] LABS: Band Neutrophils % (manual) 13; Eosinophils % (manual) 1 (0-7); Lymphocytes % (manual) 10 (10.0-50.0); Monocytes % (manual) 15 (0-12)
[2021-08-18] MEDS: CALCIUM ACETATE 667 MG CAP NG SCH ×3 (05:54→21:25)
[2021-08-18] MEDS: InsuLIN REG 1unit/0.01ml Soln (100units/ml) SC SCH ×3 (05:56→17:42)
[2021-08-18] MEDS: ACCU-CHEK COMFORT CURVE STRIP VI SCH ×3 (05:57→17:46)
[2021-08-18] MEDS: MEROPENEM 500MG IVPB 50 ML IV SCH (10:30)
[2021-08-18] MEDS: PANTOPRAZOLE 40 MG/10 ML VIAL INJ IV SCH (10:30)
[2021-08-18] MEDS ORDERED: ALBUMIN 25% 100 ML IV ONE ×2 (11:12→11:30)
[2021-08-18] MEDS ORDERED: HEPARIN 1,000 UNITS/ml 1ML VIAL IV ONE (12:15)
[2021-08-18] MEDS ORDERED: EPOETIN ALFA-EPBX 10,000 UNIT/1ML VIAL SC ONE (21:00)
[2021-08-18] MEDS: ATORVASTATIN 20 MG TAB PO SCH (21:25)
[2021-08-18] MEDS: ENOXAPARIN SOD 80 MG/0.8ML SYRINGE SC SCH (21:25)
[2021-08-19] VITALS (34 sets, daily range): BP systolic 100–200; BP diastolic 23–118
[2021-08-19] MEDS: ACCU-CHEK COMFORT CURVE STRIP VI SCH ×4 (01:16→17:24)
[2021-08-19] MEDS: InsuLIN REG 1unit/0.01ml Soln (100units/ml) SC SCH ×4 (01:17→17:30)
[2021-08-19 04:48] LABS: Hematocrit 25.4 % (41.0-53.0); Mean Corpuscular Hemoglobin 34.4 pg (28.0-32.0); Mean Corpuscular Hgb Conc. 31.4 g/dL (32.0-36.0); Mean Corpuscular Volume 109.4 fL (80.0-100.0); Red Blood Cells 2.32 10^6/uL (4.5-5.90); White Blood Cell 10.7 10^3/uL (4.4-10.8)
[2021-08-19 04:53] LABS: BUN/Creatinine Ratio 8.4; Magnesium 2.7 mg/dL (1.6-2.6); Potassium 3.4 mmol/L (3.5-5.1)
[2021-08-19 05:34] LABS: Basophils % (manual) 0 (0.0-2.0); Blast Cells 0; Eosinophils % (manual) 0 (0-7); Promyelocytes % 0; Reactive Lymphocytes 0; Red Cell Distribution Width 28.4 % (11.8-14.3)
[2021-08-19] MEDS: CALCIUM ACETATE 667 MG CAP NG SCH ×3 (05:45→21:45)
[2021-08-19 06:36] LABS: Metamyelocytes % 6; Myelocytes % 6
[2021-08-19 06:38] LABS: Band Neutrophils % (manual) 11; Lymphocytes % (manual) 11 (10.0-50.0); Monocytes % (manual) 12 (0-12)
[2021-08-19] MEDS: MEROPENEM 500MG IVPB 50 ML IV SCH (10:07)
[2021-08-19] MEDS: PANTOPRAZOLE 40 MG/10 ML VIAL INJ IV SCH (10:07)
[2021-08-19] MEDS: Nepro With Carb Steady 1 Liter Bottle GT SCH (18:08)
[2021-08-19] MEDS: ATORVASTATIN 20 MG TAB PO SCH (21:45)
[2021-08-19] MEDS: ENOXAPARIN SOD 80 MG/0.8ML SYRINGE SC SCH (21:45)
[2021-08-20] VITALS (30 sets, daily range): BP systolic 112–173; BP diastolic 26–72
[2021-08-20] MEDS: ACCU-CHEK COMFORT CURVE STRIP VI SCH ×4 (00:06→17:25)
[2021-08-20] MEDS: CALCIUM ACETATE 667 MG CAP NG SCH ×3 (06:47→22:08)
[2021-08-20] MEDS: InsuLIN REG 1unit/0.01ml Soln (100units/ml) SC SCH ×4 (06:47→17:24)
[2021-08-20] MEDS: PANTOPRAZOLE 40 MG/10 ML VIAL INJ IV SCH (09:48)
[2021-08-20] MEDS: MEROPENEM 500MG IVPB 50 ML IV SCH (09:48)
[2021-08-20] MEDS ORDERED: FLUCONAZOLE 200MG/100ML 100 ML IV ONE (14:30)
[2021-08-20] MEDS: ATORVASTATIN 20 MG TAB PO SCH (22:09)
[2021-08-20] MEDS: ENOXAPARIN SOD 80 MG/0.8ML SYRINGE SC SCH (22:09)
[2021-08-21] VITALS (35 sets, daily range): BP systolic 81–162; BP diastolic 22–97
[2021-08-21] MEDS: ACCU-CHEK COMFORT CURVE STRIP VI SCH ×4 (00:26→17:31)
[2021-08-21 03:58] LABS: Eosinophils # (auto) 0.1 10 ^3/uL (0-0.8); Hematocrit 22.5 % (41.0-53.0); Lymphocytes # (auto) 1.5 10 ^3/uL (0.4-5.4); Monocytes # (auto) 1.4 10 ^3/uL (0-1.3); Nucleated Red Blood Cells % 0.1 %
[2021-08-21 04:00] LABS: Basophils # (auto) 0.4 10 ^3/uL (0-0.2); Basophils % (auto) 3.4 % (0.0-2.0); Eosinophils % (auto) 0.8 % (0.0-7.0); Hemoglobin 7.2 g/dL (13.5-17.5); Lymphocytes % (auto) 12.6 % (10.0-50.0); Mean Corpuscular Hemoglobin 34.8 pg (28.0-32.0); Mean Corpuscular Hgb Conc. 31.9 g/dL (32.0-36.0); Mean Corpuscular Volume 108.9 fL (80.0-100.0); Monocytes % (auto) 11.6 % (0.0-12.0); Neutrophils # (auto) 8.4 10 ^3/uL (1.6-8.6); Neutrophils % (auto) 71.6 % (37.0-80.0); Red Blood Cells 2.07 10^6/uL (4.5-5.90); White Blood Cell 11.7 10^3/uL (4.4-10.8)
[2021-08-21 04:19] LABS: Calcium 7.5 mg/dL (8.5-10.1); Potassium 3.8 mmol/L (3.5-5.1)
[2021-08-21 04:23] LABS: BUN/Creatinine Ratio 8.5
[2021-08-21] MEDS: InsuLIN REG 1unit/0.01ml Soln (100units/ml) SC SCH ×4 (05:17→17:32)
[2021-08-21] MEDS: CALCIUM ACETATE 667 MG CAP NG SCH ×3 (06:16→22:37)
[2021-08-21] MEDS: PANTOPRAZOLE 40 MG/10 ML VIAL INJ IV SCH (09:29)
[2021-08-21] MEDS: FLUCONAZOLE 200MG/100ML 100 ML IV SCH (09:29)
[2021-08-21] MEDS: Nepro With Carb Steady 1 Liter Bottle GT SCH (10:12)
[2021-08-21] MEDS: MEROPENEM 500MG IVPB 50 ML IV SCH (12:18)
[2021-08-21] MEDS: ATORVASTATIN 20 MG TAB PO SCH (22:37)
[2021-08-21] MEDS: ENOXAPARIN SOD 80 MG/0.8ML SYRINGE SC SCH (22:39)
[2021-08-22] VITALS (32 sets, daily range): BP systolic 110–163; BP diastolic 21–136
[2021-08-22] MEDS: ACCU-CHEK COMFORT CURVE STRIP VI SCH ×5 (00:05→23:12)
[2021-08-22] MEDS: InsuLIN REG 1unit/0.01ml Soln (100units/ml) SC SCH ×5 (00:09→23:12)
[2021-08-22] MEDS ORDERED: ACETAMINOPHEN 650 mg PER 20.3 mL UD ONE (02:52)
[2021-08-22] MEDS: ACETAMINOPHEN 650 mg PER 20.3 mL UD GT PRN ×3 (03:03→22:41)
[2021-08-22] MEDS: CALCIUM ACETATE 667 MG CAP NG SCH ×3 (05:40→20:53)
[2021-08-22] MEDS: MEROPENEM 500MG IVPB 50 ML IV SCH (10:00)
[2021-08-22] MEDS: FLUCONAZOLE 200MG/100ML 100 ML IV SCH (10:00)
[2021-08-22] MEDS: PANTOPRAZOLE 40 MG/10 ML VIAL INJ IV SCH (10:00)
[2021-08-22] MEDS: ATORVASTATIN 20 MG TAB PO SCH (20:53)
[2021-08-22] MEDS: ENOXAPARIN SOD 80 MG/0.8ML SYRINGE SC SCH (20:53)
[2021-08-23] VITALS (29 sets, daily range): BP systolic 105–169; BP diastolic 15–139
[2021-08-23 04:14] LABS: Mean Corpuscular Volume 109.2 fL (80.0-100.0); Red Blood Cells 2.12 10^6/uL (4.5-5.90)
[2021-08-23 04:19] LABS: Hematocrit 23.1 % (41.0-53.0); Hemoglobin 7.4 g/dL (13.5-17.5); Mean Corpuscular Hemoglobin 34.9 pg (28.0-32.0); White Blood Cell 9.6 10^3/uL (4.4-10.8)
[2021-08-23 04:26] LABS: Basophils % (manual) 0 (0.0-2.0); Blast Cells 0; Eosinophils % (manual) 0 (0-7); Metamyelocytes % 0; Promyelocytes % 0; Reactive Lymphocytes 0; Red Cell Distribution Width 25.6 % (11.8-14.3)
[2021-08-23 05:14] LABS: Potassium 3.3 mmol/L (3.5-5.1)
[2021-08-23 05:15] LABS: Albumin 1.5 g/dL (3.4-5.0); BUN/Creatinine Ratio 7.5; Bilirubin, Total 0.9 mg/dL (0.2-1.0); Total Protein 6.1 g/dL (6.4-8.2)
[2021-08-23] MEDS: CALCIUM ACETATE 667 MG CAP NG SCH ×4 (05:42→23:28)
[2021-08-23] MEDS: InsuLIN REG 1unit/0.01ml Soln (100units/ml) SC SCH ×4 (05:43→23:28)
[2021-08-23] MEDS: ACCU-CHEK COMFORT CURVE STRIP VI SCH ×4 (05:43→23:28)
[2021-08-23 06:42] LABS: Band Neutrophils % (manual) 6; Lymphocytes % (manual) 13 (10.0-50.0); Monocytes % (manual) 9 (0-12); Myelocytes % 4
[2021-08-23] MEDS: FLUCONAZOLE 200MG/100ML 100 ML IV SCH (09:55)
[2021-08-23] MEDS: PANTOPRAZOLE 40 MG/10 ML VIAL INJ IV SCH (09:55)
[2021-08-23] MEDS: MEROPENEM 500MG IVPB 50 ML IV SCH (09:57)
[2021-08-23] MEDS ORDERED: EPINEPHrine HCL 0.5 ML NEB ONE (14:53)
[2021-08-23] MEDS ORDERED: EPINEPHrine HCL 0.5 ML NEB NEB ONE (15:00)
[2021-08-23] MEDS: ATORVASTATIN 20 MG TAB PO SCH (19:15)
[2021-08-23] MEDS: ENOXAPARIN SOD 80 MG/0.8ML SYRINGE SC SCH (21:20)
[2021-08-24] VITALS (26 sets, daily range): BP systolic 101–164; BP diastolic 26–83
[2021-08-24 04:34] LABS: Hematocrit 25.4 % (41.0-53.0); White Blood Cell 11.7 10^3/uL (4.4-10.8)
[2021-08-24 04:36] LABS: Hemoglobin 7.9 g/dL (13.5-17.5); Mean Corpuscular Hemoglobin 34.7 pg (28.0-32.0); Mean Corpuscular Volume 111.7 fL (80.0-100.0); Red Blood Cells 2.27 10^6/uL (4.5-5.90)
[2021-08-24 04:46] LABS: Red Cell Distribution Width 25.3 % (11.8-14.3)
[2021-08-24 04:48] LABS: BUN/Creatinine Ratio 7.3; Basophils % (manual) 0 (0.0-2.0); Blast Cells 0; Calcium 6.8 mg/dL (8.5-10.1); Eosinophils % (manual) 0 (0-7); Magnesium 2.6 mg/dL (1.6-2.6); Metamyelocytes % 0; Myelocytes % 0; Potassium 3.5 mmol/L (3.5-5.1); Promyelocytes % 0; Reactive Lymphocytes 0
[2021-08-24] MEDS: ACCU-CHEK COMFORT CURVE STRIP VI SCH ×4 (05:43→23:39)
[2021-08-24] MEDS: InsuLIN REG 1unit/0.01ml Soln (100units/ml) SC SCH ×4 (05:43→23:38)
[2021-08-24 06:58] LABS: Band Neutrophils % (manual) 9; Lymphocytes % (manual) 11 (10.0-50.0); Monocytes % (manual) 7 (0-12)
[2021-08-24] MEDS ORDERED: SODIUM CHL 0.9% 1000 ML BAG XX ONE (07:00)
[2021-08-24] MEDS ORDERED: HEPARIN 1,000 UNITS/ml 1ML VIAL ONE (09:59)
[2021-08-24] MEDS ORDERED: HEPARIN 1,000 UNITS/ml 1ML VIAL IV ONE (10:15)
[2021-08-24] MEDS: PANTOPRAZOLE 40 MG/10 ML VIAL INJ IV SCH (10:19)
[2021-08-24] MEDS: FLUCONAZOLE 200MG/100ML 100 ML IV SCH (10:19)
[2021-08-24] MEDS: MEROPENEM 500MG IVPB 50 ML IV SCH (11:10)
[2021-08-24] MEDS ORDERED: CLINIMIX PER PHARMACY 0 ML IV SCH (13:15)
[2021-08-24] MEDS: CALCIUM ACETATE 667 MG CAP NG SCH ×3 (14:00→23:39)
[2021-08-24] MEDS: ATORVASTATIN 20 MG TAB PO SCH (19:13)
[2021-08-24] MEDS ORDERED: AMINO ACID INFUSION IN D10W 1,000 ML IV NR (20:00)
[2021-08-24] MEDS ORDERED: HYDROmorphone HCL 2 MG/ML VL IV ONE (20:15)
[2021-08-24] MEDS: ENOXAPARIN SOD 80 MG/0.8ML SYRINGE SC SCH (20:43)
[2021-08-24] MEDS ORDERED: EPOETIN ALFA-EPBX 10,000 UNIT/1ML VIAL SC ONE (21:00)
[2021-08-24] MEDS ORDERED: VANCOMYCIN 1GM/250ML 250 ML IV ONE (21:00)
[2021-08-25] VITALS (22 sets, daily range): BP systolic 96–173; BP diastolic 33–107
[2021-08-25] MEDS ORDERED: KETOROLAC TROMETH 30 MG/ML 1ML VIAL IV ONE ×2 (04:00)
[2021-08-25 04:42] LABS: Hemoglobin 7.8 g/dL (13.5-17.5); Mean Corpuscular Hemoglobin 34.7 pg (28.0-32.0); Mean Corpuscular Hgb Conc. 31.4 g/dL (32.0-36.0)
[2021-08-25 04:45] LABS: Hematocrit 24.9 % (41.0-53.0); Mean Corpuscular Volume 110.4 fL (80.0-100.0); Red Blood Cells 2.25 10^6/uL (4.5-5.90); White Blood Cell 11.3 10^3/uL (4.4-10.8)
[2021-08-25 05:06] LABS: Potassium 3.4 mmol/L (3.5-5.1)
[2021-08-25 05:08] LABS: Basophils % (manual) 0 (0.0-2.0); Blast Cells 0; Metamyelocytes % 0; Promyelocytes % 0; Reactive Lymphocytes 0; Red Cell Distribution Width 24.1 % (11.8-14.3)
[2021-08-25 05:13] LABS: Total Protein 6.4 g/dL (6.4-8.2)
[2021-08-25] MEDS: ACCU-CHEK COMFORT CURVE STRIP VI SCH ×3 (05:28→18:18)
[2021-08-25] MEDS: InsuLIN REG 1unit/0.01ml Soln (100units/ml) SC SCH ×3 (05:28→18:25)
[2021-08-25 05:39] LABS: BUN/Creatinine Ratio 6.6
[2021-08-25 05:40] LABS: Albumin 1.6 g/dL (3.4-5.0); Bilirubin, Total 0.9 mg/dL (0.2-1.0); Calcium 6.8 mg/dL (8.5-10.1); Phosphorus 6.4 mg/dL (2.5-4.90)
[2021-08-25 06:59] LABS: Band Neutrophils % (manual) 3; Eosinophils % (manual) 3 (0-7); Myelocytes % 1
[2021-08-25 07:00] LABS: Lymphocytes % (manual) 9 (10.0-50.0); Monocytes % (manual) 10 (0-12)
[2021-08-25] MEDS: FLUCONAZOLE 200MG/100ML 100 ML IV SCH (09:16)
[2021-08-25] MEDS: PANTOPRAZOLE 40 MG/10 ML VIAL INJ IV SCH (09:16)
[2021-08-25] MEDS ORDERED: POTASSIUM CHL 20MEQ/100ML 100 ML IV ONE (10:00)
[2021-08-25] MEDS: MEROPENEM 500MG IVPB 50 ML IV SCH (10:39)
[2021-08-25] MEDS: CALCIUM ACETATE 667 MG CAP NG SCH (14:00)
[2021-08-25] MEDS: LABETALOL HCL 5 MG/ML 4ML SYRINGE IV PRN ×2 (15:11→19:09)
[2021-08-25] MEDS ORDERED: AMINO ACID INFUSION IN D10W 1,000 ML IV NR (20:00)
[2021-08-25] MEDS ORDERED: ALBUTEROL SULF 2.5 MG/0.5ML(0.5%) NEB SOLN NEB SCH (22:00)
[2021-08-25] MEDS: ENOXAPARIN SOD 80 MG/0.8ML SYRINGE SC SCH (22:00)
[2021-08-25] MEDS: ATORVASTATIN 20 MG TAB PO SCH (22:00)
[2021-08-25] MEDS ORDERED: IPRATROPIUM BROM 0.5 MG/2.5ML INH SOL NEB SCH (22:00)
[2021-08-25] MEDS: HYDROcodone-ACET 5/325MG TAB PO PRN (22:30)
[2021-08-26] VITALS (8 sets, daily range): BP systolic 92–163; BP diastolic 26–110
[2021-08-26] MEDS: HYDROcodone-ACET 5/325MG TAB PO PRN ×2 (03:10→10:12)
[2021-08-26] MEDS: InsuLIN REG 1unit/0.01ml Soln (100units/ml) SC SCH ×4 (05:57→18:05)
[2021-08-26] MEDS: ACCU-CHEK COMFORT CURVE STRIP VI SCH ×4 (05:58→18:04)
[2021-08-26 08:28] LABS: Hematocrit 24.5 % (41.0-53.0); Hemoglobin 7.6 g/dL (13.5-17.5); Mean Corpuscular Hemoglobin 34.6 pg (28.0-32.0); Mean Corpuscular Volume 111.8 fL (80.0-100.0); Red Blood Cells 2.19 10^6/uL (4.5-5.90); Red Cell Distribution Width 23.4 % (11.8-14.3); White Blood Cell 14.4 10^3/uL (4.4-10.8)
[2021-08-26 08:37] LABS: Basophils % (manual) 0 (0.0-2.0); Blast Cells 0; Metamyelocytes % 0; Myelocytes % 0; Promyelocytes % 0; Reactive Lymphocytes 0
[2021-08-26] MEDS: FLUCONAZOLE 200MG/100ML 100 ML IV SCH (09:58)
[2021-08-26] MEDS: CALCIUM ACETATE 667 MG CAP PO SCH ×3 (09:59→18:00)
[2021-08-26] MEDS: PANTOPRAZOLE 40 MG/10 ML VIAL INJ IV SCH (09:59)
[2021-08-26] MEDS ORDERED: METOPROLOL TARTRATE 25 MG TAB PO ONE (10:51)
[2021-08-26 12:20] LABS: Band Neutrophils % (manual) 2; Eosinophils % (manual) 1 (0-7); Lymphocytes % (manual) 6 (10.0-50.0); Monocytes % (manual) 5 (0-12)
[2021-08-26] MEDS: ERTAPENEM SOD INJ 0.5 GM in SODIUM CHL 0.9% 50 ML IV SCH (14:31)
[2021-08-26] MEDS: IPRATROPIUM BROM 0.5 MG/2.5ML INH SOL NEB PRN (15:10)
[2021-08-26] MEDS: ALBUTEROL SULF 2.5 MG/0.5ML(0.5%) NEB SOLN NEB PRN (15:11)
[2021-08-26] MEDS: LABETALOL HCL 5 MG/ML 4ML SYRINGE IV PRN (18:04)
[2021-08-26] MEDS ORDERED: LORazepam 0.5 MG TAB PO ONE (21:30)
[2021-08-26] MEDS: ATORVASTATIN 20 MG TAB PO SCH (21:59)
[2021-08-26] MEDS: ENOXAPARIN SOD 80 MG/0.8ML SYRINGE SC SCH (21:59)
[2021-08-26] MEDS ORDERED: METOPROLOL TARTRATE 25 MG TAB PO SCH (22:00)
[2021-08-26] MEDS ORDERED: ETOMIDATE (2MG/ML) 20ML VIAL IV ONE (22:35)
[2021-08-26] MEDS ORDERED: SUCCINYLCHOLINE CHLORIDE 20 MG/ML 10ML VIAL IV ONE (22:35)
[2021-08-26] MEDS ORDERED: MIDAZOLAM DRIP 50 mg/50mL 50 ML IV ONE (22:41)
[2021-08-26] MEDS ORDERED: NOREPINEPHRINE 8 MG/250ML KIT 250 ML IV ONE (23:15)
[2021-08-26] MEDS ORDERED: fentaNYL Drip 2500mCg/250mlNS 250 ML IV ONE (23:45)
[2021-08-27] VITALS (76 sets, daily range): BP systolic 80–167; BP diastolic 19–72
[2021-08-27] MEDS: ACCU-CHEK COMFORT CURVE STRIP VI SCH ×4 (00:15→18:00)
[2021-08-27] MEDS: InsuLIN REG 1unit/0.01ml Soln (100units/ml) SC SCH ×4 (00:15→18:00)
[2021-08-27] MEDS: fentaNYL Drip 2500mCg/250mlNS 250 ML IV SCH ×3 (01:02→23:08)
[2021-08-27] MEDS: MIDAZOLAM DRIP 50 mg/50mL 50 ML IV SCH ×5 (01:03→23:30)
[2021-08-27] MEDS: NOREPINEPHRINE 8 MG/250ML KIT 250 ML IV SCH (03:00)
[2021-08-27 05:03] LABS: Hemoglobin 7.2 g/dL (13.5-17.5); Mean Corpuscular Volume 111.8 fL (80.0-100.0)
[2021-08-27 05:06] LABS: Hematocrit 23.6 % (41.0-53.0); Mean Corpuscular Hgb Conc. 30.4 g/dL (32.0-36.0); Red Blood Cells 2.11 10^6/uL (4.5-5.90); White Blood Cell 27.5 10^3/uL (4.4-10.8)
[2021-08-27 05:10] LABS: Red Cell Distribution Width 22.2 % (11.8-14.3)
[2021-08-27 05:11] LABS: Basophils % (manual) 0 (0.0-2.0); Blast Cells 0; Eosinophils % (manual) 0 (0-7); Promyelocytes % 0; Reactive Lymphocytes 0
[2021-08-27 05:28] LABS: Potassium 4.4 mmol/L (3.5-5.1)
[2021-08-27 05:34] LABS: Albumin 1.5 g/dL (3.4-5.0); BUN/Creatinine Ratio 7.2; Bilirubin, Total 0.9 mg/dL (0.2-1.0); Calcium 7.3 mg/dL (8.5-10.1); Magnesium 2.5 mg/dL (1.6-2.6); Total Protein 6.3 g/dL (6.4-8.2)
[2021-08-27] MEDS: IPRATROPIUM BROM 0.5 MG/2.5ML INH SOL NEB PRN (06:28)
[2021-08-27] MEDS: ALBUTEROL SULF 2.5 MG/0.5ML(0.5%) NEB SOLN NEB PRN (06:28)
[2021-08-27 06:55] LABS: Band Neutrophils % (manual) 15; Lymphocytes % (manual) 3 (10.0-50.0); Metamyelocytes % 1; Monocytes % (manual) 10 (0-12); Myelocytes % 1
[2021-08-27] MEDS ORDERED: SODIUM CHL 0.9% 1000 ML BAG XX ONE (07:00)
[2021-08-27] MEDS: PANTOPRAZOLE 40 MG/10 ML VIAL INJ IV SCH (12:59)
[2021-08-27] MEDS: CALCIUM ACETATE 667 MG CAP PO SCH ×3 (13:00→18:55)
[2021-08-27] MEDS ORDERED: Nepro With Carb Steady 1 Liter Bottle NG SCH (14:45)
[2021-08-27] MEDS ORDERED: VANCOMYCIN PER PHARMACY 0 MG IV SCH (15:30)
[2021-08-27] MEDS: ERTAPENEM SOD INJ 0.5 GM in SODIUM CHL 0.9% 50 ML IV SCH (15:54)
[2021-08-27] MEDS ORDERED: VANCOMYCIN 1,500 MG in D5W 5% 250 ML IV ONE (17:00)
[2021-08-27] MEDS ORDERED: EPOETIN ALFA-EPBX 10,000 UNIT/1ML VIAL SC ONE (21:00)
[2021-08-27] MEDS: ENOXAPARIN SOD 80 MG/0.8ML SYRINGE SC SCH (22:00)
[2021-08-27] MEDS: ATORVASTATIN 20 MG TAB PO SCH (22:00)
[2021-08-27] MEDS: Nepro With Carb Steady 1 Liter Bottle GT SCH (23:00)
[2021-08-28] VITALS (94 sets, daily range): BP systolic 76–140; BP diastolic 15–81
[2021-08-28] MEDS: NOREPINEPHRINE 8 MG/250ML KIT 250 ML IV SCH ×2 (03:00→11:13)
[2021-08-28] MEDS: MIDAZOLAM DRIP 50 mg/50mL 50 ML IV SCH ×4 (03:07→16:13)
[2021-08-28 04:39] LABS: Basophils # (auto) 0.5 10 ^3/uL (0-0.2)
[2021-08-28 04:42] LABS: Basophils % (auto) 2.4 % (0.0-2.0); Eosinophils # (auto) 0.6 10 ^3/uL (0-0.8); Hematocrit 22.6 % (41.0-53.0); Lymphocytes # (auto) 2.2 10 ^3/uL (0.4-5.4); Lymphocytes % (auto) 11.2 % (10.0-50.0); Mean Corpuscular Hgb Conc. 30.8 g/dL (32.0-36.0); Mean Corpuscular Volume 110.6 fL (80.0-100.0); Monocytes # (auto) 2.4 10 ^3/uL (0-1.3); Neutrophils % (auto) 71.4 % (37.0-80.0); Nucleated Red Blood Cells % 0.2 %; Red Blood Cells 2.04 10^6/uL (4.5-5.90); White Blood Cell 19.6 10^3/uL (4.4-10.8)
[2021-08-28 04:53] LABS: INR 1.13 (0.9-1.15); Partial Thromboplastin Time 44.9 sec (23.6-33.0)
[2021-08-28 04:56] LABS: BUN/Creatinine Ratio 5.9; Calcium 6.9 mg/dL (8.5-10.1); Magnesium 2.3 mg/dL (1.6-2.6); Potassium 4.2 mmol/L (3.5-5.1)
[2021-08-28 05:13] LABS: Red Cell Distribution Width 22.2 % (11.8-14.3)
[2021-08-28] MEDS: InsuLIN REG 1unit/0.01ml Soln (100units/ml) SC SCH ×4 (05:37→18:00)
[2021-08-28] MEDS: ACCU-CHEK COMFORT CURVE STRIP VI SCH ×4 (05:37→18:00)
[2021-08-28] MEDS ORDERED: FUROSEMIDE 20 MG/2 ML VIAL IV SCH (10:00)
[2021-08-28] MEDS ORDERED: LIDOCAINE 1% (LOCAL ANESTH.) PF 5ml SDV ID ONE (10:00)
[2021-08-28] MEDS: CALCIUM ACETATE 667 MG CAP PO SCH ×3 (11:09→19:57)
[2021-08-28] MEDS: FUROSEMIDE 100 MG/10ML VIAL IV SCH (11:10)
[2021-08-28] MEDS: fentaNYL Drip 2500mCg/250mlNS 250 ML IV SCH ×3 (11:12→21:47)
[2021-08-28] MEDS: ERTAPENEM SOD INJ 0.5 GM in SODIUM CHL 0.9% 50 ML IV SCH (12:25)
[2021-08-28] MEDS: PANTOPRAZOLE 40 MG/10 ML VIAL INJ IV SCH (12:26)
[2021-08-28] MEDS: SODIUM CHLOR 0.9% PF (SALINE LOCK) 10ML VIAL/SYR IV SCH ×2 (12:26→21:47)
[2021-08-28] MEDS: ENOXAPARIN SOD 80 MG/0.8ML SYRINGE SC SCH (21:47)
[2021-08-28] MEDS: ATORVASTATIN 20 MG TAB PO SCH (21:47)
[2021-08-29] VITALS (96 sets, daily range): BP systolic 82–159; BP diastolic 18–56
[2021-08-29] MEDS: MIDAZOLAM DRIP 50 mg/50mL 50 ML IV SCH ×4 (00:15→21:00)
[2021-08-29] MEDS: ACCU-CHEK COMFORT CURVE STRIP VI SCH ×4 (00:28→20:11)
[2021-08-29] MEDS: InsuLIN REG 1unit/0.01ml Soln (100units/ml) SC SCH ×4 (05:42→18:00)
[2021-08-29] MEDS: CALCIUM ACETATE 667 MG CAP PO SCH ×3 (10:13→18:00)
[2021-08-29] MEDS: FUROSEMIDE 100 MG/10ML VIAL IV SCH (10:13)
[2021-08-29] MEDS: PANTOPRAZOLE 40 MG/10 ML VIAL INJ IV SCH (10:14)
[2021-08-29 10:19] LABS: Albumin 1.4 g/dL (3.4-5.0); Anion Gap 9 (5-15); Blood Urea Nitrogen 39 mg/dL (7-18); Calcium 6.9 mg/dL (8.5-10.1); Carbon Dioxide 25 mmol/L (21-32); Chloride 105 mmol/L (98-107); Glucose 74 mg/dL (74-106); Potassium 4.4 mmol/L (3.5-5.1); Sodium 139 mmol/L (136-145)
[2021-08-29] MEDS: SODIUM CHLOR 0.9% PF (SALINE LOCK) 10ML VIAL/SYR IV SCH ×2 (10:19→22:00)
[2021-08-29 10:25] LABS: Alanine Aminotransferase < 6 U/L (16-61); Alkaline Phosphatase 419 U/L (45-117); Aspartate Aminotransferase 28 U/L (15-37); BUN/Creatinine Ratio 5.7; Bilirubin, Total 0.8 mg/dL (0.2-1.0); GFR African American 11 mL/min; GFR Non-African American 9 mL/min; Total Protein 5.8 g/dL (6.4-8.2)
[2021-08-29 10:34] LABS: Eosinophils # (auto) 0.4 10 ^3/uL (0-0.8)
[2021-08-29 10:38] LABS: Basophils # (auto) 0.4 10 ^3/uL (0-0.2); Basophils % (auto) 3.5 % (0.0-2.0); Eosinophils % (auto) 3.4 % (0.0-7.0); Hematocrit 19.8 % (41.0-53.0); Lymphocytes # (auto) 1.6 10 ^3/uL (0.4-5.4); Lymphocytes % (auto) 14.5 % (10.0-50.0); Mean Corpuscular Hemoglobin 35.3 pg (28.0-32.0); Mean Corpuscular Hgb Conc. 31.3 g/dL (32.0-36.0); Mean Corpuscular Volume 112.8 fL (80.0-100.0); Monocytes # (auto) 1.2 10 ^3/uL (0-1.3); Monocytes % (auto) 11.1 % (0.0-12.0); Neutrophils # (auto) 7.2 10 ^3/uL (1.6-8.6); Neutrophils % (auto) 67.5 % (37.0-80.0); Nucleated Red Blood Cells % 0.2 %; Red Blood Cells 1.75 10^6/uL (4.5-5.90); White Blood Cell 10.7 10^3/uL (4.4-10.8)
[2021-08-29 10:43] LABS: Red Cell Distribution Width 21.1 % (11.8-14.3)
[2021-08-29] MEDS ORDERED: METOCLOPRAMIDE HCL 5MG/ml INJ 2ml VIAL IV ONE (10:45)
[2021-08-29 10:50] LABS: Hemoglobin 6.2 g/dL (13.5-17.5)
[2021-08-29 12:33] LABS: Eosinophils # (auto) 0.4 10 ^3/uL (0-0.8); Eosinophils % (auto) 3.4 % (0.0-7.0); Lymphocytes # (auto) 1.5 10 ^3/uL (0.4-5.4); Mean Corpuscular Hemoglobin 35.7 pg (28.0-32.0); Mean Corpuscular Hgb Conc. 31.2 g/dL (32.0-36.0); Monocytes # (auto) 1.3 10 ^3/uL (0-1.3); Red Blood Cells 1.71 10^6/uL (4.5-5.90); White Blood Cell 10.9 10^3/uL (4.4-10.8)
[2021-08-29 12:35] LABS: Basophils # (auto) 0.8 10 ^3/uL (0-0.2); Basophils % (auto) 7.3 % (0.0-2.0); Hematocrit 19.5 % (41.0-53.0); Mean Corpuscular Volume 114.2 fL (80.0-100.0); Monocytes % (auto) 11.8 % (0.0-12.0); Neutrophils # (auto) 6.9 10 ^3/uL (1.6-8.6); Neutrophils % (auto) 63.5 % (37.0-80.0); Nucleated Red Blood Cells % 0.2 %
[2021-08-29 13:06] LABS: Red Cell Distribution Width 21.7 % (11.8-14.3)
[2021-08-29 13:10] LABS: Hemoglobin 6.1 g/dL (13.5-17.5)
[2021-08-29] MEDS: ERTAPENEM SOD INJ 0.5 GM in SODIUM CHL 0.9% 50 ML IV SCH (16:59)
[2021-08-29] MEDS: fentaNYL Drip 2500mCg/250mlNS 250 ML IV SCH ×2 (17:05→22:00)
[2021-08-29] MEDS: SILDENAFIL CITRATE 20 MG TAB PO SCH (20:00)
[2021-08-29] MEDS: ENOXAPARIN SOD 80 MG/0.8ML SYRINGE SC SCH (22:00)
[2021-08-29] MEDS: ATORVASTATIN 20 MG TAB PO SCH (22:00)
[2021-08-30] VITALS (109 sets, daily range): BP systolic 81–146; BP diastolic 12–113
[2021-08-30] MEDS: MIDAZOLAM DRIP 50 mg/50mL 50 ML IV SCH ×2 (02:36→04:00)
[2021-08-30] MEDS: NOREPINEPHRINE 8 MG/250ML KIT 250 ML IV SCH ×2 (02:48→22:30)
[2021-08-30 03:29] LABS: Basophils # (auto) 0.3 10 ^3/uL (0-0.2); Basophils % (auto) 2.9 % (0.0-2.0); Eosinophils # (auto) 0.3 10 ^3/uL (0-0.8); Lymphocytes # (auto) 1.4 10 ^3/uL (0.4-5.4)
[2021-08-30 03:30] LABS: Eosinophils % (auto) 3.6 % (0.0-7.0); Hematocrit 24.4 % (41.0-53.0); Hemoglobin 7.9 g/dL (13.5-17.5); Mean Corpuscular Hemoglobin 33.5 pg (28.0-32.0); Mean Corpuscular Hgb Conc. 32.6 g/dL (32.0-36.0); Mean Corpuscular Volume 102.8 fL (80.0-100.0); Monocytes # (auto) 1.2 10 ^3/uL (0-1.3); Monocytes % (auto) 12.2 % (0.0-12.0); Neutrophils # (auto) 6.2 10 ^3/uL (1.6-8.6); Neutrophils % (auto) 66.3 % (37.0-80.0); Nucleated Red Blood Cells % 0.1 %; Red Blood Cells 2.37 10^6/uL (4.5-5.90); White Blood Cell 9.4 10^3/uL (4.4-10.8)
[2021-08-30 04:10] LABS: Red Cell Distribution Width 26.2 % (11.8-14.3)
[2021-08-30] MEDS: InsuLIN REG 1unit/0.01ml Soln (100units/ml) SC SCH ×4 (05:54→18:00)
[2021-08-30] MEDS: ACCU-CHEK COMFORT CURVE STRIP VI SCH ×4 (05:54→18:00)
[2021-08-30] MEDS: ALBUTEROL SULF 2.5 MG/0.5ML(0.5%) NEB SOLN NEB PRN ×2 (06:19→22:18)
[2021-08-30 08:37] LABS: Basophils # (auto) 0.4 10 ^3/uL (0-0.2); Eosinophils # (auto) 0.3 10 ^3/uL (0-0.8); Eosinophils % (auto) 2.9 % (0.0-7.0); Hematocrit 28.5 % (41.0-53.0); Hemoglobin 9.3 g/dL (13.5-17.5); Lymphocytes # (auto) 1.6 10 ^3/uL (0.4-5.4); Lymphocytes % (auto) 16.7 % (10.0-50.0); Mean Corpuscular Hemoglobin 32.2 pg (28.0-32.0); Mean Corpuscular Hgb Conc. 32.7 g/dL (32.0-36.0); Mean Corpuscular Volume 98.5 fL (80.0-100.0); Monocytes # (auto) 1.1 10 ^3/uL (0-1.3); Monocytes % (auto) 12.2 % (0.0-12.0); Neutrophils % (auto) 64.2 % (37.0-80.0); Nucleated Red Blood Cells % 0.1 %; White Blood Cell 9.4 10^3/uL (4.4-10.8)
[2021-08-30 08:39] LABS: Red Cell Distribution Width 24.6 % (11.8-14.3)
[2021-08-30] MEDS: SILDENAFIL CITRATE 20 MG TAB PO SCH ×3 (08:53→20:00)
[2021-08-30] MEDS: CALCIUM ACETATE 667 MG CAP PO SCH ×3 (08:53→18:00)
[2021-08-30] MEDS: PANTOPRAZOLE 40 MG/10 ML VIAL INJ IV SCH (10:04)
[2021-08-30] MEDS: FUROSEMIDE 100 MG/10ML VIAL IV SCH (10:04)
[2021-08-30] MEDS: METOCLOPRAMIDE HCL 5MG/ml INJ 2ml VIAL IV SCH (10:05)
[2021-08-30] MEDS: SODIUM CHLOR 0.9% PF (SALINE LOCK) 10ML VIAL/SYR IV SCH ×2 (10:05→22:30)
[2021-08-30] MEDS: ALBUMIN 25% 100 ML IV PRN ×2 (13:43→13:45)
[2021-08-30] MEDS: ERTAPENEM SOD INJ 0.5 GM in SODIUM CHL 0.9% 50 ML IV SCH (14:30)
[2021-08-30] MEDS ORDERED: EPOETIN ALFA-EPBX 10,000 UNIT/1ML VIAL SC ONE (21:00)
[2021-08-30] MEDS: IPRATROPIUM BROM 0.5 MG/2.5ML INH SOL NEB PRN (22:18)
[2021-08-30] MEDS: ENOXAPARIN SOD 80 MG/0.8ML SYRINGE SC SCH (22:30)
[2021-08-30] MEDS: ATORVASTATIN 20 MG TAB PO SCH (22:30)
[2021-08-30] MEDS: fentaNYL Drip 2500mCg/250mlNS 250 ML IV SCH (23:59)
[2021-08-31] VITALS (103 sets, daily range): BP systolic 87–144; BP diastolic 10–52
[2021-08-31 02:08] LABS: Hematocrit 28.7 % (41.0-53.0); Hemoglobin 9.4 g/dL (13.5-17.5); Mean Corpuscular Hemoglobin 32.2 pg (28.0-32.0); Mean Corpuscular Hgb Conc. 32.7 g/dL (32.0-36.0); Mean Corpuscular Volume 98.4 fL (80.0-100.0); Red Blood Cells 2.91 10^6/uL (4.5-5.90); White Blood Cell 9.3 10^3/uL (4.4-10.8)
[2021-08-31 02:19] LABS: Red Cell Distribution Width 24.7 % (11.8-14.3)
[2021-08-31 02:20] LABS: Basophils % (manual) 0 (0.0-2.0); Blast Cells 0; Metamyelocytes % 0; Promyelocytes % 0; Reactive Lymphocytes 0
[2021-08-31 02:33] LABS: Albumin 2.1 g/dL (3.4-5.0); BUN/Creatinine Ratio 4.9; Calcium 7.1 mg/dL (8.5-10.1); Potassium 3.2 mmol/L (3.5-5.1)
[2021-08-31 02:36] LABS: Total Protein 5.8 g/dL (6.4-8.2)
[2021-08-31 03:17] LABS: Band Neutrophils % (manual) 7
[2021-08-31 03:18] LABS: Eosinophils % (manual) 2 (0-7); Lymphocytes % (manual) 16 (10.0-50.0); Monocytes % (manual) 14 (0-12); Myelocytes % 1
[2021-08-31] MEDS: ACETAMINOPHEN 650 mg PER 20.3 mL UD GT PRN (04:45)
[2021-08-31] MEDS ORDERED: POTASSIUM CHL 20MEQ/100ML 100 ML IV ONE ×2 (04:54→06:15)
[2021-08-31] MEDS ORDERED: ACETAMINOPHEN 650 mg PER 20.3 mL UD ONE (05:06)
[2021-08-31] MEDS: ACCU-CHEK COMFORT CURVE STRIP VI SCH ×4 (06:00→18:03)
[2021-08-31] MEDS: InsuLIN REG 1unit/0.01ml Soln (100units/ml) SC SCH ×4 (06:00→18:00)
[2021-08-31] MEDS: CALCIUM ACETATE 667 MG CAP PO SCH ×3 (08:52→18:02)
[2021-08-31] MEDS: SILDENAFIL CITRATE 20 MG TAB PO SCH (08:53)
[2021-08-31] MEDS: PANTOPRAZOLE 40 MG/10 ML VIAL INJ IV SCH (10:04)
[2021-08-31] MEDS: METOCLOPRAMIDE HCL 5MG/ml INJ 2ml VIAL IV SCH (10:04)
[2021-08-31] MEDS: SODIUM CHLOR 0.9% PF (SALINE LOCK) 10ML VIAL/SYR IV SCH ×2 (10:05→22:00)
[2021-08-31] MEDS ORDERED: LABETALOL HCL 5 MG/ML 4ML SYRINGE IV PRN (11:45)
[2021-08-31] MEDS: ERTAPENEM SOD INJ 0.5 GM in SODIUM CHL 0.9% 50 ML IV SCH (12:32)
[2021-08-31] MEDS: ALBUTEROL SULF 2.5 MG/0.5ML(0.5%) NEB SOLN NEB PRN (20:14)
[2021-08-31] MEDS: IPRATROPIUM BROM 0.5 MG/2.5ML INH SOL NEB PRN (20:15)
[2021-08-31] MEDS: ATORVASTATIN 20 MG TAB PO SCH (22:00)
[2021-08-31] MEDS: ENOXAPARIN SOD 80 MG/0.8ML SYRINGE SC SCH (22:00)
[2021-08-31] MEDS: fentaNYL Drip 2500mCg/250mlNS 250 ML IV SCH (23:45)
[2021-08-31] MEDS: MIDAZOLAM DRIP 50 mg/50mL 50 ML IV SCH ×2 (23:45)
[2021-09-01] VITALS (106 sets, daily range): BP systolic 90–157; BP diastolic 15–102
[2021-09-01 02:15] LABS: Hematocrit 30.1 % (41.0-53.0); Hemoglobin 9.6 g/dL (13.5-17.5); Mean Corpuscular Hemoglobin 31.9 pg (28.0-32.0); Mean Corpuscular Hgb Conc. 31.9 g/dL (32.0-36.0); Mean Corpuscular Volume 100.1 fL (80.0-100.0); Red Blood Cells 3.01 10^6/uL (4.5-5.90); White Blood Cell 9.8 10^3/uL (4.4-10.8)
[2021-09-01 02:55] LABS: Red Cell Distribution Width 24.4 % (11.8-14.3)
[2021-09-01 02:56] LABS: Basophils % (manual) 0 (0.0-2.0); Blast Cells 0; Metamyelocytes % 0; Promyelocytes % 0; Reactive Lymphocytes 0
[2021-09-01] MEDS: NOREPINEPHRINE 8 MG/250ML KIT 250 ML IV SCH (03:00)
[2021-09-01 03:11] LABS: BUN/Creatinine Ratio 4.7; Calcium 7.7 mg/dL (8.5-10.1); Potassium 3.9 mmol/L (3.5-5.1)
[2021-09-01 05:56] LABS: Band Neutrophils % (manual) 3; Eosinophils % (manual) 3 (0-7); Lymphocytes % (manual) 16 (10.0-50.0); Monocytes % (manual) 15 (0-12); Myelocytes % 4
[2021-09-01] MEDS: ACCU-CHEK COMFORT CURVE STRIP VI SCH ×4 (06:00→19:08)
[2021-09-01] MEDS: InsuLIN REG 1unit/0.01ml Soln (100units/ml) SC SCH ×4 (06:00→18:00)
[2021-09-01] MEDS: CALCIUM ACETATE 667 MG CAP PO SCH ×3 (08:00→18:00)
[2021-09-01] MEDS ORDERED: MEROPENEM 500MG IVPB 50 ML IV ONE (11:15)
[2021-09-01] MEDS ORDERED: FLUCONAZOLE 200MG/100ML 100 ML IV ONE (11:15)
[2021-09-01] MEDS: ALBUMIN 25% 100 ML IV SCH ×2 (12:00→12:56)
[2021-09-01] MEDS: METOCLOPRAMIDE HCL 5MG/ml INJ 2ml VIAL IV SCH (13:02)
[2021-09-01] MEDS: SODIUM CHLOR 0.9% PF (SALINE LOCK) 10ML VIAL/SYR IV SCH ×2 (13:02→21:19)
[2021-09-01] MEDS: PANTOPRAZOLE 40 MG/10 ML VIAL INJ IV SCH (13:02)
[2021-09-01] MEDS ORDERED: EPOETIN ALFA-EPBX 10,000 UNIT/1ML VIAL SC ONE (21:00)
[2021-09-01] MEDS: ATORVASTATIN 20 MG TAB PO SCH (21:19)
[2021-09-01] MEDS: ENOXAPARIN SOD 80 MG/0.8ML SYRINGE SC SCH (21:19)
[2021-09-01] MEDS: MEROPENEM 500MG IVPB 50 ML IV SCH (21:19)
[2021-09-01] MEDS: fentaNYL Drip 2500mCg/250mlNS 250 ML IV SCH (23:45)
[2021-09-01] MEDS: MIDAZOLAM DRIP 50 mg/50mL 50 ML IV SCH (23:45)
[2021-09-02] VITALS (100 sets, daily range): BP systolic 100–145; BP diastolic 20–65
[2021-09-02] MEDS: NOREPINEPHRINE 8 MG/250ML KIT 250 ML IV SCH (03:00)
[2021-09-02 04:24] LABS: Basophils # (auto) 0.3 10 ^3/uL (0-0.2); Basophils % (auto) 2.6 % (0.0-2.0); Eosinophils # (auto) 0.2 10 ^3/uL (0-0.8); Hematocrit 33.8 % (41.0-53.0); Hemoglobin 10.7 g/dL (13.5-17.5); Lymphocytes # (auto) 1.6 10 ^3/uL (0.4-5.4); Lymphocytes % (auto) 13.5 % (10.0-50.0); Mean Corpuscular Hemoglobin 31.5 pg (28.0-32.0); Mean Corpuscular Hgb Conc. 31.8 g/dL (32.0-36.0); Mean Corpuscular Volume 99.2 fL (80.0-100.0); Monocytes # (auto) 1.3 10 ^3/uL (0-1.3); Neutrophils # (auto) 8.4 10 ^3/uL (1.6-8.6); Neutrophils % (auto) 70.9 % (37.0-80.0); Red Blood Cells 3.41 10^6/uL (4.5-5.90); White Blood Cell 11.9 10^3/uL (4.4-10.8)
[2021-09-02 04:31] LABS: BUN/Creatinine Ratio 4.2; Calcium 7.8 mg/dL (8.5-10.1); Potassium 4.5 mmol/L (3.5-5.1); Red Cell Distribution Width 24.4 % (11.8-14.3)
[2021-09-02] MEDS: ACCU-CHEK COMFORT CURVE STRIP VI SCH ×5 (05:30→23:35)
[2021-09-02] MEDS: InsuLIN REG 1unit/0.01ml Soln (100units/ml) SC SCH ×5 (05:30→23:35)
[2021-09-02] MEDS: CALCIUM ACETATE 667 MG CAP PO SCH ×3 (08:00→18:41)
[2021-09-02] MEDS: PANTOPRAZOLE 40 MG/10 ML VIAL INJ IV SCH (09:27)
[2021-09-02] MEDS: METOCLOPRAMIDE HCL 5MG/ml INJ 2ml VIAL IV SCH (09:27)
[2021-09-02] MEDS: SODIUM CHLOR 0.9% PF (SALINE LOCK) 10ML VIAL/SYR IV SCH ×2 (09:28→21:48)
[2021-09-02] MEDS: FLUCONAZOLE 200MG/100ML 100 ML IV SCH ×2 (09:29→11:52)
[2021-09-02] MEDS: ALBUTEROL SULF 2.5 MG/0.5ML(0.5%) NEB SOLN NEB PRN (09:38)
[2021-09-02] MEDS: IPRATROPIUM BROM 0.5 MG/2.5ML INH SOL NEB PRN (09:39)
[2021-09-02] MEDS: MEROPENEM 500MG IVPB 50 ML IV SCH ×2 (10:31→21:48)
[2021-09-02] MEDS: LORazepam 2MG/ML-1ML VIAL IV PRN (21:12)
[2021-09-02] MEDS: ATORVASTATIN 20 MG TAB PO SCH (21:48)
[2021-09-02] MEDS: ENOXAPARIN SOD 80 MG/0.8ML SYRINGE SC SCH (21:49)
[2021-09-02] MEDS: MIDAZOLAM DRIP 50 mg/50mL 50 ML IV SCH (23:45)
[2021-09-02] MEDS: fentaNYL Drip 2500mCg/250mlNS 250 ML IV SCH (23:45)
[2021-09-03] VITALS (104 sets, daily range): BP systolic 93–164; BP diastolic 24–81
[2021-09-03] MEDS: NOREPINEPHRINE 8 MG/250ML KIT 250 ML IV SCH (02:57)
[2021-09-03 04:40] LABS: Basophils # (auto) 0.2 10 ^3/uL (0-0.2); Basophils % (auto) 2.4 % (0.0-2.0); Eosinophils # (auto) 0.2 10 ^3/uL (0-0.8); Eosinophils % (auto) 2.7 % (0.0-7.0); Hematocrit 31.2 % (41.0-53.0); Hemoglobin 10.1 g/dL (13.5-17.5); Lymphocytes # (auto) 1.2 10 ^3/uL (0.4-5.4); Lymphocytes % (auto) 13.7 % (10.0-50.0); Mean Corpuscular Hemoglobin 31.9 pg (28.0-32.0); Mean Corpuscular Hgb Conc. 32.3 g/dL (32.0-36.0); Mean Corpuscular Volume 98.9 fL (80.0-100.0); Monocytes % (auto) 11.1 % (0.0-12.0); Neutrophils # (auto) 6.3 10 ^3/uL (1.6-8.6); Neutrophils % (auto) 70.1 % (37.0-80.0); Nucleated Red Blood Cells % 0.2 %; Red Blood Cells 3.16 10^6/uL (4.5-5.90)
[2021-09-03 04:57] LABS: Potassium 3.6 mmol/L (3.5-5.1)
[2021-09-03 05:02] LABS: BUN/Creatinine Ratio 4.8; Calcium 7.6 mg/dL (8.5-10.1)
[2021-09-03 05:05] LABS: Bilirubin, Total 0.7 mg/dL (0.2-1.0); Total Protein 6.3 g/dL (6.4-8.2)
[2021-09-03 05:08] LABS: Red Cell Distribution Width 23.9 % (11.8-14.3)
[2021-09-03] MEDS: InsuLIN REG 1unit/0.01ml Soln (100units/ml) SC SCH ×3 (05:45→18:00)
[2021-09-03] MEDS: ACCU-CHEK COMFORT CURVE STRIP VI SCH ×3 (05:45→18:24)
[2021-09-03] MEDS: LORazepam 2MG/ML-1ML VIAL IV PRN (05:46)
[2021-09-03] MEDS ORDERED: SODIUM CHL 0.9% 1000 ML BAG XX ONE (07:00)
[2021-09-03] MEDS: CALCIUM ACETATE 667 MG CAP PO SCH ×3 (07:56→18:24)
[2021-09-03] MEDS: METOCLOPRAMIDE HCL 5MG/ml INJ 2ml VIAL IV SCH (10:00)
[2021-09-03] MEDS: MEROPENEM 500MG IVPB 50 ML IV SCH ×2 (10:00→22:26)
[2021-09-03] MEDS: SODIUM CHLOR 0.9% PF (SALINE LOCK) 10ML VIAL/SYR IV SCH ×2 (10:00→22:26)
[2021-09-03] MEDS: PANTOPRAZOLE 40 MG/10 ML VIAL INJ IV SCH (10:00)
[2021-09-03] MEDS ORDERED: VANCOMYCIN 500 MG in D5W 5% 100 ML IV ONE (20:00)
[2021-09-03] MEDS ORDERED: EPOETIN ALFA-EPBX 10,000 UNIT/1ML VIAL SC ONE (21:00)
[2021-09-03] MEDS: ATORVASTATIN 20 MG TAB PO SCH (22:26)
[2021-09-03] MEDS: ENOXAPARIN SOD 80 MG/0.8ML SYRINGE SC SCH (22:26)
[2021-09-03] MEDS: MIDAZOLAM DRIP 50 mg/50mL 50 ML IV SCH (22:42)
[2021-09-03] MEDS: fentaNYL Drip 2500mCg/250mlNS 250 ML IV SCH (22:42)
[2021-09-04] VITALS (75 sets, daily range): BP systolic 108–152; BP diastolic 20–95
[2021-09-04] MEDS: NOREPINEPHRINE 8 MG/250ML KIT 250 ML IV SCH (03:00)
[2021-09-04] MEDS: ACCU-CHEK COMFORT CURVE STRIP VI SCH ×4 (06:00→17:47)
[2021-09-04] MEDS: InsuLIN REG 1unit/0.01ml Soln (100units/ml) SC SCH ×4 (06:00→17:46)
[2021-09-04] MEDS: IPRATROPIUM BROM 0.5 MG/2.5ML INH SOL NEB PRN ×2 (07:15→13:20)
[2021-09-04] MEDS: CALCIUM ACETATE 667 MG CAP PO SCH ×3 (07:46→17:32)
[2021-09-04] MEDS: MEROPENEM 500MG IVPB 50 ML IV SCH ×2 (10:00→22:22)
[2021-09-04] MEDS: FLUCONAZOLE 200MG/100ML 100 ML IV SCH (10:01)
[2021-09-04] MEDS: PANTOPRAZOLE 40 MG/10 ML VIAL INJ IV SCH (10:01)
[2021-09-04] MEDS: METOCLOPRAMIDE HCL 5MG/ml INJ 2ml VIAL IV SCH (10:01)
[2021-09-04] MEDS: SODIUM CHLOR 0.9% PF (SALINE LOCK) 10ML VIAL/SYR IV SCH ×2 (10:03→22:22)
[2021-09-04] MEDS ORDERED: MEROPENEM 1GM IVPB 100 ML IV ONE (11:15)
[2021-09-04 11:33] LABS: BUN/Creatinine Ratio 4.9; Magnesium 2.8 mg/dL (1.6-2.6)
[2021-09-04] MEDS: ALBUTEROL SULF 2.5 MG/0.5ML(0.5%) NEB SOLN NEB PRN ×2 (13:15→13:20)
[2021-09-04] MEDS: ATORVASTATIN 20 MG TAB PO SCH (22:22)
[2021-09-04] MEDS: ENOXAPARIN SOD 80 MG/0.8ML SYRINGE SC SCH (22:23)
[2021-09-04] MEDS: fentaNYL Drip 2500mCg/250mlNS 250 ML IV SCH (23:45)
[2021-09-04] MEDS: MIDAZOLAM DRIP 50 mg/50mL 50 ML IV SCH (23:45)
[2021-09-05] VITALS (56 sets, daily range): BP systolic 114–155; BP diastolic 31–82
[2021-09-05] MEDS: InsuLIN REG 1unit/0.01ml Soln (100units/ml) SC SCH ×4 (00:55→18:00)
[2021-09-05] MEDS: NOREPINEPHRINE 8 MG/250ML KIT 250 ML IV SCH (03:00)
[2021-09-05 04:45] LABS: Potassium 3.5 mmol/L (3.5-5.1)
[2021-09-05 04:51] LABS: BUN/Creatinine Ratio 5.4; Calcium 7.7 mg/dL (8.5-10.1)
[2021-09-05] MEDS: ACCU-CHEK COMFORT CURVE STRIP VI SCH ×4 (06:00→18:52)
[2021-09-05] MEDS: LORazepam 2MG/ML-1ML VIAL IV PRN (06:42)
[2021-09-05] MEDS: PANTOPRAZOLE 40 MG/10 ML VIAL INJ IV SCH (10:49)
[2021-09-05] MEDS: MEROPENEM 500MG IVPB 50 ML IV SCH ×2 (10:49→22:18)
[2021-09-05] MEDS: ENOXAPARIN SOD 80 MG/0.8ML SYRINGE SC SCH (10:49)
[2021-09-05] MEDS: METOCLOPRAMIDE HCL 5MG/ml INJ 2ml VIAL IV SCH (10:49)
[2021-09-05] MEDS: FLUCONAZOLE 200MG/100ML 100 ML IV SCH (10:50)
[2021-09-05] MEDS: CALCIUM ACETATE 667 MG CAP PO SCH ×3 (10:50→18:41)
[2021-09-05] MEDS: SODIUM CHLOR 0.9% PF (SALINE LOCK) 10ML VIAL/SYR IV SCH ×2 (10:51→22:18)
[2021-09-05] MEDS: IPRATROPIUM BROM 0.5 MG/2.5ML INH SOL NEB PRN ×3 (12:06→18:29)
[2021-09-05] MEDS: ALBUTEROL SULF 2.5 MG/0.5ML(0.5%) NEB SOLN NEB PRN ×3 (12:06→18:29)
[2021-09-05] MEDS: ATORVASTATIN 20 MG TAB PO SCH (22:18)
[2021-09-05] MEDS: fentaNYL Drip 2500mCg/250mlNS 250 ML IV SCH (23:45)
[2021-09-05] MEDS: MIDAZOLAM DRIP 50 mg/50mL 50 ML IV SCH (23:45)
[2021-09-06] VITALS (87 sets, daily range): BP systolic 113–161; BP diastolic 22–78
[2021-09-06] MEDS: NOREPINEPHRINE 8 MG/250ML KIT 250 ML IV SCH (02:52)
[2021-09-06 05:29] LABS: Basophils # (auto) 0 10 ^3/uL (0-0.2); Basophils % (auto) 0.4 % (0.0-2.0); Eosinophils # (auto) 1.2 10 ^3/uL (0-0.8); Eosinophils % (auto) 10.6 % (0.0-7.0); Hematocrit 32.8 % (41.0-53.0); Hemoglobin 10.4 g/dL (13.5-17.5); Lymphocytes # (auto) 1.3 10 ^3/uL (0.4-5.4); Mean Corpuscular Hemoglobin 31.6 pg (28.0-32.0); Mean Corpuscular Hgb Conc. 31.6 g/dL (32.0-36.0); Monocytes # (auto) 0.9 10 ^3/uL (0-1.3); Monocytes % (auto) 8.2 % (0.0-12.0); Neutrophils # (auto) 7.7 10 ^3/uL (1.6-8.6); Neutrophils % (auto) 68.8 % (37.0-80.0); Nucleated Red Blood Cells % 0.1 %; Red Blood Cells 3.28 10^6/uL (4.5-5.90); White Blood Cell 11.2 10^3/uL (4.4-10.8)
[2021-09-06 05:39] LABS: Red Cell Distribution Width 23.1 % (11.8-14.3)
[2021-09-06 05:47] LABS: INR 1.13 (0.9-1.15); Partial Thromboplastin Time 36.4 sec (23.6-33.0)
[2021-09-06 05:48] LABS: BUN/Creatinine Ratio 5.7; Calcium 7.7 mg/dL (8.5-10.1); Potassium 3.5 mmol/L (3.5-5.1)
[2021-09-06] MEDS: ACCU-CHEK COMFORT CURVE STRIP VI SCH ×4 (06:00→18:45)
[2021-09-06] MEDS: InsuLIN REG 1unit/0.01ml Soln (100units/ml) SC SCH ×4 (06:00→18:46)
[2021-09-06] MEDS: CALCIUM ACETATE 667 MG CAP PO SCH ×3 (08:00→18:45)
[2021-09-06] MEDS: FLUCONAZOLE 200MG/100ML 100 ML IV SCH (09:13)
[2021-09-06] MEDS: PANTOPRAZOLE 40 MG/10 ML VIAL INJ IV SCH (09:13)
[2021-09-06] MEDS: METOCLOPRAMIDE HCL 5MG/ml INJ 2ml VIAL IV SCH (09:13)
[2021-09-06] MEDS: SODIUM CHLOR 0.9% PF (SALINE LOCK) 10ML VIAL/SYR IV SCH ×2 (09:13→22:06)
[2021-09-06] MEDS: MEROPENEM 500MG IVPB 50 ML IV SCH ×2 (11:18→22:05)
[2021-09-06] MEDS ORDERED: MORPHINE SULFATE INJECTION 2 MG/ML SYRG ONE (18:59)
[2021-09-06] MEDS ORDERED: MORPHINE SULFATE INJECTION 2 MG/ML SYRG IV ONE (19:00)
[2021-09-06] MEDS: ENOXAPARIN SOD 80 MG/0.8ML SYRINGE SC SCH (22:06)
[2021-09-06] MEDS: ATORVASTATIN 20 MG TAB PO SCH (22:06)
[2021-09-06] MEDS: fentaNYL Drip 2500mCg/250mlNS 250 ML IV SCH (23:45)
[2021-09-06] MEDS: MIDAZOLAM DRIP 50 mg/50mL 50 ML IV SCH (23:45)
[2021-09-07] VITALS (91 sets, daily range): BP systolic 111–165; BP diastolic 25–69
[2021-09-07] MEDS: NOREPINEPHRINE 8 MG/250ML KIT 250 ML IV SCH (03:00)
[2021-09-07 04:17] LABS: Basophils # (auto) 0.3 10 ^3/uL (0-0.2); Basophils % (auto) 2.1 % (0.0-2.0); Eosinophils # (auto) 1.7 10 ^3/uL (0-0.8); Eosinophils % (auto) 13.2 % (0.0-7.0); Hematocrit 31.6 % (41.0-53.0); Hemoglobin 9.9 g/dL (13.5-17.5); Lymphocytes # (auto) 1.5 10 ^3/uL (0.4-5.4); Lymphocytes % (auto) 11.6 % (10.0-50.0); Mean Corpuscular Hemoglobin 31.5 pg (28.0-32.0); Mean Corpuscular Hgb Conc. 31.4 g/dL (32.0-36.0); Mean Corpuscular Volume 100.2 fL (80.0-100.0); Monocytes % (auto) 7.9 % (0.0-12.0); Neutrophils # (auto) 8.6 10 ^3/uL (1.6-8.6); Neutrophils % (auto) 65.2 % (37.0-80.0); Nucleated Red Blood Cells % 0.1 %; Red Blood Cells 3.16 10^6/uL (4.5-5.90); White Blood Cell 13.1 10^3/uL (4.4-10.8)
[2021-09-07 04:22] LABS: Red Cell Distribution Width 23.3 % (11.8-14.3)
[2021-09-07 04:41] LABS: BUN/Creatinine Ratio 6.3; Calcium 7.3 mg/dL (8.5-10.1); Magnesium 2.3 mg/dL (1.6-2.6); Potassium 3.4 mmol/L (3.5-5.1)
[2021-09-07 04:43] LABS: Bilirubin, Total 0.8 mg/dL (0.2-1.0); Total Protein 6.7 g/dL (6.4-8.2)
[2021-09-07] MEDS: InsuLIN REG 1unit/0.01ml Soln (100units/ml) SC SCH ×4 (06:00→17:35)
[2021-09-07] MEDS: ACCU-CHEK COMFORT CURVE STRIP VI SCH ×4 (06:00→17:36)
[2021-09-07] MEDS ORDERED: MORPHINE SULFATE INJECTION 2 MG/ML SYRG IV ONE (06:45)
[2021-09-07] MEDS ORDERED: SODIUM CHL 0.9% 1000 ML BAG XX ONE (07:00)
[2021-09-07] MEDS ORDERED: ALBUMIN 25% 100 ML IV PRN (07:45)
[2021-09-07] MEDS: METOCLOPRAMIDE HCL 5MG/ml INJ 2ml VIAL IV SCH (11:01)
[2021-09-07] MEDS: FLUCONAZOLE 200MG/100ML 100 ML IV SCH (11:01)
[2021-09-07] MEDS: CALCIUM ACETATE 667 MG CAP PO SCH ×3 (11:02→18:00)
[2021-09-07] MEDS: PANTOPRAZOLE 40 MG/10 ML VIAL INJ IV SCH (11:02)
[2021-09-07] MEDS: SODIUM CHLOR 0.9% PF (SALINE LOCK) 10ML VIAL/SYR IV SCH ×2 (11:02→22:02)
[2021-09-07] MEDS: MEROPENEM 500MG IVPB 50 ML IV SCH ×2 (12:03→22:02)
[2021-09-07] MEDS ORDERED: VANCOMYCIN 500 MG in D5W 5% 100 ML IV ONE (17:30)
[2021-09-07] MEDS: MORPHINE SULFATE INJECTION 2 MG/ML SYRG IV PRN (17:50)
[2021-09-07] MEDS ORDERED: EPOETIN ALFA-EPBX 10,000 UNIT/1ML VIAL SC ONE (21:00)
[2021-09-07] MEDS: ATORVASTATIN 20 MG TAB PO SCH (22:00)
[2021-09-07] MEDS: ENOXAPARIN SOD 80 MG/0.8ML SYRINGE SC SCH (22:02)
[2021-09-08] VITALS (28 sets, daily range): BP systolic 127–164; BP diastolic 40–70
[2021-09-08] MEDS: MORPHINE SULFATE INJECTION 2 MG/ML SYRG IV PRN ×4 (01:48→21:55)
[2021-09-08 04:05] LABS: Basophils # (auto) 0.3 10 ^3/uL (0-0.2); Basophils % (auto) 2.5 % (0.0-2.0); Eosinophils # (auto) 1.8 10 ^3/uL (0-0.8); Hematocrit 32.9 % (41.0-53.0); Hemoglobin 10.3 g/dL (13.5-17.5); Lymphocytes # (auto) 1.8 10 ^3/uL (0.4-5.4); Lymphocytes % (auto) 14.5 % (10.0-50.0); Mean Corpuscular Hemoglobin 31.3 pg (28.0-32.0); Mean Corpuscular Hgb Conc. 31.4 g/dL (32.0-36.0); Mean Corpuscular Volume 99.5 fL (80.0-100.0); Monocytes # (auto) 1.2 10 ^3/uL (0-1.3); Monocytes % (auto) 9.9 % (0.0-12.0); Neutrophils # (auto) 7.4 10 ^3/uL (1.6-8.6); Neutrophils % (auto) 59.1 % (37.0-80.0); White Blood Cell 12.6 10^3/uL (4.4-10.8)
[2021-09-08 04:21] LABS: Red Cell Distribution Width 22.3 % (11.8-14.3)
[2021-09-08 04:27] LABS: Albumin 2.7 g/dL (3.4-5.0); Calcium 7.9 mg/dL (8.5-10.1); Potassium 3.5 mmol/L (3.5-5.1)
[2021-09-08 04:31] LABS: BUN/Creatinine Ratio 5.4; Bilirubin, Total 0.8 mg/dL (0.2-1.0); Total Protein 7.3 g/dL (6.4-8.2)
[2021-09-08] MEDS: ACCU-CHEK COMFORT CURVE STRIP VI SCH ×4 (06:00→18:29)
[2021-09-08] MEDS: InsuLIN REG 1unit/0.01ml Soln (100units/ml) SC SCH ×4 (06:00→18:00)
[2021-09-08] MEDS: CALCIUM ACETATE 667 MG CAP PO SCH ×3 (08:00→18:00)
[2021-09-08] MEDS: FLUCONAZOLE 200MG/100ML 100 ML IV SCH (09:43)
[2021-09-08] MEDS: PANTOPRAZOLE 40 MG/10 ML VIAL INJ IV SCH (09:47)
[2021-09-08] MEDS: MEROPENEM 500MG IVPB 50 ML IV SCH ×2 (09:52→21:54)
[2021-09-08] MEDS: SODIUM CHLOR 0.9% PF (SALINE LOCK) 10ML VIAL/SYR IV SCH ×2 (10:00→21:54)
[2021-09-08] MEDS: ENOXAPARIN SOD 80 MG/0.8ML SYRINGE SC SCH (21:54)
[2021-09-08] MEDS: ATORVASTATIN 20 MG TAB PO SCH (21:56)
[2021-09-09] MEDS: ACCU-CHEK COMFORT CURVE STRIP VI SCH ×5 (00:14→23:50)
[2021-09-09] MEDS: InsuLIN REG 1unit/0.01ml Soln (100units/ml) SC SCH ×5 (05:37→23:50)
[2021-09-09] MEDS: CALCIUM ACETATE 667 MG CAP PO SCH ×3 (08:00→18:00)
[2021-09-09 08:09] LABS: Basophils # (auto) 0.2 10 ^3/uL (0-0.2); Basophils % (auto) 2.7 % (0.0-2.0); Eosinophils # (auto) 1.3 10 ^3/uL (0-0.8); Eosinophils % (auto) 14.6 % (0.0-7.0); Hematocrit 34.7 % (41.0-53.0); Hemoglobin 10.8 g/dL (13.5-17.5); Lymphocytes # (auto) 1.5 10 ^3/uL (0.4-5.4); Lymphocytes % (auto) 16.1 % (10.0-50.0); Mean Corpuscular Hemoglobin 31.1 pg (28.0-32.0); Mean Corpuscular Hgb Conc. 31.1 g/dL (32.0-36.0); Mean Corpuscular Volume 99.8 fL (80.0-100.0); Monocytes % (auto) 10.7 % (0.0-12.0); Neutrophils # (auto) 5.1 10 ^3/uL (1.6-8.6); Neutrophils % (auto) 55.9 % (37.0-80.0); Nucleated Red Blood Cells % 0.1 %; Red Blood Cells 3.47 10^6/uL (4.5-5.90); Red Cell Distribution Width 22.2 % (11.8-14.3); White Blood Cell 9.2 10^3/uL (4.4-10.8)
[2021-09-09 09:04] LABS: Potassium 3.8 mmol/L (3.5-5.1)
[2021-09-09 09:15] LABS: BUN/Creatinine Ratio 6.3; Calcium 8.3 mg/dL (8.5-10.1)
[2021-09-09] MEDS: FLUCONAZOLE 200MG/100ML 100 ML IV SCH (09:52)
[2021-09-09] MEDS: MEROPENEM 500MG IVPB 50 ML IV SCH ×2 (09:52→22:00)
[2021-09-09] MEDS: PANTOPRAZOLE 40 MG/10 ML VIAL INJ IV SCH (09:57)
[2021-09-09] MEDS: MORPHINE SULFATE INJECTION 2 MG/ML SYRG IV PRN ×2 (10:09→20:12)
[2021-09-09 14:04] VITALS: BP 135/81
[2021-09-09] MEDS: SODIUM CHLOR 0.9% PF (SALINE LOCK) 10ML VIAL/SYR IV SCH ×2 (17:37→23:20)
[2021-09-09 17:38] VITALS: BP 147/64
[2021-09-09 22:00] VITALS: BP 145/60
[2021-09-09] MEDS: ENOXAPARIN SOD 80 MG/0.8ML SYRINGE SC SCH ×2 (23:18→23:19)
[2021-09-09] MEDS: ATORVASTATIN 20 MG TAB PO SCH (23:19)
[2021-09-10] MEDS: MORPHINE SULFATE INJECTION 2 MG/ML SYRG IV PRN ×4 (02:20→20:51)
[2021-09-10 05:00] VITALS: BP 131/70
[2021-09-10] MEDS: ACCU-CHEK COMFORT CURVE STRIP VI SCH ×3 (05:44→17:47)
[2021-09-10] MEDS: InsuLIN REG 1unit/0.01ml Soln (100units/ml) SC SCH ×3 (05:45→17:47)
[2021-09-10] MEDS ORDERED: SODIUM CHL 0.9% 1000 ML BAG XX ONE (07:00)
[2021-09-10] MEDS: CALCIUM ACETATE 667 MG CAP PO SCH ×3 (08:00→17:46)
[2021-09-10 09:00] VITALS: BP 147/50
[2021-09-10] MEDS: SODIUM CHLOR 0.9% PF (SALINE LOCK) 10ML VIAL/SYR IV SCH ×2 (10:08→22:00)
[2021-09-10] MEDS: FLUCONAZOLE 200MG/100ML 100 ML IV SCH (10:08)
[2021-09-10] MEDS: PANTOPRAZOLE 40 MG/10 ML VIAL INJ IV SCH (10:08)
[2021-09-10 10:41] LABS: Basophils # (auto) 0.4 10 ^3/uL (0-0.2); Basophils % (auto) 3.6 % (0.0-2.0); Eosinophils # (auto) 1.2 10 ^3/uL (0-0.8); Eosinophils % (auto) 11.5 % (0.0-7.0); Hematocrit 33.7 % (41.0-53.0); Hemoglobin 10.5 g/dL (13.5-17.5); Lymphocytes # (auto) 1.4 10 ^3/uL (0.4-5.4); Lymphocytes % (auto) 13.7 % (10.0-50.0); Mean Corpuscular Hemoglobin 31.3 pg (28.0-32.0); Mean Corpuscular Hgb Conc. 31.3 g/dL (32.0-36.0); Mean Corpuscular Volume 100.2 fL (80.0-100.0); Monocytes % (auto) 9.9 % (0.0-12.0); Neutrophils # (auto) 6.2 10 ^3/uL (1.6-8.6); Neutrophils % (auto) 61.3 % (37.0-80.0); Nucleated Red Blood Cells % 0.1 %; Red Blood Cells 3.36 10^6/uL (4.5-5.90); Red Cell Distribution Width 21.8 % (11.8-14.3); White Blood Cell 10.2 10^3/uL (4.4-10.8)
[2021-09-10 10:59] LABS: % Iron Saturation 30.2 % (20-55)
[2021-09-10 11:02] LABS: BUN/Creatinine Ratio 6.7; Calcium 7.8 mg/dL (8.5-10.1); Magnesium 3.2 mg/dL (1.6-2.6); Potassium 4.2 mmol/L (3.5-5.1)
[2021-09-10] MEDS: MEROPENEM 500MG IVPB 50 ML IV SCH ×2 (12:00→22:36)
[2021-09-10 13:00] VITALS: BP 159/84
[2021-09-10 16:50] VITALS: BP 150/58
[2021-09-10] MEDS ORDERED: EPOETIN ALFA-EPBX 10,000 UNIT/1ML VIAL SC ONE (21:00)
[2021-09-10 22:00] VITALS: BP 153/77
[2021-09-10] MEDS: ATORVASTATIN 20 MG TAB PO SCH (22:37)
[2021-09-11] MEDS: ACCU-CHEK COMFORT CURVE STRIP VI SCH ×5 (00:12→23:42)
[2021-09-11] MEDS: MORPHINE SULFATE INJECTION 2 MG/ML SYRG IV PRN ×4 (00:50→20:23)
[2021-09-11 05:00] VITALS: BP 150/72
[2021-09-11] MEDS: InsuLIN REG 1unit/0.01ml Soln (100units/ml) SC SCH ×5 (06:40→23:42)
[2021-09-11 07:20] LABS: Basophils # (auto) 0.3 10 ^3/uL (0-0.2); Basophils % (auto) 2.8 % (0.0-2.0); Eosinophils % (auto) 10.1 % (0.0-7.0); Hematocrit 34.8 % (41.0-53.0); Hemoglobin 10.9 g/dL (13.5-17.5); Lymphocytes # (auto) 1.6 10 ^3/uL (0.4-5.4); Lymphocytes % (auto) 16.2 % (10.0-50.0); Mean Corpuscular Hemoglobin 31.1 pg (28.0-32.0); Mean Corpuscular Hgb Conc. 31.3 g/dL (32.0-36.0); Mean Corpuscular Volume 99.6 fL (80.0-100.0); Monocytes # (auto) 1.2 10 ^3/uL (0-1.3); Monocytes % (auto) 12.2 % (0.0-12.0); Neutrophils # (auto) 5.7 10 ^3/uL (1.6-8.6); Neutrophils % (auto) 58.7 % (37.0-80.0); Nucleated Red Blood Cells % 0.1 %; Red Blood Cells 3.49 10^6/uL (4.5-5.90); Red Cell Distribution Width 21.2 % (11.8-14.3); White Blood Cell 9.7 10^3/uL (4.4-10.8)
[2021-09-11 07:31] LABS: Albumin 2.4 g/dL (3.4-5.0); Bilirubin, Total 0.8 mg/dL (0.2-1.0); Calcium 7.8 mg/dL (8.5-10.1); Total Protein 7.2 g/dL (6.4-8.2)
[2021-09-11 08:00] VITALS: BP 124/81
[2021-09-11] MEDS: CALCIUM ACETATE 667 MG CAP PO SCH ×3 (11:25→18:00)
[2021-09-11] MEDS: FLUCONAZOLE 200MG/100ML 100 ML IV SCH (11:26)
[2021-09-11] MEDS: MEROPENEM 500MG IVPB 50 ML IV SCH ×2 (11:26→21:26)
[2021-09-11] MEDS: PANTOPRAZOLE 40 MG/10 ML VIAL INJ IV SCH (11:26)
[2021-09-11] MEDS: SODIUM CHLOR 0.9% PF (SALINE LOCK) 10ML VIAL/SYR IV SCH ×2 (11:27→21:19)
[2021-09-11 12:00] VITALS: BP 147/63
[2021-09-11] MEDS ORDERED: HEPARIN SODIUM (PORCINE) 5000 UNITS/ML 1ML VIAL IV ONE ×2 (15:15)
[2021-09-11] MEDS ORDERED: HEPARIN SODIUM (PORCINE) 5000 UNITS/ML 1ML VIAL ONE (15:41)
[2021-09-11 17:00] VITALS: BP 126/42
[2021-09-11] MEDS: Nepro With Carb Steady 1 Liter Bottle GT SCH (20:24)
[2021-09-11] MEDS: ATORVASTATIN 20 MG TAB PO SCH (21:19)
[2021-09-11] MEDS: ENOXAPARIN SOD 80 MG/0.8ML SYRINGE SC SCH (21:25)
[2021-09-11 22:00] VITALS: BP 153/60
[2021-09-12] MEDS: MORPHINE SULFATE INJECTION 2 MG/ML SYRG IV PRN ×5 (00:24→22:43)
[2021-09-12 05:00] VITALS: BP 141/72
[2021-09-12] MEDS: InsuLIN REG 1unit/0.01ml Soln (100units/ml) SC SCH ×3 (06:00→18:35)
[2021-09-12] MEDS: ACCU-CHEK COMFORT CURVE STRIP VI SCH ×3 (06:00→18:27)
[2021-09-12] MEDS: CALCIUM ACETATE 667 MG CAP PO SCH ×3 (08:31→18:00)
[2021-09-12 09:30] VITALS: BP 110/82
[2021-09-12] MEDS: PANTOPRAZOLE 40 MG/10 ML VIAL INJ IV SCH (09:30)
[2021-09-12] MEDS: FLUCONAZOLE 200MG/100ML 100 ML IV SCH (09:30)
[2021-09-12] MEDS: MEROPENEM 500MG IVPB 50 ML IV SCH ×2 (10:58→22:42)
[2021-09-12] MEDS: SODIUM CHLOR 0.9% PF (SALINE LOCK) 10ML VIAL/SYR IV SCH ×2 (10:58→22:20)
[2021-09-12 12:00] VITALS: BP 131/48
[2021-09-12 22:00] VITALS: BP 131/54
[2021-09-12] MEDS: ATORVASTATIN 20 MG TAB PO SCH (22:00)
[2021-09-12] MEDS: ENOXAPARIN SOD 80 MG/0.8ML SYRINGE SC SCH (22:00)
[2021-09-12] MEDS: Nepro With Carb Steady 1 Liter Bottle GT SCH (22:36)
[2021-09-13] MEDS: MORPHINE SULFATE INJECTION 2 MG/ML SYRG IV PRN ×4 (03:47→20:46)
[2021-09-13 05:00] VITALS: BP 127/97
[2021-09-13] MEDS: InsuLIN REG 1unit/0.01ml Soln (100units/ml) SC SCH ×4 (06:00→18:39)
[2021-09-13] MEDS: ACCU-CHEK COMFORT CURVE STRIP VI SCH ×4 (06:20→18:38)
[2021-09-13] MEDS: CALCIUM ACETATE 667 MG CAP PO SCH ×3 (08:00→17:48)
[2021-09-13 08:20] VITALS: BP 142/55
[2021-09-13] MEDS: PANTOPRAZOLE 40 MG/10 ML VIAL INJ IV SCH (10:23)
[2021-09-13] MEDS: MEROPENEM 500MG IVPB 50 ML IV SCH ×2 (10:23→20:26)
[2021-09-13] MEDS: FLUCONAZOLE 200MG/100ML 100 ML IV SCH (10:23)
[2021-09-13] MEDS: SODIUM CHLOR 0.9% PF (SALINE LOCK) 10ML VIAL/SYR IV SCH ×2 (10:24→20:27)
[2021-09-13 13:11] VITALS: BP 152/83
[2021-09-13 14:35] VITALS: BP 143/70
[2021-09-13] MEDS: ATORVASTATIN 20 MG TAB PO SCH (20:26)
[2021-09-13 22:00] VITALS: BP 134/48
[2021-09-13] MEDS: ENOXAPARIN SOD 80 MG/0.8ML SYRINGE SC SCH (22:08)
[2021-09-14 05:00] VITALS: BP 124/52
[2021-09-14] MEDS: ACCU-CHEK COMFORT CURVE STRIP VI SCH ×5 (06:00→23:38)
[2021-09-14] MEDS: InsuLIN REG 1unit/0.01ml Soln (100units/ml) SC SCH ×5 (06:25→23:55)
[2021-09-14] MEDS ORDERED: SODIUM CHL 0.9% 1000 ML BAG XX ONE (07:00)
[2021-09-14] MEDS: CALCIUM ACETATE 667 MG CAP PO SCH ×3 (07:10→18:00)
[2021-09-14 07:52] LABS: Hematocrit 32.1 % (41.0-53.0); Hemoglobin 10.4 g/dL (13.5-17.5)
[2021-09-14 08:14] LABS: BUN/Creatinine Ratio 7.8; Calcium 7.8 mg/dL (8.5-10.1); Magnesium 3.1 mg/dL (1.6-2.6); Potassium 3.3 mmol/L (3.5-5.1)
[2021-09-14] MEDS: MORPHINE SULFATE INJECTION 2 MG/ML SYRG IV PRN ×2 (09:27→20:25)
[2021-09-14] MEDS: SODIUM CHLOR 0.9% PF (SALINE LOCK) 10ML VIAL/SYR IV SCH ×2 (10:44→20:23)
[2021-09-14] MEDS: MEROPENEM 500MG IVPB 50 ML IV SCH ×2 (11:19→23:38)
[2021-09-14] MEDS: FLUCONAZOLE 200MG/100ML 100 ML IV SCH (11:19)
[2021-09-14] MEDS: PANTOPRAZOLE 40 MG/10 ML VIAL INJ IV SCH (11:19)
[2021-09-14 17:00] VITALS: BP 138/85
[2021-09-14] MEDS: ATORVASTATIN 20 MG TAB PO SCH (20:23)
[2021-09-14] MEDS: APIXABAN 2.5 MG TAB PO SCH (20:23)
[2021-09-14] MEDS ORDERED: EPOETIN ALFA-EPBX 10,000 UNIT/1ML VIAL SC ONE (21:00)
[2021-09-14 22:00] VITALS: BP 154/79
[2021-09-14] MEDS: Nepro With Carb Steady 1 Liter Bottle GT SCH (23:15)
[2021-09-15] MEDS: MORPHINE SULFATE INJECTION 2 MG/ML SYRG IV PRN ×3 (01:36→20:45)
[2021-09-15 05:00] VITALS: BP 155/56
[2021-09-15] MEDS: ACCU-CHEK COMFORT CURVE STRIP VI SCH ×4 (05:58→23:30)
[2021-09-15] MEDS: InsuLIN REG 1unit/0.01ml Soln (100units/ml) SC SCH ×4 (05:58→23:30)
[2021-09-15 09:00] VITALS: BP 130/74
[2021-09-15] MEDS: SODIUM CHLOR 0.9% PF (SALINE LOCK) 10ML VIAL/SYR IV SCH ×2 (10:00→20:44)
[2021-09-15] MEDS: PANTOPRAZOLE 40 MG/10 ML VIAL INJ IV SCH (10:59)
[2021-09-15] MEDS: MEROPENEM 500MG IVPB 50 ML IV SCH ×2 (10:59→21:55)
[2021-09-15] MEDS: CALCIUM ACETATE 667 MG CAP PO SCH ×3 (10:59→18:34)
[2021-09-15] MEDS: APIXABAN 2.5 MG TAB PO SCH ×2 (11:00→20:45)
[2021-09-15] MEDS ORDERED: SODIUM CHL 0.9% 1000 ML BAG XX ONE (12:00)
[2021-09-15 16:45] LABS: Hematocrit 33.1 % (41.0-53.0); Hemoglobin 10.5 g/dL (13.5-17.5)
[2021-09-15 17:00] VITALS: BP 137/54
[2021-09-15] MEDS: ATORVASTATIN 20 MG TAB PO SCH (20:45)
[2021-09-15] MEDS ORDERED: EPOETIN ALFA-EPBX 4,000 UNIT/ML VIAL SC ONE (21:00)
[2021-09-15 21:53] VITALS: BP 114/61
[2021-09-16] MEDS: MORPHINE SULFATE INJECTION 2 MG/ML SYRG IV PRN ×3 (01:35→10:31)
[2021-09-16 05:00] VITALS: BP 152/77
[2021-09-16 05:14] LABS: Basophils # (auto) 0.2 10 ^3/uL (0-0.2); Basophils % (auto) 2.2 % (0.0-2.0); Eosinophils # (auto) 0.8 10 ^3/uL (0-0.8); Eosinophils % (auto) 8.3 % (0.0-7.0); Hematocrit 32.1 % (41.0-53.0); Hemoglobin 10.4 g/dL (13.5-17.5); Lymphocytes # (auto) 1.9 10 ^3/uL (0.4-5.4); Lymphocytes % (auto) 19.9 % (10.0-50.0); Mean Corpuscular Hemoglobin 31.8 pg (28.0-32.0); Mean Corpuscular Hgb Conc. 32.6 g/dL (32.0-36.0); Mean Corpuscular Volume 97.7 fL (80.0-100.0); Monocytes # (auto) 0.9 10 ^3/uL (0-1.3); Monocytes % (auto) 9.7 % (0.0-12.0); Neutrophils # (auto) 5.6 10 ^3/uL (1.6-8.6); Neutrophils % (auto) 59.9 % (37.0-80.0); Nucleated Red Blood Cells % 0.1 %; Red Blood Cells 3.29 10^6/uL (4.5-5.90); White Blood Cell 9.4 10^3/uL (4.4-10.8)
[2021-09-16 05:38] LABS: Red Cell Distribution Width 20.1 % (11.8-14.3)
[2021-09-16 05:47] LABS: Calcium 7.5 mg/dL (8.5-10.1); Potassium 3.7 mmol/L (3.5-5.1)
[2021-09-16] MEDS: ACCU-CHEK COMFORT CURVE STRIP VI SCH ×3 (06:07→18:35)
[2021-09-16] MEDS: InsuLIN REG 1unit/0.01ml Soln (100units/ml) SC SCH ×4 (06:07→23:55)
[2021-09-16] MEDS: CALCIUM ACETATE 667 MG CAP PO SCH ×4 (08:44→18:42)
[2021-09-16] MEDS: APIXABAN 2.5 MG TAB PO SCH ×2 (08:45→23:02)
[2021-09-16] MEDS: PANTOPRAZOLE 40 MG/10 ML VIAL INJ IV SCH (09:02)
[2021-09-16] MEDS: MEROPENEM 500MG IVPB 50 ML IV SCH ×2 (09:11→23:03)
[2021-09-16] MEDS: SODIUM CHLOR 0.9% PF (SALINE LOCK) 10ML VIAL/SYR IV SCH ×2 (09:11→23:45)
[2021-09-16] MEDS: traMADol HCL 50 MG TAB PO PRN (18:43)
[2021-09-16 21:40] VITALS: BP 135/69
[2021-09-16] MEDS: ATORVASTATIN 20 MG TAB PO SCH (23:02)
[2021-09-16] MEDS: ACETAMINOPHEN 650 mg PER 20.3 mL UD GT PRN (23:44)
[2021-09-17 05:00] VITALS: BP 119/50
[2021-09-17] MEDS: InsuLIN REG 1unit/0.01ml Soln (100units/ml) SC SCH ×3 (06:00→17:41)
[2021-09-17] MEDS: ACCU-CHEK COMFORT CURVE STRIP VI SCH ×4 (06:00→17:40)
[2021-09-17] MEDS ORDERED: SODIUM CHL 0.9% 1000 ML BAG XX ONE (07:00)
[2021-09-17 08:00] VITALS: BP 138/57
[2021-09-17] MEDS: MEROPENEM 500MG IVPB 50 ML IV SCH ×2 (09:30→22:26)
[2021-09-17] MEDS: PANTOPRAZOLE 40 MG/10 ML VIAL INJ IV SCH (09:30)
[2021-09-17] MEDS: SODIUM CHLOR 0.9% PF (SALINE LOCK) 10ML VIAL/SYR IV SCH ×2 (09:30→22:26)
[2021-09-17] MEDS: APIXABAN 2.5 MG TAB PO SCH ×2 (09:30→22:27)
[2021-09-17] MEDS: CALCIUM ACETATE 667 MG CAP PO SCH ×2 (11:51→17:40)
[2021-09-17] MEDS: MORPHINE SULFATE INJECTION 2 MG/ML SYRG IV PRN ×2 (12:50→23:26)
[2021-09-17 13:00] VITALS: BP 143/37
[2021-09-17 15:01] LABS: Hematocrit 29.2 % (41.0-53.0); Hemoglobin 9.2 g/dL (13.5-17.5)
[2021-09-17 17:00] VITALS: BP 130/50
[2021-09-17] MEDS ORDERED: EPOETIN ALFA-EPBX 10,000 UNIT/1ML VIAL SC ONE (21:00)
[2021-09-17 22:00] VITALS: BP 138/72
[2021-09-17] MEDS: ATORVASTATIN 20 MG TAB PO SCH (22:27)
[2021-09-17] MEDS: ACETAMINOPHEN 650 mg PER 20.3 mL UD GT PRN (22:42)
[2021-09-18 05:00] VITALS: BP 137/62
[2021-09-18] MEDS: ACCU-CHEK COMFORT CURVE STRIP VI SCH ×4 (06:00→17:32)
[2021-09-18] MEDS: InsuLIN REG 1unit/0.01ml Soln (100units/ml) SC SCH ×4 (06:00→17:32)
[2021-09-18] MEDS: ACETAMINOPHEN 650 mg PER 20.3 mL UD GT PRN (08:52)
[2021-09-18] MEDS: CALCIUM ACETATE 667 MG CAP PO SCH ×3 (08:54→17:21)
[2021-09-18] MEDS: PANTOPRAZOLE 40 MG/10 ML VIAL INJ IV SCH (08:55)
[2021-09-18] MEDS: SODIUM CHLOR 0.9% PF (SALINE LOCK) 10ML VIAL/SYR IV SCH ×2 (08:55→21:52)
[2021-09-18] MEDS: APIXABAN 2.5 MG TAB PO SCH ×2 (08:56→21:53)
[2021-09-18] MEDS: traMADol HCL 50 MG TAB PO PRN (08:57)
[2021-09-18] MEDS: MEROPENEM 500MG IVPB 50 ML IV SCH (09:04)
[2021-09-18 09:29] VITALS: BP 110/88
[2021-09-18] MEDS ORDERED: SODIUM CHL 0.9% 1000 ML BAG XX ONE (09:45)
[2021-09-18 13:00] VITALS: BP 99/44
[2021-09-18 17:06] VITALS: BP 126/74
[2021-09-18] MEDS: MORPHINE SULFATE INJECTION 2 MG/ML SYRG IV PRN ×2 (17:20→22:01)
[2021-09-18 17:34] LABS: Hematocrit 32.3 % (41.0-53.0); Hemoglobin 10.2 g/dL (13.5-17.5)
[2021-09-18] MEDS ORDERED: EPOETIN ALFA-EPBX 10,000 UNIT/1ML VIAL SC ONE (21:00)
[2021-09-18] MEDS: ATORVASTATIN 20 MG TAB PO SCH (21:53)
[2021-09-18 22:00] VITALS: BP 133/64
[2021-09-19 05:00] VITALS: BP 132/56
[2021-09-19] MEDS: InsuLIN REG 1unit/0.01ml Soln (100units/ml) SC SCH ×5 (05:33→17:23)
[2021-09-19] MEDS: ACCU-CHEK COMFORT CURVE STRIP VI SCH ×4 (05:33→17:23)
[2021-09-19] MEDS: MORPHINE SULFATE INJECTION 2 MG/ML SYRG IV PRN ×4 (06:42→21:51)
[2021-09-19 08:00] VITALS: BP 148/61
[2021-09-19] MEDS: PANTOPRAZOLE 40 MG/10 ML VIAL INJ IV SCH (08:49)
[2021-09-19] MEDS: APIXABAN 2.5 MG TAB PO SCH ×2 (08:49→22:00)
[2021-09-19] MEDS: traMADol HCL 50 MG TAB PO PRN (08:49)
[2021-09-19] MEDS: CALCIUM ACETATE 667 MG CAP PO SCH ×3 (08:49→17:08)
[2021-09-19] MEDS: SODIUM CHLOR 0.9% PF (SALINE LOCK) 10ML VIAL/SYR IV SCH ×2 (08:50→21:54)
[2021-09-19] MEDS: ACETAMINOPHEN 650 mg PER 20.3 mL UD GT PRN (08:58)
[2021-09-19 13:00] VITALS: BP 140/56
[2021-09-19 17:00] VITALS: BP 135/52
[2021-09-19 22:00] VITALS: BP 133/49
[2021-09-19] MEDS: ATORVASTATIN 20 MG TAB PO SCH (22:00)
[2021-09-20] MEDS: MORPHINE SULFATE INJECTION 2 MG/ML SYRG IV PRN ×5 (02:05→22:04)
[2021-09-20 05:00] VITALS: BP 135/62
[2021-09-20] MEDS: ACCU-CHEK COMFORT CURVE STRIP VI SCH ×4 (05:35→17:40)
[2021-09-20] MEDS: InsuLIN REG 1unit/0.01ml Soln (100units/ml) SC SCH ×4 (06:27→17:40)
[2021-09-20 09:00] VITALS: BP 137/72
[2021-09-20 09:17] LABS: Albumin 2.2 g/dL (3.4-5.0); Anion Gap 9 (5-15); Basophils # (auto) 0.1 10 ^3/uL (0-0.2); Blood Urea Nitrogen 54 mg/dL (7-18); Calcium 8.4 mg/dL (8.5-10.1); Carbon Dioxide 28 mmol/L (21-32); Chloride 105 mmol/L (98-107); Eosinophils # (auto) 0.2 10 ^3/uL (0-0.8); Eosinophils % (auto) 2.3 % (0.0-7.0); Glucose 104 mg/dL (74-106); Hematocrit 31.3 % (41.0-53.0); Lymphocytes # (auto) 1.5 10 ^3/uL (0.4-5.4); Lymphocytes % (auto) 14.4 % (10.0-50.0); Mean Corpuscular Hemoglobin 30.7 pg (28.0-32.0); Mean Corpuscular Hgb Conc. 32.1 g/dL (32.0-36.0); Mean Corpuscular Volume 95.7 fL (80.0-100.0); Monocytes # (auto) 0.9 10 ^3/uL (0-1.3); Monocytes % (auto) 8.3 % (0.0-12.0); Neutrophils # (auto) 7.8 10 ^3/uL (1.6-8.6); Potassium 4.2 mmol/L (3.5-5.1); Red Blood Cells 3.27 10^6/uL (4.5-5.90); Red Cell Distribution Width 19.5 % (11.8-14.3); Sodium 142 mmol/L (136-145); White Blood Cell 10.5 10^3/uL (4.4-10.8)
[2021-09-20 09:20] LABS: Alanine Aminotransferase < 6 U/L (16-61); Alkaline Phosphatase 319 U/L (45-117); Aspartate Aminotransferase 17 U/L (15-37); BUN/Creatinine Ratio 7.3; Bilirubin, Total 0.7 mg/dL (0.2-1.0); GFR African American 10 mL/min; GFR Non-African American 8 mL/min; Total Protein 7.2 g/dL (6.4-8.2)
[2021-09-20] MEDS: PANTOPRAZOLE 40 MG/10 ML VIAL INJ IV SCH (09:49)
[2021-09-20] MEDS: SODIUM CHLOR 0.9% PF (SALINE LOCK) 10ML VIAL/SYR IV SCH ×2 (09:53→22:07)
[2021-09-20] MEDS: CALCIUM ACETATE 667 MG CAP PO SCH ×3 (09:53→17:40)
[2021-09-20] MEDS: APIXABAN 2.5 MG TAB PO SCH ×2 (09:53→22:00)
[2021-09-20 13:00] VITALS: BP 146/82
[2021-09-20 17:41] VITALS: BP 159/45
[2021-09-20 22:00] VITALS: BP 134/54
[2021-09-20] MEDS: ATORVASTATIN 20 MG TAB PO SCH (22:00)
[2021-09-21] MEDS: ACCU-CHEK COMFORT CURVE STRIP VI SCH ×4 (00:28→17:32)
[2021-09-21] MEDS: MORPHINE SULFATE INJECTION 2 MG/ML SYRG IV PRN ×4 (02:30→17:31)
[2021-09-21] MEDS: InsuLIN REG 1unit/0.01ml Soln (100units/ml) SC SCH ×4 (06:00→17:32)
[2021-09-21 06:42] VITALS: BP 128/59
[2021-09-21 08:25] VITALS: BP 131/62
[2021-09-21] MEDS: PANTOPRAZOLE 40 MG/10 ML VIAL INJ IV SCH (08:30)
[2021-09-21] MEDS: CALCIUM ACETATE 667 MG CAP PO SCH ×3 (08:31→17:32)
[2021-09-21] MEDS: APIXABAN 2.5 MG TAB PO SCH ×2 (08:31→22:00)
[2021-09-21] MEDS: SODIUM CHLOR 0.9% PF (SALINE LOCK) 10ML VIAL/SYR IV SCH ×2 (10:00→22:14)
[2021-09-21] MEDS ORDERED: SODIUM CHL 0.9% 1000 ML BAG XX ONE (10:15)
[2021-09-21 13:00] VITALS: BP 122/46
[2021-09-21 17:29] VITALS: BP 122/54
[2021-09-21 20:30] VITALS: BP 127/75
[2021-09-21] MEDS ORDERED: EPOETIN ALFA-EPBX 10,000 UNIT/1ML VIAL SC ONE (21:00)
[2021-09-21] MEDS: ATORVASTATIN 20 MG TAB PO SCH (22:00)
[2021-09-22] MEDS: MORPHINE SULFATE INJECTION 2 MG/ML SYRG IV PRN ×3 (00:26→09:56)
[2021-09-22] MEDS: ACCU-CHEK COMFORT CURVE STRIP VI SCH ×3 (00:49→12:25)
[2021-09-22] MEDS: InsuLIN REG 1unit/0.01ml Soln (100units/ml) SC SCH ×3 (05:47→12:00)
[2021-09-22 05:52] VITALS: BP 116/48
[2021-09-22 09:00] VITALS: BP 119/55
[2021-09-22] MEDS: APIXABAN 2.5 MG TAB PO SCH (09:55)
[2021-09-22] MEDS: CALCIUM ACETATE 667 MG CAP PO SCH ×2 (09:55→12:25)
[2021-09-22] MEDS: PANTOPRAZOLE 40 MG/10 ML VIAL INJ IV SCH (09:55)
[2021-09-22] MEDS: SODIUM CHLOR 0.9% PF (SALINE LOCK) 10ML VIAL/SYR IV SCH (10:00)
[2021-09-22 13:00] VITALS: BP 127/50
[2021-09-22 16:41] VITALS: BP 121/53
== END 2021-09-22 20:37 | disposition home health service (06) | DRG 870 ==
LOC: ER 22:01 → OVERFLOW 08-03 05:54 → CENTRAL 08-03 10:56 → ICU WEST 08-03 22:20 → TELE-CENTR 08-25 21:49 → ICU WEST 08-26 23:13 → TELE-CENTR 09-08 14:22 → TELE-WESTW 09-10 07:50
PROVIDERS: ADMIT Nurse Practitioner; ATTEND Family Medicine
PROC: 5A1955Z Respiratory Ventilation, Greater than 96 Consecutive Hours (ICD-10-PCS; 2021-08-03)
PROC: 0BH17EZ Insertion of Endotracheal Airway into Trachea, Via Natural or Artificial Opening (ICD-10-PCS; 2021-08-03)
PROC: 0D9670Z Drainage of Stomach with Drainage Device, Via Natural or Artificial Opening (ICD-10-PCS; 2021-08-03)
PROC: 05HY33Z Insertion of Infusion Device into Upper Vein, Percutaneous Approach (ICD-10-PCS; 2021-08-04)
PROC: B544ZZA Ultrasonography of Left Jugular Veins, Guidance (ICD-10-PCS; 2021-08-04)
PROC: 5A1D70Z Performance of Urinary Filtration, Intermittent, Less than 6 Hours Per Day (ICD-10-PCS; 2021-08-04)
PROC: 5A1D70Z Performance of Urinary Filtration, Intermittent, Less than 6 Hours Per Day (ICD-10-PCS; 2021-08-07)
PROC: 5A1D70Z Performance of Urinary Filtration, Intermittent, Less than 6 Hours Per Day (ICD-10-PCS; 2021-08-10)
PROC: 5A1D70Z Performance of Urinary Filtration, Intermittent, Less than 6 Hours Per Day (ICD-10-PCS; 2021-08-12)
PROC: 5A1D70Z Performance of Urinary Filtration, Intermittent, Less than 6 Hours Per Day (ICD-10-PCS; 2021-08-14)
PROC: 5A1D70Z Performance of Urinary Filtration, Intermittent, Less than 6 Hours Per Day (ICD-10-PCS; 2021-08-18)
PROC: 5A1D70Z Performance of Urinary Filtration, Intermittent, Less than 6 Hours Per Day (ICD-10-PCS; 2021-08-21)
PROC: 5A09357 Assistance with Respiratory Ventilation, Less than 24 Consecutive Hours, Continuous Positive Airway Pressure (ICD-10-PCS; 2021-08-23)
PROC: 5A1D70Z Performance of Urinary Filtration, Intermittent, Less than 6 Hours Per Day (ICD-10-PCS; 2021-08-24)
PROC: 5A1955Z Respiratory Ventilation, Greater than 96 Consecutive Hours (ICD-10-PCS; principal; 2021-08-26)
PROC: 0BH17EZ Insertion of Endotracheal Airway into Trachea, Via Natural or Artificial Opening (ICD-10-PCS; 2021-08-26)
PROC: 5A1D70Z Performance of Urinary Filtration, Intermittent, Less than 6 Hours Per Day (ICD-10-PCS; 2021-08-27)
PROC: 30233N1 Transfusion of Nonautologous Red Blood Cells into Peripheral Vein, Percutaneous Approach (ICD-10-PCS; 2021-08-29)
PROC: 5A1D70Z Performance of Urinary Filtration, Intermittent, Less than 6 Hours Per Day (ICD-10-PCS; 2021-08-30)
PROC: 5A1D70Z Performance of Urinary Filtration, Intermittent, Less than 6 Hours Per Day (ICD-10-PCS; 2021-09-01)
PROC: 5A1D70Z Performance of Urinary Filtration, Intermittent, Less than 6 Hours Per Day (ICD-10-PCS; 2021-09-03)
PROC: 5A1D70Z Performance of Urinary Filtration, Intermittent, Less than 6 Hours Per Day (ICD-10-PCS; 2021-09-07)
PROC: 5A1D70Z Performance of Urinary Filtration, Intermittent, Less than 6 Hours Per Day (ICD-10-PCS; 2021-09-11)
PROC: 5A1D70Z Performance of Urinary Filtration, Intermittent, Less than 6 Hours Per Day (ICD-10-PCS; 2021-09-15)
PROC: 5A1D70Z Performance of Urinary Filtration, Intermittent, Less than 6 Hours Per Day (ICD-10-PCS; 2021-09-18)
PROC: 5A1D70Z Performance of Urinary Filtration, Intermittent, Less than 6 Hours Per Day (ICD-10-PCS; 2021-09-21)
DX: A41.9 Sepsis, unspecified organism (principal); N18.6 End stage renal disease; E43 Unspecified severe protein-calorie malnutrition; R65.21 Severe sepsis with septic shock; J69.0 Pneumonitis due to inhalation of food and vomit; G93.41 Metabolic encephalopathy; I63.9 Cerebral infarction, unspecified; J96.01 Acute respiratory failure with hypoxia; I21.A1 Myocardial infarction type 2; K56.609 Unspecified intestinal obstruction, unspecified as to partial versus complete obstruction; I50.42 Chronic combined systolic (congestive) and diastolic (congestive) heart failure; D68.9 Coagulation defect, unspecified; F11.20 Opioid dependence, uncomplicated; M86.9 Osteomyelitis, unspecified; Z99.11 Dependence on respirator [ventilator] status; D61.818 Other pancytopenia; K56.7 Ileus, unspecified; I82.621 Acute embolism and thrombosis of deep veins of right upper extremity; I13.2 Hypertensive heart and chronic kidney disease with heart failure and with stage 5 chronic kidney disease, or end stage renal disease; Z20.822 Contact with and (suspected) exposure to COVID-19; D63.8 Anemia in other chronic diseases classified elsewhere; F32.9 Major depressive disorder, single episode, unspecified; F41.9 Anxiety disorder, unspecified; E11.22 Type 2 diabetes mellitus with diabetic chronic kidney disease; E83.39 Other disorders of phosphorus metabolism; E83.51 Hypocalcemia; I25.10 Atherosclerotic heart disease of native coronary artery without angina pectoris; I48.0 Paroxysmal atrial fibrillation; K52.9 Noninfective gastroenteritis and colitis, unspecified; E87.6 Hypokalemia; Z99.2 Dependence on renal dialysis; Z68.21 Body mass index [BMI] 21.0-21.9, adult; Z79.01 Long term (current) use of anticoagulants; Z95.5 Presence of coronary angioplasty implant and graft; Z95.820 Peripheral vascular angioplasty status with implants and grafts; Z90.49 Acquired absence of other specified parts of digestive tract
CPT/HCPCS: 36415; 36569; 36600; 70450; 71045; 74018; 74176; 74250; 80048; 80053; 80061; 80074; 80202; 82040; 82306; 82565; 82728; 82805; 82962; 83036; 83540; 83550; 83605; 83735; 83970; 84100; 84132; 84478; 84484; 85007; 85014; 85018; 85025; 85027; 85379; 85610; 85730; 86850; 86900; 86901; 86920; 87040; 87070; 87077; 87081; 87086; 87186; 87205; 87340; 87426; 87493; 90935; 92507; 92610; 93005; 93306; 93886; 94002; 94003; 94640; 94660; 95819; 96365; 96372; 96375; 97110; 97116; 97163; 97530; C9113; G0378; J0171; J0330; J0696; J1335; J1447; J1450; J1642; J1815; J1885; J2185; J2250; J2405; J2543; J2704; J3430; J3480; J3490; J7060; P9047

== ENCOUNTER 2021-09-25 05:26 | Inpatient (IN) | payer MEDICARE, MEDICAID ==
[~2021-09-25] VITALS: Ht 165.1 cm; Wt 79.0 kg
[~2021-09-25 05:26] MED LIST changes: -AMLO-489 PO; +CALC10TA PO; +CHOL20007 PO; -CHOL50007 PO; +FURO40TA4 PO; -HYDR50TA15 PO; -LOSA-39 PO; -METO25TA5 PO
[2021-09-25] MEDS ORDERED: NALOXONE HCL 1MG/ML 2ML SYRINGE ONE (06:07)
[2021-09-25] MEDS ORDERED: ETOMIDATE (2MG/ML) 20ML VIAL IV ONE ×3 (06:10→06:20)
[2021-09-25] MEDS ORDERED: ROCURONIUM 10MG/ML 10ML VIAL IV ONE ×3 (06:11→06:30)
[2021-09-25] MEDS ORDERED: NALOXONE HCL 1MG/ML 2ML SYRINGE IV ONE (06:15)
[2021-09-25] MEDS: PROPOFOL 100 ML IV SCH ×5 (06:20→11:18)
[2021-09-25] MEDS ORDERED: PROPOFOL 100 ML IV ONE (06:28)
[2021-09-25] MEDS ORDERED: fentaNYL Drip 2500mCg/250mlNS 250 ML IV ONE (06:29)
[2021-09-25] MEDS: fentaNYL Drip 2500mCg/250mlNS 250 ML IV SCH (06:30)
[2021-09-25] MEDS ORDERED: MIDAZOLAM DRIP 50 mg/50mL 50 ML IV ONE (07:41)
[2021-09-25] MEDS ORDERED: NOREPINEPHRINE 8 MG/250ML KIT 250 ML IV ONE (07:41)
[2021-09-25] MEDS ORDERED: SODIUM CHLORIDE 0.9% 1,000 ML IVB ONE (08:00)
[2021-09-25] MEDS ORDERED: SODIUM CHLORIDE 0.9% 1,000 ML IV ONE (08:00)
[2021-09-25 08:18] LABS: Eosinophils # (auto) 0.1 10 ^3/uL (0-0.8); Mean Corpuscular Volume 101.9 fL (80.0-100.0); Monocytes # (auto) 0.6 10 ^3/uL (0-1.3); Monocytes % (auto) 2.9 % (0.0-12.0); Nucleated Red Blood Cells % 0.1 %
[2021-09-25 08:20] LABS: Basophils # (auto) 0 10 ^3/uL (0-0.2); Basophils % (auto) 0.2 % (0.0-2.0); Eosinophils % (auto) 0.5 % (0.0-7.0); Hematocrit 40.4 % (41.0-53.0); Hemoglobin 12.1 g/dL (13.5-17.5); Lymphocytes % (auto) 14.1 % (10.0-50.0); Mean Corpuscular Hemoglobin 30.5 pg (28.0-32.0); Neutrophils # (auto) 17.5 10 ^3/uL (1.6-8.6); Neutrophils % (auto) 82.3 % (37.0-80.0); Red Blood Cells 3.96 10^6/uL (4.5-5.90); Red Cell Distribution Width 20.3 % (11.8-14.3); White Blood Cell 21.3 10^3/uL (4.4-10.8)
[2021-09-25 08:32] LABS: Albumin 2.5 g/dL (3.4-5.0); Calcium 8.6 mg/dL (8.5-10.1); INR 1.12 (0.9-1.15); Magnesium 3.5 mg/dL (1.6-2.6); Partial Thromboplastin Time 36.3 sec (23.6-33.0); Potassium 4.2 mmol/L (3.5-5.1)
[2021-09-25 08:37] LABS: BUN/Creatinine Ratio 7.4; Bilirubin, Total 0.8 mg/dL (0.2-1.0); Total Protein 9.4 g/dL (6.4-8.2)
[2021-09-25] MEDS ORDERED: NOREPINEPHRINE 8 MG/250ML KIT 250 ML IV SCH (09:00)
[2021-09-25] MEDS: MIDAZOLAM DRIP 50 mg/50mL 50 ML IV SCH (09:00)
[2021-09-25 09:50] VITALS: BP 73/21
[2021-09-25] MEDS ORDERED: LEVOTHYROXINE SODIUM 100 MCG/5 ML INJ IV ONE (10:00)
[2021-09-25] MEDS ORDERED: PIPERACILLIN-TAZO 4.5GM 100 ML IV ONE (10:00)
[2021-09-25 10:15] VITALS: BP 108/23
[2021-09-25] MEDS ORDERED: MORPHINE SULFATE INJECTION 2 MG/ML SYRG IV PRN ×2 (10:30)
[2021-09-25] MEDS ORDERED: NITROGLYCERIN 0.4 MG SL TAB SL PRN (10:30)
[2021-09-25] MEDS ORDERED: HYDROcodone-ACET 5/325MG TAB PO PRN (10:30)
[2021-09-25] MEDS ORDERED: VANCOMYCIN PER PHARMACY 0 MG IV SCH (10:45)
[2021-09-25] MEDS: NOREPINEPHRINE 8 MG/250ML KIT 250 ML IV SCH (10:50)
[2021-09-25] MEDS ORDERED: VANCOMYCIN 1GM/250ML 250 ML IV ONE (11:30)
[2021-09-25 12:00] VITALS: BP 107/36
[2021-09-25] MEDS ORDERED: SODIUM BICARBONATE 8.4 % INJ 50ML VIAL IV ONE (12:00)
[2021-09-25] MEDS ORDERED: SODIUM BICARBONATE 8.4% INJ 50ML SYRINGE ONE ×2 (12:10→15:32)
[2021-09-25 14:00] VITALS: BP 110/40
[2021-09-25 18:00] VITALS: BP 101/28
[2021-09-25 22:13] VITALS: BP 83/25
[2021-09-25] MEDS: SODIUM CHLOR 0.9% PF (SALINE LOCK) 10ML VIAL/SYR IV SCH (22:34)
[2021-09-25] MEDS: PIPERACILLIN-TAZOB 2.25GM 50 ML IV SCH (22:35)
[2021-09-26] VITALS (9 sets, daily range): BP systolic 94–188; BP diastolic 25–57
[2021-09-26] MEDS ORDERED: ALBUMIN 5% 500 ML IV ONE (03:45)
[2021-09-26] MEDS ORDERED: VASOPRESSIN 20 UNIT/ML ONE (05:25)
[2021-09-26] MEDS: VASOPRESSIN 50 UNITS in D5W 5% 247.5 ML IV SCH (05:44)
[2021-09-26] MEDS: fentaNYL Drip 2500mCg/250mlNS 250 ML IV SCH (05:46)
[2021-09-26 07:12] LABS: Hematocrit 30.2 % (41.0-53.0); Hemoglobin 9.4 g/dL (13.5-17.5); Mean Corpuscular Hemoglobin 29.7 pg (28.0-32.0); Mean Corpuscular Hgb Conc. 31.2 g/dL (32.0-36.0); Mean Corpuscular Volume 95.4 fL (80.0-100.0); Red Blood Cells 3.16 10^6/uL (4.5-5.90); Red Cell Distribution Width 19.4 % (11.8-14.3); White Blood Cell 29.1 10^3/uL (4.4-10.8)
[2021-09-26 07:23] LABS: Basophils % (manual) 0 (0.0-2.0); Blast Cells 0; Eosinophils % (manual) 0 (0-7); Myelocytes % 0; Promyelocytes % 0; Reactive Lymphocytes 0
[2021-09-26 07:28] LABS: Albumin 2.3 g/dL (3.4-5.0); Calcium 7.4 mg/dL (8.5-10.1); Potassium 3.8 mmol/L (3.5-5.1)
[2021-09-26 07:30] LABS: BUN/Creatinine Ratio 9.9
[2021-09-26 07:45] LABS: Bilirubin, Total 0.8 mg/dL (0.2-1.0); Total Protein 6.4 g/dL (6.4-8.2)
[2021-09-26 08:49] LABS: Band Neutrophils % (manual) 27; Lymphocytes % (manual) 2 (10.0-50.0); Metamyelocytes % 2; Monocytes % (manual) 1 (0-12)
[2021-09-26] MEDS: MIDAZOLAM DRIP 50 mg/50mL 50 ML IV SCH ×2 (09:00→22:12)
[2021-09-26] MEDS: SODIUM CHLOR 0.9% PF (SALINE LOCK) 10ML VIAL/SYR IV SCH ×2 (09:30→21:47)
[2021-09-26] MEDS: NOREPINEPHRINE 8 MG/250ML KIT 250 ML IV SCH ×2 (09:30→22:14)
[2021-09-26] MEDS: PIPERACILLIN-TAZOB 2.25GM 50 ML IV SCH ×2 (09:38→22:10)
[2021-09-26] MEDS: ENOXAPARIN SOD 30 MG/0.3 ML SYRINGE SC SCH (09:38)
[2021-09-27] MEDS: fentaNYL Drip 2500mCg/250mlNS 250 ML IV SCH (00:18)
[2021-09-27 02:11] VITALS: BP 178/50
[2021-09-27] MEDS: VASOPRESSIN 50 UNITS in D5W 5% 247.5 ML IV SCH (05:15)
[2021-09-27] MEDS: PROPOFOL 100 ML IV SCH (06:16)
[2021-09-27 06:50] VITALS: BP 162/47
[2021-09-27] MEDS: MIDAZOLAM DRIP 50 mg/50mL 50 ML IV SCH ×2 (07:14→18:10)
[2021-09-27 07:25] LABS: BUN/Creatinine Ratio 10.8; Calcium 7.5 mg/dL (8.5-10.1); Potassium 4.1 mmol/L (3.5-5.1)
[2021-09-27] MEDS: ACETAMINOPHEN 325 MG TAB PO PRN (09:16)
[2021-09-27] MEDS: SODIUM CHLOR 0.9% PF (SALINE LOCK) 10ML VIAL/SYR IV SCH ×2 (10:00→21:23)
[2021-09-27] MEDS: PIPERACILLIN-TAZOB 2.25GM 50 ML IV SCH (10:20)
[2021-09-27] MEDS: ENOXAPARIN SOD 30 MG/0.3 ML SYRINGE SC SCH (10:20)
[2021-09-27 10:23] VITALS: BP 142/52
[2021-09-27 10:50] LABS: Free T3 0.68 pg/mL (2.3-4.2); Free T4 (Free Thyroxine) 0.8 ng/dL (0.89-1.76); T3 Total 0.26 ng/mL (0.60-1.81)
[2021-09-27] MEDS ORDERED: CEFTRIAXONE SODIUM 2 GM in D5W 5% 50 ML IV ONE (12:45)
[2021-09-27 14:00] VITALS: BP 140/63
[2021-09-27] MEDS: NOREPINEPHRINE 8 MG/250ML KIT 250 ML IV SCH (14:00)
[2021-09-27] MEDS ORDERED: PIPERACILLIN-TAZOB 2.25GM 50 ML IV SCH (14:00)
[2021-09-27] MEDS ORDERED: VANCOMYCIN 1GM/250ML 250 ML IV ONE (16:00)
[2021-09-27 18:29] VITALS: BP 121/59
[2021-09-27 22:30] VITALS: BP 146/60
[2021-09-28] VITALS (8 sets, daily range): BP systolic 123–155; BP diastolic 59–71
[2021-09-28] MEDS: VASOPRESSIN 50 UNITS in D5W 5% 247.5 ML IV SCH (04:50)
[2021-09-28] MEDS: PROPOFOL 100 ML IV SCH (06:20)
[2021-09-28] MEDS: fentaNYL Drip 2500mCg/250mlNS 250 ML IV SCH (06:30)
[2021-09-28] MEDS ORDERED: ALBUMIN 25% 200 ML IV ONE (06:38)
[2021-09-28] MEDS ORDERED: SODIUM CHL 0.9% 1000 ML BAG XX ONE ×2 (07:00)
[2021-09-28 07:36] LABS: Basophils # (auto) 0.2 10 ^3/uL (0-0.2); Basophils % (auto) 0.7 % (0.0-2.0); Eosinophils # (auto) 0.2 10 ^3/uL (0-0.8); Eosinophils % (auto) 0.9 % (0.0-7.0); Hematocrit 27.7 % (41.0-53.0); Hemoglobin 9.1 g/dL (13.5-17.5); Lymphocytes # (auto) 1.4 10 ^3/uL (0.4-5.4); Lymphocytes % (auto) 6.8 % (10.0-50.0); Mean Corpuscular Hemoglobin 30.7 pg (28.0-32.0); Mean Corpuscular Hgb Conc. 32.7 g/dL (32.0-36.0); Mean Corpuscular Volume 93.8 fL (80.0-100.0); Monocytes # (auto) 0.5 10 ^3/uL (0-1.3); Monocytes % (auto) 2.3 % (0.0-12.0); Neutrophils # (auto) 18.3 10 ^3/uL (1.6-8.6); Neutrophils % (auto) 89.3 % (37.0-80.0); Red Blood Cells 2.96 10^6/uL (4.5-5.90); Red Cell Distribution Width 20.2 % (11.8-14.3); White Blood Cell 20.5 10^3/uL (4.4-10.8)
[2021-09-28 07:52] LABS: Albumin 2.5 g/dL (3.4-5.0); Anion Gap 9 (5-15); Blood Urea Nitrogen 45 mg/dL (7-18); Calcium 7.8 mg/dL (8.5-10.1); Carbon Dioxide 27 mmol/L (21-32); Chloride 107 mmol/L (98-107); Glucose 153 mg/dL (74-106); Magnesium 2.6 mg/dL (1.6-2.6); Sodium 143 mmol/L (136-145)
[2021-09-28 07:56] LABS: Alanine Aminotransferase < 6 U/L (16-61); Alkaline Phosphatase 343 U/L (45-117); Aspartate Aminotransferase 11 U/L (15-37); BUN/Creatinine Ratio 11.7; Bilirubin, Total 0.8 mg/dL (0.2-1.0); GFR African American 22 mL/min; GFR Non-African American 18 mL/min; Total Protein 7.1 g/dL (6.4-8.2)
[2021-09-28] MEDS: ALBUMIN 25% 100 ML IV PRN ×2 (08:02→08:03)
[2021-09-28] MEDS: SODIUM CHLOR 0.9% PF (SALINE LOCK) 10ML VIAL/SYR IV SCH (10:00)
[2021-09-28] MEDS: PANTOPRAZOLE 40 MG/10 ML VIAL INJ IV SCH (10:39)
[2021-09-28] MEDS: ENOXAPARIN SOD 30 MG/0.3 ML SYRINGE SC SCH (11:23)
[2021-09-28] MEDS: CEFTRIAXONE SODIUM 2 GM in D5W 5% 50 ML IV SCH (13:00)
[2021-09-28] MEDS: ACETAMINOPHEN 325 MG TAB PO PRN (19:00)
[2021-09-28] MEDS ORDERED: EPOETIN ALFA-EPBX 10,000 UNIT/1ML VIAL SC ONE ×2 (21:00)
[2021-09-29] VITALS (19 sets, daily range): BP systolic 105–145; BP diastolic 25–79
[2021-09-29] MEDS: VASOPRESSIN 50 UNITS in D5W 5% 247.5 ML IV SCH ×2 (05:15→21:43)
[2021-09-29] MEDS: SODIUM CHLOR 0.9% PF (SALINE LOCK) 10ML VIAL/SYR IV SCH ×3 (05:59→21:42)
[2021-09-29] MEDS: fentaNYL Drip 2500mCg/250mlNS 250 ML IV SCH (06:00)
[2021-09-29] MEDS: PROPOFOL 100 ML IV SCH ×2 (06:20→21:43)
[2021-09-29 08:57] LABS: Basophils # (auto) 0.1 10 ^3/uL (0-0.2); Basophils % (auto) 0.4 % (0.0-2.0); Eosinophils # (auto) 0.1 10 ^3/uL (0-0.8); Eosinophils % (auto) 0.4 % (0.0-7.0); Hematocrit 27.9 % (41.0-53.0); Hemoglobin 8.9 g/dL (13.5-17.5); Lymphocytes # (auto) 1.1 10 ^3/uL (0.4-5.4); Lymphocytes % (auto) 7.9 % (10.0-50.0); Mean Corpuscular Hemoglobin 30.3 pg (28.0-32.0); Mean Corpuscular Hgb Conc. 31.9 g/dL (32.0-36.0); Mean Corpuscular Volume 95.1 fL (80.0-100.0); Monocytes # (auto) 0.7 10 ^3/uL (0-1.3); Monocytes % (auto) 4.6 % (0.0-12.0); Neutrophils # (auto) 12.4 10 ^3/uL (1.6-8.6); Neutrophils % (auto) 86.7 % (37.0-80.0); Red Blood Cells 2.94 10^6/uL (4.5-5.90); Red Cell Distribution Width 21.1 % (11.8-14.3); White Blood Cell 14.3 10^3/uL (4.4-10.8)
[2021-09-29] MEDS: MIDAZOLAM DRIP 50 mg/50mL 50 ML IV SCH (09:00)
[2021-09-29 09:27] LABS: Potassium 3.3 mmol/L (3.5-5.1)
[2021-09-29 09:32] LABS: BUN/Creatinine Ratio 11.2; Calcium 8.1 mg/dL (8.5-10.1); Magnesium 2.8 mg/dL (1.6-2.6); Phosphorus 3.8 mg/dL (2.5-4.90)
[2021-09-29] MEDS: CEFTRIAXONE SODIUM 2 GM in D5W 5% 50 ML IV SCH (10:59)
[2021-09-29] MEDS: PANTOPRAZOLE 40 MG/10 ML VIAL INJ IV SCH (10:59)
[2021-09-29] MEDS: NOREPINEPHRINE 8 MG/250ML KIT 250 ML IV SCH (18:29)
[2021-09-30] VITALS (38 sets, daily range): BP systolic 84–167; BP diastolic 29–86
[2021-09-30] MEDS ORDERED: SODIUM CHL 0.9% 1000 ML BAG XX ONE (07:00)
[2021-09-30] MEDS: MIDAZOLAM DRIP 50 mg/50mL 50 ML IV SCH (09:00)
[2021-09-30] MEDS: PANTOPRAZOLE 40 MG/10 ML VIAL INJ IV SCH (10:09)
[2021-09-30] MEDS: CEFTRIAXONE SODIUM 2 GM in D5W 5% 50 ML IV SCH (10:10)
[2021-09-30] MEDS: SODIUM CHLOR 0.9% PF (SALINE LOCK) 10ML VIAL/SYR IV SCH ×2 (10:11→22:12)
[2021-09-30] MEDS: NOREPINEPHRINE 8 MG/250ML KIT 250 ML IV SCH (18:11)
[2021-09-30] MEDS ORDERED: TPN PER PHARMACY 0 ML IV SCH (19:00)
[2021-09-30] MEDS ORDERED: AMINO ACID INFUSION IN D10W 1,000 ML IV NR (20:00)
[2021-09-30] MEDS ORDERED: EPOETIN ALFA-EPBX 10,000 UNIT/1ML VIAL SC ONE (21:00)
[2021-09-30] MEDS: fentaNYL Drip 2500mCg/250mlNS 250 ML IV SCH (22:09)
[2021-09-30] MEDS: VASOPRESSIN 50 UNITS in D5W 5% 247.5 ML IV SCH (22:50)
[2021-09-30] MEDS: InsuLIN REG 1unit/0.01ml Soln (100units/ml) SC SCH (23:24)
[2021-09-30] MEDS: ACCU-CHEK COMFORT CURVE STRIP VI SCH (23:32)
[2021-10-01] VITALS (37 sets, daily range): BP systolic 94–144; BP diastolic 17–77
[2021-10-01] MEDS ORDERED: DEXTROSE (50%) 50ML SYRG IV SCH
[2021-10-01] MEDS: PROPOFOL 100 ML IV SCH (01:45)
[2021-10-01 03:25] LABS: Hematocrit 29.6 % (41.0-53.0); Hemoglobin 9.3 g/dL (13.5-17.5); Mean Corpuscular Hemoglobin 29.8 pg (28.0-32.0); Mean Corpuscular Hgb Conc. 31.4 g/dL (32.0-36.0); Mean Corpuscular Volume 94.9 fL (80.0-100.0); Red Blood Cells 3.12 10^6/uL (4.5-5.90); White Blood Cell 6.5 10^3/uL (4.4-10.8)
[2021-10-01 03:59] LABS: Albumin 2.3 g/dL (3.4-5.0); Anion Gap 15 (5-15); Blood Urea Nitrogen 36 mg/dL (7-18); Carbon Dioxide 23 mmol/L (21-32); Chloride 106 mmol/L (98-107); Glucose 174 mg/dL (74-106); Magnesium 1.8 mg/dL (1.6-2.6); Potassium 3.8 mmol/L (3.5-5.1); Sodium 144 mmol/L (136-145)
[2021-10-01 04:02] LABS: Alanine Aminotransferase < 6 U/L (16-61); Aspartate Aminotransferase 11 U/L (15-37); BUN/Creatinine Ratio 10.6; GFR African American 25 mL/min; GFR Non-African American 21 mL/min
[2021-10-01 04:05] LABS: Alkaline Phosphatase 520 U/L (45-117); Bilirubin, Total 0.7 mg/dL (0.2-1.0); Phosphorus 2.8 mg/dL (2.5-4.90); Total Protein 5.9 g/dL (6.4-8.2)
[2021-10-01 04:29] LABS: Triglycerides 226 mg/dL (< 150)
[2021-10-01 04:41] LABS: Red Cell Distribution Width 20.7 % (11.8-14.3)
[2021-10-01 04:42] LABS: Basophils % (manual) 0 (0.0-2.0); Blast Cells 0; Metamyelocytes % 0; Myelocytes % 0; Promyelocytes % 0; Reactive Lymphocytes 0
[2021-10-01] MEDS: InsuLIN REG 1unit/0.01ml Soln (100units/ml) SC SCH ×3 (05:33→17:42)
[2021-10-01] MEDS: ACCU-CHEK COMFORT CURVE STRIP VI SCH ×3 (05:45→17:42)
[2021-10-01 06:40] LABS: Band Neutrophils % (manual) 4; Eosinophils % (manual) 1 (0-7); Lymphocytes % (manual) 18 (10.0-50.0); Monocytes % (manual) 12 (0-12)
[2021-10-01] MEDS: MIDAZOLAM DRIP 50 mg/50mL 50 ML IV SCH (09:00)
[2021-10-01] MEDS: PANTOPRAZOLE 40 MG/10 ML VIAL INJ IV SCH (10:00)
[2021-10-01] MEDS: SODIUM CHLOR 0.9% PF (SALINE LOCK) 10ML VIAL/SYR IV SCH ×2 (10:16→21:02)
[2021-10-01] MEDS: CEFTRIAXONE SODIUM 2 GM in D5W 5% 50 ML IV SCH (10:17)
[2021-10-01] MEDS: NOREPINEPHRINE 8 MG/250ML KIT 250 ML IV SCH (13:00)
[2021-10-01] MEDS: TPN PER PHARMACY IV NR ×8 (20:00)
[2021-10-01] MEDS: fentaNYL Drip 2500mCg/250mlNS 250 ML IV SCH (21:00)
[2021-10-02] VITALS (29 sets, daily range): BP systolic 90–148; BP diastolic 29–75
[2021-10-02] MEDS: InsuLIN REG 1unit/0.01ml Soln (100units/ml) SC SCH ×5 (00:52→23:13)
[2021-10-02] MEDS: VASOPRESSIN 50 UNITS in D5W 5% 247.5 ML IV SCH ×2 (00:52→21:14)
[2021-10-02] MEDS: PROPOFOL 100 ML IV SCH ×2 (01:13→21:14)
[2021-10-02 03:28] LABS: Basophils # (auto) 0 10 ^3/uL (0-0.2); Basophils % (auto) 0.5 % (0.0-2.0); Eosinophils # (auto) 0.1 10 ^3/uL (0-0.8); Eosinophils % (auto) 1.8 % (0.0-7.0); Hematocrit 28.8 % (41.0-53.0); Hemoglobin 9.2 g/dL (13.5-17.5); Lymphocytes # (auto) 1.1 10 ^3/uL (0.4-5.4); Lymphocytes % (auto) 17.9 % (10.0-50.0); Mean Corpuscular Hemoglobin 30.3 pg (28.0-32.0); Mean Corpuscular Hgb Conc. 31.9 g/dL (32.0-36.0); Mean Corpuscular Volume 94.8 fL (80.0-100.0); Monocytes # (auto) 0.4 10 ^3/uL (0-1.3); Monocytes % (auto) 7.3 % (0.0-12.0); Neutrophils # (auto) 4.3 10 ^3/uL (1.6-8.6); Neutrophils % (auto) 72.5 % (37.0-80.0); Red Blood Cells 3.04 10^6/uL (4.5-5.90); White Blood Cell 5.9 10^3/uL (4.4-10.8)
[2021-10-02 03:30] LABS: Red Cell Distribution Width 20.6 % (11.8-14.3)
[2021-10-02 03:50] LABS: Chloride 108 mmol/L (98-107); Sodium 141 mmol/L (136-145)
[2021-10-02 03:57] LABS: Alanine Aminotransferase < 6 U/L (16-61); Albumin 1.9 g/dL (3.4-5.0); Alkaline Phosphatase 695 U/L (45-117); Anion Gap 8 (5-15); Aspartate Aminotransferase 18 U/L (15-37); BUN/Creatinine Ratio 11.4; Bilirubin, Total 0.6 mg/dL (0.2-1.0); Blood Urea Nitrogen 49 mg/dL (7-18); Calcium 7.8 mg/dL (8.5-10.1); Carbon Dioxide 25 mmol/L (21-32); GFR African American 19 mL/min; GFR Non-African American 16 mL/min; Glucose 278 mg/dL (74-106); Magnesium 2.6 mg/dL (1.6-2.6); Phosphorus 2.2 mg/dL (2.5-4.90); Total Protein 5.7 g/dL (6.4-8.2)
[2021-10-02] MEDS: ACCU-CHEK COMFORT CURVE STRIP VI SCH ×5 (06:13→23:13)
[2021-10-02] MEDS: fentaNYL Drip 2500mCg/250mlNS 250 ML IV SCH (06:14)
[2021-10-02] MEDS ORDERED: SODIUM CHL 0.9% 1000 ML BAG XX ONE (07:00)
[2021-10-02] MEDS: MIDAZOLAM DRIP 50 mg/50mL 50 ML IV SCH (09:00)
[2021-10-02] MEDS: CEFTRIAXONE SODIUM 2 GM in D5W 5% 50 ML IV SCH (09:33)
[2021-10-02] MEDS: PANTOPRAZOLE 40 MG/10 ML VIAL INJ IV SCH (09:34)
[2021-10-02] MEDS: NOREPINEPHRINE 8 MG/250ML KIT 250 ML IV SCH (09:42)
[2021-10-02] MEDS: SODIUM CHLOR 0.9% PF (SALINE LOCK) 10ML VIAL/SYR IV SCH ×2 (10:30→21:14)
[2021-10-02] MEDS ORDERED: POTASSIUM CHL 20MEQ/50ML 50 ML IV ONE (13:15)
[2021-10-02] MEDS ORDERED: POTASSIUM PHOSPHATE 11 MEQ in SODIUM CHL 0.9% 100 ML IV ONE (13:15)
[2021-10-02] MEDS: TPN PER PHARMACY IV NR ×8 (19:50)
[2021-10-02] MEDS ORDERED: POTASSIUM PHOSPHATE IV NR ×7 (20:00)
[2021-10-02] MEDS ORDERED: POTASSIUM ACETATE IV NR ×7 (20:00)
[2021-10-02] MEDS ORDERED: [UNRECOGNIZED DRUG - OTHER] IV NR ×7 (20:00)
[2021-10-02] MEDS ORDERED: EPOETIN ALFA-EPBX 10,000 UNIT/1ML VIAL SC ONE (21:00)
[2021-10-03] VITALS (32 sets, daily range): BP systolic 102–136; BP diastolic 19–83
[2021-10-03 05:09] LABS: Alanine Aminotransferase < 6 U/L (16-61); Albumin 1.8 g/dL (3.4-5.0); Anion Gap 11 (5-15); Aspartate Aminotransferase 17 U/L (15-37); BUN/Creatinine Ratio 13.7; Blood Urea Nitrogen 67 mg/dL (7-18); Calcium 7.9 mg/dL (8.5-10.1); Carbon Dioxide 23 mmol/L (21-32); Chloride 107 mmol/L (98-107); GFR African American 16 mL/min; GFR Non-African American 14 mL/min; Glucose 248 mg/dL (74-106); Magnesium 1.6 mg/dL (1.6-2.6); Potassium 3.8 mmol/L (3.5-5.1); Sodium 141 mmol/L (136-145)
[2021-10-03 05:12] LABS: Alkaline Phosphatase 775 U/L (45-117); Bilirubin, Total 0.5 mg/dL (0.2-1.0); Phosphorus 3.2 mg/dL (2.5-4.90); Total Protein 5.8 g/dL (6.4-8.2)
[2021-10-03] MEDS: ACCU-CHEK COMFORT CURVE STRIP VI SCH ×4 (05:54→23:48)
[2021-10-03] MEDS: InsuLIN REG 1unit/0.01ml Soln (100units/ml) SC SCH ×4 (05:54→23:48)
[2021-10-03] MEDS: MIDAZOLAM DRIP 50 mg/50mL 50 ML IV SCH (09:00)
[2021-10-03] MEDS: PANTOPRAZOLE 40 MG/10 ML VIAL INJ IV SCH (09:40)
[2021-10-03] MEDS: CEFTRIAXONE SODIUM 2 GM in D5W 5% 50 ML IV SCH (09:40)
[2021-10-03] MEDS: SODIUM CHLOR 0.9% PF (SALINE LOCK) 10ML VIAL/SYR IV SCH ×2 (09:41→21:10)
[2021-10-03] MEDS: NOREPINEPHRINE 8 MG/250ML KIT 250 ML IV SCH (10:45)
[2021-10-03] MEDS: fentaNYL Drip 2500mCg/250mlNS 250 ML IV SCH (18:11)
[2021-10-03] MEDS ORDERED: TPN PER PHARMACY IV NR ×7 (20:00)
[2021-10-04] VITALS (17 sets, daily range): BP systolic 87–130; BP diastolic 22–81
[2021-10-04] MEDS: VASOPRESSIN 50 UNITS in D5W 5% 247.5 ML IV SCH (00:10)
[2021-10-04 03:48] LABS: Basophils # (auto) 0.1 10 ^3/uL (0-0.2); Basophils % (auto) 0.9 % (0.0-2.0); Eosinophils # (auto) 0.3 10 ^3/uL (0-0.8); Eosinophils % (auto) 2.5 % (0.0-7.0); Hematocrit 30.3 % (41.0-53.0); Hemoglobin 9.5 g/dL (13.5-17.5); Lymphocytes # (auto) 1.6 10 ^3/uL (0.4-5.4); Lymphocytes % (auto) 15.6 % (10.0-50.0); Mean Corpuscular Hemoglobin 29.9 pg (28.0-32.0); Mean Corpuscular Hgb Conc. 31.4 g/dL (32.0-36.0); Mean Corpuscular Volume 95.2 fL (80.0-100.0); Monocytes # (auto) 0.6 10 ^3/uL (0-1.3); Monocytes % (auto) 5.9 % (0.0-12.0); Neutrophils # (auto) 7.7 10 ^3/uL (1.6-8.6); Neutrophils % (auto) 75.1 % (37.0-80.0); Nucleated Red Blood Cells % 0.1 %; Red Blood Cells 3.18 10^6/uL (4.5-5.90); White Blood Cell 10.3 10^3/uL (4.4-10.8)
[2021-10-04 04:30] LABS: Albumin 1.5 g/dL (3.4-5.0); Anion Gap 11 (5-15); Calcium 7.7 mg/dL (8.5-10.1); Carbon Dioxide 20 mmol/L (21-32); Chloride 108 mmol/L (98-107); Glucose 225 mg/dL (74-106); Magnesium 2.5 mg/dL (1.6-2.6); Potassium 4.3 mmol/L (3.5-5.1); Sodium 139 mmol/L (136-145)
[2021-10-04 04:34] LABS: Alanine Aminotransferase < 6 U/L (16-61); Alkaline Phosphatase 618 U/L (45-117); Aspartate Aminotransferase 15 U/L (15-37); BUN/Creatinine Ratio 15.6; Bilirubin, Total 0.4 mg/dL (0.2-1.0); GFR African American 15 mL/min; GFR Non-African American 12 mL/min; Phosphorus 3.8 mg/dL (2.5-4.90)
[2021-10-04 04:45] LABS: Red Cell Distribution Width 21.3 % (11.8-14.3)
[2021-10-04 05:06] LABS: Blood Urea Nitrogen 83 mg/dL (7-18)
[2021-10-04] MEDS: PROPOFOL 100 ML IV SCH (05:17)
[2021-10-04] MEDS: fentaNYL Drip 2500mCg/250mlNS 250 ML IV SCH (05:18)
[2021-10-04] MEDS: ACCU-CHEK COMFORT CURVE STRIP VI SCH ×3 (05:19→18:45)
[2021-10-04] MEDS: InsuLIN REG 1unit/0.01ml Soln (100units/ml) SC SCH ×3 (05:19→18:44)
[2021-10-04] MEDS: MIDAZOLAM DRIP 50 mg/50mL 50 ML IV SCH (09:00)
[2021-10-04] MEDS: NOREPINEPHRINE 8 MG/250ML KIT 250 ML IV SCH (10:45)
[2021-10-04] MEDS: CEFTRIAXONE SODIUM 2 GM in D5W 5% 50 ML IV SCH (10:45)
[2021-10-04] MEDS: PANTOPRAZOLE 40 MG/10 ML VIAL INJ IV SCH (10:48)
[2021-10-04] MEDS: SODIUM CHLOR 0.9% PF (SALINE LOCK) 10ML VIAL/SYR IV SCH ×2 (10:48→20:43)
[2021-10-04] MEDS ORDERED: TPN PER PHARMACY IV NR ×10 (20:00)
[2021-10-05] VITALS (13 sets, daily range): BP systolic 110–150; BP diastolic 20–82
[2021-10-05] MEDS: VASOPRESSIN 50 UNITS in D5W 5% 247.5 ML IV SCH (01:10)
[2021-10-05 04:16] LABS: Basophils # (auto) 0.1 10 ^3/uL (0-0.2); Basophils % (auto) 1.1 % (0.0-2.0); Eosinophils # (auto) 0.2 10 ^3/uL (0-0.8); Eosinophils % (auto) 1.5 % (0.0-7.0); Hematocrit 29.1 % (41.0-53.0); Hemoglobin 9.2 g/dL (13.5-17.5); Lymphocytes # (auto) 1.7 10 ^3/uL (0.4-5.4); Lymphocytes % (auto) 14.1 % (10.0-50.0); Mean Corpuscular Hemoglobin 30.2 pg (28.0-32.0); Mean Corpuscular Hgb Conc. 31.6 g/dL (32.0-36.0); Mean Corpuscular Volume 95.7 fL (80.0-100.0); Monocytes # (auto) 0.6 10 ^3/uL (0-1.3); Monocytes % (auto) 4.6 % (0.0-12.0); Neutrophils # (auto) 9.5 10 ^3/uL (1.6-8.6); Neutrophils % (auto) 78.7 % (37.0-80.0); Nucleated Red Blood Cells % 0.1 %; Red Blood Cells 3.04 10^6/uL (4.5-5.90); White Blood Cell 12.1 10^3/uL (4.4-10.8)
[2021-10-05 04:30] LABS: Red Cell Distribution Width 21.6 % (11.8-14.3)
[2021-10-05 04:35] LABS: Chloride 104 mmol/L (98-107); Potassium 4.8 mmol/L (3.5-5.1); Sodium 134 mmol/L (136-145)
[2021-10-05 04:40] LABS: Alanine Aminotransferase < 6 U/L (16-61); Albumin 1.5 g/dL (3.4-5.0); Alkaline Phosphatase 630 U/L (45-117); Anion Gap 11 (5-15); Aspartate Aminotransferase 16 U/L (15-37); BUN/Creatinine Ratio 18.1; Bilirubin, Total 0.5 mg/dL (0.2-1.0); Calcium 7.9 mg/dL (8.5-10.1); Carbon Dioxide 19 mmol/L (21-32); GFR African American 14 mL/min; GFR Non-African American 11 mL/min; Glucose 266 mg/dL (74-106); Magnesium 1.7 mg/dL (1.6-2.6); Phosphorus 4.5 mg/dL (2.5-4.90); Total Protein 5.7 g/dL (6.4-8.2)
[2021-10-05 04:56] LABS: Blood Urea Nitrogen 103 mg/dL (7-18)
[2021-10-05] MEDS: InsuLIN REG 1unit/0.01ml Soln (100units/ml) SC SCH ×4 (05:58→17:58)
[2021-10-05] MEDS: ACCU-CHEK COMFORT CURVE STRIP VI SCH ×4 (06:00→18:05)
[2021-10-05] MEDS: fentaNYL Drip 2500mCg/250mlNS 250 ML IV SCH (06:01)
[2021-10-05] MEDS: PROPOFOL 100 ML IV SCH (06:01)
[2021-10-05] MEDS ORDERED: SODIUM CHL 0.9% 1000 ML BAG XX ONE (07:00)
[2021-10-05] MEDS: MIDAZOLAM DRIP 50 mg/50mL 50 ML IV SCH (09:00)
[2021-10-05] MEDS: NOREPINEPHRINE 8 MG/250ML KIT 250 ML IV SCH (10:45)
[2021-10-05] MEDS: PANTOPRAZOLE 40 MG/10 ML VIAL INJ IV SCH (13:51)
[2021-10-05] MEDS: SODIUM CHLOR 0.9% PF (SALINE LOCK) 10ML VIAL/SYR IV SCH ×2 (13:52→22:00)
[2021-10-05] MEDS: CEFTRIAXONE SODIUM 2 GM in D5W 5% 50 ML IV SCH (13:52)
[2021-10-05] MEDS ORDERED: TPN PER PHARMACY IV NR ×8 (20:00)
[2021-10-06] VITALS (31 sets, daily range): BP systolic 90–162; BP diastolic 24–74
[2021-10-06 03:53] LABS: Albumin 1.6 g/dL (3.4-5.0); Anion Gap 9 (5-15); Calcium 7.9 mg/dL (8.5-10.1); Carbon Dioxide 21 mmol/L (21-32); Chloride 103 mmol/L (98-107); Glucose 136 mg/dL (74-106); Magnesium 2.3 mg/dL (1.6-2.6); Potassium 4.8 mmol/L (3.5-5.1); Sodium 133 mmol/L (136-145)
[2021-10-06 03:58] LABS: Alanine Aminotransferase < 6 U/L (16-61); Alkaline Phosphatase 635 U/L (45-117); Aspartate Aminotransferase 14 U/L (15-37); Bilirubin, Total 0.6 mg/dL (0.2-1.0); GFR African American 13 mL/min; GFR Non-African American 10 mL/min; Phosphorus 4.6 mg/dL (2.5-4.90); Total Protein 5.9 g/dL (6.4-8.2)
[2021-10-06 04:30] LABS: BUN/Creatinine Ratio 19.2; Blood Urea Nitrogen 118 mg/dL (7-18)
[2021-10-06] MEDS: VASOPRESSIN 50 UNITS in D5W 5% 247.5 ML IV SCH (05:15)
[2021-10-06] MEDS: ACCU-CHEK COMFORT CURVE STRIP VI SCH ×4 (06:00→18:00)
[2021-10-06] MEDS: PROPOFOL 100 ML IV SCH (06:09)
[2021-10-06] MEDS: InsuLIN REG 1unit/0.01ml Soln (100units/ml) SC SCH ×4 (06:09→18:00)
[2021-10-06] MEDS: ALBUMIN 25% 100 ML IV PRN (06:16)
[2021-10-06] MEDS ORDERED: SODIUM CHL 0.9% 1000 ML BAG XX ONE (07:00)
[2021-10-06] MEDS: MIDAZOLAM DRIP 50 mg/50mL 50 ML IV SCH (09:00)
[2021-10-06] MEDS: NOREPINEPHRINE 8 MG/250ML KIT 250 ML IV SCH (10:45)
[2021-10-06] MEDS: PANTOPRAZOLE 40 MG/10 ML VIAL INJ IV SCH (12:15)
[2021-10-06] MEDS: CEFTRIAXONE SODIUM 2 GM in D5W 5% 50 ML IV SCH (12:18)
[2021-10-06] MEDS: SODIUM CHLOR 0.9% PF (SALINE LOCK) 10ML VIAL/SYR IV SCH ×2 (12:18→22:00)
[2021-10-06] MEDS ORDERED: TPN PER PHARMACY IV NR ×9 (20:00)
[2021-10-06] MEDS ORDERED: EPOETIN ALFA-EPBX 10,000 UNIT/1ML VIAL SC ONE (21:00)
[2021-10-07] VITALS (29 sets, daily range): BP systolic 108–158; BP diastolic 39–84
[2021-10-07 04:57] LABS: Albumin 1.9 g/dL (3.4-5.0); Anion Gap 8 (5-15); Calcium 8.2 mg/dL (8.5-10.1); Carbon Dioxide 24 mmol/L (21-32); Chloride 103 mmol/L (98-107); Magnesium 2.6 mg/dL (1.6-2.6); Potassium 4.6 mmol/L (3.5-5.1); Sodium 135 mmol/L (136-145)
[2021-10-07 05:03] LABS: Alanine Aminotransferase < 6 U/L (16-61); Alkaline Phosphatase 627 U/L (45-117); Aspartate Aminotransferase 19 U/L (15-37); BUN/Creatinine Ratio 19.4; Bilirubin, Total 0.5 mg/dL (0.2-1.0); GFR African American 17 mL/min; GFR Non-African American 14 mL/min; Glucose 134 mg/dL (74-106); Phosphorus 2.9 mg/dL (2.5-4.90); Pre Albumin 8.9 mg/dL (20.0-40.0); Total Protein 6.6 g/dL (6.4-8.2); Triglycerides 161 mg/dL (< 150)
[2021-10-07] MEDS: VASOPRESSIN 50 UNITS in D5W 5% 247.5 ML IV SCH (05:15)
[2021-10-07 05:46] LABS: Blood Urea Nitrogen 92 mg/dL (7-18)
[2021-10-07] MEDS: InsuLIN REG 1unit/0.01ml Soln (100units/ml) SC SCH ×4 (06:00→17:37)
[2021-10-07] MEDS: PROPOFOL 100 ML IV SCH (06:20)
[2021-10-07] MEDS: ACCU-CHEK COMFORT CURVE STRIP VI SCH ×4 (06:23→17:37)
[2021-10-07] MEDS: MIDAZOLAM DRIP 50 mg/50mL 50 ML IV SCH (09:00)
[2021-10-07] MEDS: PANTOPRAZOLE 40 MG/10 ML VIAL INJ IV SCH (09:12)
[2021-10-07] MEDS: CEFTRIAXONE SODIUM 2 GM in D5W 5% 50 ML IV SCH (09:12)
[2021-10-07] MEDS: SODIUM CHLOR 0.9% PF (SALINE LOCK) 10ML VIAL/SYR IV SCH ×2 (10:00→22:00)
[2021-10-07] MEDS: NOREPINEPHRINE 8 MG/250ML KIT 250 ML IV SCH (10:45)
[2021-10-07] MEDS ORDERED: ATOR20TA50 PO (13:20)
[2021-10-07] MEDS: ALBUMIN 25% 100 ML IV SCH ×2 (14:33→21:06)
[2021-10-07] MEDS ORDERED: TPN PER PHARMACY IV NR ×8 (20:00)
[2021-10-08] VITALS (35 sets, daily range): BP systolic 108–176; BP diastolic 38–94
[2021-10-08 05:09] LABS: Chloride 100 mmol/L (98-107); Potassium 4.2 mmol/L (3.5-5.1); Sodium 135 mmol/L (136-145)
[2021-10-08 05:14] LABS: Alanine Aminotransferase < 6 U/L (16-61); Albumin 2.5 g/dL (3.4-5.0); Anion Gap 12 (5-15); Aspartate Aminotransferase 14 U/L (15-37); BUN/Creatinine Ratio 21.6; Calcium 8.9 mg/dL (8.5-10.1); Carbon Dioxide 23 mmol/L (21-32); GFR African American 15 mL/min; GFR Non-African American 13 mL/min; Glucose 149 mg/dL (74-106); Magnesium 1.7 mg/dL (1.6-2.6)
[2021-10-08 05:16] LABS: Alkaline Phosphatase 587 U/L (45-117); Bilirubin, Total 0.6 mg/dL (0.2-1.0); Phosphorus 2.6 mg/dL (2.5-4.90); Total Protein 6.5 g/dL (6.4-8.2)
[2021-10-08 05:45] LABS: Blood Urea Nitrogen 111 mg/dL (7-18)
[2021-10-08] MEDS: ALBUMIN 25% 100 ML IV SCH (06:10)
[2021-10-08] MEDS: InsuLIN REG 1unit/0.01ml Soln (100units/ml) SC SCH ×4 (06:14→18:00)
[2021-10-08] MEDS: ACCU-CHEK COMFORT CURVE STRIP VI SCH ×4 (06:15→18:00)
[2021-10-08] MEDS ORDERED: SODIUM CHL 0.9% 1000 ML BAG XX ONE (07:00)
[2021-10-08] MEDS: PANTOPRAZOLE 40 MG/10 ML VIAL INJ IV SCH (09:49)
[2021-10-08] MEDS: SODIUM CHLOR 0.9% PF (SALINE LOCK) 10ML VIAL/SYR IV SCH ×2 (09:50→22:00)
[2021-10-08] MEDS: CEFTRIAXONE SODIUM 2 GM in D5W 5% 50 ML IV SCH (10:03)
[2021-10-08 10:08] LABS: Basophils # (auto) 0.1 10 ^3/uL (0-0.2); Eosinophils # (auto) 0.1 10 ^3/uL (0-0.8); Hematocrit 23.3 % (41.0-53.0); Lymphocytes # (auto) 0.7 10 ^3/uL (0.4-5.4); Monocytes # (auto) 0.4 10 ^3/uL (0-1.3); Nucleated Red Blood Cells % 0.1 %
[2021-10-08 10:09] LABS: Eosinophils % (auto) 1.1 % (0.0-7.0); Hemoglobin 7.7 g/dL (13.5-17.5); Mean Corpuscular Hemoglobin 30.2 pg (28.0-32.0); Mean Corpuscular Hgb Conc. 32.8 g/dL (32.0-36.0); Mean Corpuscular Volume 91.9 fL (80.0-100.0); Monocytes % (auto) 7.9 % (0.0-12.0); Neutrophils # (auto) 4.4 10 ^3/uL (1.6-8.6); Red Blood Cells 2.54 10^6/uL (4.5-5.90); Red Cell Distribution Width 21.1 % (11.8-14.3); White Blood Cell 5.6 10^3/uL (4.4-10.8)
[2021-10-08] MEDS: NOREPINEPHRINE 8 MG/250ML KIT 250 ML IV SCH (11:06)
[2021-10-08] MEDS ORDERED: TPN PER PHARMACY IV NR ×9 (20:00)
[2021-10-09] VITALS (31 sets, daily range): BP systolic 122–169; BP diastolic 56–78
[2021-10-09 03:30] LABS: Basophils # (auto) 0.1 10 ^3/uL (0-0.2); Eosinophils # (auto) 0.1 10 ^3/uL (0-0.8); Monocytes # (auto) 0.4 10 ^3/uL (0-1.3); Neutrophils # (auto) 3.8 10 ^3/uL (1.6-8.6); Nucleated Red Blood Cells % 0.1 %
[2021-10-09 03:35] LABS: Basophils % (auto) 1.2 % (0.0-2.0); Eosinophils % (auto) 1.2 % (0.0-7.0); Hematocrit 25.7 % (41.0-53.0); Hemoglobin 8.4 g/dL (13.5-17.5); Lymphocytes # (auto) 0.9 10 ^3/uL (0.4-5.4); Lymphocytes % (auto) 17.3 % (10.0-50.0); Mean Corpuscular Hemoglobin 30.3 pg (28.0-32.0); Mean Corpuscular Hgb Conc. 32.8 g/dL (32.0-36.0); Mean Corpuscular Volume 92.4 fL (80.0-100.0); Monocytes % (auto) 7.6 % (0.0-12.0); Neutrophils % (auto) 72.7 % (37.0-80.0); Red Blood Cells 2.78 10^6/uL (4.5-5.90); Red Cell Distribution Width 21.1 % (11.8-14.3); White Blood Cell 5.2 10^3/uL (4.4-10.8)
[2021-10-09 03:47] LABS: Albumin 2.2 g/dL (3.4-5.0); Anion Gap 13 (5-15); BUN/Creatinine Ratio 21.4; Calcium 8.5 mg/dL (8.5-10.1); Carbon Dioxide 23 mmol/L (21-32); Chloride 99 mmol/L (98-107); GFR African American 19 mL/min; GFR Non-African American 16 mL/min; Glucose 141 mg/dL (74-106); Magnesium 1.8 mg/dL (1.6-2.6); Potassium 3.8 mmol/L (3.5-5.1); Sodium 135 mmol/L (136-145)
[2021-10-09 03:50] LABS: Alanine Aminotransferase < 6 U/L (16-61); Alkaline Phosphatase 648 U/L (45-117); Aspartate Aminotransferase 14 U/L (15-37); Bilirubin, Total 0.7 mg/dL (0.2-1.0); Phosphorus 2.7 mg/dL (2.5-4.90); Total Protein 6.1 g/dL (6.4-8.2)
[2021-10-09 04:00] LABS: Blood Urea Nitrogen 93 mg/dL (7-18)
[2021-10-09] MEDS: ACCU-CHEK COMFORT CURVE STRIP VI SCH ×4 (06:00→17:12)
[2021-10-09] MEDS: InsuLIN REG 1unit/0.01ml Soln (100units/ml) SC SCH ×4 (06:37→17:12)
[2021-10-09] MEDS: PANTOPRAZOLE 40 MG/10 ML VIAL INJ IV SCH (09:19)
[2021-10-09] MEDS: SODIUM CHLOR 0.9% PF (SALINE LOCK) 10ML VIAL/SYR IV SCH ×2 (09:20→22:23)
[2021-10-09] MEDS ORDERED: TPN PER PHARMACY IV NR ×9 (20:00)
[2021-10-10] VITALS (28 sets, daily range): BP systolic 101–154; BP diastolic 41–80
[2021-10-10] MEDS: ACCU-CHEK COMFORT CURVE STRIP VI SCH ×4 (00:27→17:53)
[2021-10-10] MEDS: InsuLIN REG 1unit/0.01ml Soln (100units/ml) SC SCH ×4 (00:27→17:53)
[2021-10-10 05:26] LABS: Chloride 97 mmol/L (98-107); Potassium 3.9 mmol/L (3.5-5.1); Sodium 134 mmol/L (136-145)
[2021-10-10 05:34] LABS: Albumin 2.1 g/dL (3.4-5.0); Anion Gap 15 (5-15); BUN/Creatinine Ratio 23.9; Calcium 8.5 mg/dL (8.5-10.1); Carbon Dioxide 22 mmol/L (21-32); GFR African American 16 mL/min; GFR Non-African American 14 mL/min; Glucose 163 mg/dL (74-106); Magnesium 1.8 mg/dL (1.6-2.6)
[2021-10-10 05:47] LABS: Alanine Aminotransferase < 6 U/L (16-61); Alkaline Phosphatase 631 U/L (45-117); Aspartate Aminotransferase 15 U/L (15-37); Bilirubin, Total 0.7 mg/dL (0.2-1.0); Total Protein 6.2 g/dL (6.4-8.2)
[2021-10-10 07:54] LABS: Blood Urea Nitrogen 117 mg/dL (7-18)
[2021-10-10] MEDS: SODIUM CHLOR 0.9% PF (SALINE LOCK) 10ML VIAL/SYR IV SCH ×2 (10:08→22:00)
[2021-10-10] MEDS: PANTOPRAZOLE 40 MG/10 ML VIAL INJ IV SCH (10:09)
[2021-10-10] MEDS ORDERED: [UNRECOGNIZED DRUG - OTHER] IV NR ×7 (20:00)
[2021-10-10] MEDS ORDERED: SODIUM CHLORIDE IV NR ×7 (20:00)
[2021-10-10] MEDS ORDERED: SODIUM ACETATE IV NR ×7 (20:00)
[2021-10-10] MEDS ORDERED: POTASSIUM ACETATE IV NR ×7 (20:00)
[2021-10-11] VITALS (21 sets, daily range): BP systolic 103–154; BP diastolic 40–88
[2021-10-11] MEDS: InsuLIN REG 1unit/0.01ml Soln (100units/ml) SC SCH ×4 (00:02→12:00)
[2021-10-11] MEDS: ACCU-CHEK COMFORT CURVE STRIP VI SCH ×4 (00:03→12:11)
[2021-10-11 03:55] LABS: Calcium 8.3 mg/dL (8.5-10.1); Chloride 95 mmol/L (98-107); Sodium 130 mmol/L (136-145)
[2021-10-11 04:01] LABS: Alanine Aminotransferase < 6 U/L (16-61); Albumin 2.1 g/dL (3.4-5.0); Alkaline Phosphatase 574 U/L (45-117); Anion Gap 10 (5-15); Aspartate Aminotransferase 13 U/L (15-37); BUN/Creatinine Ratio 25.3; Bilirubin, Total 0.8 mg/dL (0.2-1.0); Carbon Dioxide 25 mmol/L (21-32); GFR African American 14 mL/min; GFR Non-African American 12 mL/min; Glucose 149 mg/dL (74-106); Phosphorus 4.4 mg/dL (2.5-4.90); Total Protein 6.6 g/dL (6.4-8.2)
[2021-10-11 04:13] LABS: Blood Urea Nitrogen 138 mg/dL (7-18)
[2021-10-11] MEDS: SODIUM CHLOR 0.9% PF (SALINE LOCK) 10ML VIAL/SYR IV SCH ×2 (10:11→22:00)
[2021-10-11] MEDS: PANTOPRAZOLE 40 MG/10 ML VIAL INJ IV SCH (10:11)
[2021-10-11] MEDS: NOREPINEPHRINE 8 MG/250ML KIT 250 ML IV SCH (11:00)
[2021-10-11] MEDS: ALBUMIN 25% 100 ML IV PRN (12:58)
[2021-10-11] MEDS ORDERED: TPN PER PHARMACY IV NR ×8 (20:00)
[2021-10-12] VITALS (25 sets, daily range): BP systolic 120–156; BP diastolic 42–72
[2021-10-12 04:58] LABS: Chloride 100 mmol/L (98-107); Potassium 3.8 mmol/L (3.5-5.1); Sodium 136 mmol/L (136-145)
[2021-10-12 05:03] LABS: Alanine Aminotransferase < 6 U/L (16-61); Albumin 2.2 g/dL (3.4-5.0); Anion Gap 10 (5-15); Aspartate Aminotransferase 21 U/L (15-37); BUN/Creatinine Ratio 24.9; Calcium 8.5 mg/dL (8.5-10.1); Carbon Dioxide 26 mmol/L (21-32); GFR African American 19 mL/min; GFR Non-African American 16 mL/min; Glucose 135 mg/dL (74-106); Magnesium 2.3 mg/dL (1.6-2.6)
[2021-10-12 05:05] LABS: Alkaline Phosphatase 676 U/L (45-117); Bilirubin, Total 0.8 mg/dL (0.2-1.0); Phosphorus 2.4 mg/dL (2.5-4.90); Total Protein 6.7 g/dL (6.4-8.2)
[2021-10-12 05:08] LABS: Blood Urea Nitrogen 107 mg/dL (7-18)
[2021-10-12] MEDS: ACCU-CHEK COMFORT CURVE STRIP VI SCH ×4 (06:00→18:29)
[2021-10-12] MEDS: InsuLIN REG 1unit/0.01ml Soln (100units/ml) SC SCH ×4 (06:00→18:00)
[2021-10-12] MEDS ORDERED: SODIUM CHL 0.9% 1000 ML BAG XX ONE (07:00)
[2021-10-12] MEDS: SODIUM CHLOR 0.9% PF (SALINE LOCK) 10ML VIAL/SYR IV SCH ×2 (10:00→22:00)
[2021-10-12] MEDS: PANTOPRAZOLE 40 MG/10 ML VIAL INJ IV SCH (10:00)
[2021-10-12] MEDS: MORPHINE SULFATE INJECTION 2 MG/ML SYRG IV PRN (15:26)
[2021-10-12 16:51] LABS: INR 1.14 (0.9-1.15); Partial Thromboplastin Time 36.9 sec (23.6-33.0)
[2021-10-12] MEDS ORDERED: TPN PER PHARMACY IV NR ×9 (20:00)
[2021-10-12] MEDS ORDERED: EPOETIN ALFA-EPBX 10,000 UNIT/1ML VIAL SC ONE (21:00)
[2021-10-13] VITALS (38 sets, daily range): BP systolic 69–144; BP diastolic 37–133
[2021-10-13 05:08] LABS: Basophils # (auto) 0.1 10 ^3/uL (0-0.2); Eosinophils # (auto) 0.1 10 ^3/uL (0-0.8); Lymphocytes # (auto) 0.9 10 ^3/uL (0.4-5.4); Lymphocytes % (auto) 16.6 % (10.0-50.0); Monocytes # (auto) 0.3 10 ^3/uL (0-1.3); Neutrophils # (auto) 4.2 10 ^3/uL (1.6-8.6); Nucleated Red Blood Cells % 0.1 %; White Blood Cell 5.6 10^3/uL (4.4-10.8)
[2021-10-13 05:11] LABS: Basophils % (auto) 1.4 % (0.0-2.0); Eosinophils % (auto) 1.6 % (0.0-7.0); Hematocrit 22.9 % (41.0-53.0); Hemoglobin 7.7 g/dL (13.5-17.5); Mean Corpuscular Hemoglobin 30.6 pg (28.0-32.0); Mean Corpuscular Hgb Conc. 33.6 g/dL (32.0-36.0); Mean Corpuscular Volume 91.2 fL (80.0-100.0); Neutrophils % (auto) 75.4 % (37.0-80.0); Red Blood Cells 2.51 10^6/uL (4.5-5.90)
[2021-10-13] MEDS: VASOPRESSIN 50 UNITS in D5W 5% 247.5 ML IV SCH ×2 (05:15→15:50)
[2021-10-13 05:19] LABS: INR 1.17 (0.9-1.15)
[2021-10-13 05:48] LABS: Albumin 2.2 g/dL (3.4-5.0); BUN/Creatinine Ratio 25.7; Calcium 8.5 mg/dL (8.5-10.1); Phosphorus 2.6 mg/dL (2.5-4.90); Total Protein 6.7 g/dL (6.4-8.2)
[2021-10-13] MEDS: InsuLIN REG 1unit/0.01ml Soln (100units/ml) SC SCH ×4 (06:00→18:00)
[2021-10-13] MEDS: ACCU-CHEK COMFORT CURVE STRIP VI SCH ×4 (06:00→18:00)
[2021-10-13 06:15] LABS: Bilirubin, Total 0.9 mg/dL (0.2-1.0)
[2021-10-13] MEDS: PROPOFOL 100 ML IV SCH (06:20)
[2021-10-13] MEDS: MORPHINE SULFATE INJECTION 2 MG/ML SYRG IV PRN ×4 (06:42→18:33)
[2021-10-13] MEDS ORDERED: SODIUM CHL 0.9% 1000 ML BAG XX ONE (07:00)
[2021-10-13] MEDS: PANTOPRAZOLE 40 MG/10 ML VIAL INJ IV SCH (09:59)
[2021-10-13] MEDS: SODIUM CHLOR 0.9% PF (SALINE LOCK) 10ML VIAL/SYR IV SCH ×2 (10:00→22:00)
[2021-10-13] MEDS: ALBUMIN 25% 100 ML IV SCH ×2 (13:00→14:00)
[2021-10-13] MEDS: NOREPINEPHRINE 8 MG/250ML KIT 250 ML IV SCH (15:51)
[2021-10-13] MEDS ORDERED: TPN PER PHARMACY IV NR ×9 (20:00)
[2021-10-13] MEDS ORDERED: EPOETIN ALFA-EPBX 10,000 UNIT/1ML VIAL SC ONE (21:00)
[2021-10-14] VITALS (42 sets, daily range): BP systolic 67–143; BP diastolic 31–82
[2021-10-14] MEDS: ACCU-CHEK COMFORT CURVE STRIP VI SCH ×3 (00:18→12:00)
[2021-10-14] MEDS: MORPHINE SULFATE INJECTION 2 MG/ML SYRG IV PRN ×4 (03:26→19:49)
[2021-10-14 05:03] LABS: Albumin 2.8 g/dL (3.4-5.0); Calcium 8.5 mg/dL (8.5-10.1); Potassium 3.7 mmol/L (3.5-5.1)
[2021-10-14 05:07] LABS: BUN/Creatinine Ratio 25.1; Bilirubin, Total 0.9 mg/dL (0.2-1.0); Phosphorus 2.6 mg/dL (2.5-4.90); Pre Albumin 12.5 mg/dL (20.0-40.0)
[2021-10-14] MEDS: VASOPRESSIN 50 UNITS in D5W 5% 247.5 ML IV SCH ×2 (05:15→07:58)
[2021-10-14] MEDS: InsuLIN REG 1unit/0.01ml Soln (100units/ml) SC SCH ×3 (05:52→12:00)
[2021-10-14] MEDS: PROPOFOL 100 ML IV SCH ×2 (06:20→07:58)
[2021-10-14] MEDS: NOREPINEPHRINE 8 MG/250ML KIT 250 ML IV SCH ×2 (07:58→11:00)
[2021-10-14 08:05] LABS: Basophils # (auto) 0.1 10 ^3/uL (0-0.2); Eosinophils # (auto) 0.1 10 ^3/uL (0-0.8); Lymphocytes # (auto) 0.9 10 ^3/uL (0.4-5.4); Monocytes # (auto) 0.3 10 ^3/uL (0-1.3); White Blood Cell 5.1 10^3/uL (4.4-10.8)
[2021-10-14 08:07] LABS: Basophils % (auto) 2.3 % (0.0-2.0); Eosinophils % (auto) 2.3 % (0.0-7.0); Hematocrit 22.2 % (41.0-53.0); Lymphocytes % (auto) 17.8 % (10.0-50.0); Mean Corpuscular Hemoglobin 29.1 pg (28.0-32.0); Mean Corpuscular Hgb Conc. 31.7 g/dL (32.0-36.0); Mean Corpuscular Volume 91.9 fL (80.0-100.0); Monocytes % (auto) 5.6 % (0.0-12.0); Neutrophils # (auto) 3.6 10 ^3/uL (1.6-8.6); Nucleated Red Blood Cells % 0.2 %; Red Blood Cells 2.42 10^6/uL (4.5-5.90)
[2021-10-14 08:09] LABS: Red Cell Distribution Width 20.8 % (11.8-14.3)
[2021-10-14] MEDS ORDERED: fentaNYL CITRATE 100 MCG/2 ML VL ONE ×2 (09:21→09:22)
[2021-10-14] MEDS ORDERED: MIDAZOLAM HCL 2MG/2ML 2ml VIAL (1mg/ml) ONE ×2 (09:21→09:23)
[2021-10-14] MEDS ORDERED: HYDROmorphone HCL 2 MG/ML VL ONE ×2 (09:21→09:47)
[2021-10-14] MEDS ORDERED: DexAMETHasone SOD PHOS 10MG/1ML VIAL INJ ONE (09:22)
[2021-10-14] MEDS ORDERED: PROPOFOL 10 MG/ML 20 ML IV ONE (09:22)
[2021-10-14] MEDS ORDERED: ceFAZolin 1GM/50ML 50 ML IV ONE (09:51)
[2021-10-14] MEDS ORDERED: HYDROmorphone HCL 2 MG/ML VL IV PRN (10:00)
[2021-10-14] MEDS ORDERED: ONDANSETRON HCL 4 MG/2 ML VIAL IV PRN (10:00)
[2021-10-14] MEDS ORDERED: LABETALOL HCL 5 MG/ML 4ML SYRINGE IV PRN (10:00)
[2021-10-14] MEDS ORDERED: MORPHINE SULFATE 4 MG/ML SYR/VIAL IV PRN (10:00)
[2021-10-14] MEDS ORDERED: MIDAZOLAM HCL 2MG/2ML 2ml VIAL (1mg/ml) IV PRN (10:00)
[2021-10-14] MEDS ORDERED: ACCU-CHEK COMFORT CURVE STRIP VI ONE (10:00)
[2021-10-14] MEDS ORDERED: ROCURONIUM 10MG/ML 10ML VIAL IV ONE (10:01)
[2021-10-14] MEDS: PANTOPRAZOLE 40 MG/10 ML VIAL INJ IV SCH (11:19)
[2021-10-14] MEDS: SODIUM CHLOR 0.9% PF (SALINE LOCK) 10ML VIAL/SYR IV SCH ×2 (11:19→22:00)
[2021-10-14] MEDS ORDERED: TPN PER PHARMACY IV NR ×9 (20:00)
[2021-10-15] VITALS (40 sets, daily range): BP systolic 99–154; BP diastolic 40–98
[2021-10-15] MEDS: MORPHINE SULFATE INJECTION 2 MG/ML SYRG IV PRN ×6 (01:26→23:25)
[2021-10-15 03:49] LABS: Basophils # (auto) 0.1 10 ^3/uL (0-0.2); Basophils % (auto) 1.4 % (0.0-2.0); Eosinophils # (auto) 0.1 10 ^3/uL (0-0.8); Eosinophils % (auto) 2.3 % (0.0-7.0); Hematocrit 20.3 % (41.0-53.0); Lymphocytes # (auto) 1.2 10 ^3/uL (0.4-5.4); Lymphocytes % (auto) 21.8 % (10.0-50.0); Mean Corpuscular Hemoglobin 28.3 pg (28.0-32.0); Mean Corpuscular Hgb Conc. 31.3 g/dL (32.0-36.0); Mean Corpuscular Volume 90.4 fL (80.0-100.0); Monocytes # (auto) 0.3 10 ^3/uL (0-1.3); Monocytes % (auto) 6.5 % (0.0-12.0); Neutrophils # (auto) 3.6 10 ^3/uL (1.6-8.6); Red Blood Cells 2.25 10^6/uL (4.5-5.90); White Blood Cell 5.3 10^3/uL (4.4-10.8)
[2021-10-15 04:33] LABS: Red Cell Distribution Width 21.1 % (11.8-14.3)
[2021-10-15 04:35] LABS: Hemoglobin 6.4 g/dL (13.5-17.5)
[2021-10-15 04:47] LABS: Albumin 2.3 g/dL (3.4-5.0); Anion Gap 9 (5-15); BUN/Creatinine Ratio 25.1; Calcium 8.5 mg/dL (8.5-10.1); Carbon Dioxide 28 mmol/L (21-32); Chloride 101 mmol/L (98-107); GFR African American 20 mL/min; GFR Non-African American 17 mL/min; Glucose 127 mg/dL (74-106); Magnesium 2.1 mg/dL (1.6-2.6); Potassium 4.1 mmol/L (3.5-5.1); Sodium 138 mmol/L (136-145)
[2021-10-15 04:50] LABS: Alanine Aminotransferase < 6 U/L (16-61); Alkaline Phosphatase 600 U/L (45-117); Aspartate Aminotransferase 20 U/L (15-37); Phosphorus 4.2 mg/dL (2.5-4.90); Total Protein 6.7 g/dL (6.4-8.2)
[2021-10-15] MEDS: VASOPRESSIN 50 UNITS in D5W 5% 247.5 ML IV SCH (05:15)
[2021-10-15 05:19] LABS: Blood Urea Nitrogen 103 mg/dL (7-18)
[2021-10-15] MEDS: InsuLIN REG 1unit/0.01ml Soln (100units/ml) SC SCH ×4 (06:00→18:43)
[2021-10-15] MEDS: PROPOFOL 100 ML IV SCH ×2 (06:20→17:29)
[2021-10-15] MEDS ORDERED: SODIUM CHL 0.9% 1000 ML BAG XX ONE (07:00)
[2021-10-15] MEDS: SODIUM CHLOR 0.9% PF (SALINE LOCK) 10ML VIAL/SYR IV SCH ×2 (10:17→22:00)
[2021-10-15] MEDS: PANTOPRAZOLE 40 MG/10 ML VIAL INJ IV SCH (10:17)
[2021-10-15] MEDS: ACCU-CHEK COMFORT CURVE STRIP VI SCH ×3 (12:00→18:00)
[2021-10-15] MEDS ORDERED: TPN PER PHARMACY IV NR ×10 (20:00)
[2021-10-15] MEDS ORDERED: EPOETIN ALFA-EPBX 10,000 UNIT/1ML VIAL SC ONE (21:00)
[2021-10-15] MEDS: ACETAMINOPHEN 325 MG TAB PO PRN (23:25)
[2021-10-16] VITALS (30 sets, daily range): BP systolic 113–153; BP diastolic 33–88
[2021-10-16] MEDS: InsuLIN REG 1unit/0.01ml Soln (100units/ml) SC SCH ×4 (00:09→17:14)
[2021-10-16] MEDS: ACCU-CHEK COMFORT CURVE STRIP VI SCH ×4 (00:15→17:14)
[2021-10-16 04:22] LABS: Basophils # (auto) 0.1 10 ^3/uL (0-0.2); Eosinophils # (auto) 0.1 10 ^3/uL (0-0.8); Lymphocytes # (auto) 1.1 10 ^3/uL (0.4-5.4); Monocytes # (auto) 0.4 10 ^3/uL (0-1.3); Neutrophils # (auto) 3.7 10 ^3/uL (1.6-8.6)
[2021-10-16 04:24] LABS: Basophils % (auto) 2.1 % (0.0-2.0); Hematocrit 24.9 % (41.0-53.0); Hemoglobin 8.1 g/dL (13.5-17.5); Lymphocytes % (auto) 20.6 % (10.0-50.0); Mean Corpuscular Hemoglobin 29.4 pg (28.0-32.0); Mean Corpuscular Hgb Conc. 32.7 g/dL (32.0-36.0); Mean Corpuscular Volume 89.9 fL (80.0-100.0); Monocytes % (auto) 7.1 % (0.0-12.0); Neutrophils % (auto) 68.2 % (37.0-80.0); Red Blood Cells 2.77 10^6/uL (4.5-5.90); Red Cell Distribution Width 19.5 % (11.8-14.3); White Blood Cell 5.4 10^3/uL (4.4-10.8)
[2021-10-16 04:37] LABS: Chloride 105 mmol/L (98-107); Potassium 3.6 mmol/L (3.5-5.1); Sodium 140 mmol/L (136-145)
[2021-10-16] MEDS: MORPHINE SULFATE INJECTION 2 MG/ML SYRG IV PRN ×4 (04:38→17:07)
[2021-10-16 04:50] LABS: Alanine Aminotransferase < 6 U/L (16-61); Albumin 2.3 g/dL (3.4-5.0); Alkaline Phosphatase 660 U/L (45-117); Anion Gap 8 (5-15); Aspartate Aminotransferase 22 U/L (15-37); BUN/Creatinine Ratio 23.6; Bilirubin, Total 1.4 mg/dL (0.2-1.0); Blood Urea Nitrogen 75 mg/dL (7-18); Calcium 8.3 mg/dL (8.5-10.1); Carbon Dioxide 27 mmol/L (21-32); GFR African American 27 mL/min; GFR Non-African American 22 mL/min; Glucose 149 mg/dL (74-106); Phosphorus 3.1 mg/dL (2.5-4.90)
[2021-10-16] MEDS: ACETAMINOPHEN 325 MG TAB PO PRN (05:09)
[2021-10-16] MEDS: VASOPRESSIN 50 UNITS in D5W 5% 247.5 ML IV SCH (05:15)
[2021-10-16] MEDS ORDERED: LABETALOL HCL 5 MG/ML 4ML SYRINGE IV PRN (05:45)
[2021-10-16] MEDS: PROPOFOL 100 ML IV SCH (06:20)
[2021-10-16] MEDS: SODIUM CHLOR 0.9% PF (SALINE LOCK) 10ML VIAL/SYR IV SCH ×2 (10:36→22:01)
[2021-10-16] MEDS: PANTOPRAZOLE 40 MG/10 ML VIAL INJ IV SCH (10:36)
[2021-10-16] MEDS: NOREPINEPHRINE 8 MG/250ML KIT 250 ML IV SCH (10:45)
[2021-10-16] MEDS ORDERED: hydrALAZINE HCL 20 MG/ML VL IV PRN (11:00)
[2021-10-16] MEDS ORDERED: TPN PER PHARMACY IV NR ×8 (20:00)
[2021-10-17] VITALS (13 sets, daily range): BP systolic 103–155; BP diastolic 39–80
[2021-10-17] MEDS: ACCU-CHEK COMFORT CURVE STRIP VI SCH ×4 (00:18→17:25)
[2021-10-17] MEDS: MORPHINE SULFATE INJECTION 2 MG/ML SYRG IV PRN ×6 (02:27→23:39)
[2021-10-17] MEDS: VASOPRESSIN 50 UNITS in D5W 5% 247.5 ML IV SCH (05:15)
[2021-10-17] MEDS: InsuLIN REG 1unit/0.01ml Soln (100units/ml) SC SCH ×4 (05:26→17:24)
[2021-10-17] MEDS: PROPOFOL 100 ML IV SCH (06:20)
[2021-10-17] MEDS: PANTOPRAZOLE 40 MG/10 ML VIAL INJ IV SCH (10:00)
[2021-10-17] MEDS: SODIUM CHLOR 0.9% PF (SALINE LOCK) 10ML VIAL/SYR IV SCH ×2 (10:00→21:55)
[2021-10-17] MEDS: NOREPINEPHRINE 8 MG/250ML KIT 250 ML IV SCH (10:45)
[2021-10-17 12:29] LABS: Basophils # (auto) 0.1 10 ^3/uL (0-0.2); Basophils % (auto) 2.6 % (0.0-2.0); Eosinophils # (auto) 0.1 10 ^3/uL (0-0.8); Eosinophils % (auto) 1.9 % (0.0-7.0); Hematocrit 24.9 % (41.0-53.0); Hemoglobin 7.9 g/dL (13.5-17.5); Lymphocytes # (auto) 0.8 10 ^3/uL (0.4-5.4); Lymphocytes % (auto) 14.6 % (10.0-50.0); Mean Corpuscular Hgb Conc. 31.9 g/dL (32.0-36.0); Mean Corpuscular Volume 90.9 fL (80.0-100.0); Monocytes # (auto) 0.4 10 ^3/uL (0-1.3); Monocytes % (auto) 6.7 % (0.0-12.0); Neutrophils # (auto) 4.1 10 ^3/uL (1.6-8.6); Neutrophils % (auto) 74.2 % (37.0-80.0); Red Blood Cells 2.74 10^6/uL (4.5-5.90); White Blood Cell 5.5 10^3/uL (4.4-10.8)
[2021-10-17 12:52] LABS: Chloride 104 mmol/L (98-107); Potassium 4.5 mmol/L (3.5-5.1); Sodium 138 mmol/L (136-145)
[2021-10-17 13:00] LABS: Alanine Aminotransferase < 6 U/L (16-61); Albumin 2.2 g/dL (3.4-5.0); Alkaline Phosphatase 537 U/L (45-117); Anion Gap 8 (5-15); Aspartate Aminotransferase 24 U/L (15-37); Bilirubin, Total 1.6 mg/dL (0.2-1.0); Calcium 8.5 mg/dL (8.5-10.1); Carbon Dioxide 26 mmol/L (21-32); GFR African American 20 mL/min; GFR Non-African American 17 mL/min; Glucose 137 mg/dL (74-106); Magnesium 2.9 mg/dL (1.6-2.6); Phosphorus 4.3 mg/dL (2.5-4.90); Total Protein 7.1 g/dL (6.4-8.2)
[2021-10-17 13:02] LABS: Blood Urea Nitrogen 110 mg/dL (7-18)
[2021-10-17] MEDS: TPN PER PHARMACY IV NR ×6 (20:00)
[2021-10-18] VITALS (20 sets, daily range): BP systolic 66–131; BP diastolic 28–67
[2021-10-18] MEDS: VASOPRESSIN 50 UNITS in D5W 5% 247.5 ML IV SCH (05:15)
[2021-10-18] MEDS: MORPHINE SULFATE INJECTION 2 MG/ML SYRG IV PRN ×3 (05:19→20:45)
[2021-10-18 05:20] LABS: Potassium 4.9 mmol/L (3.5-5.1)
[2021-10-18 05:27] LABS: Albumin 2.1 g/dL (3.4-5.0); BUN/Creatinine Ratio 26.1; Bilirubin, Total 1.8 mg/dL (0.2-1.0); Calcium 8.1 mg/dL (8.5-10.1); Magnesium 2.3 mg/dL (1.6-2.6); Phosphorus 4.1 mg/dL (2.5-4.90); Total Protein 6.8 g/dL (6.4-8.2)
[2021-10-18] MEDS: InsuLIN REG 1unit/0.01ml Soln (100units/ml) SC SCH ×4 (06:00→18:27)
[2021-10-18] MEDS: ACCU-CHEK COMFORT CURVE STRIP VI SCH ×4 (06:00→18:28)
[2021-10-18] MEDS: PROPOFOL 100 ML IV SCH (06:20)
[2021-10-18] MEDS: SODIUM CHLOR 0.9% PF (SALINE LOCK) 10ML VIAL/SYR IV SCH ×2 (10:00→22:00)
[2021-10-18] MEDS: PANTOPRAZOLE 40 MG/10 ML VIAL INJ IV SCH ×2 (10:00→21:56)
[2021-10-18] MEDS: NOREPINEPHRINE 8 MG/250ML KIT 250 ML IV SCH (10:45)
[2021-10-18] MEDS ORDERED: ROCURONIUM 10MG/ML 10ML VIAL IV ONE (13:45)
[2021-10-18] MEDS ORDERED: fentaNYL CITRATE 100 MCG/2 ML VL ONE (14:07)
[2021-10-18] MEDS ORDERED: MIDAZOLAM HCL 2MG/2ML 2ml VIAL (1mg/ml) ONE (14:07)
[2021-10-18] MEDS ORDERED: ceFAZolin 1GM VL ONE (14:19)
[2021-10-18] MEDS ORDERED: PHENYLEPHRINE HCL 10 MG/ML VL ONE (14:19)
[2021-10-18] MEDS ORDERED: SODIUM CHLORIDE LOCK 10 ML ONE (14:19)
[2021-10-18] MEDS ORDERED: HYDROmorphone HCL 2 MG/ML VL ONE (15:48)
[2021-10-18] MEDS: TPN PER PHARMACY IV NR ×6 (19:59)
[2021-10-18] MEDS ORDERED: TPN PER PHARMACY IV NR ×9 (20:00)
[2021-10-19] VITALS (21 sets, daily range): BP systolic 78–140; BP diastolic 30–84
[2021-10-19] MEDS: ACCU-CHEK COMFORT CURVE STRIP VI SCH ×4 (00:11→18:21)
[2021-10-19] MEDS: InsuLIN REG 1unit/0.01ml Soln (100units/ml) SC SCH ×5 (00:11→18:21)
[2021-10-19] MEDS: MORPHINE SULFATE INJECTION 2 MG/ML SYRG IV PRN ×4 (01:01→19:51)
[2021-10-19 03:42] LABS: Hemoglobin 7.2 g/dL (13.5-17.5); Lymphocytes # (auto) 0.9 10 ^3/uL (0.4-5.4); Mean Corpuscular Volume 90.9 fL (80.0-100.0); Monocytes # (auto) 0.3 10 ^3/uL (0-1.3); White Blood Cell 4.3 10^3/uL (4.4-10.8)
[2021-10-19 03:47] LABS: Basophils # (auto) 0.2 10 ^3/uL (0-0.2); Basophils % (auto) 3.5 % (0.0-2.0); Eosinophils # (auto) 0.1 10 ^3/uL (0-0.8); Eosinophils % (auto) 2.1 % (0.0-7.0); Hematocrit 22.3 % (41.0-53.0); Mean Corpuscular Hemoglobin 29.3 pg (28.0-32.0); Mean Corpuscular Hgb Conc. 32.2 g/dL (32.0-36.0); Monocytes % (auto) 7.4 % (0.0-12.0); Neutrophils # (auto) 2.8 10 ^3/uL (1.6-8.6); Nucleated Red Blood Cells % 0.1 %; Red Blood Cells 2.46 10^6/uL (4.5-5.90)
[2021-10-19 03:59] LABS: Red Cell Distribution Width 20.7 % (11.8-14.3)
[2021-10-19 04:01] LABS: Potassium 4.8 mmol/L (3.5-5.1)
[2021-10-19 04:06] LABS: Albumin 1.9 g/dL (3.4-5.0); Calcium 7.9 mg/dL (8.5-10.1); Magnesium 1.7 mg/dL (1.6-2.6)
[2021-10-19 04:08] LABS: Bilirubin, Total 1.7 mg/dL (0.2-1.0); Phosphorus 4.1 mg/dL (2.5-4.90); Total Protein 6.5 g/dL (6.4-8.2)
[2021-10-19 04:37] LABS: BUN/Creatinine Ratio 28.5
[2021-10-19] MEDS: PROPOFOL 100 ML IV SCH (06:20)
[2021-10-19] MEDS: PANTOPRAZOLE 40 MG/10 ML VIAL INJ IV SCH ×2 (10:15→21:23)
[2021-10-19] MEDS: SODIUM CHLOR 0.9% PF (SALINE LOCK) 10ML VIAL/SYR IV SCH ×2 (10:15→21:23)
[2021-10-19] MEDS: NOREPINEPHRINE 8 MG/250ML KIT 250 ML IV SCH (10:45)
[2021-10-19] MEDS ORDERED: SODIUM CHL 0.9% 1000 ML BAG XX ONE (16:30)
[2021-10-19] MEDS ORDERED: TPN PER PHARMACY IV NR ×8 (20:00)
[2021-10-19] MEDS ORDERED: EPOETIN ALFA-EPBX 10,000 UNIT/1ML VIAL SC ONE (21:00)
[2021-10-19] MEDS: VASOPRESSIN 50 UNITS in D5W 5% 247.5 ML IV SCH (21:00)
[2021-10-20] VITALS (41 sets, daily range): BP systolic 86–168; BP diastolic 23–78
[2021-10-20 03:36] LABS: Albumin 1.8 g/dL (3.4-5.0); BUN/Creatinine Ratio 25.9; Calcium 7.7 mg/dL (8.5-10.1); Magnesium 1.7 mg/dL (1.6-2.6); Potassium 3.9 mmol/L (3.5-5.1)
[2021-10-20 03:39] LABS: Bilirubin, Total 2.1 mg/dL (0.2-1.0); Phosphorus 3.1 mg/dL (2.5-4.90); Total Protein 6.3 g/dL (6.4-8.2)
[2021-10-20] MEDS: VASOPRESSIN 50 UNITS in D5W 5% 247.5 ML IV SCH (05:15)
[2021-10-20] MEDS: PROPOFOL 100 ML IV SCH (05:54)
[2021-10-20] MEDS: ACCU-CHEK COMFORT CURVE STRIP VI SCH ×4 (06:24→18:00)
[2021-10-20] MEDS: InsuLIN REG 1unit/0.01ml Soln (100units/ml) SC SCH ×4 (06:25→18:00)
[2021-10-20] MEDS: MORPHINE SULFATE INJECTION 2 MG/ML SYRG IV PRN (08:15)
[2021-10-20] MEDS: LORazepam 2MG/ML-1ML VIAL IV PRN (08:16)
[2021-10-20] MEDS: PANTOPRAZOLE 40 MG/10 ML VIAL INJ IV SCH ×2 (09:49→20:30)
[2021-10-20] MEDS: SODIUM CHLOR 0.9% PF (SALINE LOCK) 10ML VIAL/SYR IV SCH ×2 (09:49→20:31)
[2021-10-20] MEDS: NOREPINEPHRINE 8 MG/250ML KIT 250 ML IV SCH ×2 (09:50→22:25)
[2021-10-20] MEDS ORDERED: fentaNYL CITRATE 10 ML ONE (14:34)
[2021-10-20] MEDS ORDERED: MIDAZOLAM HCL 2MG/2ML 2ml VIAL (1mg/ml) ONE (15:00)
[2021-10-20] MEDS ORDERED: ceFAZolin 1GM/50ML 50 ML IV ONE (15:07)
[2021-10-20] MEDS ORDERED: TPN PER PHARMACY IV NR ×11 (20:00)
[2021-10-20] MEDS: METOCLOPRAMIDE HCL 5MG/ml INJ 2ml VIAL IV SCH (22:00)
[2021-10-20 22:25] LABS: Basophils # (auto) 0.1 10 ^3/uL (0-0.2); Hemoglobin 7.6 g/dL (13.5-17.5); Neutrophils # (auto) 3.8 10 ^3/uL (1.6-8.6); Red Blood Cells 2.61 10^6/uL (4.5-5.90)
[2021-10-20 22:27] LABS: Basophils % (auto) 1.6 % (0.0-2.0); Eosinophils # (auto) 0 10 ^3/uL (0-0.8); Eosinophils % (auto) 0.8 % (0.0-7.0); Hematocrit 23.1 % (41.0-53.0); Lymphocytes # (auto) 0.8 10 ^3/uL (0.4-5.4); Lymphocytes % (auto) 16.6 % (10.0-50.0); Mean Corpuscular Hgb Conc. 32.8 g/dL (32.0-36.0); Mean Corpuscular Volume 88.3 fL (80.0-100.0); Monocytes # (auto) 0.2 10 ^3/uL (0-1.3); Monocytes % (auto) 4.9 % (0.0-12.0); Neutrophils % (auto) 76.1 % (37.0-80.0); Nucleated Red Blood Cells % 0.1 %; Red Cell Distribution Width 19.1 % (11.8-14.3)
[2021-10-20 22:47] LABS: Calcium 7.9 mg/dL (8.5-10.1); Magnesium 2.4 mg/dL (1.6-2.6); Potassium 3.8 mmol/L (3.5-5.1)
[2021-10-20 22:50] LABS: BUN/Creatinine Ratio 27.4; Bilirubin, Total 2.8 mg/dL (0.2-1.0); Total Protein 6.4 g/dL (6.4-8.2)
[2021-10-21] VITALS (36 sets, daily range): BP systolic 82–211; BP diastolic 24–113
[2021-10-21] MEDS: LORazepam 2MG/ML-1ML VIAL IV PRN (01:27)
[2021-10-21] MEDS: MORPHINE SULFATE INJECTION 2 MG/ML SYRG IV PRN ×5 (01:27→16:12)
[2021-10-21] MEDS: VASOPRESSIN 50 UNITS in D5W 5% 247.5 ML IV SCH (05:15)
[2021-10-21] MEDS: InsuLIN REG 1unit/0.01ml Soln (100units/ml) SC SCH ×4 (06:00→18:00)
[2021-10-21] MEDS: Ensure Enlive Vanilla 8oz Bottle PO SCH ×14 (06:00→21:00)
[2021-10-21] MEDS: METOCLOPRAMIDE HCL 5MG/ml INJ 2ml VIAL IV SCH ×3 (06:11→21:30)
[2021-10-21] MEDS: ACCU-CHEK COMFORT CURVE STRIP VI SCH ×4 (06:13→18:16)
[2021-10-21] MEDS: PROPOFOL 100 ML IV SCH ×3 (06:20→15:00)
[2021-10-21] MEDS: SODIUM CHLOR 0.9% PF (SALINE LOCK) 10ML VIAL/SYR IV SCH ×2 (09:48→21:30)
[2021-10-21] MEDS: PANTOPRAZOLE 40 MG/10 ML VIAL INJ IV SCH ×2 (09:48→21:29)
[2021-10-21 11:33] LABS: Calcium 8.1 mg/dL (8.5-10.1); Magnesium 1.9 mg/dL (1.6-2.6); Potassium 3.8 mmol/L (3.5-5.1)
[2021-10-21 11:38] LABS: BUN/Creatinine Ratio 26.9; Bilirubin, Total 3.4 mg/dL (0.2-1.0); Phosphorus 3.1 mg/dL (2.5-4.90); Total Protein 6.8 g/dL (6.4-8.2)
[2021-10-21] MEDS ORDERED: ALBUMIN 25% 100 ML IV PRN (12:30)
[2021-10-21] MEDS ORDERED: TPN PER PHARMACY IV NR ×10 (20:00)
[2021-10-22] VITALS (31 sets, daily range): BP systolic 68–173; BP diastolic 18–98
[2021-10-22] MEDS: PROPOFOL 100 ML IV SCH ×2 (02:30→14:26)
[2021-10-22 05:10] LABS: Eosinophils # (auto) 0.2 10 ^3/uL (0-0.8); Hematocrit 21.8 % (41.0-53.0); Lymphocytes # (auto) 1.3 10 ^3/uL (0.4-5.4); Monocytes # (auto) 0.4 10 ^3/uL (0-1.3)
[2021-10-22 05:17] LABS: Basophils # (auto) 0.1 10 ^3/uL (0-0.2); Basophils % (auto) 1.5 % (0.0-2.0); Eosinophils % (auto) 2.7 % (0.0-7.0); Lymphocytes % (auto) 14.3 % (10.0-50.0); Mean Corpuscular Hemoglobin 28.7 pg (28.0-32.0); Mean Corpuscular Hgb Conc. 32.1 g/dL (32.0-36.0); Mean Corpuscular Volume 89.6 fL (80.0-100.0); Monocytes % (auto) 4.3 % (0.0-12.0); Neutrophils # (auto) 6.8 10 ^3/uL (1.6-8.6); Neutrophils % (auto) 77.2 % (37.0-80.0); Red Blood Cells 2.44 10^6/uL (4.5-5.90); Red Cell Distribution Width 19.8 % (11.8-14.3); White Blood Cell 8.9 10^3/uL (4.4-10.8)
[2021-10-22] MEDS: METOCLOPRAMIDE HCL 5MG/ml INJ 2ml VIAL IV SCH ×3 (05:17→20:57)
[2021-10-22] MEDS: ACCU-CHEK COMFORT CURVE STRIP VI SCH ×4 (05:18→18:00)
[2021-10-22] MEDS: InsuLIN REG 1unit/0.01ml Soln (100units/ml) SC SCH ×4 (05:18→18:00)
[2021-10-22 05:36] LABS: Potassium 3.8 mmol/L (3.5-5.1)
[2021-10-22 05:40] LABS: Albumin 2.6 g/dL (3.4-5.0); Calcium 8.7 mg/dL (8.5-10.1)
[2021-10-22 05:57] LABS: Phosphorus 2.5 mg/dL (2.5-4.90); Total Protein 6.4 g/dL (6.4-8.2)
[2021-10-22 06:35] LABS: Pre Albumin 8.6 mg/dL (20.0-40.0)
[2021-10-22] MEDS: MORPHINE SULFATE INJECTION 2 MG/ML SYRG IV PRN (08:55)
[2021-10-22] MEDS ORDERED: GLYCOPYRROLATE 0.2 MG/ML 1ML VIAL ONE (09:41)
[2021-10-22] MEDS ORDERED: LIDOCAINE HCL 2% TOP JELLY 5ML TOP ONE (09:41)
[2021-10-22] MEDS ORDERED: SODIUM CHLORIDE LOCK 20 ML ONE (09:41)
[2021-10-22] MEDS ORDERED: EPINEPHrine HCL 1 MG/1 ML AMP ONE (09:41)
[2021-10-22] MEDS ORDERED: LIDOCAINE 2%HCL (LOCAL ANESTH.) INJ 20ML MDV ONE (09:41)
[2021-10-22] MEDS: PANTOPRAZOLE 40 MG/10 ML VIAL INJ IV SCH ×2 (09:54→20:57)
[2021-10-22] MEDS: SODIUM CHLOR 0.9% PF (SALINE LOCK) 10ML VIAL/SYR IV SCH ×2 (10:03→20:57)
[2021-10-22] MEDS ORDERED: fentaNYL Drip 2500mCg/250mlNS 250 ML IV ONE (11:06)
[2021-10-22] MEDS: fentaNYL Drip 2500mCg/250mlNS 250 ML IV SCH (11:22)
[2021-10-22] MEDS: NOREPINEPHRINE BITARTRATE 32 MG in SODIUM CHL 0.9% 218 ML IV SCH (14:15)
[2021-10-22] MEDS ORDERED: TPN PER PHARMACY IV NR ×10 (20:00)
[2021-10-22] MEDS: PHENYLEPHRINE IV 250 ML IV SCH (22:39)
[2021-10-23] VITALS (18 sets, daily range): BP systolic 76–144; BP diastolic 15–111
[2021-10-23] MEDS: ACCU-CHEK COMFORT CURVE STRIP VI SCH ×3 (00:15→12:00)
[2021-10-23] MEDS: PHENYLEPHRINE IV 250 ML IV SCH ×3 (02:01→11:30)
[2021-10-23] MEDS: VASOPRESSIN 50 UNITS in D5W 5% 247.5 ML IV SCH ×3 (02:19→11:00)
[2021-10-23 05:08] LABS: Calcium 7.9 mg/dL (8.5-10.1); Magnesium 3.3 mg/dL (1.6-2.6); Potassium 4.2 mmol/L (3.5-5.1)
[2021-10-23 05:11] LABS: BUN/Creatinine Ratio 23.7; Bilirubin, Total 3.9 mg/dL (0.2-1.0); Phosphorus 4.8 mg/dL (2.5-4.90); Total Protein 5.7 g/dL (6.4-8.2)
[2021-10-23] MEDS: InsuLIN REG 1unit/0.01ml Soln (100units/ml) SC SCH ×3 (05:53→12:00)
[2021-10-23] MEDS: METOCLOPRAMIDE HCL 5MG/ml INJ 2ml VIAL IV SCH ×3 (06:00→14:30)
[2021-10-23] MEDS: PROPOFOL 100 ML IV SCH ×2 (06:13→13:27)
[2021-10-23] MEDS ORDERED: SODIUM CHL 0.9% 1000 ML BAG XX ONE (07:00)
[2021-10-23] MEDS ORDERED: DOPamine 1600MCG/ML D5W 250 ML IV ONE (07:58)
[2021-10-23] MEDS ORDERED: DOPamine 1600MCG/ML D5W 250 ML IV SCH (08:00)
[2021-10-23] MEDS: SODIUM CHLOR 0.9% PF (SALINE LOCK) 10ML VIAL/SYR IV SCH (10:00)
[2021-10-23] MEDS: PANTOPRAZOLE 40 MG/10 ML VIAL INJ IV SCH (10:00)
[2021-10-23] MEDS ORDERED: EPINEPHrine HCL 250 ML IV ONE (10:34)
[2021-10-23] MEDS: fentaNYL Drip 2500mCg/250mlNS 250 ML IV SCH (11:00)
[2021-10-23] MEDS: NOREPINEPHRINE BITARTRATE 32 MG in SODIUM CHL 0.9% 218 ML IV SCH (14:45)
[2021-10-23] MEDS ORDERED: TPN PER PHARMACY IV NR ×6 (20:00)
[2021-10-23] MEDS ORDERED: EPOETIN ALFA-EPBX 10,000 UNIT/1ML VIAL SC ONE (21:00)
== END 2021-10-23 19:24 | DRG 4 ==
LOC: EDBD 05:26 → ER 05:26 → TELE 10:29 → CATH ICU 09-29 16:33
PROVIDERS: ADMIT Internal Medicine; ATTEND Internal Medicine
PROC: 5A1955Z Respiratory Ventilation, Greater than 96 Consecutive Hours (ICD-10-PCS; 2021-09-25)
PROC: 0BH17EZ Insertion of Endotracheal Airway into Trachea, Via Natural or Artificial Opening (ICD-10-PCS; 2021-09-25)
PROC: 02HV33Z Insertion of Infusion Device into Superior Vena Cava, Percutaneous Approach (ICD-10-PCS; 2021-09-26)
PROC: 5A1D70Z Performance of Urinary Filtration, Intermittent, Less than 6 Hours Per Day (ICD-10-PCS; 2021-09-28)
PROC: 5A1D70Z Performance of Urinary Filtration, Intermittent, Less than 6 Hours Per Day (ICD-10-PCS; 2021-09-30)
PROC: 5A1D70Z Performance of Urinary Filtration, Intermittent, Less than 6 Hours Per Day (ICD-10-PCS; 2021-10-06)
PROC: 5A1D70Z Performance of Urinary Filtration, Intermittent, Less than 6 Hours Per Day (ICD-10-PCS; 2021-10-08)
PROC: 5A1D70Z Performance of Urinary Filtration, Intermittent, Less than 6 Hours Per Day (ICD-10-PCS; 2021-10-11)
PROC: 5A1D70Z Performance of Urinary Filtration, Intermittent, Less than 6 Hours Per Day (ICD-10-PCS; 2021-10-13)
PROC: 0JB70ZZ Excision of Back Subcutaneous Tissue and Fascia, Open Approach (ICD-10-PCS; 2021-10-14)
PROC: 30233N1 Transfusion of Nonautologous Red Blood Cells into Peripheral Vein, Percutaneous Approach (ICD-10-PCS; 2021-10-15)
PROC: 5A1D70Z Performance of Urinary Filtration, Intermittent, Less than 6 Hours Per Day (ICD-10-PCS; 2021-10-15)
PROC: 0B110F4 Bypass Trachea to Cutaneous with Tracheostomy Device, Open Approach (ICD-10-PCS; principal; 2021-10-17)
PROC: 0DJ08ZZ Inspection of Upper Intestinal Tract, Via Natural or Artificial Opening Endoscopic (ICD-10-PCS; 2021-10-18)
PROC: 0DH63UZ Insertion of Feeding Device into Stomach, Percutaneous Approach (ICD-10-PCS; 2021-10-18)
PROC: 5A1D70Z Performance of Urinary Filtration, Intermittent, Less than 6 Hours Per Day (ICD-10-PCS; 2021-10-19)
PROC: 0DH63UZ Insertion of Feeding Device into Stomach, Percutaneous Approach (ICD-10-PCS; 2021-10-20)
PROC: 0DH63UZ Insertion of Feeding Device into Stomach, Percutaneous Approach (ICD-10-PCS; 2021-10-20)
PROC: 5A1D70Z Performance of Urinary Filtration, Intermittent, Less than 6 Hours Per Day (ICD-10-PCS; 2021-10-21)
PROC: 0B918ZZ Drainage of Trachea, Via Natural or Artificial Opening Endoscopic (ICD-10-PCS; 2021-10-22)
DX: A41.51 Sepsis due to Escherichia coli [E. coli] (principal); J15.6 Pneumonia due to other Gram-negative bacteria; R65.21 Severe sepsis with septic shock; J96.01 Acute respiratory failure with hypoxia; N18.6 End stage renal disease; I50.43 Acute on chronic combined systolic (congestive) and diastolic (congestive) heart failure; C79.9 Secondary malignant neoplasm of unspecified site; E44.0 Moderate protein-calorie malnutrition; C20 Malignant neoplasm of rectum; E87.4 Mixed disorder of acid-base balance; I42.8 Other cardiomyopathies; I13.2 Hypertensive heart and chronic kidney disease with heart failure and with stage 5 chronic kidney disease, or end stage renal disease; M86.8X7 Other osteomyelitis, ankle and foot; J98.11 Atelectasis; J91.8 Pleural effusion in other conditions classified elsewhere; J44.0 Chronic obstructive pulmonary disease with (acute) lower respiratory infection; Z99.11 Dependence on respirator [ventilator] status; Z68.1 Body mass index [BMI] 19.9 or less, adult; Z99.2 Dependence on renal dialysis; J44.9 Chronic obstructive pulmonary disease, unspecified; Z93.3 Colostomy status; R13.10 Dysphagia, unspecified; Z66 Do not resuscitate; I48.0 Paroxysmal atrial fibrillation; F32.A Depression, unspecified; F41.9 Anxiety disorder, unspecified; E03.9 Hypothyroidism, unspecified; E10.621 Type 1 diabetes mellitus with foot ulcer; Z85.038 Personal history of other malignant neoplasm of large intestine; D63.1 Anemia in chronic kidney disease; E88.09 Other disorders of plasma-protein metabolism, not elsewhere classified; K29.70 Gastritis, unspecified, without bleeding; E10.22 Type 1 diabetes mellitus with diabetic chronic kidney disease; E10.69 Type 1 diabetes mellitus with other specified complication; E78.5 Hyperlipidemia, unspecified; I25.10 Atherosclerotic heart disease of native coronary artery without angina pectoris; R56.9 Unspecified convulsions; R79.89 Other specified abnormal findings of blood chemistry; R74.8 Abnormal levels of other serum enzymes; L89.150 Pressure ulcer of sacral region, unstageable; L89.011 Pressure ulcer of right elbow, stage 1; L89.111 Pressure ulcer of right upper back, stage 1; L89.221 Pressure ulcer of left hip, stage 1; L97.509 Non-pressure chronic ulcer of other part of unspecified foot with unspecified severity; Z51.5 Encounter for palliative care; Z20.822 Contact with and (suspected) exposure to COVID-19; S31.000A Unspecified open wound of lower back and pelvis without penetration into retroperitoneum, initial encounter; X58.XXXA Exposure to other specified factors, initial encounter; Z79.02 Long term (current) use of antithrombotics/antiplatelets; Z79.4 Long term (current) use of insulin; Z82.3 Family history of stroke; Z82.49 Family history of ischemic heart disease and other diseases of the circulatory system; Z83.3 Family history of diabetes mellitus; Z85.048 Personal history of other malignant neoplasm of rectum, rectosigmoid junction, and anus; Z86.718 Personal history of other venous thrombosis and embolism; Z86.73 Personal history of transient ischemic attack (TIA), and cerebral infarction without residual deficits; Z98.61 Coronary angioplasty status; Y93.89 Activity, other specified; Y92.89 Other specified places as the place of occurrence of the external cause; Y99.8 Other external cause status
CPT/HCPCS: 31500; 36415; 36569; 36600; 51702; 71045; 73660; 76705; 80048; 80053; 80202; 82040; 82270; 82805; 82962; 83735; 83880; 84100; 84436; 84439; 84443; 84478; 84480; 84481; 84484; 85007; 85025; 85027; 85610; 85730; 86850; 86900; 86901; 86920; 87040; 87070; 87075; 87077; 87081; 87186; 87205; 87426; 90935; 93005; 93306; 94002; 94003; 99291; C9113; G0378; J0171; J0690; J0696; J1100; J1642; J1815; J2250; J2543; J2704; J3480; J3490; J7060; J7131; P9047